=== PATIENT | female | born 1945 | race Caucasian/White ===

== ENCOUNTER 2018-05-19 13:01 | Emergency (ER) | payer MEDICARE ==
[2018-05-19 13:40] VITALS: PULSE 70; O2SAT 97
[2018-05-19] MEDS ORDERED: Sodium Chloride 0.9% 1000 ML 1,000 ML IV STA (14:02)
--- NOTE | 2018-05-19 14:02 | ERPHSYRPT ---
- History of Present Illness Time Seen by Provider: 05/19/18 13:48 Source: patient Exam Limitations: no limitations Patient Subjective Stated Complaint: diarrhea since yesterday night. no abdominal pain. has had indigestion Triage Nursing Assessment: alert and oriented. diarrhea since lst night. hypo active BSx4. has had indigestion staes spit up. but did not vomit. Physician History: 72-year-old white female with history of arrhythmia, coronary artery disease, high blood pressure Patient arrives with complaint of multiple loose stool since last night she states she's had for 5 she denies any abdominal pain but states her belly is grumbling. No nausea no vomiting. Past medical history includes arrhythmia, coronary artery disease, high blood pressure Past surgical history includes , tubal ligation Social history patient denies tobacco alcohol or illicit drug use. Timing/Duration: yesterday Severity: moderate Modifying Factors: Improves With: nothing Associated Symptoms: other (diarrhea), No nausea, No vomiting, No abdominal pain , No shortness of breath, No heartburn, No diaphoresis, No cough, No chills, No chest pain, No fever, No headaches, No loss of appetite, No malaise, No rash, No syncope, No seizure, No weakness Allergies/Adverse Reactions: clarithromycin [From Biaxin] Allergy (Verified 05/19/18 13:44) Home Medications: Albuterol Sulfate [Proair Hfa] 8.5 gm IH QIDPRN PRN 07/21/14 [History] Carvedilol 6.25 mg [Coreg 6.25 MG] 6.25 mg PO BID 07/21/14 [History] Ergocalciferol (Vitamin D2) [Vitamin D] 50,000 unit PO WEEKLY 07/21/14 [History] Escitalopram Oxalate [Lexapro] 20 mg PO DAILY 07/21/14 [History] Potassium Chloride 20 meq PO DAILY 07/21/14 [History] Simvastatin 40 mg [Zocor 40 mg] 40 mg PO HS 07/21/14 [History] Hx Tetanus, Diphtheria Vaccination/Date Given: Yes (UNKNOWN) Hx Influenza Vaccination/Date Given: No Hx Pneumococcal Vaccination/Date Given: No - Review of Systems Constitutional: No Fever, No Chills Eyes: No Symptoms Ears, Nose, & Throat: No Symptoms Respiratory: No Cough, No Dyspnea Cardiac: No Chest Pain, No Edema, No Syncope Abdominal/Gastrointestinal: Diarrhea, No Abdominal Pain, No Nausea, No Vomiting , No Constipation, No Hematemesis, No Hematochezia, No Melena, No Dysphagia, No Appetite Changes Genitourinary Symptoms: No Dysuria Musculoskeletal: No Back Pain, No Neck Pain Skin: No Rash Neurological: No Dizziness, No Focal Weakness, No Sensory Changes Psychological: No Symptoms Endocrine: No Symptoms All Other Systems: Reviewed and Negative - Past Medical History Pertinent Past Medical History: Yes Cardiac History: Arrhythmia, Coronary Artery Disease, Hypertension - Past Surgical History Past Surgical History: Yes - Social History Smoking Status: Never smoker Exposure to second hand smoke: No Drug Use: none Patient Lives Alone: No Significant Family History: no pertinent family hx - Female History Hx Now: No - Nursing Vital Signs Nursing Vital Signs: Initial Vital Signs Temperature 97.8 F 05/19/18 13:33 Pulse Rate 70 05/19/18 13:33 Respiratory Rate 18 05/19/18 13:33 Blood Pressure 93/53 05/19/18 13:33 O2 Sat by Pulse Oximetry 97 05/19/18 13:33 Pain Scale Pain Intensity 0 - Physical Exam General Appearance: no apparent distress, alert Eye Exam: PERRL/EOMI, eyes nml inspection Ears, Nose, Throat Exam: normal ENT inspection, TMs normal, pharynx normal, moist mucous membranes Neck Exam: normal inspection, non-tender, supple, full range of motion Respiratory Exam: normal breath sounds, lungs clear, No respiratory distress Cardiovascular Exam: regular rate/rhythm, normal heart sounds, normal peripheral pulses Gastrointestinal/Abdomen Exam: soft, normal bowel sounds, tenderness, distention (mildly distended), No mass, No ecchymosis, No pulsatile mass, No rebound, No hernia, No hepatomegaly, No organomegaly, No splenomegaly Back Exam: normal inspection, normal range of motion, No CVA tenderness, No vertebral tenderness Extremity Exam: normal inspection, normal range of motion, pelvis stable Neurologic Exam: alert, oriented x 3, cooperative, normal mood/affect, nml cerebellar function, nml station & gait, sensation nml, No motor deficits Skin Exam: normal color, warm, dry, No rash SpO2 Interpretation: normal (97%) SpO2: 97 Oxygen Delivery: Room Air - Course Nursing assessment & vital signs reviewed: Yes Ordered Tests: Active Orders 24 hr Category Date Time Status IV Insertion STAT Care 05/19/18 14:02 Active Orthostatic Vital Signs STAT Care 05/19/18 14:03 Active AMYLASE Stat Lab 05/19/18 14:15 Completed CBC W DIFF Stat Lab 05/19/18 14:15 Completed CMP Stat Lab 05/19/18 14:15 Completed LIPASE Stat Lab 05/19/18 14:15 Completed Occult Blood,Stool Other Stat Lab 05/19/18 14:02 Completed Medication Summary Discontinued Medications Generic Name Dose Route Start Last Admin Trade Name Freq PRN Reason Stop Dose Admin Sodium Chloride 1,000 mls @ 999 mls/hr 05/19/18 14:02 05/19/18 14:27 Sodium Chloride 0.9% 1000 Ml IV 05/19/18 15:02 999 mls/hr .Q1H1M STA Administration Sodium Chloride Confirm 05/19/18 14:24 Sodium Chloride 0.9% 1000 Ml Administered 05/19/18 14:25 Dose 1,000 mls @ ud .ROUTE .STK-MED ONE Promethazine HCl 12.5 mg 05/19/18 14:20 05/19/18 14:27 Phenergan 25 Mg Inj IV 05/19/18 14:21 12.5 mg STAT ONE Administration Promethazine HCl Confirm 05/19/18 14:23 Phenergan 25 Mg Inj Administered 05/19/18 14:24 Dose 25 mg .ROUTE .STK-MED ONE Lab/Rad Data: Laboratory Result Diagrams 05/19/18 14:15 05/19/18 14:15 Laboratory Results 05/19/18 05/19/18 05/19/18 Range/Units 14:15 14:15 14:02 WBC 6.6 (4.0-10.5) K/mm3 RBC 3.86 L (4.1-5.4) M/mm3 Hgb 11.8 L (12.0-16.0) gm/dl Hct 36.0 (35-47) % MCV 93.3 (78-100) fl MCH 30.5 (26-32) pg MCHC 32.8 (32-36) g/dl RDW 13.2 (11.5-14.0) % Plt Count 151 (150-450) K/mm3 MPV 12.3 H (6-9.5) fl Gran % 82.4 H (36.0-66.0) % Eos # (Auto) 0.14 (0-0.5) Absolute Lymphs (auto) 0.61 L (1.0-4.6) Absolute Monos (auto) 0.40 (0.0-1.3) Lymphocytes % 9.2 L (24.0-44.0) % Monocytes % 6.0 (0.0-12.0) % Eosinophils % 2.1 (0.00-5.0) % Basophils % 0.3 (0.0-0.4) % Absolute Granulocytes 5.47 (1.4-6.9) Basophils # 0.02 (0-0.4) Sodium 138 (137-145) mmol/L Potassium 4.2 (3.5-5.1) mmol/L Chloride 106 (98-107) mmol/L Carbon Dioxide 20 L (22-30) mmol/L Anion Gap 15.2 H (5-15) MEQ/L BUN 26 H (7-17) mg/dL Creatinine 0.82 (0.52-1.04) mg/dL Estimated GFR > 60.0 ML/MIN Glucose 100 (74-106) mg/dL Calcium 8.5 (8.4-10.2) mg/dL Total Bilirubin 0.60 (0.2-1.3) mg/dL AST 26 (14-36) U/L ALT 23 (0-35) U/L Alkaline Phosphatase 56 (38-126) U/L Serum Total Protein 7.4 (6.3-8.2) g/dL Albumin 4.3 (3.5-5.0) g/dL Amylase 117 H (30-110) U/L Lipase 158 (23-300) U/L Stool Occult Blood POSITIVE (Negative) - Progress Progress: improved Progress Note: 05/19/18 16:16 72-year-old white female with history of arrhythmia coronary artery disease and hypertension arrives with complaint of loose stools since yesterday. She states she feels gassy but no real abdominal pain. Patient's chemistry CBC are within normal limits patient is unable to provide stool for C. difficile. Patient with hematemesis which is positive however it is occult and her stool is brown. Patient feeling better after 1 L of fluids. She is taking Imodium at home, however patient feels this is not working, will place patient on Lomotil. Will plan to discharge patient place patient on clear fluids 24-48 hours patient will need to follow-up with her family doctor due to finding of occult blood in her stool. Patient's hemoglobin and hematocrit are stable with hemoglobin 11.8 hematocrit 36.0 patient's white count of 6.6 chemistry is essentially normal with the exception of a mildly elevated amylase of 117 a BUN of 26 and a anion gap of 15.2 patient was given 1 L of normal saline. 05/19/18 16:50 - Departure Time of Disposition: 16:18 Departure Disposition: Home Clinical Impression: Occult blood positive stool Diarrhea Qualifiers: Diarrhea type: unspecified type Qualified Code(s): R19.7 - Diarrhea, unspecified Condition: Fair Critical Care Time: No Referrals: LESTER FRAUSTO MD [Primary Care Provider] - Instructions: Viral Gastroenteritis, Adult (DC) Additional Instructions: Return home. Plenty of fluids clear fluids only 24-48 hours if abdominal pain, nausea, vomiting, or diarrhea. lomotil as directed Follow-up with your family doctor call Sunday and schedule an appointment. Return for acute distress or for severe symptoms. Prescriptions: Diphenoxylate HCl/Atropine [Lomotil] 1 tab PO QIDPRN PRN #12 tablet PRN Reason: Diarrhea
[2018-05-19 14:20] VITALS: BP 96/50
[2018-05-19] MEDS ORDERED: Phenergan 25 MG INJ IV ONE (14:20)
[2018-05-19] MEDS ORDERED: Phenergan 25 MG INJ ONE (14:23)
[2018-05-19] MEDS ORDERED: Sodium Chloride 0.9% 1000 ML 1,000 ML ONE (14:24)
[2018-05-19 14:27] LABS: BASOPHIL % 0.3 % (0.0-0.4); Basophil (Absolute #) 0.02 (0-0.4); Eosinophil % 2.1 % (0.00-5.0); Eosinophil (Absolute #) 0.14 (0-0.5); Granulocyte Absolute (ANC) 5.47 (1.4-6.9); Granulocytes % 82.4 % (36.0-66.0); Hemoglobin 11.8 gm/dl (12.0-16.0); Lymphocyte (Absolute #) 0.61 (1.0-4.6); Lymphocytes % 9.2 % (24.0-44.0); Mean Cell Volume 93.3 fl (78-100); Mean Corpuscular Hgb Concent. 32.8 g/dl (32-36); Mean Platelet Volume 12.3 fl (6-9.5); Platelet Count 151 K/mm3 (150-450); Red Blood Count 3.86 M/mm3 (4.1-5.4); Red Cell Distribution Width 13.2 % (11.5-14.0); White Blood Count 6.6 K/mm3 (4.0-10.5)
[2018-05-19 14:37] LABS: Mean Corpuscular Hemoglobin 30.5 pg (26-32)
[2018-05-19 14:42] LABS: ALBUMIN 4.3 g/dL (3.5-5.0); ALKALINE PHOSPHATASE 56 U/L (38-126); AMYLASE 117 U/L (30-110); ANION GAP 15.2 MEQ/L (5-15); BLOOD UREA NITROGEN 26 mg/dL (7-17); CHLORIDE 106 mmol/L (98-107); Calcium 8.5 mg/dL (8.4-10.2); Carbon Dioxide 20 mmol/L (22-30); Creatinine 1 0.82 mg/dL (0.52-1.04); Glucose 100 mg/dL (74-106); LIPASE 158 U/L (23-300); Potassium 4.2 mmol/L (3.5-5.1); SGOT/AST 26 U/L (14-36); SGPT/ALT 23 U/L (0-35); SODIUM 138 mmol/L (137-145); Total Protein 7.4 g/dL (6.3-8.2)
== END 2018-05-19 16:40 | disposition home or self-care (01) ==
LOC: ED 13:01
DX: R19.5 Other fecal abnormalities (principal); R19.7 Diarrhea, unspecified; I25.10 Atherosclerotic heart disease of native coronary artery without angina pectoris; I10 Essential (primary) hypertension
CPT/HCPCS: 36000; 36415; 80053; 82150; 82272; 83690; 85025; 96360; 96374; 99284; J2550

== ENCOUNTER 2019-01-10 17:15 | Emergency (ER) | payer MEDICARE ==
[2019-01-10] MEDS ORDERED: Zofran 4 MG/2 ML VIAL IV ONE (17:35)
[2019-01-10] MEDS ORDERED: Zofran 4 MG/2 ML VIAL ONE (17:38)
--- NOTE | 2019-01-10 18:05 | ERPHSYRPT ---
- History of Present Illness Historian: patient Exam Limitations: clinical condition Patient Subjective Stated Complaint: weakness and nausea /vomiting x 1 today. just feeling bad Triage Nursing Assessment: alert and oriented witn c/o nausea and vomiting x 1 . states she just feels bad. states just feeling weak. PALACIOS. neuro intact. Timing/Duration: today Activities at Onset: none Abdominal Pain Onset Location: epigastric Pain Radiation: no radiation Severity of Pain-Max: mild Severity of Pain-Current: mild Associated Symptoms: nausea, neck pain, weakness Previous symptoms: same symptoms as today Hx Tetanus, Diphtheria Vaccination/Date Given: Yes (UNKNOWN) Hx Influenza Vaccination/Date Given: No Hx Pneumococcal Vaccination/Date Given: No Immunizations Up to Date: (unknown) <ABILIO LANGLEY - Last Filed: 01/10/19 19:05> <LESTER FRAUSTO - Last Filed: 01/10/19 20:36> - History of Present Illness Time Seen by Provider: 01/10/19 17:30 Physician History: PATIENT WITH A HISTORY OF CORONARY ARTERY DISEASE, HYPERTENSION AND COPD COMPLAINS OF GENERALIZED WEAKNESS UPON STANDING, NAUSEA AND EMESIS PRIOR TO ARRIVAL. DENIES HEADACHE, BLURRED VISION, SLURRED SPEECH OR ABDOMINAL PAIN. ( ABILIO LANGLEY) Allergies/Adverse Reactions: clarithromycin [From Biaxin] Allergy (Verified 01/10/19 17:41) Home Medications: Albuterol Sulfate [Proair Hfa] 8.5 gm IH QIDPRN PRN 07/21/14 [History] Carvedilol 6.25 mg [Coreg 6.25 MG] 6.25 mg PO BID 07/21/14 [History] Ergocalciferol (Vitamin D2) [Vitamin D] 50,000 unit PO WEEKLY 07/21/14 [History] Escitalopram Oxalate [Lexapro] 20 mg PO DAILY 07/21/14 [History] Simvastatin 40 mg [Zocor 40 mg] 40 mg PO HS 07/21/14 [History] Sacubitril/Valsartan [Entresto 49 mg-51 mg Tablet] 1 each PO BID 01/10/19 [ History] - Review of Systems Constitutional: No Fever, No Chills Eyes: No Symptoms Ears, Nose, & Throat: No Symptoms Respiratory: No Symptoms, No Cough, No Dyspnea Cardiac: No Symptoms, No Chest Pain, No Edema, No Syncope Abdominal/Gastrointestinal: Abdominal Pain, Nausea, Vomiting, No Diarrhea Genitourinary Symptoms: No Symptoms, No Dysuria Musculoskeletal: No Symptoms, No Back Pain, No Neck Pain Skin: No Symptoms, No Rash Neurological: No Dizziness, No Focal Weakness, No Sensory Changes Psychological: No Symptoms Endocrine: No Symptoms All Other Systems: Reviewed and Negative <KORINABILIO MUSE - Last Filed: 01/10/19 19:05> - Past Medical History Pertinent Past Medical History: Yes Cardiac History: Arrhythmia, Coronary Artery Disease, Hypertension - Past Surgical History Past Surgical History: Yes - Social History Smoking Status: Never smoker Exposure to second hand smoke: Yes Drug Use: none Patient Lives Alone: Yes Significant Family History: no pertinent family hx - Female History Hx Now: No <KORINABILIO MUSE Last Filed: 01/10/19 19:05> - Physical Exam General Appearance: no apparent distress Eye Exam: PERRL/EOMI Ears, Nose, Throat Exam: normal ENT inspection Neck Exam: normal inspection Respiratory Exam: normal breath sounds Cardiovascular Exam: regular rate/rhythm, normal heart sounds Gastrointestinal/Abdomen Exam: soft, normal bowel sounds, tenderness (MINIMAL EPIGASTRIC TENDERNESS) Back Exam: normal inspection Extremity Exam: normal inspection, normal range of motion Neurologic Exam: alert, oriented x 3 Skin Exam: normal color, warm SpO2 Interpretation: normal SpO2: 97 O2 Delivery: Nasal Cannula <ABILIO LANGLEY Last Filed: 01/10/19 19:05> - Nursing Vital Signs Nursing Vital Signs: Initial Vital Signs Temperature 97.8 F 01/10/19 17:15 Pulse Rate 90 01/10/19 17:15 Respiratory Rate 18 01/10/19 17:15 Blood Pressure 132/91 01/10/19 17:15 O2 Sat by Pulse Oximetry 97 01/10/19 17:15 Pain Scale Pain Intensity 0 - Course Nursing assessment & vital signs reviewed: Yes - Radiology Exams Chest X-ray Interpretation: Reviewed by me (no acute changes) <LESTER FRAUSTO - Last Filed: 01/10/19 20:36> Ordered Tests: Active Orders 24 hr Category Date Time Status EKG-ER Only STAT Care 01/10/19 17:35 Active IV Insertion STAT Care 01/10/19 17:35 Active ABDOMEN AND PELVIS W/0 CONTRAS [CT] Stat Exams 01/10/19 18:47 Taken CHEST 1 VIEW (PORTABLE) Stat Exams 01/10/19 19:28 Taken AMYLASE Stat Lab 01/10/19 19:59 Completed CBC W DIFF Stat Lab 01/10/19 19:59 Completed CMP Stat Lab 01/10/19 19:59 Completed Lactic Acid Stat Lab 01/10/19 19:54 Completed TROPONIN Q3H Lab 01/10/19 19:59 Received TROPONIN Q3H Lab 01/10/19 22:30 Ordered TROPONIN Q3H Lab 01/11/19 01:30 Ordered TROPONIN Q3H Lab 01/11/19 04:30 Ordered TROPONIN Q3H Lab 01/11/19 07:30 Ordered Urinalysis with Microscopy Stat Lab 01/10/19 18:40 Completed Medication Summary Discontinued Medications Generic Name Dose Route Start Last Admin Trade Name Freq PRN Reason Stop Dose Admin Sodium Chloride 1,000 mls @ 999 mls/hr 01/10/19 19:28 01/10/19 19:39 Sodium Chloride 0.9% 1000 Ml IV 01/10/19 20:28 999 mls/hr .Q1H1M STA Administration Sodium Chloride Confirm 01/10/19 19:33 Sodium Chloride 0.9% 1000 Ml Administered 01/10/19 19:34 Dose 1,000 mls @ ud .ROUTE .STK-MED ONE Ondansetron HCl 4 mg 01/10/19 17:35 01/10/19 17:42 Zofran 4 Mg/2 Ml Vial IV 01/10/19 17:36 4 mg STAT ONE Administration Ondansetron HCl Confirm 01/10/19 17:38 Zofran 4 Mg/2 Ml Vial Administered 01/10/19 17:39 Dose 4 mg .ROUTE .STK-MED ONE Lab/Rad Data: Laboratory Result Diagrams 01/10/19 19:59 01/10/19 19:59 Laboratory Results 01/10/19 01/10/19 01/10/19 Range/Units 19:59 19:59 19:54 WBC 8.1 (4.0-10.5) K/mm3 RBC 3.66 L (4.1-5.4) M/mm3 Hgb 11.4 L (12.0-16.0) gm/dl Hct 34.9 L (35-47) % MCV 95.4 (78-100) fl MCH 31.1 (26-32) pg MCHC 32.7 (32-36) g/dl RDW 12.5 (11.5-14.0) % Plt Count 139 L (150-450) K/mm3 MPV 12.3 H (6-9.5) fl Gran % 88.1 H (36.0-66.0) % Eos # (Auto) 0.01 (0-0.5) Absolute Lymphs (auto) 0.40 L (1.0-4.6) Absolute Monos (auto) 0.54 (0.0-1.3) Lymphocytes % 4.9 L (24.0-44.0) % Monocytes % 6.7 (0.0-12.0) % Eosinophils % 0.1 (0.00-5.0) % Basophils % 0.2 (0.0-0.4) % Absolute Granulocytes 7.15 H (1.4-6.9) Basophils # 0.02 (0-0.4) Sodium 135 L (137-145) mmol/L Potassium 4.5 (3.5-5.1) mmol/L Chloride 101 (98-107) mmol/L Carbon Dioxide 25 (22-30) mmol/L Anion Gap 14.1 (5-15) MEQ/L BUN 19 H (7-17) mg/dL Creatinine 0.75 (0.52-1.04) mg/dL Estimated GFR > 60.0 ML/MIN Glucose 115 H (74-106) mg/dL Lactic Acid 1.3 (0.4-2.0) Calcium 8.6 (8.4-10.2) mg/dL Total Bilirubin 0.60 (0.2-1.3) mg/dL AST 24 (14-36) U/L ALT 22 (0-35) U/L Alkaline Phosphatase 54 (38-126) U/L Serum Total Protein 7.5 (6.3-8.2) g/dL Albumin 4.1 (3.5-5.0) g/dL Amylase 105 (30-110) U/L Urine Color (YELLOW) Urine Appearance (CLEAR) Urine pH (5-6) Ur Specific Doss (1.005-1.025) Urine Protein (Negative) Urine Ketones (NEGATIVE) Urine Blood (0-5) Wan/ul Urine Nitrite (NEGATIVE) Urine Bilirubin (NEGATIVE) Urine Urobilinogen (0-1) mg/dL Ur Leukocyte Esterase (NEGATIVE) Urine WBC (Auto) (0-5) /HPF Urine RBC (Auto) (0-2) /HPF U Epithel Cells (Auto) (FEW) /HPF Urine Bacteria (Auto) (NEGATIVE) /HPF Urine Mucus (Auto) (NEGATIVE) /HPF Urine Glucose (NEGATIVE) mg/dL 01/10/19 Range/Units 18:40 WBC (4.0-10.5) K/mm3 RBC (4.1-5.4) M/mm3 Hgb (12.0-16.0) gm/dl Hct (35-47) % MCV (78-100) fl MCH (26-32) pg MCHC (32-36) g/dl RDW (11.5-14.0) % Plt Count (150-450) K/mm3 MPV (6-9.5) fl Gran % (36.0-66.0) % Eos # (Auto) (0-0.5) Absolute Lymphs (auto) (1.0-4.6) Absolute Monos (auto) (0.0-1.3) Lymphocytes % (24.0-44.0) % Monocytes % (0.0-12.0) % Eosinophils % (0.00-5.0) % Basophils % (0.0-0.4) % Absolute Granulocytes (1.4-6.9) Basophils # (0-0.4) Sodium (137-145) mmol/L Potassium (3.5-5.1) mmol/L Chloride (98-107) mmol/L Carbon Dioxide (22-30) mmol/L Anion Gap (5-15) MEQ/L BUN (7-17) mg/dL Creatinine (0.52-1.04) mg/dL Estimated GFR ML/MIN Glucose (74-106) mg/dL Lactic Acid (0.4-2.0) Calcium (8.4-10.2) mg/dL Total Bilirubin (0.2-1.3) mg/dL AST (14-36) U/L ALT (0-35) U/L Alkaline Phosphatase (38-126) U/L Serum Total Protein (6.3-8.2) g/dL Albumin (3.5-5.0) g/dL Amylase (30-110) U/L Urine Color YELLOW (YELLOW) Urine Appearance CLEAR (CLEAR) Urine pH 7.0 (5-6) Ur Specific Doss 1.013 (1.005-1.025) Urine Protein NEGATIVE (Negative) Urine Ketones NEGATIVE (NEGATIVE) Urine Blood NEGATIVE (0-5) Wan/ul Urine Nitrite NEGATIVE (NEGATIVE) Urine Bilirubin NEGATIVE (NEGATIVE) Urine Urobilinogen NEGATIVE (0-1) mg/dL Ur Leukocyte Esterase NEGATIVE (NEGATIVE) Urine WBC (Auto) 3-5 (0-5) /HPF Urine RBC (Auto) NONE (0-2) /HPF U Epithel Cells (Auto) NONE (FEW) /HPF Urine Bacteria (Auto) NONE (NEGATIVE) /HPF Urine Mucus (Auto) SLIGHT (NEGATIVE) /HPF Urine Glucose NEGATIVE (NEGATIVE) mg/dL <ABILIO LANGLEY - Last Filed: 01/10/19 19:05> - Progress Progress: improved Counseled pt/family regarding: lab results, diagnosis, need for follow-up, rad results <LESTER FRAUSTO - Last Filed: 01/10/19 20:36> - Progress Progress Note: 01/10/19 18:44 IV NORMAL SALINE 100ML/HR, ZOFRAN 4MG, PROTONIX 40MG IV 01/10/19 19:05, PATIENT CARE ENDORSED TO DR FRAUSTO AT 1905 FOR DISPOSITION (ABILIO LANGLEY) <ABILIO LANGLEY - Last Filed: 01/10/19 19:05> - Departure Departure Disposition: Home Critical Care Time: No <LESTER FRAUSTO - Last Filed: 01/10/19 20:36> - Departure Clinical Impression: Vomiting Qualifiers: Vomiting type: unspecified Vomiting Intractability: non-intractable Nausea presence: without nausea Qualified Code(s): R11.11 - Vomiting without nausea UTI (urinary tract infection) Qualifiers: Urinary tract infection type: site unspecified Hematuria presence: without hematuria Qualified Code(s): N39.0 - Urinary tract infection, site not specified Condition: Stable Referrals: LESTER FRAUSTO MD [Primary Care Provider] - Instructions: Urinary Tract Infection, Adult (DC) Additional Instructions: Discharge/Care Plan TOSHAASTER [place] was seen on 06/14/19 in the Emergency Room. The patient was counseled regarding Diagnosis,Lab results, Imaging studies, need for follow up and when to return to the Emergency Room. Prescriptions given: Discharge Note I have spoken with the patient and/or caregivers. I have explained the patient' s condition, diagnosis and treatment plan based on the information available to me at this time. I have answered the patient's and/or caregiver's questions and addressed any concerns. The patient and/or caregivers have as good understanding of the patient's diagnosis, condition and treatment plan as can be expected at this point. The vital signs have been stable. The patient's condition is stable and appropriate for discharge from the emergency department. The patient will pursue further outpatient evaluation with the primary care physician or other designated or consulting physician as outlined in the discharge instructions. The patient and/or caregivers are agreeable to this plan of care and follow-up instructions have been explained in detail. The patient and/or caregivers have received these instruction. The patient/and or caregivers are aware that any significant change in condition or worsening of symptoms should prompt an immediate return to this or the closest emergency department or call 911. Prescriptions: Smz/Tmp Ds Tablet [Bactrim Ds Tablet] 1 udtab PO BID #20 tablet
[2019-01-10 19:14] LABS: Appearance CLEAR (CLEAR); Bilirubin NEGATIVE (NEGATIVE); Blood NEGATIVE Ery/ul (0-5); Glucose NEGATIVE (NEGATIVE); Ketones NEGATIVE (NEGATIVE); Leukocyte Esterase NEGATIVE (NEGATIVE); Mucus SLIGHT /HPF (NEGATIVE); Nitrite NEGATIVE (NEGATIVE); Protein,Urine Dip NEGATIVE (Negative); Specific Gravity 1.013 (1.005-1.025); Urobilinogen NEGATIVE mg/dL (0-1)
[2019-01-10 19:16] VITALS: PULSE 78
[2019-01-10] MEDS ORDERED: Sodium Chloride 0.9% 1000 ML 1,000 ML IV STA (19:28)
[2019-01-10] MEDS ORDERED: Sodium Chloride 0.9% 1000 ML 1,000 ML ONE (19:33)
[2019-01-10 20:09] LABS: BASOPHIL % 0.2 % (0.0-0.4); Basophil (Absolute #) 0.02 (0-0.4); Eosinophil % 0.1 % (0.00-5.0); Eosinophil (Absolute #) 0.01 (0-0.5); Granulocyte Absolute (ANC) 7.15 (1.4-6.9); Granulocytes % 88.1 % (36.0-66.0); Hematocrit 34.9 % (35-47); Hemoglobin 11.4 gm/dl (12.0-16.0); Lymphocytes % 4.9 % (24.0-44.0); Mean Cell Volume 95.4 fl (78-100); Mean Corpuscular Hemoglobin 31.1 pg (26-32); Mean Corpuscular Hgb Concent. 32.7 g/dl (32-36); Mean Platelet Volume 12.3 fl (6-9.5); Monocyte (Absolute #) 0.54 (0.0-1.3); Monocytes % 6.7 % (0.0-12.0); Platelet Count 139 K/mm3 (150-450); Red Blood Count 3.66 M/mm3 (4.1-5.4); Red Cell Distribution Width 12.5 % (11.5-14.0); White Blood Count 8.1 K/mm3 (4.0-10.5)
[2019-01-10 20:15] LABS: ALBUMIN 4.1 g/dL (3.5-5.0); ALKALINE PHOSPHATASE 54 U/L (38-126); AMYLASE 105 U/L (30-110); ANION GAP 14.1 MEQ/L (5-15); BLOOD UREA NITROGEN 19 mg/dL (7-17); CHLORIDE 101 mmol/L (98-107); Calcium 8.6 mg/dL (8.4-10.2); Carbon Dioxide 25 mmol/L (22-30); Creatinine 1 0.75 mg/dL (0.52-1.04); Glucose 115 mg/dL (74-106); Potassium 4.5 mmol/L (3.5-5.1); SGOT/AST 24 U/L (14-36); SGPT/ALT 22 U/L (0-35); SODIUM 135 mmol/L (137-145); Total Protein 7.5 g/dL (6.3-8.2)
[2019-01-10 20:22] VITALS: BP 140/71; O2SAT 91
--- NOTE | 2019-01-10 22:11 | XRAY ---
Indication: Epigastric pain, weakness, and fatigue. Acid reflux. Nausea and vomiting. Multiple contiguous axial images obtained through the abdomen and pelvis without contrast as ordered. Comparison: None Lung bases demonstrates scattered fibrosis/scarring and medial left lower lobe calcified granuloma. No infiltrate or effusion. Heart is not enlarged. Small hiatal hernia. Noncontrasted stomach and bowel loops appear nonobstructed. Appendix not seen. Mild diffuse scattered colonic fecal debris throughout. 3.5 cm left mid renal cyst. No free fluid/air. Remaining liver, gallbladder, pancreas, spleen, adrenal glands, kidneys, ureters, bladder, and uterus appears unremarkable for noncontrast exam. Minimal aortoiliac calcifications without AAA. Osseous structures intact with mild degenerative changes throughout the spine. Remote appearing L3 superior endplate fracture with less than 25% height loss. No ventral or inguinal hernias. Impression: 1. Small hiatal hernia, mild fecal stasis, left renal cyst, and remote L3 endplate fracture. 2. Remaining CT abdomen/pelvis without contrast exam is negative. Comment: Preliminary interpretation was made by [facility]. No critical discrepancy. CTDI 23.39
--- NOTE | 2019-01-10 22:13 | XRAY ---
Indication: Weakness. Comparison: March 28, 2010. Portable chest demonstrates minimal right infrahilar and left mid lung fibrosis/scarring. Remaining lungs clear. Heart is not enlarged for AP portable technique. Bony thorax intact with new left humerus orthopedic hardware. Impression: Nonacute chest with chronic features.
== END 2019-01-10 20:53 | disposition home or self-care (01) ==
LOC: ED 17:15
DX: R11.11 Vomiting without nausea (principal); N39.0 Urinary tract infection, site not specified
CPT/HCPCS: 36000; 36415; 71045; 74176; 80053; 81001; 82150; 83605; 84484; 85025; 93005; 96360; 96374; 99284; J2405

== ENCOUNTER 2019-01-21 14:41 | Observation (INO) | payer MEDICARE ==
[2019-01-21] MEDS ORDERED: Ventolin Hfa MDI IH PRN (16:58)
[2019-01-21] MEDS ORDERED: PROVENTIL COMMON CANISTER IH PRN (17:08)
[2019-01-21 17:39] LABS: Hematocrit 31.4 % (35-47); Hemoglobin 10.6 gm/dl (12.0-16.0); Mean Cell Volume 90.2 fl (78-100); Mean Corpuscular Hgb Concent. 33.8 g/dl (32-36); Mean Platelet Volume 12.8 fl (6-9.5); Platelet Count 87 K/mm3 (150-450); Red Blood Count 3.48 M/mm3 (4.1-5.4); Red Cell Distribution Width 13.3 % (11.5-14.0); White Blood Count 3.8 K/mm3 (4.0-10.5)
[2019-01-21 17:43] LABS: ALBUMIN 3.5 g/dL (3.5-5.0); ANION GAP 16.2 MEQ/L (5-15); BILIRUBIN,TOTAL 0.4 mg/dL (0.2-1.3); Calcium 8.4 mg/dL (8.4-10.2); Creatinine 1 2.1 mg/dL (0.52-1.04); Total Protein 6.7 g/dL (6.3-8.2)
[2019-01-21 17:48] LABS: Mean Corpuscular Hemoglobin 30.4 pg (26-32)
[2019-01-21 18:40] LABS: Appearance SLIGHTLY CLOUDY (CLEAR); Bilirubin NEGATIVE (NEGATIVE); Blood SMALL Ery/ul (0-5); Glucose NEGATIVE (NEGATIVE); Ketones NEGATIVE (NEGATIVE); Leukocyte Esterase NEGATIVE (NEGATIVE); Mucus SLIGHT /HPF (NEGATIVE); Nitrite NEGATIVE (NEGATIVE); Protein,Urine Dip 30 (Negative); Specific Gravity 1.008 (1.005-1.025); Urobilinogen NEGATIVE mg/dL (0-1)
[2019-01-21] MEDS ORDERED: TYLENOL 325 MG PO PRN (19:44)
[2019-01-21] MEDS: PATIENT OWN MEDICATION IH SCH (20:05)
[2019-01-21] MEDS ORDERED: Sodium Chloride 0.9% 500 ML 500 ML IV ONE (20:25)
[2019-01-21] MEDS: Coreg 6.25 MG PO SCH (21:07)
[2019-01-21] MEDS: ENTRESTO 49 MG-51 MG TABLET PO SCH (21:07)
[2019-01-21] MEDS: ZOCOR 20MG PO SCH (21:07)
[2019-01-21] MEDS ORDERED: NON-FORMULARY ITEM (Simvastatin 40 Mg [Zocor 40 Mg] 40 MG) PO SCH (22:00)
[2019-01-22] MEDS: Sodium Chloride 0.9% 1000 ML 1,000 ML IV SCH ×2 (01:01→14:31)
[2019-01-22] MEDS: PATIENT OWN MEDICATION IH SCH ×2 (07:15→17:20)
[2019-01-22] MEDS ORDERED: PATIENT OWN MEDICATION IH PRN (07:18)
[2019-01-22] MEDS ORDERED: Zofran 4 MG/2 ML VIAL IV PRN (08:32)
--- NOTE | 2019-01-22 08:56 | PCM.HP ---
History of Present Illness - Chief Complaint Chief Complaint: weakness, for 1 week History of Present Illness: is a 73 year old female was admitted with worsening weakness, nausea and vomiting for 1 week. - Review of Systems Constitutional: No Fever, No Chills Eyes: No Symptoms Ears, Nose, & Throat: No Symptoms Respiratory: No Cough, No Short Of Breath Cardiac: No Chest Pain, No Edema, No Syncope Abdominal/Gastrointestinal: No Abdominal Pain, No Nausea, No Vomiting, No Diarrhea Genitourinary Symptoms: No Dysuria Musculoskeletal: No Back Pain, No Neck Pain Skin: No Rash Neurological: No Dizziness, No Focal Weakness, No Sensory Changes Psychological: No Symptoms Endocrine: No Symptoms Hematologic/Lymphatic: No Symptoms Immunological/Allergic: No Symptoms Medications & Allergies Home Medications: Home Medication List Albuterol Sulfate [Proair Hfa] 8.5 gm IH QIDPRN PRN 07/21/14 [History Confirmed 01/21/19] Carvedilol 6.25 mg [Coreg 6.25 MG] 6.25 mg PO BID 07/21/14 [History Confirmed 01/21/19] Escitalopram Oxalate [Lexapro] 20 mg PO DAILY 07/21/14 [History Confirmed ] Simvastatin 40 mg [Zocor 40 mg] 40 mg PO HS 07/21/14 [History Confirmed 01/21/19 ] Sacubitril/Valsartan [Entresto 49 mg-51 mg Tablet] 1 each PO BID 01/10/19 [ History Confirmed 01/21/19] Cholecalciferol (Vitamin D3) [Vitamin D3] 1,000 iu PO DAILY 01/21/19 [History Confirmed 01/21/19] Cyanocobalamin (Vitamin B-12) [B-12] 1,000 mcg PO DAILY 01/21/19 [History Confirmed 01/21/19] Driscoll-3/Dha/Epa/Fish Oil [Driscoll 3 500 Softgel] 520 mcg PO DAILY 01/21/19 [ History Confirmed 01/21/19] Allergies/Adverse Reactions: Allergies Allergy/AdvReac Type Severity Reaction Status Date / Time clarithromycin [From Biaxin] Allergy Verified 01/10/19 17:41 - Past Medical History Past Medical History: Yes Neurological History: No Pertinent History ENT History: Cataracts Cardiac History: Arrhythmia, Coronary Artery Disease Respiratory History: Bronchitis, CHF, COPD, Pneumonia Endocrine Medical History: Hypothyroidism Musculoskelatal History: Arthritis, Osteoarthritis GI Medical History: GERD Pyscho-Social History: Anxiety Reproductive Disorders: No Pertinent History Comment: [place], left hearing aid, doesnt wear - Female History Are you now?: No - Past Surgical History Past Surgical History: Yes Neuro Surgical History: No Pertinent History Cardiac History: No Pertinent History Respiratory Surgery: No Pertinent History GI Surgical History: No Pertinent History Genitourinary Surgical Hx: No Pertinent History Musculskeletal Surgical Hx: No Pertinent History Female Surgical History: Hysterectomy - Social History Smoking Status: Never smoker Exposure to second hand smoke: No Alcohol: None Drug Use: none Significant Family History: no pertinent family hx - Physical Exam Vital Signs: Vital Signs - 24 hr Temp Pulse Resp BP Pulse Ox 01/22/19 08:00 97.8 F 68 20 94/46 99 01/22/19 07:19 69 18 93 L 01/22/19 04:00 97.9 F 61 18 100/56 98 01/22/19 00:00 97.7 F 66 16 90/50 95 01/21/19 20:20 97.9 F 62 18 72/38 94 L 01/21/19 20:07 64 16 96 01/21/19 20:06 96 01/21/19 19:03 83/57 01/21/19 15:25 97.7 F 72 16 92/54 95 Oxygen-Last 24 hours O2 Percentage 2 Liters = 28% O2 Percentage 2 Liters = 28% General Appearance: no apparent distress, alert Neurologic Exam: alert, oriented x 3, cooperative, normal mood/affect, nml cerebellar function, nml station & gait, sensation nml, No motor deficits Eye Exam: PERRL/EOMI, eyes nml inspection Ears, Nose, Throat Exam: normal ENT inspection, TMs normal, pharynx normal, moist mucous membranes Neck Exam: normal inspection, non-tender, supple, full range of motion Respiratory Exam: normal breath sounds, lungs clear, No respiratory distress Cardiovascular Exam: regular rate/rhythm, normal heart sounds, normal peripheral pulses Gastrointestinal/Abdomen Exam: soft, normal bowel sounds, No tenderness, No mass Back Exam: normal inspection, normal range of motion, No CVA tenderness, No vertebral tenderness Extremity Exam: normal inspection, normal range of motion, pelvis stable Skin Exam: normal color, warm, dry, No rash Lymphatic Exam: No adenopathy Results - Labs Lab/Micro Results: Lab Results-Last 24 Hours 01/21/19 01/21/19 01/21/19 Range/Units 15:45 15:45 18:15 WBC 3.8 L (4.0-10.5) K/mm3 RBC 3.48 L (4.1-5.4) M/mm3 Hgb 10.6 L (12.0-16.0) gm/dl Hct 31.4 L (35-47) % MCV 90.2 (78-100) fl MCH 30.4 (26-32) pg MCHC 33.8 (32-36) g/dl RDW 13.3 (11.5-14.0) % Plt Count 87 L (150-450) K/mm3 MPV 12.8 H (6-9.5) fl Sodium 127 L (137-145) mmol/L Potassium 5.0 (3.5-5.1) mmol/L Chloride 99 (98-107) mmol/L Carbon Dioxide 15 L* (22-30) mmol/L Anion Gap 16.2 H (5-15) MEQ/L BUN 36 H (7-17) mg/dL Creatinine 2.10 H (0.52-1.04) mg/dL Estimated GFR 24.6 ML/MIN Glucose 92 (74-106) mg/dL Calcium 8.4 (8.4-10.2) mg/dL Total Bilirubin 0.40 (0.2-1.3) mg/dL AST 34 (14-36) U/L ALT 27 (0-35) U/L Alkaline Phosphatase 41 (38-126) U/L Serum Total Protein 6.7 (6.3-8.2) g/dL Albumin 3.5 (3.5-5.0) g/dL Amylase 135 H (30-110) U/L Lipase 170 (23-300) U/L Urine Color YELLOW (YELLOW) Urine Appearance SLIGHTLY CLOUDY (CLEAR) Urine pH 5.0 (5-6) Ur Specific [place] 1.008 (1.005-1.025) Urine Protein 30 (Negative) Urine Ketones NEGATIVE (NEGATIVE) Urine Blood SMALL (0-5) Wan/ul Urine Nitrite NEGATIVE (NEGATIVE) Urine Bilirubin NEGATIVE (NEGATIVE) Urine Urobilinogen NEGATIVE (0-1) mg/dL Ur Leukocyte Esterase NEGATIVE (NEGATIVE) Urine WBC (Auto) 3-5 (0-5) /HPF Urine RBC (Auto) NONE (0-2) /HPF U Epithel Cells (Auto) NONE (FEW) /HPF Urine Bacteria (Auto) NONE (NEGATIVE) /HPF Urine Mucus (Auto) SLIGHT (NEGATIVE) /HPF Urine Culture Reflexed ORDERED SEPARATELY (NO) Urine Glucose NEGATIVE (NEGATIVE) mg/dL Slides for Path Review YES Microbiology 01/21/19 04:37 Urine Culture - Preliminary Urine, Void NO GROWTH TO DATE - Radiology Impressions Radiology Exams & Impressions: Radiology Procedures Category Date Time Status CHEST 1 VIEW (PORTABLE) Urgent Exams 01/21/19 21:21 Taken - Other Procedures and Tests Respiratory Therapy 01/21/19 19:00 Respiratory MDI BID 01/21/19 19:47 Oxygen Nasal Cannula 2 lpm 01/21/19 20:07 Respiratory Therapy Assessment DAILY Assessment/Plan (1) CHF (congestive heart failure), NYHA class III Current Visit: Yes Status: Acute Qualifiers: Congestive heart failure type: combined Congestive heart failure chronicity : acute on chronic Qualified Code(s): I50.43 - Acute on chronic combined systolic (congestive) and diastolic (congestive) heart failure Code(s): I50.9 - HEART FAILURE, UNSPECIFIED (2) UTI (urinary tract infection) Current Visit: No Status: Acute Qualifiers: Urinary tract infection type: acute cystitis Hematuria presence: without hematuria Qualified Code(s): N30.00 - Acute cystitis without hematuria Code(s): N39.0 - URINARY TRACT INFECTION, SITE NOT SPECIFIED (3) Vomiting Current Visit: No Status: Acute Code(s): R11.10 - VOMITING, UNSPECIFIED
--- NOTE | 2019-01-22 09:02 | XRAY ---
Indication: Dehydration. Comparison: January 10, 2019. Portable chest now underinflated and clear accentuating the cardiopulmonary structures. No new/acute cardiopulmonary abnormalities. Comment: Preliminary interpretation was made by [facility]. No discrepancy.
[2019-01-22] MEDS: Vitamin B-12 500 MCG PO SCH (09:18)
[2019-01-22] MEDS: ENTRESTO 49 MG-51 MG TABLET PO SCH ×2 (09:18→20:23)
[2019-01-22] MEDS: Lexapro 10 MG PO SCH (09:18)
[2019-01-22] MEDS: Coreg 6.25 MG PO SCH ×2 (09:18→20:23)
[2019-01-22] MEDS: VITAMIN D PO SCH (09:18)
[2019-01-22] MEDS ORDERED: NON-FORMULARY ITEM (Escitalopram Oxalate [Lexapro] 20 MG) PO SCH (10:00)
[2019-01-22] MEDS ORDERED: CHOLECALCIFEROL PO SCH (10:00)
[2019-01-22 10:13] LABS: ANION GAP 15.3 MEQ/L (5-15); BILIRUBIN,TOTAL 0.2 mg/dL (0.2-1.3); Calcium 7.7 mg/dL (8.4-10.2); Creatinine 1 1.34 mg/dL (0.52-1.04); Potassium 4.2 mmol/L (3.5-5.1)
[2019-01-22] MEDS: Protonix 40MG Tablet PO SCH (11:46)
[2019-01-22] MEDS: ZOCOR 20MG PO SCH (20:23)
[2019-01-23] MEDS: PATIENT OWN MEDICATION IH SCH (07:09)
[2019-01-23] MEDS: VITAMIN D PO SCH (09:14)
[2019-01-23] MEDS: Vitamin B-12 500 MCG PO SCH (09:14)
[2019-01-23] MEDS: Protonix 40MG Tablet PO SCH (09:14)
[2019-01-23] MEDS: Lexapro 10 MG PO SCH (09:14)
[2019-01-23] MEDS: Coreg 6.25 MG PO SCH (09:14)
[2019-01-23] MEDS: ENTRESTO 49 MG-51 MG TABLET PO SCH (09:15)
[2019-01-23] MEDS ORDERED: Colace 100 MG PO PRN (09:40)
[2019-01-23 12:52] VITALS: BP 103/57; PULSE 81; O2SAT 97
--- NOTE | 2019-01-23 13:58 | PCM.DS ---
Discharge Summary Date of Admission: 01/21/19 15:06 Admitting Physician: LESTER FRAUSTO Primary Care Provider: LESTER FRAUSTO Allergies Allergies clarithromycin [From Biaxin] Allergy (Verified 01/10/19 17:41) Hospital Summary - Hospital Course Hospital Course: Last Vital Signs Temp 97.5 F 01/23/19 12:00 Pulse 81 01/23/19 12:00 Resp 18 01/23/19 12:00 BP 103/57 01/23/19 12:00 Pulse Ox 97 01/23/19 12:00 Allergies clarithromycin [From Biaxin] Allergy (Verified 01/10/19 17:41) Active Medications Acetaminophen (Tylenol 325 Mg) 650 mg PO Q4H PRN PRN PRN Reason: PAIN AND/OR FEVER Stop: 02/20/19 19:43 Last Admin: 01/21/19 20:08 Dose: 650 mg Carvedilol (Coreg 6.25 Mg) 6.25 mg PO BID [facility] Stop: 02/20/19 21:59 Last Admin: 01/23/19 09:14 Dose: 6.25 mg Cholecalciferol (Vitamin D) 1,000 unit PO DAILY [facility] Stop: 02/21/19 09:59 Last Admin: 01/23/19 09:14 Dose: 1,000 unit Cyanocobalamin (Vitamin B-12 500 Mcg) 1,000 mcg PO DAILY [facility] Stop: 02/21/19 09:59 Last Admin: 01/23/19 09:14 Dose: 1,000 mcg Docusate Sodium (Colace 100 Mg) 100 mg PO BIDPRN PRN PRN Reason: constipation. Stop: 02/22/19 09:39 Last Admin: 01/23/19 10:42 Dose: 100 mg Escitalopram Oxalate (Lexapro 10 Mg) 20 mg PO DAILY [facility] Stop: 02/21/19 09:59 Last Admin: 01/23/19 09:14 Dose: 20 mg Sodium Chloride (Sodium Chloride 0.9% 1000 Ml) 1,000 mls @ 30 mls/hr IV .Q24H [facility] Stop: 02/20/19 16:59 Last Admin: 01/22/19 14:31 Dose: 100 mls/hr Ondansetron HCl (Zofran 4 Mg/2 Ml Vial) 4 mg IV Q6H PRN PRN PRN Reason: NAUSEA/VOMITING Stop: 02/21/19 08:31 Last Admin: 01/22/19 08:40 Dose: 4 mg Pantoprazole Sodium (Protonix 40mg Tablet) 40 mg PO DAILY [facility] Stop: 02/21/19 11:59 Last Admin: 01/23/19 09:14 Dose: 40 mg Patient Own Medication (Patient Own Medication) 0 each IH Q4HPRN PRN PRN Reason: SHORTNESS OF BREATH/WHEEZING Stop: 02/21/19 07:17 Last Admin: 01/22/19 15:02 Dose: 2 each Patient Own Medication (Patient Own Medication) 0 each IH BIDRT [facility] Stop: 02/20/19 21:59 Last Admin: 01/23/19 07:09 Dose: 2 each Sacubitril/Valsartan (Entresto 49 Mg-51 Mg Tablet) 1 tablet PO BID [facility] Stop: 02/20/19 21:59 Last Admin: 01/23/19 09:15 Dose: 1 tablet Simvastatin (Zocor 20mg) 40 mg PO HS [facility] Stop: 02/20/19 21:59 Last Admin: 01/22/19 20:23 Dose: 40 mg Intake & Output 01/23/19 01/24/19 11:59 11:59 Intake Total 3114 Output Total 2350 Balance 764 Orders 01/22/19 14:21 ECHO W/2D AND DOPPLER [US] Routine 01/22/19 19:00 Patient Own Med [Patient Own Medication] 0 each IH BIDRT 01/23/19 09:40 Docusate Sodium 100 mg [Colace 100 MG] 100 mg PO BIDPRN PRN Microbiology 01/21/19 04:37 Urine, Void Urine Culture - Final NO GROWTH 01/21/19 18:21 Blood Blood Culture - Preliminary NO GROWTH TO DATE - Vitals & Intake/Output Vital Signs: Vital Signs Temperature 97.5 F 01/23/19 12:00 Pulse Rate 81 01/23/19 12:00 Respiratory Rate 18 01/23/19 12:00 Blood Pressure 103/57 01/23/19 12:00 O2 Sat by Pulse Oximetry 97 01/23/19 12:00 Oxygen-Last Documented O2 Percentage 2 Liters = 28% Intake & Output: Intake & Output 01/21/19 01/22/19 01/23/19 01/24/19 11:59 11:59 11:59 11:59 Intake Total 2010 3113 Output Total 1449 2350 Balance 561 764 Weight 71.7 kg - Lab Result Diagrams: 01/21/19 15:45 01/22/19 09:50 Micro Results-Entire Visit: Microbiology 01/21/19 04:37 Urine Culture - Final Urine, Void NO GROWTH 01/21/19 18:21 Blood Culture - Preliminary Blood NO GROWTH TO DATE - Radiology Exams Ordered Rad Exams-Entire Visit: Radiology Procedures Category Date Time Status CHEST 1 VIEW (PORTABLE) Urgent Exams 01/21/19 21:21 Completed ECHO W/2D AND DOPPLER [US] Routine Exams 01/22/19 14:21 Taken - Procedures and Test Procedures and Tests throughout Hospitalization: Therapy Orders & Screens 01/21/19 16:04 RT Screen per Nursing Assess ONCE Comment: Protocol Order Physician Instructions: Greater than 3 points order RT Admission Screen Reason For Exam: Triggered on Admission Diagnosis: dehydration Diagnosis: dehydration Pneumonia: Yes Home O2: Yes Asthma: No CHF: Yes Home CPAP/BIPAP: No Home Nebs/MDI: No Total Points: 11 01/21/19 19:00 Respiratory MDI BID Comment: PT OWN SYMBICORT Diagnosis: DEHYDRATION,UTI 01/21/19 19:47 Oxygen Nasal Cannula 2 lpm Comment: Diagnosis: DEHYDRATION,UTI 01/21/19 20:07 Respiratory Therapy Assessment DAILY Comment: Diagnosis: DEHYDRATION,UTI Discharge Exam General Appearance: no apparent distress, alert Neurologic Exam: alert, oriented x 3, cooperative, normal mood/affect, nml cerebellar function, sensation nml, No motor deficits Eye Exam: PERRL, EOMI, eyes nml inspection Ears, Nose, Throat Exam: normal ENT inspection, pharynx normal, moist mucous membranes Neck Exam: normal inspection, non-tender, supple, full range of motion Respiratory Exam: normal breath sounds, lungs clear, No respiratory distress Cardiovascular Exam: regular rate/rhythm, normal heart sounds Gastrointestinal/Abdomen Exam: soft, No tenderness, No mass Pelvic Exam: deferred Rectal Exam: deferred Back Exam: normal inspection, normal range of motion, No CVA tenderness, No vertebral tenderness Extremity Exam: normal inspection, normal range of motion Skin Exam: normal color, warm, dry Final Diagnosis/Problem List - Final Discharge Diagnosis/Problem (1) CHF (congestive heart failure), NYHA class III Current Visit: Yes Status: Acute Assessment & Plan: improved Code(s): I50.9 - HEART FAILURE, UNSPECIFIED (2) UTI (urinary tract infection) Current Visit: Yes Status: Resolved Code(s): N39.0 - URINARY TRACT INFECTION , SITE NOT SPECIFIED (3) Vomiting Current Visit: No Status: Resolved Code(s): R11.10 - VOMITING, UNSPECIFIED - Discharge Discharge Date: 01/23/19 Disposition: Home, Self-Care Condition: Stable Prescriptions: Continue Carvedilol 6.25 mg [Coreg 6.25 MG] 6.25 mg PO BID Simvastatin 40 mg [Zocor 40 mg] 40 mg PO HS Escitalopram Oxalate [Lexapro] 20 mg PO DAILY Albuterol Sulfate [Proair Hfa] 8.5 gm IH QIDPRN PRN PRN Reason: Shortness Of Breath Sacubitril/Valsartan [Entresto 49 mg-51 mg Tablet] 1 each PO BID Cholecalciferol (Vitamin D3) [Vitamin D3] 1,000 iu PO DAILY Cyanocobalamin (Vitamin B-12) [B-12] 1,000 mcg PO DAILY Alexander-3/Dha/Epa/Fish Oil [Alexander 3 500 Softgel] 520 mcg PO DAILY Esomeprazole Magnesium [Nexium] 40 mg PO DAILY Follow up with: LESTER FRAUSTO MD [Primary Care Provider] - 1 Week
== END 2019-01-23 15:30 | disposition home or self-care (01) ==
LOC: MED SURG 15:06
PROVIDERS: ADMIT General Practice; ATTEND General Practice
DX: I50.9 Heart failure, unspecified (principal); N39.0 Urinary tract infection, site not specified; R11.2 Nausea with vomiting, unspecified; E86.0 Dehydration; J44.9 Chronic obstructive pulmonary disease, unspecified; E03.9 Hypothyroidism, unspecified; Z79.899 Other long term (current) drug therapy
CPT/HCPCS: 36415; 71045; 80053; 81001; 82150; 83690; 83880; 85027; 87040; 87086; 93268; 93306; 94640; 94760; G0378; J2405; A9270-GY

== ENCOUNTER 2019-05-26 13:12 | Emergency (ER) | payer MEDICARE ==
[2019-05-26] MEDS ORDERED: Sodium Chloride 0.9% 1000 ML 1,000 ML IV STA (13:57)
[2019-05-26] MEDS ORDERED: Zofran 4 MG/2 ML VIAL IV ONE (13:57)
[2019-05-26] MEDS ORDERED: Pepcid 20 MG VIAL IV ONE ×2 (13:57→14:29)
--- NOTE | 2019-05-26 14:00 | ERPHSYRPT ---
- History of Present Illness Time Seen by Provider: 05/26/19 13:50 Historian: patient Exam Limitations: no limitations Physician History: Patient had diarrhea times 3 and nausea prior to coming into the emergency department. Patient has not had any antibiotics or hospitalizations in the last three months, but was hospitalized 12/2018. Patient denies any suspicious food or beverage consumption or recent travel travel history in the past three months. Timing/Duration: today, hour(s) (1.5) Activities at Onset: none Quality: cramping Abdominal Pain Onset Location: other (none) Pain Radiation: other (no pain to radiate) Severity of Pain-Max: moderate Severity of Pain-Current: mild Modifying Factors: Improves With: defecating (briefly), other (took Imodium prior to arriving to the emergency department, which she is uncertain it is helping) Associated Symptoms: diarrhea, nausea, No back, No chest pain, No diaphoresis, No fever/chills, No fatigue, No headache, No heartburn, No loss of appetite, No neck pain, No rash, No shortness of breath, No syncope, No testicular pain, No vomiting, No weakness Previous symptoms: no prior history, no recent treatment Allergies/Adverse Reactions: clarithromycin [From [employer]] Allergy (Verified 05/26/19 13:58) Home Medications: Albuterol Sulfate [Proair Hfa] 8.5 gm IH QIDPRN PRN 07/21/14 [History] Carvedilol 6.25 mg [Coreg 6.25 MG] 6.25 mg PO BID 07/21/14 [History] Escitalopram Oxalate [Lexapro] 20 mg PO DAILY 07/21/14 [History] Simvastatin 40 mg [Zocor 40 mg] 40 mg PO HS 07/21/14 [History] Sacubitril/Valsartan [Entresto 49 mg-51 mg Tablet] 1 each PO BID 01/10/19 [ History] Cholecalciferol (Vitamin D3) [Vitamin D3] 1,000 iu PO DAILY 01/21/19 [History] Cyanocobalamin (Vitamin B-12) [B-12] 1,000 mcg PO DAILY 01/21/19 [History] [place]-3/Dha/Epa/Fish Oil [[place] 3 500 Softgel] 520 mcg PO DAILY 01/21/19 [ History] Esomeprazole Magnesium [Nexium] 40 mg PO DAILY 01/22/19 [History] Hx Tetanus, Diphtheria Vaccination/Date Given: Yes (UNKNOWN) Hx Influenza Vaccination/Date Given: No Hx Pneumococcal Vaccination/Date Given: No - Review of Systems Constitutional: No Fever, No Chills, No Fatigue Eyes: No Eye Pain, No Vision Changes Ears, Nose, & Throat: No Mouth Pain, No Mouth Swelling, No Throat Swelling, No Painful Swallowing Respiratory: No Cough, No Dyspnea Cardiac: No Chest Pain, No Palpitations, No Syncope Abdominal/Gastrointestinal: Nausea, Diarrhea, No Abdominal Pain, No Vomiting, No Hematemesis, No Hematochezia, No Melena Genitourinary Symptoms: No Dysuria, No Frequency, No Hematuria, No Flank Pain Musculoskeletal: No Back Pain, No Neck Pain Skin: No Pruritis, No Rash Neurological: No Focal Weakness, No Parasthesia, No Seizure, No Speech Changes Psychological: No Anxiety, No Emotional Lability Endocrine: No Polyuria, No Excessive Sweating Hematologic/Lymphatic: No Easy Bleeding, No Easy Bruising All Other Systems: Reviewed and Negative - Past Medical History Pertinent Past Medical History: Yes Neurological History: No Pertinent History ENT History: Cataracts Cardiac History: Arrhythmia, Coronary Artery Disease Respiratory History: Bronchitis, CHF, COPD, Pneumonia Endocrine Medical History: Hypothyroidism Musculoskeletal History: Arthritis, Osteoarthritis GI Medical History: GERD Psycho-Social History: Anxiety Female Reproductive Disorders: No Pertinent History Other Medical History: [place], left hearing aid, doesnt wear - Past Surgical History Past Surgical History: Yes Neuro Surgical History: No Pertinent History Cardiac: No Pertinent History Respiratory: No Pertinent History Gastrointestinal: No Pertinent History Genitourinary: No Pertinent History Musculoskeletal: No Pertinent History Female Surgical History: Hysterectomy - Social History Smoking Status: Never smoker Exposure to second hand smoke: No Drug Use: none Patient Lives Alone: Yes Significant Family History: no pertinent family hx - Nursing Vital Signs Nursing Vital Signs: Initial Vital Signs Temperature 98.7 F 05/26/19 13:52 Pulse Rate 97 H 05/26/19 13:52 Respiratory Rate 18 05/26/19 13:52 Blood Pressure 120/72 05/26/19 13:52 O2 Sat by Pulse Oximetry 97 05/26/19 13:52 Pain Scale Pain Intensity 5 - Physical Exam General Appearance: no apparent distress, alert Eye Exam: PERRL/EOMI, eyes nml inspection, No scleral icterus Ears, Nose, Throat Exam: normal ENT inspection, pharynx normal, dry mucous membranes, No pharyngeal erythema, No tonsillar exudate Neck Exam: normal inspection, non-tender, supple, full range of motion, No meningismus, No Brudzinski, No limited range of motion Respiratory Exam: normal breath sounds, lungs clear, airway intact, No chest tenderness, No respiratory distress, No diminished breath sounds, No accessory muscle use, No prolonged expirations, No crackles/rales, No rhonchi, No wheezing , No stridor, No pleural rub Cardiovascular Exam: regular rate/rhythm, normal heart sounds, normal peripheral pulses, capillary refill <2 sec Gastrointestinal/Abdomen Exam: soft, normal bowel sounds, No tenderness, No distention, No mass, No guarding, No ecchymosis, No pulsatile mass, No rebound Back Exam: normal inspection, No CVA tenderness, No vertebral tenderness, No rash, No point tenderness Extremity Exam: normal inspection, normal range of motion, pelvis stable, No rosemary's sign, No inflammation Neurologic Exam: alert, oriented x 3, cooperative, 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 Heart is not enlarged for portable technique. Bony thorax intact again with mild osteopenia, degenerative changes, and old left humerus fracture with intact hardward. Impression: Nonacute chest with chronic bony features.) Ordered Tests: Active Orders 24 hr Category Date Time Status EKG-ER Only STAT Care 05/26/19 13:57 Active IV Insertion STAT Care 05/26/19 13:57 Active NPO (ED) STAT Care 05/26/19 13:57 Active CHEST 1 VIEW (PORTABLE) Stat Exams 05/26/19 13:57 Completed AMYLASE Stat Lab 05/26/19 14:25 Completed CBC W DIFF Stat Lab 05/26/19 14:25 Completed CMP Stat Lab 05/26/19 14:25 Completed LIPASE Stat Lab 05/26/19 14:25 Completed Lactic Acid Stat Lab 05/26/19 14:30 Completed MAGNESIUM Stat Lab 05/26/19 14:25 Completed PROTIME WITH INR Stat Lab 05/26/19 14:25 Completed TROPONIN Q3H Lab 05/26/19 14:25 Completed TROPONIN Q3H Lab 05/26/19 17:00 Ordered TROPONIN Q3H Lab 05/26/19 20:00 Ordered TROPONIN Q3H Lab 05/26/19 23:00 Ordered TROPONIN Q3H Lab 05/27/19 02:00 Ordered UA W/RFX UR CULTURE Stat Lab 05/26/19 14:49 Completed Medication Summary Discontinued Medications Generic Name Dose Route Start Last Admin Trade Name Freq PRN Reason Stop Dose Admin Famotidine 20 mg 05/26/19 13:57 05/26/19 14:38 Pepcid 20 Mg Vial IV 05/26/19 13:58 20 mg STAT ONE Administration Famotidine Confirm 05/26/19 14:29 Pepcid 20 Mg Vial Administered 05/26/19 14:30 Dose 20 mg IV .STK-MED ONE Sodium Chloride 1,000 mls @ 999 mls/hr 05/26/19 13:57 05/26/19 14:37 Sodium Chloride 0.9% 1000 Ml IV 05/26/19 14:57 999 mls/hr .Q1H1M STA Administration Sodium Chloride Confirm 05/26/19 14:29 Sodium Chloride 0.9% 1000 Ml Administered 05/26/19 14:30 Dose 1,000 mls @ ud .ROUTE .STK-MED ONE Ondansetron HCl 4 mg 05/26/19 13:57 05/26/19 14:38 Zofran 4 Mg/2 Ml Vial IV 05/26/19 13:58 4 mg STAT ONE Administration Ondansetron HCl Confirm 05/26/19 14:29 Zofran 4 Mg/2 Ml Vial Administered 05/26/19 14:30 Dose 4 mg .ROUTE .STK-MED ONE Lab/Rad Data: Laboratory Result Diagrams 05/26/19 14:25 05/26/19 14:25 Laboratory Results 10/28/19 10/28/19 10/28/19 Range/Units 14:49 14:30 14:25 WBC (4.0-10.5) K/mm3 RBC (4.1-5.4) M/mm3 Hgb (12.0-16.0) gm/dl Hct (35-47) % MCV (78-100) fl MCH (26-32) pg MCHC (32-36) g/dl RDW (11.5-14.0) % Plt Count (150-450) K/mm3 MPV (6-9.5) fl Gran % (36.0-66.0) % Eos # (Auto) (0-0.5) Absolute Lymphs (auto) (1.0-4.6) Absolute Monos (auto) (0.0-1.3) Lymphocytes % (24.0-44.0) % Monocytes % (0.0-12.0) % Eosinophils % (0.00-5.0) % Basophils % (0.0-0.4) % Absolute Granulocytes (1.4-6.9) Basophils # (0-0.4) PT (9.95-12.35) SECONDS INR (0.8-3.0) Sodium (137-145) mmol/L Potassium (3.5-5.1) mmol/L Chloride (98-107) mmol/L Carbon Dioxide (22-30) mmol/L Anion Gap (5-15) MEQ/L BUN (7-17) mg/dL Creatinine (0.52-1.04) mg/dL Estimated GFR ML/MIN Glucose (74-106) mg/dL Lactic Acid 1.3 (0.4-2.0) Calcium (8.4-10.2) mg/dL Magnesium (1.6-2.3) mg/dL Total Bilirubin (0.2-1.3) mg/dL AST (14-36) U/L ALT (0-35) U/L Alkaline Phosphatase (38-126) U/L Troponin I < 0.012 (0.000-0.034) ng/mL Serum Total Protein (6.3-8.2) g/dL Albumin (3.5-5.0) g/dL Amylase (30-110) U/L Lipase (23-300) U/L Urine Color YELLOW (YELLOW) Urine Appearance CLEAR (CLEAR) Urine pH 7.0 (5-6) Ur Specific [place] 1.012 (1.005-1.025) Urine Protein NEGATIVE (Negative) Urine Ketones NEGATIVE (NEGATIVE) Urine Blood MODERATE (0-5) Wan/ul Urine Nitrite NEGATIVE (NEGATIVE) Urine Bilirubin NEGATIVE (NEGATIVE) Urine Urobilinogen NEGATIVE (0-1) mg/dL Ur Leukocyte Esterase NEGATIVE (NEGATIVE) Urine WBC (Auto) 0-2 (0-5) /HPF Urine RBC (Auto) 26-50 (0-2) /HPF U Epithel Cells (Auto) NONE (FEW) /HPF Urine Bacteria (Auto) RARE (NEGATIVE) /HPF Urine Culture Reflexed NO (NO) Urine Glucose NEGATIVE (NEGATIVE) mg/dL 05/26/19 05/26/19 05/26/19 Range/Units 14:25 14:25 14:25 WBC 11.5 H (4.0-10.5) K/mm3 RBC 3.99 L (4.1-5.4) M/mm3 Hgb 12.3 (12.0-16.0) gm/dl Hct 37.1 (35-47) % MCV 93.0 (78-100) fl MCH 30.8 (26-32) pg MCHC 33.2 (32-36) g/dl RDW 13.6 (11.5-14.0) % Plt Count 157 (150-450) K/mm3 MPV 11.9 H (6-9.5) fl Gran % 90.2 H (36.0-66.0) % Eos # (Auto) 0.10 (0-0.5) Absolute Lymphs (auto) 0.45 L (1.0-4.6) Absolute Monos (auto) 0.57 (0.0-1.3) Lymphocytes % 3.9 L (24.0-44.0) % Monocytes % 4.9 (0.0-12.0) % Eosinophils % 0.9 (0.00-5.0) % Basophils % 0.1 (0.0-0.4) % Absolute Granulocytes 10.41 H (1.4-6.9) Basophils # 0.01 (0-0.4) PT 13.3 H (9.95-12.35) SECONDS INR 1.17 (0.8-3.0) Sodium 141 (137-145) mmol/L Potassium 4.6 (3.5-5.1) mmol/L Chloride 103 (98-107) mmol/L Carbon Dioxide 26 (22-30) mmol/L Anion Gap 16.4 H (5-15) MEQ/L BUN 17 (7-17) mg/dL Creatinine 0.95 (0.52-1.04) mg/dL Estimated GFR > 60.0 ML/MIN Glucose 107 H (74-106) mg/dL Lactic Acid (0.4-2.0) Calcium 9.6 (8.4-10.2) mg/dL Magnesium 1.7 (1.6-2.3) mg/dL Total Bilirubin 0.70 (0.2-1.3) mg/dL AST 22 (14-36) U/L ALT 16 (0-35) U/L Alkaline Phosphatase 50 (38-126) U/L Troponin I (0.000-0.034) ng/mL Serum Total Protein 7.7 (6.3-8.2) g/dL Albumin 4.3 (3.5-5.0) g/dL Amylase 82 (30-110) U/L Lipase 80 (23-300) U/L Urine Color (YELLOW) Urine Appearance (CLEAR) Urine pH (5-6) Ur Specific Johnson (1.005-1.025) Urine Protein (Negative) Urine Ketones (NEGATIVE) Urine Blood (0-5) Wan/ul Urine Nitrite (NEGATIVE) Urine Bilirubin (NEGATIVE) Urine Urobilinogen (0-1) mg/dL Ur Leukocyte Esterase (NEGATIVE) Urine WBC (Auto) (0-5) /HPF Urine RBC (Auto) (0-2) /HPF U Epithel Cells (Auto) (FEW) /HPF Urine Bacteria (Auto) (NEGATIVE) /HPF Urine Culture Reflexed (NO) Urine Glucose (NEGATIVE) mg/dL - Progress Progress: improved Progress Note: 05/26/19 15:47 Patient has no nausea, no episodes of vomiting or any episodes of diarrhea while in the emergency department. Patient has no abdominal pain subjectively or on examination. Patient could not give us a stool to perform a GI panel. She can follow that up as an outpatient as needed with her physician if diarrhea persists. Counseled pt/family regarding: lab results, diagnosis, need for follow-up - Departure Departure Disposition: Home Clinical Impression: Nausea, Microscopic hematuria Diarrhea Qualifiers: Diarrhea type: unspecified type Qualified Code(s): R19.7 - Diarrhea, unspecified Condition: Good Critical Care Time: No Referrals: LESTER FRAUSTO MD [Primary Care Provider] - 05/28/19 Instructions: Diarrhea and Traveler's Diarrhea -- Adult, Nausea -- Adult, Blood in the Urine (Hematuria), Adult (DC) Additional Instructions: Return to the emergency department for immediate re-evaluation for any new abdominal pain, worsening diarrhea or new vomiting, or visible hematuria. We will call you if your urine culture grows anything. Prescriptions: Meclizine HCl 25 mg [Antivert 25 mg] 25 mg PO Q6H PRN PRN #14 tablet PRN Reason: Nausea
--- NOTE | 2019-05-26 14:20 | XRAY ---
Indication: Nausea and diarrhea. Comparison: January 21, 2019. Portable chest better inflated and clear. Heart is not enlarged for AP portable technique. Bony thorax intact again with mild osteopenia, degenerative changes, and old left humerus fracture with intact hardware. Impression: Nonacute chest with chronic bony features.
[2019-05-26] MEDS ORDERED: Sodium Chloride 0.9% 1000 ML 1,000 ML ONE (14:29)
[2019-05-26] MEDS ORDERED: Zofran 4 MG/2 ML VIAL ONE (14:29)
[2019-05-26 14:38] LABS: Absolute Neutrophil Ct (ANC) 10.41 (1.4-6.9); BASOPHIL % 0.1 % (0.0-0.4); Basophil (Absolute #) 0.01 (0-0.4); Eosinophil % 0.9 % (0.00-5.0); Hematocrit 37.1 % (35-47); Hemoglobin 12.3 gm/dl (12.0-16.0); Lymphocyte (Absolute #) 0.45 (1.0-4.6); Lymphocytes % 3.9 % (24.0-44.0); Mean Corpuscular Hemoglobin 30.8 pg (26-32); Mean Corpuscular Hgb Concent. 33.2 g/dl (32-36); Mean Platelet Volume 11.9 fl (6-9.5); Monocyte (Absolute #) 0.57 (0.0-1.3); Monocytes % 4.9 % (0.0-12.0); Neutrophil % 90.2 % (36.0-66.0); Platelet Count 157 K/mm3 (150-450); Red Blood Count 3.99 M/mm3 (4.1-5.4); Red Cell Distribution Width 13.6 % (11.5-14.0); White Blood Count 11.5 K/mm3 (4.0-10.5)
[2019-05-26 14:45] LABS: INR 1.17 (0.8-3.0); PROTIME 13.3 SECONDS (9.95-12.35)
[2019-05-26 14:55] LABS: ALBUMIN 4.3 g/dL (3.5-5.0); ALKALINE PHOSPHATASE 50 U/L (38-126); AMYLASE 82 U/L (30-110); ANION GAP 16.4 MEQ/L (5-15); BLOOD UREA NITROGEN 17 mg/dL (7-17); CHLORIDE 103 mmol/L (98-107); Calcium 9.6 mg/dL (8.4-10.2); Carbon Dioxide 26 mmol/L (22-30); Creatinine 1 0.95 mg/dL (0.52-1.04); Glucose 107 mg/dL (74-106); LIPASE 80 U/L (23-300); MAGNESIUM 1.7 mg/dL (1.6-2.3); Potassium 4.6 mmol/L (3.5-5.1); SGOT/AST 22 U/L (14-36); SGPT/ALT 16 U/L (0-35); SODIUM 141 mmol/L (137-145); Total Protein 7.7 g/dL (6.3-8.2)
[2019-05-26 15:00] LABS: Appearance CLEAR (CLEAR); Bilirubin NEGATIVE (NEGATIVE); Blood MODERATE Ery/ul (0-5); Glucose NEGATIVE (NEGATIVE); Ketones NEGATIVE (NEGATIVE); Leukocyte Esterase NEGATIVE (NEGATIVE); Nitrite NEGATIVE (NEGATIVE); Protein,Urine Dip NEGATIVE (Negative); RBC 26-50 /HPF (0-2); Specific Gravity 1.012 (1.005-1.025); Urobilinogen NEGATIVE mg/dL (0-1); WBC 0-2 /HPF (0-5)
[2019-05-26 15:04] LABS: Bacteria RARE /HPF (NEGATIVE)
[2019-05-26 16:13] VITALS: BP 115/59
[2019-05-26 16:18] VITALS: PULSE 70; O2SAT 96
[2019-05-26 16:31] LABS: Slide Review 1 YES
== END 2019-05-26 16:18 | disposition home or self-care (01) ==
LOC: ED 13:12
DX: R11.0 Nausea (principal); R31.29 Other microscopic hematuria; R19.7 Diarrhea, unspecified
CPT/HCPCS: 36000; 36415; 71045; 80053; 81001; 82150; 83605; 83690; 83735; 84484; 85025; 85610; 87086; 93005; 96360; 96374; 96375; 99284; P9612; J2405

== ENCOUNTER 2019-06-06 17:27 | Emergency (ER) | payer MEDICARE ==
--- NOTE | 2019-06-06 18:10 | ERPHSYRPT ---
- History of Present Illness Time Seen by Provider: 06/06/19 17:33 Source: patient Exam Limitations: no limitations Patient Subjective Stated Complaint: Patient addimited to ER with Complaint of ABD pain for one day. julisa states she was in the ER last week with the same pain and went home with a Script that she took all but one pill. Triage Nursing Assessment: Patient arrived to ER by wheelchair with complaint of ABD pain non-tender to palpitatiion Physician History: 73-year-old female presents with nausea for one day. Denies abdominal pain. Denies diarrhea or constipation. Denies vomiting, simply nausea throughout the day. Denies chest pain or shortness of breath. Denies fevers. Denies urinary symptoms. No other complaints. PMH: Patient states "I take heart medications" Social: Patient denies tobacco Allergies/Adverse Reactions: clarithromycin [From [employer]] Allergy (Verified 05/26/19 13:58) Home Medications: Albuterol Sulfate [Proair Hfa] 8.5 gm IH QIDPRN PRN 07/21/14 [History] Carvedilol 6.25 mg [Coreg 6.25 MG] 6.25 mg PO BID 07/21/14 [History] Escitalopram Oxalate [Lexapro] 20 mg PO DAILY 07/21/14 [History] Simvastatin 40 mg [Zocor 40 mg] 40 mg PO HS 07/21/14 [History] Sacubitril/Valsartan [Entresto 49 mg-51 mg Tablet] 1 each PO BID 01/10/19 [ History] Cholecalciferol (Vitamin D3) [Vitamin D3] 1,000 iu PO DAILY 01/21/19 [History] Cyanocobalamin (Vitamin B-12) [B-12] 1,000 mcg PO DAILY 01/21/19 [History] [place]-3/Dha/Epa/Fish Oil [[place] 3 500 Softgel] 520 mcg PO DAILY 01/21/19 [ History] Esomeprazole Magnesium [Nexium] 40 mg PO DAILY 01/22/19 [History] Hx Tetanus, Diphtheria Vaccination/Date Given: Yes (UNKNOWN) Hx Influenza Vaccination/Date Given: No Hx Pneumococcal Vaccination/Date Given: No Immunizations Up to Date: Yes - Review of Systems Constitutional: No Fever, No Chills Eyes: No Symptoms Ears, Nose, & Throat: No Symptoms Respiratory: No Cough, No Dyspnea Cardiac: No Chest Pain, No Edema, No Syncope Abdominal/Gastrointestinal: Nausea, No Abdominal Pain, No Vomiting, No Diarrhea Genitourinary Symptoms: No Dysuria Musculoskeletal: No Back Pain, No Neck Pain Skin: No Rash Neurological: No Dizziness, No Focal Weakness, No Sensory Changes Psychological: No Symptoms Endocrine: No Symptoms All Other Systems: Reviewed and Negative - Past Medical History Pertinent Past Medical History: Yes Neurological History: No Pertinent History ENT History: Cataracts Cardiac History: Arrhythmia, Coronary Artery Disease Respiratory History: Bronchitis, CHF, COPD, Pneumonia Endocrine Medical History: Hypothyroidism Musculoskeletal History: Arthritis, Osteoarthritis GI Medical History: GERD Psycho-Social History: Anxiety Female Reproductive Disorders: No Pertinent History Other Medical History: [place], left hearing aid, doesnt wear - Past Surgical History Past Surgical History: Yes Neuro Surgical History: No Pertinent History Cardiac: No Pertinent History Respiratory: No Pertinent History Gastrointestinal: No Pertinent History Genitourinary: No Pertinent History Musculoskeletal: No Pertinent History Female Surgical History: Hysterectomy - Social History Smoking Status: Never smoker Exposure to second hand smoke: No Drug Use: none Patient Lives Alone: Yes Significant Family History: no pertinent family hx - Female History Hx Now: No - Nursing Vital Signs Nursing Vital Signs: Initial Vital Signs Temperature 99.4 F 06/06/19 17:50 Pulse Rate 85 06/06/19 17:50 Respiratory Rate 20 06/06/19 17:50 Blood Pressure 97/74 06/06/19 17:50 Pain Scale Pain Intensity 5 - Physical Exam General Appearance: no apparent distress, alert Eye Exam: PERRL/EOMI, eyes nml inspection Ears, Nose, Throat Exam: normal ENT inspection, TMs normal, pharynx normal, moist mucous membranes Neck Exam: normal inspection, non-tender, supple, full range of motion Respiratory Exam: normal breath sounds, lungs clear, No respiratory distress Cardiovascular Exam: regular rate/rhythm, normal heart sounds, normal peripheral pulses Gastrointestinal/Abdomen Exam: soft, normal bowel sounds, No tenderness, No mass Back Exam: normal inspection, normal range of motion, No CVA tenderness, No vertebral tenderness Extremity Exam: normal inspection, normal range of motion, pelvis stable Neurologic Exam: alert, oriented x 3, cooperative, normal mood/affect, nml cerebellar function, nml station & gait, sensation nml, No motor deficits Skin Exam: normal color, warm, dry, No rash Lymphatic Exam: No adenopathy - Course EKG Interpreted by Me: RATE (66), NORMAL AXIS, prolonged QT interval, Left Bundle Branch Block, NORMAL ST-T, Other (unchanged from prior EKG) Ordered Tests: Active Orders 24 hr Category Date Time Status EKG-ER Only STAT Care 06/06/19 18:07 Active UA W/RFX UR CULTURE Stat Lab 06/06/19 18:25 Completed Medication Summary Discontinued Medications Generic Name Dose Route Start Last Admin Trade Name Lindsay PRN Reason Stop Dose Admin Ondansetron HCl 4 mg 06/06/19 18:08 06/06/19 18:47 Zofran Odt 4 Mg PO 06/06/19 18:09 4 mg STAT ONE Administration Ondansetron HCl Confirm 06/06/19 18:46 Zofran Odt 4 Mg Administered 06/06/19 18:47 Dose 4 mg .ROUTE .STK-MED ONE Lab/Rad Data: Laboratory Results 06/06/19 Range/Units 18:25 Urine Color YELLOW (YELLOW) Urine Appearance CLEAR (CLEAR) Urine pH 8.0 (5-6) Ur Specific [place] 1.014 (1.005-1.025) Urine Protein NEGATIVE (Negative) Urine Ketones NEGATIVE (NEGATIVE) Urine Blood NEGATIVE (0-5) Wan/ul Urine Nitrite NEGATIVE (NEGATIVE) Urine Bilirubin NEGATIVE (NEGATIVE) Urine Urobilinogen NEGATIVE (0-1) mg/dL Ur Leukocyte Esterase TRACE (NEGATIVE) Urine WBC (Auto) 6-10 (0-5) /HPF Urine RBC (Auto) 0-2 (0-2) /HPF U Epithel Cells (Auto) MODERATE (FEW) /HPF Urine Bacteria (Auto) RARE (NEGATIVE) /HPF Urine Culture Reflexed NO (NO) Urine Glucose NEGATIVE (NEGATIVE) mg/dL - Progress Progress: unchanged Progress Note: nonischemic EKG. Normal urine sample. Patient has a benign abdominal exam and no evidence of serious intra-abdominal infection or surgical pathology. It is unclear the etiology of her persistent nausea, will treat symptomatically. Recommended primary care followup for further evaluation or additional referral should her symptoms not resolve, or returning to the emergency department for new or concerning symptoms. 06/07/19 01:44 - Departure Departure Disposition: Home Clinical Impression: Nausea Condition: Good Critical Care Time: No Referrals: LISBET,LESTER, MD [Primary Care Provider] - Instructions: Nausea and Vomiting, Adult (DC) Prescriptions: Ondansetron ODT 4 MG [Zofran Odt 4 mg] 4 mg PO Q6H PRN PRN #10 tab.rapdis PRN Reason: Nausea
[2019-06-06] MEDS ORDERED: ZOFRAN ODT 4 MG ONE (18:46)
[2019-06-06] MEDS: ZOFRAN ODT 4 MG PO ONE (18:47)
[2019-06-06 18:58] LABS: Appearance CLEAR (CLEAR); Bacteria RARE /HPF (NEGATIVE); Bilirubin NEGATIVE (NEGATIVE); Blood NEGATIVE Ery/ul (0-5); Epithelial Cells MODERATE /HPF (FEW); Glucose NEGATIVE (NEGATIVE); Ketones NEGATIVE (NEGATIVE); Leukocyte Esterase TRACE (NEGATIVE); Nitrite NEGATIVE (NEGATIVE); Protein,Urine Dip NEGATIVE (Negative); RBC 0-2 /HPF (0-2); Specific Gravity 1.014 (1.005-1.025); Urobilinogen NEGATIVE mg/dL (0-1)
[2019-06-06 21:10] VITALS: BP 102/76; PULSE 68; O2SAT 98
== END 2019-06-06 21:10 | disposition home or self-care (01) ==
LOC: ED 17:27
DX: R11.0 Nausea (principal)
CPT/HCPCS: 81001; 93005; 99284; Q0162

== ENCOUNTER 2022-04-05 15:41 | Observation (INO) | payer MEDICARE ==
[2022-04-05] MEDS ORDERED: Zofran 4 MG/2 ML VIAL IV STA (15:52)
--- NOTE | 2022-04-05 15:52 | ERPHSYRPT ---
- History of Present Illness Source: patient, EMS Exam Limitations: no limitations Timing/Duration: week(s) (1 to 2 weeks), worse Cough Quality/Degree: no cough Modifying Factors: Improves With: nothing Associated Symptoms: cough, muscle aches, No chest pain/soreness, No headache, No shortness of breath Hx Tetanus, Diphtheria Vaccination/Date Given: Yes (UNKNOWN) Hx Influenza Vaccination/Date Given: No Hx Pneumococcal Vaccination/Date Given: No <GENA HERNADEZ - Last Filed: 04/05/22 19:18> <KIMBERLI VALLE - Last Filed: 04/06/22 02:19> - History of Present Illness Time Seen by Provider: 04/05/22 15:49 Physician History: This is a 76-year-old white female patient of Drs. 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 Patient was diagnosed with COVID-19 infection approximately 1 to 2 weeks ago. Patient does have a history of gastroesophageal reflux disease and hyperlipidemia. She has not had any diarrhea. She denies chest pain at this time. She also denies significant shortness of breath. She does not have abdominal pain (GENA HERNADEZ) Allergies/Adverse Reactions: clarithromycin [From Biaxin] Allergy (Verified 05/26/19 13:58) Home Medications: Albuterol Sulfate [Proair Hfa] 8.5 gm IH QIDPRN PRN 07/21/14 [History] Carvedilol [Coreg ] 6.25 mg PO BID 07/21/14 [History] Escitalopram Oxalate [Lexapro] 20 mg PO DAILY 07/21/14 [History] Simvastatin 40 mg [Zocor 40 mg] 40 mg PO HS 07/21/14 [History] Sacubitril/Valsartan [Entresto 49 mg-51 mg Tablet] 1 each PO BID 01/10/19 [History] Cholecalciferol (Vitamin D3) [Vitamin D3] 1,000 iu PO DAILY 01/21/19 [History] Cyanocobalamin (Vitamin B-12) [B-12] 1,000 mcg PO DAILY 01/21/19 [History] [place]-3/Dha/Epa/Fish Oil [[place] 3 500 Softgel] 520 mcg PO DAILY 01/21/19 [History] Esomeprazole Magnesium [Nexium] 40 mg PO DAILY 01/22/19 [History] Travel Risk - International Travel Have you traveled outside of the country in past 3 weeks: No - Coronavirus Screening Are you exhibiting any of the following symptoms?: Yes Symptoms: Vomiting/Diarrhea, Headaches/Body Aches/Fatigue Close contact with a COVID-19 positive Pt in past 14-21 Days: Yes <GENA HERNADEZ - Last Filed: 04/05/22 19:18> - Review of Systems Constitutional: Weakness Eyes: No Symptoms Ears, Nose, & Throat: No Symptoms Respiratory: No Symptoms, Stridor Abdominal/Gastrointestinal: Nausea, Vomiting, No Abdominal Pain, No Diarrhea Genitourinary Symptoms: No Symptoms Musculoskeletal: No Symptoms Skin: No Symptoms Neurological: No Symptoms Psychological: No Symptoms Endocrine: No Symptoms Hematologic/Lymphatic: No Symptoms Immunological/Allergic: No Symptoms All Other Systems: Reviewed and Negative <GENA HERNADEZ - Last Filed: 04/05/22 19:18> - Past Medical History Pertinent Past Medical History: Yes Neurological History: No Pertinent History ENT History: Cataracts Cardiac History: Arrhythmia, Coronary Artery Disease Respiratory History: Bronchitis, CHF, COPD, Pneumonia Endocrine Medical History: Hypothyroidism Musculoskeletal History: Arthritis, Osteoarthritis GI Medical History: GERD Psycho-Social History: Anxiety Female Reproductive Disorders: No Pertinent History Other Medical History: [place], left hearing aid, doesnt wear - Past Surgical History Past Surgical History: Yes Neuro Surgical History: No Pertinent History Cardiac: No Pertinent History Respiratory: No Pertinent History Gastrointestinal: No Pertinent History Genitourinary: No Pertinent History Musculoskeletal: No Pertinent History Female Surgical History: Hysterectomy - Social History Smoking Status: Never smoker Exposure to second hand smoke: No Drug Use: none Patient Lives Alone: Yes Significant Family History: no pertinent family hx <GENA HERNADEZ - Last Filed: 04/05/22 19:18> - Physical Exam General Appearance: mild distress, alert, anxiety Eye Exam: PERRL/EOMI, eyes nml inspection Ears, Nose, Throat Exam: normal ENT inspection, moist mucous membranes Neck Exam: normal inspection, non-tender, supple, full range of motion Respiratory Exam: normal breath sounds, lungs clear, No chest tenderness, No respiratory distress Cardiovascular Exam: regular rate/rhythm, normal heart sounds, normal peripheral pulses Gastrointestinal/Abdomen Exam: soft, normal bowel sounds, No tenderness Rectal Exam: not done Back Exam: normal inspection, normal range of motion, No CVA tenderness, No vertebral tenderness Extremity Exam: normal inspection, normal range of motion, pelvis stable Neurologic Exam: alert, oriented x 3, cooperative, supervisor inspection department II-XII nml as tested Skin Exam: normal color, warm, dry Lymphatic Exam: No adenopathy SpO2 Interpretation: normal O2 Delivery: Room Air <GENA HERNADEZ - Last Filed: 04/05/22 19:18> - Nursing Vital Signs Nursing Vital Signs: Initial Vital Signs Temperature 97.1 F 04/05/22 15:42 Pulse Rate 61 04/05/22 15:42 Respiratory Rate 20 04/05/22 15:42 Blood Pressure 100/41 04/05/22 15:42 O2 Sat by Pulse Oximetry 92 L 04/05/22 15:42 Pain Scale Pain Intensity 0 - Course Nursing assessment & vital signs reviewed: Yes <GENA HERNADEZ - Last Filed: 04/05/22 19:18> Ordered Tests: Active Orders 24 hr Category Date Time Status EKG-ER Only STAT Care 04/05/22 15:52 Active IV Insertion STAT Care 04/05/22 15:52 Active Pulse Oximetry (ED) STAT Care 04/05/22 15:52 Active CHEST 1 VIEW (PORTABLE) Stat Exams 04/05/22 15:53 Taken AMYLASE Stat Lab 04/05/22 20:15 Completed BLOOD CULTURE Stat Lab 04/05/22 16:15 Received BMP Stat Lab 04/05/22 20:15 Completed BMP Stat Lab 04/06/22 01:33 Completed CBC W DIFF Stat Lab 04/05/22 15:50 Completed CMP Stat Lab 04/05/22 15:50 Completed CULTURE,URINE Stat Lab 04/05/22 22:32 Received LIPASE Stat Lab 04/05/22 20:15 Completed Lactic Acid Stat Lab 04/05/22 15:52 Completed MAGNESIUM Stat Lab 04/05/22 20:15 Completed Manual Differential NC Stat Lab 04/05/22 15:50 Completed [place] Screen Stat Lab 04/05/22 16:15 Completed NT PRO BNP Stat Lab 04/05/22 16:15 Completed POCT GLUCOSE Stat Lab 04/05/22 19:51 Completed POCT GLUCOSE Stat Lab 04/05/22 23:41 Completed TROPONIN Q4H Lab 04/05/22 16:00 Completed TROPONIN Q4H Lab 04/05/22 20:15 Completed TROPONIN Q4H Lab 04/06/22 00:20 Completed UA W/RFX CULTURE Stat Lab 04/05/22 22:32 Completed Respiratory Therapy Assessment DAILY RT 04/05/22 21:37 Completed Medication Summary Generic Name Dose Route Start Last Admin Trade Name Freq PRN Reason Stop Dose Admin Sodium Chloride 1,000 mls @ 250 mls/hr 04/05/22 16:00 04/06/22 00:04 Sodium Chloride 0.9% 1000 Ml IV 05/05/22 15:59 250 mls/hr .Q4H FRANCESCA Administration Sodium Bicarbonate 75 meq/ 1,075 mls @ 75 mls/hr 04/05/22 21:15 04/05/22 21:31 Dextrose/Sodium Chloride IV 05/05/22 21:14 75 mls/hr .[id number] FRANCESCA 75 mls/hr Administration Discontinued Medications Generic Name Dose Route Start Last Admin Trade Name Freq PRN Reason Stop Dose Admin Albuterol/Ipratropium 3 ml 04/05/22 21:14 04/05/22 21:44 Ipratropium/Albuterol Sulfate 3 Ml Ampul.Neb IH 04/05/22 21:15 3 ml STAT ONE Administration Albuterol/Ipratropium Confirm 04/05/22 21:23 Ipratropium/Albuterol Sulfate 3 Ml Ampul.Neb Administered 04/05/22 21:24 Dose 3 ml IH .STK-MED ONE Calcium Chloride Confirm 04/05/22 17:24 Calcium Chloride 100 Mg/Ml 10ml Inj. Administered 04/05/22 17:25 Dose 1,000 mg .ROUTE .STK-MED ONE Calcium Gluconate 1,000 mg 04/05/22 17:06 04/05/22 17:30 Calcium Gluconate 1000 Mg/10 Ml Vial IV 04/05/22 17:07 1,000 mg STAT ONE Administration Calcium Gluconate Confirm 04/05/22 17:29 Calcium Gluconate 1000 Mg/10 Ml Vial Administered 04/05/22 17:30 Dose 1,000 mg IV .STK-MED ONE Dextrose 50 ml 04/05/22 17:09 04/05/22 17:29 Dextrose 50%-Water 50 Ml Abboject IV 04/05/22 17:10 50 ml STAT ONE Administration Dextrose Confirm 04/05/22 17:26 Dextrose 50%-Water 50 Ml Abboject Administered 04/05/22 17:27 Dose 50 ml IV .STK-MED ONE Dextrose 50 ml 04/05/22 23:43 04/06/22 00:04 Dextrose 50%-Water 50 Ml Abboject IV 04/05/22 23:44 50 ml STAT ONE Administration Dextrose Confirm 04/06/22 00:02 Dextrose 50%-Water 50 Ml Abboject Administered 04/06/22 00:03 Dose 50 ml IV .STK-MED ONE Dextrose/Sodium Chloride Confirm 04/05/22 21:30 Dextrose 5% -0.45 Nacl 1000 Ml Administered 04/05/22 21:31 Dose 1,000 mls @ ud IV .STK-MED ONE Ceftriaxone Sodium/Dextrose 1 g in 50 mls @ 100 mls/hr 04/05/22 23:40 03/20 00:04 Rocephin 1 Gm-D5w 50 Ml Bag IV 04/06/22 00:09 100 mls/hr STAT STA 100 mls/hr Administration Ceftriaxone Sodium/Dextrose Confirm 04/06/22 00:02 Rocephin 1 Gm-D5w 50 Ml Bag Administered 04/06/22 00:03 Dose 1 g in 50 mls @ ud IV .STK-MED ONE Insulin Human Regular 4 unit 04/05/22 19:18 04/05/22 20:21 Insulin Regular, Human 1 Unit IV 04/05/22 19:19 Not Given STAT ONE Insulin Human Regular 6 unit 04/05/22 23:44 04/06/22 00:02 Insulin Regular, Human 1 Unit SQ 04/05/22 23:45 6 unit STAT ONE Administration Insulin Human Regular Confirm 04/06/22 00:02 Insulin Regular, Human 1 Unit Administered 04/06/22 00:03 Dose 6 unit .ROUTE .STK-MED ONE Ondansetron HCl 4 mg 04/05/22 15:52 04/05/22 17:30 Ondansetron Hcl 4 Mg/2 Ml Vial IV 04/05/22 15:53 4 mg STAT STA Administration Ondansetron HCl Confirm 04/05/22 17:24 Ondansetron Hcl 4 Mg/2 Ml Vial Administered 04/05/22 17:25 Dose 4 mg .ROUTE .STK-MED ONE Pantoprazole Sodium 40 mg 04/05/22 15:54 04/05/22 17:30 Pantoprazole 40 Mg Vial IV 04/05/22 15:55 40 mg STAT ONE Administration Pantoprazole Sodium Confirm 04/05/22 17:24 Pantoprazole 40 Mg Vial Administered 04/05/22 17:25 Dose 40 mg IV .STK-MED ONE Patiromer 8.4 gm 04/05/22 21:14 04/05/22 21:32 Patiromer Calcium Sorbitex 8.4 Gm Powd.Pack PO 04/05/22 21:15 8.4 gm STAT STA Administration Patiromer Confirm 04/05/22 21:29 Patiromer Calcium Sorbitex 8.4 Gm Powd.Pack Administered 04/05/22 21:30 Dose 8.4 gm PO .STK-MED ONE Sodium Bicarbonate Confirm 04/05/22 21:30 Sodium Bicarbonate 1 Meq/Ml 50ml Vial Administered 04/05/22 21:31 Dose 50 meq .ROUTE .STK-MED ONE Sodium Bicarbonate Confirm 04/05/22 21:33 Sodium Bicarbonate 1 Meq/Ml 50ml Vial Administered 04/05/22 21:34 Dose 50 meq .ROUTE .STK-MED ONE Lab/Rad Data: Laboratory Result Diagrams 04/05/22 15:50 04/06/22 01:33 Laboratory Results 04/06/22 04/06/22 04/05/22 Range/Units 01:33 00:20 23:41 WBC (4.0-10.5) x10^3/uL RBC (4.1-5.4) x10^6/uL Hgb (12.0-16.0) g/dL Hct (35-47) % MCV (78-100) fL MCH (26-32) pg MCHC (32-36) g/dL RDW (11.5-14.0) % Plt Count (150-450) x10^3/uL MPV (7.5-11.0) fL Gran % (36.0-66.0) % Immature Gran % (Auto) (0.00-0.4) % Nucleat RBC Rel Count (0.00-0.1) % Eos # (Auto) (0-0.5) x10^3/uL Immature Gran # (Auto) (0.00-0.03) x10^3u/L Absolute Lymphs (auto) (1.0-4.6) x10^3/uL Absolute Monos (auto) (0.0-1.3) x10^3/uL Absolute Nucleated RBC (0.00-0.01) x10^3u/L Lymphocytes % (24.0-44.0) % Monocytes % (0.0-12.0) % Eosinophils % (0.00-5.0) % Basophils % (0.0-0.4) % Absolute Granulocytes (1.4-6.9) x10^3/uL Basophils # (0-0.4) x10^3/uL Sodium 131 L (137-145) mmol/L Potassium 5.8 H (3.5-5.1) mmol/L Chloride 105 (98-107) mmol/L Carbon Dioxide 16 L* (22-30) mmol/L Anion Gap 16.1 H (5-15) MEQ/L BUN 45 H (7-17) mg/dL Creatinine 2.25 H (0.52-1.04) mg/dL Estimated GFR 22.5 ML/MIN Glucose 76 (74-106) mg/dL POC Glucometer 114 H (74 to 106) mg/dL Lactic Acid (0.4-2.0) Calcium 8.3 L (8.4-10.2) mg/dL Magnesium (1.6-2.3) mg/dL Total Bilirubin (0.2-1.3) mg/dL AST (14-36) U/L ALT (0-35) U/L Alkaline Phosphatase (38-126) U/L Troponin I 0.014 (0.000-0.034) ng/mL NT-Pro-B Natriuret Pep (0-1800) pg/mL Serum Total Protein (6.3-8.2) g/dL Albumin (3.5-5.0) g/dL Amylase (30-110) U/L Lipase (23-300) U/L Urinalys Dipstick Clnc Urine Color (YELLOW) Urine Appearance (CLEAR) Urine pH (5-6) Ur Specific [place] (1.005-1.025) POC Urine Protein Conf (Negative) Urine Ketones (NEGATIVE) Urine Nitrite (NEGATIVE) Urine Bilirubin (NEGATIVE) Urine Urobilinogen (0-1) mg/dL Urine Leukocytes (NEGATIVE) Urine WBC (Auto) (0-5) /HPF Urine RBC (Auto) (0-2) /HPF U Hyaline Cast (Auto) (0-2) /LPF U Epithel Cells (Auto) (FEW) /HPF Urine Bacteria (Auto) (NEGATIVE) /HPF Urine RBC (0-5) Wan/ul Urine Mucus (Auto) (NEGATIVE) /HPF Ur Culture Indicated? Urine Glucose (NEGATIVE) mg/dL Monoscreen (Negative) Influenza Type A Ag (NEGATIVE) Influenza Type B Ag (NEGATIVE) RSV (PCR) (Negative) SARS-CoV-2 (PCR) (NEGATIVE) Slides for Path Review 04/05/22 04/05/22 04/05/22 Range/Units 22:32 20:15 20:15 WBC (4.0-10.5) x10^3/uL RBC (4.1-5.4) x10^6/uL Hgb (12.0-16.0) g/dL Hct (35-47) % MCV (78-100) fL MCH (26-32) pg MCHC (32-36) g/dL RDW (11.5-14.0) % Plt Count (150-450) x10^3/uL MPV (7.5-11.0) fL Gran % (36.0-66.0) % Immature Gran % (Auto) (0.00-0.4) % Nucleat RBC Rel Count (0.00-0.1) % Eos # (Auto) (0-0.5) x10^3/uL Immature Gran # (Auto) (0.00-0.03) x10^3u/L Absolute Lymphs (auto) (1.0-4.6) x10^3/uL Absolute Monos (auto) (0.0-1.3) x10^3/uL Absolute Nucleated RBC (0.00-0.01) x10^3u/L Lymphocytes % (24.0-44.0) % Monocytes % (0.0-12.0) % Eosinophils % (0.00-5.0) % Basophils % (0.0-0.4) % Absolute Granulocytes (1.4-6.9) x10^3/uL Basophils # (0-0.4) x10^3/uL Sodium 130 L (137-145) mmol/L Potassium 6.9 H* (3.5-5.1) mmol/L Chloride 105 (98-107) mmol/L Carbon Dioxide 15 L* (22-30) mmol/L Anion Gap 16.7 H (5-15) MEQ/L BUN 50 H (7-17) mg/dL Creatinine 2.68 H (0.52-1.04) mg/dL Estimated GFR 18.4 ML/MIN Glucose 98 (74-106) mg/dL POC Glucometer (74 to 106) mg/dL Lactic Acid (0.4-2.0) Calcium 9.0 (8.4-10.2) mg/dL Magnesium 1.7 (1.6-2.3) mg/dL Total Bilirubin (0.2-1.3) mg/dL AST (14-36) U/L ALT (0-35) U/L Alkaline Phosphatase (38-126) U/L Troponin I 0.020 (0.000-0.034) ng/mL NT-Pro-B Natriuret Pep (0-1800) pg/mL Serum Total Protein (6.3-8.2) g/dL Albumin (3.5-5.0) g/dL Amylase 102 (30-110) U/L Lipase 196 (23-300) U/L Urinalys Dipstick Clnc MAIN LAB Urine Color YELLOW (YELLOW) Urine Appearance CLEAR (CLEAR) Urine pH 5.5 (5-6) Ur Specific [place] 1.025 (1.005-1.025) POC Urine Protein Conf TRACE (Negative) Urine Ketones NEGATIVE (NEGATIVE) Urine Nitrite POSITIVE (NEGATIVE) Urine Bilirubin NEGATIVE (NEGATIVE) Urine Urobilinogen 0.2 (0-1) mg/dL Urine Leukocytes TRACE (NEGATIVE) Urine WBC (Auto) 16-25 (0-5) /HPF Urine RBC (Auto) 3-5 (0-2) /HPF U Hyaline Cast (Auto) 3-5 (0-2) /LPF U Epithel Cells (Auto) RARE (FEW) /HPF Urine Bacteria (Auto) PACKED (NEGATIVE) /HPF Urine RBC TRACE-INTACT (0-5) Wan/ul Urine Mucus (Auto) SLIGHT (NEGATIVE) /HPF Ur Culture Indicated? YES Urine Glucose 100 (NEGATIVE) mg/dL Monoscreen (Negative) Influenza Type A Ag (NEGATIVE) Influenza Type B Ag (NEGATIVE) RSV (PCR) (Negative) SARS-CoV-2 (PCR) (NEGATIVE) Slides for Path Review 04/05/22 04/05/22 04/05/22 Range/Units 19:51 16:15 16:15 WBC (4.0-10.5) x10^3/uL RBC (4.1-5.4) x10^6/uL Hgb (12.0-16.0) g/dL Hct (35-47) % MCV (78-100) fL MCH (26-32) pg MCHC (32-36) g/dL RDW (11.5-14.0) % Plt Count (150-450) x10^3/uL MPV (7.5-11.0) fL Gran % (36.0-66.0) % Immature Gran % (Auto) (0.00-0.4) % Nucleat RBC Rel Count (0.00-0.1) % Eos # (Auto) (0-0.5) x10^3/uL Immature Gran # (Auto) (0.00-0.03) x10^3u/L Absolute Lymphs (auto) (1.0-4.6) x10^3/uL Absolute Monos (auto) (0.0-1.3) x10^3/uL Absolute Nucleated RBC (0.00-0.01) x10^3u/L Lymphocytes % (24.0-44.0) % Monocytes % (0.0-12.0) % Eosinophils % (0.00-5.0) % Basophils % (0.0-0.4) % Absolute Granulocytes (1.4-6.9) x10^3/uL Basophils # (0-0.4) x10^3/uL Sodium (137-145) mmol/L Potassium (3.5-5.1) mmol/L Chloride (98-107) mmol/L Carbon Dioxide (22-30) mmol/L Anion Gap (5-15) MEQ/L BUN (7-17) mg/dL Creatinine (0.52-1.04) mg/dL Estimated GFR ML/MIN Glucose (74-106) mg/dL POC Glucometer 94 (74 to 106) mg/dL Lactic Acid (0.4-2.0) Calcium (8.4-10.2) mg/dL Magnesium (1.6-2.3) mg/dL Total Bilirubin (0.2-1.3) mg/dL AST (14-36) U/L ALT (0-35) U/L Alkaline Phosphatase (38-126) U/L Troponin I (0.000-0.034) ng/mL NT-Pro-B Natriuret Pep 654 (0-1800) pg/mL Serum Total Protein (6.3-8.2) g/dL Albumin (3.5-5.0) g/dL Amylase (30-110) U/L Lipase (23-300) U/L Urinalys Dipstick Clnc Urine Color (YELLOW) Urine Appearance (CLEAR) Urine pH (5-6) Ur Specific [place] (1.005-1.025) POC Urine Protein Conf (Negative) Urine Ketones (NEGATIVE) Urine Nitrite (NEGATIVE) Urine Bilirubin (NEGATIVE) Urine Urobilinogen (0-1) mg/dL Urine Leukocytes (NEGATIVE) Urine WBC (Auto) (0-5) /HPF Urine RBC (Auto) (0-2) /HPF U Hyaline Cast (Auto) (0-2) /LPF U Epithel Cells (Auto) (FEW) /HPF Urine Bacteria (Auto) (NEGATIVE) /HPF Urine RBC (0-5) Wan/ul Urine Mucus (Auto) (NEGATIVE) /HPF Ur Culture Indicated? Urine Glucose (NEGATIVE) mg/dL Monoscreen (Negative) Influenza Type A Ag NEGATIVE (NEGATIVE) Influenza Type B Ag NEGATIVE (NEGATIVE) RSV (PCR) NEGATIVE (Negative) SARS-CoV-2 (PCR) POSITIVE A (NEGATIVE) Slides for Path Review 04/05/22 04/05/22 04/05/22 Range/Units 16:15 16:00 15:52 WBC (4.0-10.5) x10^3/uL RBC (4.1-5.4) x10^6/uL Hgb (12.0-16.0) g/dL Hct (35-47) % MCV (78-100) fL MCH (26-32) pg MCHC (32-36) g/dL RDW (11.5-14.0) % Plt Count (150-450) x10^3/uL MPV (7.5-11.0) fL Gran % (36.0-66.0) % Immature Gran % (Auto) (0.00-0.4) % Nucleat RBC Rel Count (0.00-0.1) % Eos # (Auto) (0-0.5) x10^3/uL Immature Gran # (Auto) (0.00-0.03) x10^3u/L Absolute Lymphs (auto) (1.0-4.6) x10^3/uL Absolute Monos (auto) (0.0-1.3) x10^3/uL Absolute Nucleated RBC (0.00-0.01) x10^3u/L Lymphocytes % (24.0-44.0) % Monocytes % (0.0-12.0) % Eosinophils % (0.00-5.0) % Basophils % (0.0-0.4) % Absolute Granulocytes (1.4-6.9) x10^3/uL Basophils # (0-0.4) x10^3/uL Sodium (137-145) mmol/L Potassium (3.5-5.1) mmol/L Chloride (98-107) mmol/L Carbon Dioxide (22-30) mmol/L Anion Gap (5-15) MEQ/L BUN (7-17) mg/dL Creatinine (0.52-1.04) mg/dL Estimated GFR ML/MIN Glucose (74-106) mg/dL POC Glucometer (74 to 106) mg/dL Lactic Acid 1.7 (0.4-2.0) Calcium (8.4-10.2) mg/dL Magnesium (1.6-2.3) mg/dL Total Bilirubin (0.2-1.3) mg/dL AST (14-36) U/L ALT (0-35) U/L Alkaline Phosphatase (38-126) U/L Troponin I < 0.012 (0.000-0.034) ng/mL NT-Pro-B Natriuret Pep (0-1800) pg/mL Serum Total Protein (6.3-8.2) g/dL Albumin (3.5-5.0) g/dL Amylase (30-110) U/L Lipase (23-300) U/L Urinalys Dipstick Clnc Urine Color (YELLOW) Urine Appearance (CLEAR) Urine pH (5-6) Ur Specific [place] (1.005-1.025) POC Urine Protein Conf (Negative) Urine Ketones (NEGATIVE) Urine Nitrite (NEGATIVE) Urine Bilirubin (NEGATIVE) Urine Urobilinogen (0-1) mg/dL Urine Leukocytes (NEGATIVE) Urine WBC (Auto) (0-5) /HPF Urine RBC (Auto) (0-2) /HPF U Hyaline Cast (Auto) (0-2) /LPF U Epithel Cells (Auto) (FEW) /HPF Urine Bacteria (Auto) (NEGATIVE) /HPF Urine RBC (0-5) Wan/ul Urine Mucus (Auto) (NEGATIVE) /HPF Ur Culture Indicated? Urine Glucose (NEGATIVE) mg/dL Monoscreen NEGATIVE (Negative) Influenza Type A Ag (NEGATIVE) Influenza Type B Ag (NEGATIVE) RSV (PCR) (Negative) SARS-CoV-2 (PCR) (NEGATIVE) Slides for Path Review 04/05/22 04/05/22 Range/Units 15:50 15:50 WBC 4.0 (4.0-10.5) x10^3/uL RBC 3.07 L (4.1-5.4) x10^6/uL Hgb 9.6 L (12.0-16.0) g/dL Hct 29.0 L (35-47) % MCV 94.5 (78-100) fL MCH 31.3 (26-32) pg MCHC 33.1 (32-36) g/dL RDW 13.2 (11.5-14.0) % Plt Count 177 (150-450) x10^3/uL MPV 12.3 H (7.5-11.0) fL Gran % 70.2 H (36.0-66.0) % Immature Gran % (Auto) 0.5 H (0.00-0.4) % Nucleat RBC Rel Count 0.0 (0.00-0.1) % Eos # (Auto) 0.07 (0-0.5) x10^3/uL Immature Gran # (Auto) 0.02 (0.00-0.03) x10^3u/L Absolute Lymphs (auto) 0.59 L (1.0-4.6) x10^3/uL Absolute Monos (auto) 0.49 (0.0-1.3) x10^3/uL Absolute Nucleated RBC 0.00 (0.00-0.01) x10^3u/L Lymphocytes % 14.7 L (24.0-44.0) % Monocytes % 12.2 H (0.0-12.0) % Eosinophils % 1.7 (0.00-5.0) % Basophils % 0.7 (0.0-0.4) % Absolute Granulocytes 2.81 (1.4-6.9) x10^3/uL Basophils # 0.03 (0-0.4) x10^3/uL Sodium 129 L (137-145) mmol/L Potassium 7.0 H* (3.5-5.1) mmol/L Chloride 102 (98-107) mmol/L Carbon Dioxide 15 L* (22-30) mmol/L Anion Gap 17.8 H (5-15) MEQ/L BUN 51 H (7-17) mg/dL Creatinine 3.11 H (0.52-1.04) mg/dL Estimated GFR 15.5 ML/MIN Glucose 98 (74-106) mg/dL POC Glucometer (74 to 106) mg/dL Lactic Acid (0.4-2.0) Calcium 9.2 (8.4-10.2) mg/dL Magnesium (1.6-2.3) mg/dL Total Bilirubin 0.40 (0.2-1.3) mg/dL AST 23 (14-36) U/L ALT 18 (0-35) U/L Alkaline Phosphatase 78 (38-126) U/L Troponin I (0.000-0.034) ng/mL NT-Pro-B Natriuret Pep (0-1800) pg/mL Serum Total Protein 7.9 (6.3-8.2) g/dL Albumin 4.3 (3.5-5.0) g/dL Amylase (30-110) U/L Lipase (23-300) U/L Urinalys Dipstick Clnc Urine Color (YELLOW) Urine Appearance (CLEAR) Urine pH (5-6) Ur Specific [place] (1.005-1.025) POC Urine Protein Conf (Negative) Urine Ketones (NEGATIVE) Urine Nitrite (NEGATIVE) Urine Bilirubin (NEGATIVE) Urine Urobilinogen (0-1) mg/dL Urine Leukocytes (NEGATIVE) Urine WBC (Auto) (0-5) /HPF Urine RBC (Auto) (0-2) /HPF U Hyaline Cast (Auto) (0-2) /LPF U Epithel Cells (Auto) (FEW) /HPF Urine Bacteria (Auto) (NEGATIVE) /HPF Urine RBC (0-5) Wan/ul Urine Mucus (Auto) (NEGATIVE) /HPF Ur Culture Indicated? Urine Glucose (NEGATIVE) mg/dL Monoscreen (Negative) Influenza Type A Ag (NEGATIVE) Influenza Type B Ag (NEGATIVE) RSV (PCR) (Negative) SARS-CoV-2 (PCR) (NEGATIVE) Slides for Path Review YES - Progress Progress: improved Air Movement: good Blood Culture(s) Obtained: No Antibiotics given: No Counseled pt/family regarding: lab results, diagnosis, need for follow-up <GENA HERNADEZ - Last Filed: 04/05/22 19:18> - Progress Discussed with : Tiffanie Will see patient in: hospital (observation) <KIMBERLI VALLE - Last Filed: 04/06/22 02:19> - Progress Progress Note: 04/05/22 19:18 Transfer of care to Dr. Kimberli Valle at shift change. He will follow-up on test results and make final disposition. (GENA HERNADEZ) Patient endorsed to Dr. Valle at approximately 7 PM. Work-up at this point reveals COVID positivity. Patient has been vomiting which likely cause dehydration. Patient is known to have chronic renal insufficiency. Her BUN and creatinine are now significantly elevated off her baseline. Patient is now experiencing acute renal injury with subsequent hyperkalemia. We are currently managing the dehydration as well as the potassium. Anion gap acidosis observed. This should also respond to the IV fluid therapy. Patient will require admission for further treatment and evaluation. Case discussed with Dr. Martinez who accepts admission to observation. Plan of care discussed with patient. She agrees to admission [facility] for further evaluation and treatment. She voices no other complaints or concerns at this time. We just morteza a repeat chemistry to reassess potassium level. We will work on potassium prior to transferring to floor Portions of this note were created with voice recognition technology. There may be grammatical, spelling, punctuation or sound alike errors 04/05/22 20:21 We kept patient in our ED to continue working on her potassium. Potassium, sodium significantly improved. Patient's kidney function improved. Patient is no longer critical and will be transferred to the floor at this time. Portions of this note were created with voice recognition technology. There may be grammatical, spelling, punctuation or sound alike errors 04/06/22 02:17 (KIMBERLI VALLE) - Departure Departure Disposition: Observation Critical Care Time: Yes Critical Care Time(excluding separately billable procedures): Critical 30-74 mins (30 minutes) <GENA HERNADEZ - Last Filed: 04/05/22 19:18> <KIMBERLI VALLE - Last Filed: 04/06/22 02:19> - Departure Clinical Impression: COVID-19 virus infection, Vomiting, Acute renal failure, Hyperkalemia, High anion gap metabolic acidosis, Dehydration Condition: Fair
[2022-04-05] MEDS ORDERED: PROTONIX 40 MG IV IV ONE ×2 (15:54→17:24)
[2022-04-05 16:29] LABS: Absolute Neutrophil Ct (ANC) 2.81 x10^3/uL (1.4-6.9); Basophil (Absolute #) 0.03 x10^3/uL (0-0.4); Eosinophil % 1.7 % (0.00-5.0); Eosinophil (Absolute #) 0.07 x10^3/uL (0-0.5); Hemoglobin 9.6 g/dL (12.0-16.0); Lymphocyte (Absolute #) 0.59 x10^3/uL (1.0-4.6); Lymphocytes % 14.7 % (24.0-44.0); Mean Cell Volume 94.5 fL (78-100); Mean Corpuscular Hemoglobin 31.3 pg (26-32); Mean Corpuscular Hgb Concent. 33.1 g/dL (32-36); Mean Platelet Volume 12.3 fL (7.5-11.0); Monocyte (Absolute #) 0.49 x10^3/uL (0.0-1.3); Monocytes % 12.2 % (0.0-12.0); Neutrophil % 70.2 % (36.0-66.0); Platelet Count 177 x10^3/uL (150-450); Red Blood Count 3.07 x10^6/uL (4.1-5.4); Red Cell Distribution Width 13.2 % (11.5-14.0)
[2022-04-05 16:39] LABS: ALBUMIN 4.3 g/dL (3.5-5.0); ANION GAP 17.8 MEQ/L (5-15); BILIRUBIN,TOTAL 0.4 mg/dL (0.2-1.3); Calcium 9.2 mg/dL (8.4-10.2); Creatinine 1 3.11 mg/dL (0.52-1.04); EST GLOMERULAR FILTRATION RATE 15.5 ML/MIN; Total Protein 7.9 g/dL (6.3-8.2)
[2022-04-05 17:01] LABS: INFLUENZA A NEGATIVE (NEGATIVE); INFLUENZA B NEGATIVE (NEGATIVE); RESPIRATORY SYNCTIAL VIRUS NEGATIVE (Negative)
[2022-04-05] MEDS ORDERED: Calcium Gluconate 10% 1000 MG IV ONE ×2 (17:06→17:29)
[2022-04-05] MEDS ORDERED: D50W 50 ml Abboject IV ONE ×3 (17:09→23:43)
[2022-04-05] MEDS ORDERED: CALCIUM CHLORIDE 10% 1000 MG ONE (17:24)
[2022-04-05] MEDS ORDERED: Zofran 4 MG/2 ML VIAL ONE (17:24)
[2022-04-05] MEDS ORDERED: Sodium Chloride 0.9% 1000 ML 1,000 ML ONE (17:25)
[2022-04-05] MEDS: Sodium Chloride 0.9% 1000 ML 1,000 ML IV SCH (17:28)
[2022-04-05 17:51] LABS: SARS-CoV-2 Xpert Express POSITIVE (NEGATIVE)
[2022-04-05] MEDS ORDERED: HUMULIN R IV ONE (19:18)
[2022-04-05 20:48] LABS: ANION GAP 16.7 MEQ/L (5-15); Creatinine 1 2.68 mg/dL (0.52-1.04); EST GLOMERULAR FILTRATION RATE 18.4 ML/MIN; MAGNESIUM 1.7 mg/dL (1.6-2.3)
[2022-04-05 20:56] LABS: Potassium 6.9 mmol/L (3.5-5.1)
[2022-04-05] MEDS ORDERED: DUONEB 0.5-3 MG/3 ml Neb IH ONE ×2 (21:14→21:23)
[2022-04-05] MEDS ORDERED: VELTASSA PO STA (21:14)
[2022-04-05] MEDS ORDERED: Sodium Bicarbonate 50 MEQ/50 ML VIAL*** 75 MEQ in Dextrose 5% -0.45 NaCl 1000 ML 1,000 ML IV SCH (21:15)
[2022-04-05] MEDS ORDERED: VELTASSA PO ONE (21:29)
[2022-04-05] MEDS ORDERED: Sodium Bicarbonate 50 MEQ/50 ML VIAL ONE ×2 (21:30→21:33)
[2022-04-05] MEDS ORDERED: Dextrose 5% -0.45 NaCl 1000 ML 1,000 ML IV ONE (21:30)
[2022-04-05 23:31] LABS: Bacteria PACKED /HPF (NEGATIVE); Epithelial Cells RARE /HPF (FEW); Mucus SLIGHT /HPF (NEGATIVE)
[2022-04-05 23:32] LABS: Appearance CLEAR (CLEAR); Bilirubin NEGATIVE (NEGATIVE); Glucose 100 mg/dL (NEGATIVE); Ketones NEGATIVE (NEGATIVE); Specific Gravity 1.025 (1.005-1.025)
[2022-04-05 23:33] LABS: Dipstick done @ ? MAIN LAB; Nitrite POSITIVE (NEGATIVE); Ph 5.5 (5-6); Protein,Urine Dip TRACE (Negative); RBC TRACE-INTACT Ery/ul (0-5); Urine Cultured Indicated? YES; Urobilinogen 0.2 mg/dL (0-1)
[2022-04-05] MEDS ORDERED: ROCEPHIN 1 Gm-D5w 50 ml Bag** 1 G/50 ML IVPB IV STA (23:40)
[2022-04-05] MEDS ORDERED: HUMULIN R SQ ONE (23:44)
[2022-04-06] LABS: Slide Review 1 YES
[2022-04-06] MEDS ORDERED: ROCEPHIN 1 Gm-D5w 50 ml Bag** 1 G/50 ML IVPB IV ONE (00:02)
[2022-04-06] MEDS ORDERED: HUMULIN R ONE (00:02)
[2022-04-06] MEDS ORDERED: D50W 50 ml Abboject IV ONE (00:02)
[2022-04-06] MEDS ORDERED: Sodium Chloride 0.9% 1000 ML 1,000 ML ONE (00:02)
[2022-04-06] MEDS: Sodium Chloride 0.9% 1000 ML 1,000 ML IV SCH ×4 (00:04→20:15)
[2022-04-06 01:56] LABS: ANION GAP 16.1 MEQ/L (5-15); Calcium 8.3 mg/dL (8.4-10.2); Creatinine 1 2.25 mg/dL (0.52-1.04); EST GLOMERULAR FILTRATION RATE 22.5 ML/MIN; Potassium 5.8 mmol/L (3.5-5.1)
[2022-04-06] MEDS ORDERED: Sodium Chloride 0.9% 1000 ML 1,000 ML IV SCH (02:17)
[2022-04-06] MEDS ORDERED: VENTOLIN COMMON CANISTER IH PRN (04:46)
[2022-04-06 05:38] LABS: Absolute Neutrophil Ct (ANC) 2.54 x10^3/uL (1.4-6.9); Basophil (Absolute #) 0.02 x10^3/uL (0-0.4); Eosinophil % 1.4 % (0.00-5.0); Eosinophil (Absolute #) 0.05 x10^3/uL (0-0.5); Hemoglobin 8.5 g/dL (12.0-16.0); Lymphocyte (Absolute #) 0.51 x10^3/uL (1.0-4.6); Lymphocytes % 14.7 % (24.0-44.0); Mean Cell Volume 96.4 fL (78-100); Mean Corpuscular Hemoglobin 30.4 pg (26-32); Mean Corpuscular Hgb Concent. 31.5 g/dL (32-36); Mean Platelet Volume 11.9 fL (7.5-11.0); Monocyte (Absolute #) 0.35 x10^3/uL (0.0-1.3); Monocytes % 10.1 % (0.0-12.0); Neutrophil % 72.9 % (36.0-66.0); Platelet Count 130 x10^3/uL (150-450); Red Cell Distribution Width 13.2 % (11.5-14.0); White Blood Count 3.5 x10^3/uL (4.0-10.5)
[2022-04-06 06:04] LABS: ALBUMIN 3.3 g/dL (3.5-5.0); ANION GAP 14.3 MEQ/L (5-15); BILIRUBIN,TOTAL 0.2 mg/dL (0.2-1.3); Calcium 8.3 mg/dL (8.4-10.2); Creatinine 1 2.09 mg/dL (0.52-1.04); EST GLOMERULAR FILTRATION RATE 24.5 ML/MIN; Potassium 5.7 mmol/L (3.5-5.1); Total Protein 6.3 g/dL (6.3-8.2)
[2022-04-06] MEDS: Sodium Bicarbonate 50 MEQ/50 ML VIAL*** 75 MEQ in Dextrose 5% -0.45 NaCl 1000 ML 1,000 ML IV SCH ×2 (07:19→09:07)
[2022-04-06 07:24] LABS: Slide Review 1 YES
[2022-04-06] MEDS: NYSTOP 30 GM CREAM TOP SCH ×2 (09:02→21:40)
[2022-04-06] MEDS: Protonix 40MG Tablet PO SCH (09:03)
[2022-04-06] MEDS: FISH OIL 1,000 MG CAPSULE PO SCH (09:03)
[2022-04-06] MEDS: Vitamin B-12 500 MCG PO SCH (09:03)
[2022-04-06] MEDS: VITAMIN D PO SCH (09:03)
[2022-04-06] MEDS: Coreg PO SCH ×2 (09:03→21:40)
[2022-04-06] MEDS: ENTRESTO 49 MG-51 MG TABLET PO SCH ×2 (09:03→21:40)
[2022-04-06] MEDS: Aldactone 25 MG PO SCH (09:03)
[2022-04-06] MEDS: Lexapro PO SCH (09:06)
[2022-04-06] MEDS ORDERED: NON-FORMULARY ITEM (Esomeprazole Magnesium [Nexium] 40 MG Capsule.Dr) PO SCH (10:00)
[2022-04-06] MEDS ORDERED: NON-FORMULARY ITEM (Spironolactone [Spironolactone] 50 MG Tablet) PO SCH (10:00)
[2022-04-06] MEDS ORDERED: DHA PO SCH (10:00)
[2022-04-06] MEDS ORDERED: EPA PO SCH (10:00)
[2022-04-06] MEDS ORDERED: FISH OIL PO SCH (10:00)
[2022-04-06] MEDS ORDERED: NON-FORMULARY ITEM (Cholecalciferol (Vitamin D3) [Vitamin D3] 1,000 UNIT Capsule) PO SCH (10:00)
[2022-04-06] MEDS ORDERED: OMEGA PO SCH (10:00)
[2022-04-06] MEDS ORDERED: NON-FORMULARY ITEM (Cyanocobalamin (Vitamin B-12) [B-12] 1,000 MCG Tablet) PO SCH (10:00)
[2022-04-06 13:30] LABS: Influenza A NEGATIVE (NEGATIVE); Influenza B NEGATIVE (NEGATIVE); SARS COVID AG NEGATIVE (NEGATIVE)
--- NOTE | 2022-04-06 13:38 | PCM.HP ---
History of Present Illness - Chief Complaint Chief Complaint: vomiting for 2-3 days History of Present Illness: is a 76 year old female.who presents with symptoms of weakness and inability to hold fluids or food down. Patient was diagnosed with COVID-19 infection approximately 1 to 2 weeks ago. Patient does have a history of gastroesophageal reflux disease and hyperlipidemia. She has not had any diarrhea. She denies chest pain at this time. She also denies significant shortness of breath. She does not have abdominal pain - Review of Systems Constitutional: No Fever, No Chills Eyes: No Symptoms Ears, Nose, & Throat: No Symptoms Respiratory: No Cough, No Short Of Breath Cardiac: No Chest Pain, No Edema, No Syncope Abdominal/Gastrointestinal: Nausea, Vomiting, No Abdominal Pain, No Diarrhea Genitourinary Symptoms: No Dysuria Musculoskeletal: No Back Pain, No Neck Pain Skin: No Rash Neurological: No Dizziness, No Focal Weakness, No Sensory Changes Psychological: No Symptoms Endocrine: No Symptoms Hematologic/Lymphatic: No Symptoms Immunological/Allergic: No Symptoms Medications & Allergies Home Medications: Home Medication List Carvedilol [Coreg ] 6.25 mg PO BID 07/21/14 [History Confirmed 04/05/22] Sacubitril/Valsartan [Entresto 49 mg-51 mg Tablet] 1 each PO BID 01/10/19 [History Confirmed 04/05/22] Cholecalciferol (Vitamin D3) [Vitamin D3] 1,000 iu PO DAILY 01/21/19 [History Confirmed 04/05/22] Cyanocobalamin (Vitamin B-12) [B-12] 1,000 mcg PO DAILY 01/21/19 [History Confirmed 04/05/22] [place]-3/Dha/Epa/Fish Oil [[place] 3 500 Softgel] 520 mcg PO DAILY 01/21/19 [History Confirmed 04/05/22] Esomeprazole Magnesium [Nexium] 40 mg PO DAILY 01/22/19 [History Confirmed 04/05/22] Escitalopram Oxalate 20 mg PO DAILY 04/06/22 [History Confirmed 04/06/22] Spironolactone 50 mg PO DAILY 04/06/22 [History Confirmed 04/06/22] Allergies/Adverse Reactions: Allergies Allergy/AdvReac Type Severity Reaction Status Date / Time clarithromycin [From Biaxin] Allergy Verified 05/26/19 13:58 - Past Medical History Past Medical History: Yes Neurological History: No Pertinent History ENT History: Cataracts Cardiac History: Arrhythmia, Coronary Artery Disease Respiratory History: Bronchitis, CHF, COPD, Pneumonia Endocrine Medical History: Hypothyroidism Musculoskelatal History: Arthritis, Osteoarthritis GI Medical History: GERD Pyscho-Social History: Anxiety Reproductive Disorders: No Pertinent History Comment: [place], left hearing aid, doesnt wear - Female History Are you now?: No - Past Surgical History Past Surgical History: Yes Neuro Surgical History: No Pertinent History Cardiac History: No Pertinent History Respiratory Surgery: No Pertinent History GI Surgical History: No Pertinent History Genitourinary Surgical Hx: No Pertinent History Musculskeletal Surgical Hx: No Pertinent History Female Surgical History: Hysterectomy - Social History Smoking Status: Never smoker Exposure to second hand smoke: No Alcohol: None Drug Use: none Significant Family History: no pertinent family hx - Physical Exam Vital Signs: Vital Signs - 24 hr Temp Pulse Resp BP Pulse Ox 04/06/22 11:49 18 04/06/22 10:00 18 04/06/22 08:00 98.1 F 76 18 101/58 98 04/06/22 07:39 75 16 95 04/06/22 05:45 16 04/06/22 04:00 16 04/06/22 03:52 81 16 98 04/06/22 03:35 97.6 F 66 19 114/86 99 04/06/22 02:06 78 18 98/74 97 04/06/22 01:00 70 18 89/71 95 04/06/22 00:00 62 18 104/63 95 04/05/22 23:00 63 20 95/40 95 04/05/22 22:00 60 18 107/39 96 04/05/22 21:44 63 20 93 L 04/05/22 21:42 62 18 107/39 98 04/05/22 15:52 98 04/05/22 15:42 97.1 F 61 20 100/41 92 L General Appearance: no apparent distress, alert Neurologic Exam: alert, oriented x 3, cooperative, normal mood/affect, nml cerebellar function, nml station & gait, sensation nml, No motor deficits Eye Exam: PERRL/EOMI, eyes nml inspection Ears, Nose, Throat Exam: normal ENT inspection, TMs normal, pharynx normal, moist mucous membranes Neck Exam: normal inspection, non-tender, supple, full range of motion Respiratory Exam: normal breath sounds, lungs clear, No respiratory distress Cardiovascular Exam: regular rate/rhythm, normal heart sounds, normal peripheral pulses Gastrointestinal/Abdomen Exam: soft, normal bowel sounds, No tenderness, No mass Back Exam: normal inspection, normal range of motion, No CVA tenderness, No vertebral tenderness Extremity Exam: normal inspection, normal range of motion, pelvis stable Skin Exam: normal color, warm, dry, No rash Lymphatic Exam: No adenopathy Results - Labs Lab/Micro Results: Lab Results-Last 24 Hours 04/05/22 04/05/22 04/05/22 Range/Units 15:50 15:50 15:52 WBC 4.0 (4.0-10.5) x10^3/uL RBC 3.07 L (4.1-5.4) x10^6/uL Hgb 9.6 L (12.0-16.0) g/dL Hct 29.0 L (35-47) % MCV 94.5 (78-100) fL MCH 31.3 (26-32) pg MCHC 33.1 (32-36) g/dL RDW 13.2 (11.5-14.0) % Plt Count 177 (150-450) x10^3/uL MPV 12.3 H (7.5-11.0) fL Gran % 70.2 H (36.0-66.0) % Immature Gran % (Auto) 0.5 H (0.00-0.4) % Nucleat RBC Rel Count 0.0 (0.00-0.1) % Eos # (Auto) 0.07 (0-0.5) x10^3/uL Immature Gran # (Auto) 0.02 (0.00-0.03) x10^3u/L Absolute Lymphs (auto) 0.59 L (1.0-4.6) x10^3/uL Absolute Monos (auto) 0.49 (0.0-1.3) x10^3/uL Absolute Nucleated RBC 0.00 (0.00-0.01) x10^3u/L Lymphocytes % 14.7 L (24.0-44.0) % Monocytes % 12.2 H (0.0-12.0) % Eosinophils % 1.7 (0.00-5.0) % Basophils % 0.7 (0.0-0.4) % Absolute Granulocytes 2.81 (1.4-6.9) x10^3/uL Basophils # 0.03 (0-0.4) x10^3/uL Sodium 129 L (137-145) mmol/L Potassium 7.0 H* (3.5-5.1) mmol/L Chloride 102 (98-107) mmol/L Carbon Dioxide 15 L* (22-30) mmol/L Anion Gap 17.8 H (5-15) MEQ/L BUN 51 H (7-17) mg/dL Creatinine 3.11 H (0.52-1.04) mg/dL Estimated GFR 15.5 ML/MIN Glucose 98 (74-106) mg/dL POC Glucometer (74 to 106) mg/dL Lactic Acid 1.7 (0.4-2.0) Calcium 9.2 (8.4-10.2) mg/dL Magnesium (1.6-2.3) mg/dL Total Bilirubin 0.40 (0.2-1.3) mg/dL AST 23 (14-36) U/L ALT 18 (0-35) U/L Alkaline Phosphatase 78 (38-126) U/L Troponin I (0.000-0.034) ng/mL NT-Pro-B Natriuret Pep (0-1800) pg/mL Serum Total Protein 7.9 (6.3-8.2) g/dL Albumin 4.3 (3.5-5.0) g/dL Amylase (30-110) U/L Lipase (23-300) U/L Urinalys Dipstick Clnc Urine Color (YELLOW) Urine Appearance (CLEAR) Urine pH (5-6) Ur Specific [place] (1.005-1.025) POC Urine Protein Conf (Negative) Urine Ketones (NEGATIVE) Urine Nitrite (NEGATIVE) Urine Bilirubin (NEGATIVE) Urine Urobilinogen (0-1) mg/dL Urine Leukocytes (NEGATIVE) Urine WBC (Auto) (0-5) /HPF Urine RBC (Auto) (0-2) /HPF U Hyaline Cast (Auto) (0-2) /LPF U Epithel Cells (Auto) (FEW) /HPF Urine Bacteria (Auto) (NEGATIVE) /HPF Urine RBC (0-5) Wan/ul Urine Mucus (Auto) (NEGATIVE) /HPF Ur Culture Indicated? Urine Glucose (NEGATIVE) mg/dL Monoscreen (Negative) Influenza Type A Ag (NEGATIVE) Influenza Type B Ag (NEGATIVE) RSV (PCR) (Negative) SARS-CoV-2 (PCR) (NEGATIVE) SARS-CoV-2 Antigen (NEGATIVE) Slides for Path Review YES 04/05/22 04/05/22 04/05/22 Range/Units 16:00 16:15 16:15 WBC (4.0-10.5) x10^3/uL RBC (4.1-5.4) x10^6/uL Hgb (12.0-16.0) g/dL Hct (35-47) % MCV (78-100) fL MCH (26-32) pg MCHC (32-36) g/dL RDW (11.5-14.0) % Plt Count (150-450) x10^3/uL MPV (7.5-11.0) fL Gran % (36.0-66.0) % Immature Gran % (Auto) (0.00-0.4) % Nucleat RBC Rel Count (0.00-0.1) % Eos # (Auto) (0-0.5) x10^3/uL Immature Gran # (Auto) (0.00-0.03) x10^3u/L Absolute Lymphs (auto) (1.0-4.6) x10^3/uL Absolute Monos (auto) (0.0-1.3) x10^3/uL Absolute Nucleated RBC (0.00-0.01) x10^3u/L Lymphocytes % (24.0-44.0) % Monocytes % (0.0-12.0) % Eosinophils % (0.00-5.0) % Basophils % (0.0-0.4) % Absolute Granulocytes (1.4-6.9) x10^3/uL Basophils # (0-0.4) x10^3/uL Sodium (137-145) mmol/L Potassium (3.5-5.1) mmol/L Chloride (98-107) mmol/L Carbon Dioxide (22-30) mmol/L Anion Gap (5-15) MEQ/L BUN (7-17) mg/dL Creatinine (0.52-1.04) mg/dL Estimated GFR ML/MIN Glucose (74-106) mg/dL POC Glucometer (74 to 106) mg/dL Lactic Acid (0.4-2.0) Calcium (8.4-10.2) mg/dL Magnesium (1.6-2.3) mg/dL Total Bilirubin (0.2-1.3) mg/dL AST (14-36) U/L ALT (0-35) U/L Alkaline Phosphatase (38-126) U/L Troponin I < 0.012 (0.000-0.034) ng/mL NT-Pro-B Natriuret Pep (0-1800) pg/mL Serum Total Protein (6.3-8.2) g/dL Albumin (3.5-5.0) g/dL Amylase (30-110) U/L Lipase (23-300) U/L Urinalys Dipstick Clnc Urine Color (YELLOW) Urine Appearance (CLEAR) Urine pH (5-6) Ur Specific [place] (1.005-1.025) POC Urine Protein Conf (Negative) Urine Ketones (NEGATIVE) Urine Nitrite (NEGATIVE) Urine Bilirubin (NEGATIVE) Urine Urobilinogen (0-1) mg/dL Urine Leukocytes (NEGATIVE) Urine WBC (Auto) (0-5) /HPF Urine RBC (Auto) (0-2) /HPF U Hyaline Cast (Auto) (0-2) /LPF U Epithel Cells (Auto) (FEW) /HPF Urine Bacteria (Auto) (NEGATIVE) /HPF Urine RBC (0-5) Wan/ul Urine Mucus (Auto) (NEGATIVE) /HPF Ur Culture Indicated? Urine Glucose (NEGATIVE) mg/dL Monoscreen NEGATIVE (Negative) Influenza Type A Ag NEGATIVE (NEGATIVE) Influenza Type B Ag NEGATIVE (NEGATIVE) RSV (PCR) NEGATIVE (Negative) SARS-CoV-2 (PCR) POSITIVE A (NEGATIVE) SARS-CoV-2 Antigen (NEGATIVE) Slides for Path Review 04/05/22 04/05/22 04/05/22 Range/Units 16:15 19:51 20:15 WBC (4.0-10.5) x10^3/uL RBC (4.1-5.4) x10^6/uL Hgb (12.0-16.0) g/dL Hct (35-47) % MCV (78-100) fL MCH (26-32) pg MCHC (32-36) g/dL RDW (11.5-14.0) % Plt Count (150-450) x10^3/uL MPV (7.5-11.0) fL Gran % (36.0-66.0) % Immature Gran % (Auto) (0.00-0.4) % Nucleat RBC Rel Count (0.00-0.1) % Eos # (Auto) (0-0.5) x10^3/uL Immature Gran # (Auto) (0.00-0.03) x10^3u/L Absolute Lymphs (auto) (1.0-4.6) x10^3/uL Absolute Monos (auto) (0.0-1.3) x10^3/uL Absolute Nucleated RBC (0.00-0.01) x10^3u/L Lymphocytes % (24.0-44.0) % Monocytes % (0.0-12.0) % Eosinophils % (0.00-5.0) % Basophils % (0.0-0.4) % Absolute Granulocytes (1.4-6.9) x10^3/uL Basophils # (0-0.4) x10^3/uL Sodium (137-145) mmol/L Potassium (3.5-5.1) mmol/L Chloride (98-107) mmol/L Carbon Dioxide (22-30) mmol/L Anion Gap (5-15) MEQ/L BUN (7-17) mg/dL Creatinine (0.52-1.04) mg/dL Estimated GFR ML/MIN Glucose (74-106) mg/dL POC Glucometer 94 (74 to 106) mg/dL Lactic Acid (0.4-2.0) Calcium (8.4-10.2) mg/dL Magnesium (1.6-2.3) mg/dL Total Bilirubin (0.2-1.3) mg/dL AST (14-36) U/L ALT (0-35) U/L Alkaline Phosphatase (38-126) U/L Troponin I 0.020 (0.000-0.034) ng/mL NT-Pro-B Natriuret Pep 654 (0-1800) pg/mL Serum Total Protein (6.3-8.2) g/dL Albumin (3.5-5.0) g/dL Amylase (30-110) U/L Lipase (23-300) U/L Urinalys Dipstick Clnc Urine Color (YELLOW) Urine Appearance (CLEAR) Urine pH (5-6) Ur Specific [place] (1.005-1.025) POC Urine Protein Conf (Negative) Urine Ketones (NEGATIVE) Urine Nitrite (NEGATIVE) Urine Bilirubin (NEGATIVE) Urine Urobilinogen (0-1) mg/dL Urine Leukocytes (NEGATIVE) Urine WBC (Auto) (0-5) /HPF Urine RBC (Auto) (0-2) /HPF U Hyaline Cast (Auto) (0-2) /LPF U Epithel Cells (Auto) (FEW) /HPF Urine Bacteria (Auto) (NEGATIVE) /HPF Urine RBC (0-5) Wan/ul Urine Mucus (Auto) (NEGATIVE) /HPF Ur Culture Indicated? Urine Glucose (NEGATIVE) mg/dL Monoscreen (Negative) Influenza Type A Ag (NEGATIVE) Influenza Type B Ag (NEGATIVE) RSV (PCR) (Negative) SARS-CoV-2 (PCR) (NEGATIVE) SARS-CoV-2 Antigen (NEGATIVE) Slides for Path Review 04/05/22 04/05/22 04/05/22 Range/Units 20:15 22:32 23:41 WBC (4.0-10.5) x10^3/uL RBC (4.1-5.4) x10^6/uL Hgb (12.0-16.0) g/dL Hct (35-47) % MCV (78-100) fL MCH (26-32) pg MCHC (32-36) g/dL RDW (11.5-14.0) % Plt Count (150-450) x10^3/uL MPV (7.5-11.0) fL Gran % (36.0-66.0) % Immature Gran % (Auto) (0.00-0.4) % Nucleat RBC Rel Count (0.00-0.1) % Eos # (Auto) (0-0.5) x10^3/uL Immature Gran # (Auto) (0.00-0.03) x10^3u/L Absolute Lymphs (auto) (1.0-4.6) x10^3/uL Absolute Monos (auto) (0.0-1.3) x10^3/uL Absolute Nucleated RBC (0.00-0.01) x10^3u/L Lymphocytes % (24.0-44.0) % Monocytes % (0.0-12.0) % Eosinophils % (0.00-5.0) % Basophils % (0.0-0.4) % Absolute Granulocytes (1.4-6.9) x10^3/uL Basophils # (0-0.4) x10^3/uL Sodium 130 L (137-145) mmol/L Potassium 6.9 H* (3.5-5.1) mmol/L Chloride 105 (98-107) mmol/L Carbon Dioxide 15 L* (22-30) mmol/L Anion Gap 16.7 H (5-15) MEQ/L BUN 50 H (7-17) mg/dL Creatinine 2.68 H (0.52-1.04) mg/dL Estimated GFR 18.4 ML/MIN Glucose 98 (74-106) mg/dL POC Glucometer 114 H (74 to 106) mg/dL Lactic Acid (0.4-2.0) Calcium 9.0 (8.4-10.2) mg/dL Magnesium 1.7 (1.6-2.3) mg/dL Total Bilirubin (0.2-1.3) mg/dL AST (14-36) U/L ALT (0-35) U/L Alkaline Phosphatase (38-126) U/L Troponin I (0.000-0.034) ng/mL NT-Pro-B Natriuret Pep (0-1800) pg/mL Serum Total Protein (6.3-8.2) g/dL Albumin (3.5-5.0) g/dL Amylase 102 (30-110) U/L Lipase 196 (23-300) U/L Urinalys Dipstick Clnc MAIN LAB Urine Color YELLOW (YELLOW) Urine Appearance CLEAR (CLEAR) Urine pH 5.5 (5-6) Ur Specific [place] 1.025 (1.005-1.025) POC Urine Protein Conf TRACE (Negative) Urine Ketones NEGATIVE (NEGATIVE) Urine Nitrite POSITIVE (NEGATIVE) Urine Bilirubin NEGATIVE (NEGATIVE) Urine Urobilinogen 0.2 (0-1) mg/dL Urine Leukocytes TRACE (NEGATIVE) Urine WBC (Auto) 16-25 (0-5) /HPF Urine RBC (Auto) 3-5 (0-2) /HPF U Hyaline Cast (Auto) 3-5 (0-2) /LPF U Epithel Cells (Auto) RARE (FEW) /HPF Urine Bacteria (Auto) PACKED (NEGATIVE) /HPF Urine RBC TRACE-INTACT (0-5) Wan/ul Urine Mucus (Auto) SLIGHT (NEGATIVE) /HPF Ur Culture Indicated? YES Urine Glucose 100 (NEGATIVE) mg/dL Monoscreen (Negative) Influenza Type A Ag (NEGATIVE) Influenza Type B Ag (NEGATIVE) RSV (PCR) (Negative) SARS-CoV-2 (PCR) (NEGATIVE) SARS-CoV-2 Antigen (NEGATIVE) Slides for Path Review 04/06/22 04/06/22 04/06/22 Range/Units 00:20 01:33 04:45 WBC 3.5 L (4.0-10.5) x10^3/uL RBC 2.80 L (4.1-5.4) x10^6/uL Hgb 8.5 L (12.0-16.0) g/dL Hct 27.0 L (35-47) % MCV 96.4 (78-100) fL MCH 30.4 (26-32) pg MCHC 31.5 L (32-36) g/dL RDW 13.2 (11.5-14.0) % Plt Count 130 L (150-450) x10^3/uL MPV 11.9 H (7.5-11.0) fL Gran % 72.9 H (36.0-66.0) % Immature Gran % (Auto) 0.3 (0.00-0.4) % Nucleat RBC Rel Count 0.0 (0.00-0.1) % Eos # (Auto) 0.05 (0-0.5) x10^3/uL Immature Gran # (Auto) 0.01 (0.00-0.03) x10^3u/L Absolute Lymphs (auto) 0.51 L (1.0-4.6) x10^3/uL Absolute Monos (auto) 0.35 (0.0-1.3) x10^3/uL Absolute Nucleated RBC 0.00 (0.00-0.01) x10^3u/L Lymphocytes % 14.7 L (24.0-44.0) % Monocytes % 10.1 (0.0-12.0) % Eosinophils % 1.4 (0.00-5.0) % Basophils % 0.6 (0.0-0.4) % Absolute Granulocytes 2.54 (1.4-6.9) x10^3/uL Basophils # 0.02 (0-0.4) x10^3/uL Sodium 131 L (137-145) mmol/L Potassium 5.8 H (3.5-5.1) mmol/L Chloride 105 (98-107) mmol/L Carbon Dioxide 16 L* (22-30) mmol/L Anion Gap 16.1 H (5-15) MEQ/L BUN 45 H (7-17) mg/dL Creatinine 2.25 H (0.52-1.04) mg/dL Estimated GFR 22.5 ML/MIN Glucose 76 (74-106) mg/dL POC Glucometer (74 to 106) mg/dL Lactic Acid (0.4-2.0) Calcium 8.3 L (8.4-10.2) mg/dL Magnesium (1.6-2.3) mg/dL Total Bilirubin (0.2-1.3) mg/dL AST (14-36) U/L ALT (0-35) U/L Alkaline Phosphatase (38-126) U/L Troponin I 0.014 (0.000-0.034) ng/mL NT-Pro-B Natriuret Pep (0-1800) pg/mL Serum Total Protein (6.3-8.2) g/dL Albumin (3.5-5.0) g/dL Amylase (30-110) U/L Lipase (23-300) U/L Urinalys Dipstick Clnc Urine Color (YELLOW) Urine Appearance (CLEAR) Urine pH (5-6) Ur Specific [place] (1.005-1.025) POC Urine Protein Conf (Negative) Urine Ketones (NEGATIVE) Urine Nitrite (NEGATIVE) Urine Bilirubin (NEGATIVE) Urine Urobilinogen (0-1) mg/dL Urine Leukocytes (NEGATIVE) Urine WBC (Auto) (0-5) /HPF Urine RBC (Auto) (0-2) /HPF U Hyaline Cast (Auto) (0-2) /LPF U Epithel Cells (Auto) (FEW) /HPF Urine Bacteria (Auto) (NEGATIVE) /HPF Urine RBC (0-5) Wan/ul Urine Mucus (Auto) (NEGATIVE) /HPF Ur Culture Indicated? Urine Glucose (NEGATIVE) mg/dL Monoscreen (Negative) Influenza Type A Ag (NEGATIVE) Influenza Type B Ag (NEGATIVE) RSV (PCR) (Negative) SARS-CoV-2 (PCR) (NEGATIVE) SARS-CoV-2 Antigen (NEGATIVE) Slides for Path Review YES 04/06/22 04/06/22 Range/Units 04:45 13:03 WBC (4.0-10.5) x10^3/uL RBC (4.1-5.4) x10^6/uL Hgb (12.0-16.0) g/dL Hct (35-47) % MCV (78-100) fL MCH (26-32) pg MCHC (32-36) g/dL RDW (11.5-14.0) % Plt Count (150-450) x10^3/uL MPV (7.5-11.0) fL Gran % (36.0-66.0) % Immature Gran % (Auto) (0.00-0.4) % Nucleat RBC Rel Count (0.00-0.1) % Eos # (Auto) (0-0.5) x10^3/uL Immature Gran # (Auto) (0.00-0.03) x10^3u/L Absolute Lymphs (auto) (1.0-4.6) x10^3/uL Absolute Monos (auto) (0.0-1.3) x10^3/uL Absolute Nucleated RBC (0.00-0.01) x10^3u/L Lymphocytes % (24.0-44.0) % Monocytes % (0.0-12.0) % Eosinophils % (0.00-5.0) % Basophils % (0.0-0.4) % Absolute Granulocytes (1.4-6.9) x10^3/uL Basophils # (0-0.4) x10^3/uL Sodium 130 L (137-145) mmol/L Potassium 5.7 H (3.5-5.1) mmol/L Chloride 105 (98-107) mmol/L Carbon Dioxide 17 L (22-30) mmol/L Anion Gap 14.3 (5-15) MEQ/L BUN 39 H (7-17) mg/dL Creatinine 2.09 H (0.52-1.04) mg/dL Estimated GFR 24.5 ML/MIN Glucose 76 (74-106) mg/dL POC Glucometer (74 to 106) mg/dL Lactic Acid (0.4-2.0) Calcium 8.3 L (8.4-10.2) mg/dL Magnesium (1.6-2.3) mg/dL Total Bilirubin 0.20 (0.2-1.3) mg/dL AST 19 (14-36) U/L ALT 15 (0-35) U/L Alkaline Phosphatase 60 (38-126) U/L Troponin I (0.000-0.034) ng/mL NT-Pro-B Natriuret Pep (0-1800) pg/mL Serum Total Protein 6.3 (6.3-8.2) g/dL Albumin 3.3 L (3.5-5.0) g/dL Amylase (30-110) U/L Lipase (23-300) U/L Urinalys Dipstick Clnc Urine Color (YELLOW) Urine Appearance (CLEAR) Urine pH (5-6) Ur Specific [place] (1.005-1.025) POC Urine Protein Conf (Negative) Urine Ketones (NEGATIVE) Urine Nitrite (NEGATIVE) Urine Bilirubin (NEGATIVE) Urine Urobilinogen (0-1) mg/dL Urine Leukocytes (NEGATIVE) Urine WBC (Auto) (0-5) /HPF Urine RBC (Auto) (0-2) /HPF U Hyaline Cast (Auto) (0-2) /LPF U Epithel Cells (Auto) (FEW) /HPF Urine Bacteria (Auto) (NEGATIVE) /HPF Urine RBC (0-5) Wan/ul Urine Mucus (Auto) (NEGATIVE) /HPF Ur Culture Indicated? Urine Glucose (NEGATIVE) mg/dL Monoscreen (Negative) Influenza Type A Ag NEGATIVE (NEGATIVE) Influenza Type B Ag NEGATIVE (NEGATIVE) RSV (PCR) (Negative) SARS-CoV-2 (PCR) (NEGATIVE) SARS-CoV-2 Antigen NEGATIVE (NEGATIVE) Slides for Path Review - Radiology Impressions Radiology Exams & Impressions: Radiology Procedures Category Date Time Status CHEST 1 VIEW (PORTABLE) Stat Exams 04/05/22 15:53 Taken - Other Procedures and Tests Respiratory Therapy 04/05/22 21:37 Respiratory Therapy Assessment DAILY 04/06/22 03:52 Oxygen Nasal Cannula 2 lpm Assessment/Plan (1) Acute renal failure Current Visit: Yes Status: Acute Qualifiers: Acute renal failure type: unspecified Qualified Code(s): N17.9 - Acute kidney failure, unspecified Assessment & Plan: Chief Complaint Diagnosis vomiting Allergies Allergy/AdvReac Type Severity Reaction Status Date / Time clarithromycin [From Biaxin] Allergy Verified 05/26/19 13:58 Vital Signs (Last 24 hours) Temp Pulse Resp BP Pulse Ox 04/06/22 11:49 18 04/06/22 10:00 18 04/06/22 08:00 98.1 F 76 18 101/58 98 04/06/22 07:39 75 16 95 04/06/22 05:45 16 04/06/22 04:00 16 04/06/22 03:52 81 16 98 04/06/22 03:35 97.6 F 66 19 114/86 99 04/06/22 02:06 78 18 98/74 97 04/06/22 01:00 70 18 89/71 95 04/06/22 00:00 62 18 104/63 95 04/05/22 23:00 63 20 95/40 95 04/05/22 22:00 60 18 107/39 96 04/05/22 21:44 63 20 93 L 04/05/22 21:42 62 18 107/39 98 04/05/22 15:52 98 04/05/22 15:42 97.1 F 61 20 100/41 92 L Home Medications Medication Instructions Recorded Confirmed Last Taken Type Escitalopram Oxalate 20 mg PO DAILY 04/06/22 04/06/22 Unknown History Spironolactone 50 mg PO DAILY 04/06/22 04/06/22 Unknown History Current Medications Generic Name Dose Route Start Last Admin Trade Name Freq PRN Reason Stop Dose Admin Albuterol Sulfate 4 puff 04/06/22 04:46 Albuterol Common Canister Inhaler IH 05/06/22 04:45 QIDPRN PRN SHORTNESS OF BREATH/WHEEZING Carvedilol 6.25 mg 04/06/22 10:00 04/06/22 09:03 Carvedilol 6.25 Mg Tablet PO 05/06/22 09:59 6.25 mg BID FRANCESCA Administration Cholecalciferol 1,000 unit 04/06/22 10:00 04/06/22 09:03 Cholecalciferol (Vitamin D3) 1000 Unit Tablet PO 05/06/22 09:59 1,000 unit DAILY FRANCESCA Administration Cyanocobalamin 1,000 mcg 04/06/22 10:00 04/06/22 09:03 Cyanocobalamin 500 Mcg Tablet PO 05/06/22 09:59 1,000 mcg DAILY FRANCESCA Administration Escitalopram Oxalate 20 mg 04/06/22 10:00 04/06/22 09:06 Escitalopram Oxalate 10 Mg Tablet PO 05/06/22 09:59 20 mg QAM FRANCESCA Administration Fish Oil 1,000 mg 04/06/22 10:00 04/06/22 09:03 [place]-3 Fatty Acids/Fish Oil 1000 Mg Capsule PO 05/06/22 09:59 1,000 mg DAILY FRANCESCA Administration Sodium Chloride 1,000 mls @ 150 mls/hr 04/06/22 12:45 04/06/22 13:19 Sodium Chloride 0.9% 1000 Ml IV 05/06/22 12:44 150 mls/hr .[id number] FRANCESCA Administration Nystatin 1 gm 04/06/22 10:00 04/06/22 09:02 Nystatin Cream 30 Gm 30 Gm Tube TOP 05/06/22 09:59 1 gm BID FRANCESCA Administration Pantoprazole Sodium 40 mg 04/06/22 10:00 04/06/22 09:03 Protonix (Pantoprazole) 40 Mg Tablet PO 05/06/22 09:59 40 mg DAILY FRANCESCA Administration Sacubitril/Valsartan 1 tablet 04/06/22 10:00 04/06/22 09:03 Sacubitril/Valsartan 1 Tablet Tablet PO 05/06/22 09:59 1 tablet BID FRANCESCA Administration Spironolactone 50 mg 04/06/22 10:00 04/06/22 09:03 Spironolactone 25 Mg Tablet PO 05/06/22 09:59 50 mg DAILY FRANCESCA Administration Discontinued Medications Generic Name Dose Route Start Last Admin Trade Name Lindsay PRN Reason Stop Dose Admin Albuterol/Ipratropium 3 ml 04/05/22 21:14 04/05/22 21:44 Ipratropium/Albuterol Sulfate 3 Ml Ampul.Neb IH 04/05/22 21:15 3 ml STAT ONE Administration Albuterol/Ipratropium Confirm 04/05/22 21:23 Ipratropium/Albuterol Sulfate 3 Ml Ampul.Neb Administered 04/05/22 21:24 Dose 3 ml IH .STK-MED ONE Calcium Chloride Confirm 04/05/22 17:24 Calcium Chloride 100 Mg/Ml 10ml Inj. Administered 04/05/22 17:25 Dose 1,000 mg .ROUTE .STK-MED ONE Calcium Gluconate 1,000 mg 04/05/22 17:06 04/05/22 17:30 Calcium Gluconate 1000 Mg/10 Ml Vial IV 04/05/22 17:07 1,000 mg STAT ONE Administration Calcium Gluconate Confirm 04/05/22 17:29 Calcium Gluconate 1000 Mg/10 Ml Vial Administered 04/05/22 17:30 Dose 1,000 mg IV .STK-MED ONE Dextrose 50 ml 04/05/22 17:09 04/05/22 17:29 Dextrose 50%-Water 50 Ml Abboject IV 04/05/22 17:10 50 ml STAT ONE Administration Dextrose Confirm 04/05/22 17:26 Dextrose 50%-Water 50 Ml Abboject Administered 04/05/22 17:27 Dose 50 ml IV .STK-MED ONE Dextrose 50 ml 04/05/22 23:43 04/06/22 00:04 Dextrose 50%-Water 50 Ml Abboject IV 04/05/22 23:44 50 ml STAT ONE Administration Dextrose Confirm 04/06/22 00:02 Dextrose 50%-Water 50 Ml Abboject Administered 04/06/22 00:03 Dose 50 ml IV .STK-MED ONE Sodium Chloride 1,000 mls @ 250 mls/hr 04/05/22 16:00 04/06/22 07:18 Sodium Chloride 0.9% 1000 Ml IV 05/05/22 15:59 Not Given .Q4H FRANCESCA Sodium Bicarbonate 75 meq/ 1,075 mls @ 75 mls/hr 04/05/22 21:15 04/05/22 21:31 Dextrose/Sodium Chloride IV 05/05/22 21:14 75 mls/hr .[id number] FRANCESCA 75 mls/hr Administration Dextrose/Sodium Chloride Confirm 04/05/22 21:30 Dextrose 5% -0.45 Nacl 1000 Ml Administered 04/05/22 21:31 Dose 1,000 mls @ ud IV .STK-MED ONE Ceftriaxone Sodium/Dextrose 1 g in 50 mls @ 100 mls/hr 04/05/22 23:40 04/06/22 00:04 Rocephin 1 Gm-D5w 50 Ml Bag IV 04/06/22 00:09 100 mls/hr STAT STA 100 mls/hr Administration Ceftriaxone Sodium/Dextrose Confirm 04/06/22 00:02 Rocephin 1 Gm-D5w 50 Ml Bag Administered 04/06/22 00:03 Dose 1 g in 50 mls @ ud IV .STK-MED ONE Sodium Chloride Confirm 04/05/22 17:25 Sodium Chloride 0.9% 1000 Ml Administered 04/05/22 17:26 Dose 1,000 mls @ ud .ROUTE .STK-MED ONE Sodium Chloride Confirm 04/06/22 00:02 Sodium Chloride 0.9% 1000 Ml Administered 04/06/22 00:03 Dose 1,000 mls @ ud .ROUTE .STK-MED ONE Sodium Chloride 1,000 mls @ 75 mls/hr 04/06/22 02:17 04/06/22 07:17 Sodium Chloride 0.9% 1000 Ml IV 05/06/22 02:16 Not Given .[id number] FRANCESCA Sodium Bicarbonate 75 meq/ 1,075 mls @ 75 mls/hr 04/06/22 02:30 04/06/22 09:07 Dextrose/Sodium Chloride IV 05/06/22 02:29 75 mls/hr .[id number] FRANCESCA 75 mls/hr Administration Insulin Human Regular 4 unit 04/05/22 19:18 04/05/22 20:21 Insulin Regular, Human 1 Unit IV 04/05/22 19:19 Not Given STAT ONE Insulin Human Regular 6 unit 04/05/22 23:44 04/06/22 00:02 Insulin Regular, Human 1 Unit SQ 04/05/22 23:45 6 unit STAT ONE Administration Insulin Human Regular Confirm 04/06/22 00:02 Insulin Regular, Human 1 Unit Administered 04/06/22 00:03 Dose 6 unit .ROUTE .STK-MED ONE Ondansetron HCl 4 mg 04/05/22 15:52 04/05/22 17:30 Ondansetron Hcl 4 Mg/2 Ml Vial IV 04/05/22 15:53 4 mg STAT STA Administration Ondansetron HCl Confirm 04/05/22 17:24 Ondansetron Hcl 4 Mg/2 Ml Vial Administered 04/05/22 17:25 Dose 4 mg .ROUTE .STK-MED ONE Pantoprazole Sodium 40 mg 04/05/22 15:54 04/05/22 17:30 Pantoprazole 40 Mg Vial IV 04/05/22 15:55 40 mg STAT ONE Administration Pantoprazole Sodium Confirm 04/05/22 17:24 Pantoprazole 40 Mg Vial Administered 04/05/22 17:25 Dose 40 mg IV .STK-MED ONE Patiromer 8.4 gm 04/05/22 21:14 04/05/22 21:32 Patiromer Calcium Sorbitex 8.4 Gm Powd.Pack PO 04/05/22 21:15 8.4 gm STAT STA Administration Patiromer Confirm 04/05/22 21:29 Patiromer Calcium Sorbitex 8.4 Gm Powd.Pack Administered 04/05/22 21:30 Dose 8.4 gm PO .STK-MED ONE Sodium Bicarbonate Confirm 04/05/22 21:30 Sodium Bicarbonate 1 Meq/Ml 50ml Vial Administered 04/05/22 21:31 Dose 50 meq .ROUTE .STK-MED ONE Sodium Bicarbonate Confirm 04/05/22 21:33 Sodium Bicarbonate 1 Meq/Ml 50ml Vial Administered 04/05/22 21:34 Dose 50 meq .ROUTE .STK-MED ONE Intake & Output (Last 24 hours) 04/04/22 04/05/22 04/06/22 04/07/22 11:59 11:59 11:59 11:59 Intake Total 240 480 Output Total 300 1000 Balance -60 -520 Weight 69.5 kg Microbiology Results (Last 24 hours) 04/05/22 22:32 Clean Catch Midstream Urine Culture - Pending 04/05/22 16:15 Blood Blood Culture Gram Stain - Pending 04/05/22 16:15 Blood Blood Culture - Pending 04/05/22 16:12 Blood Blood Culture Gram Stain - Pending 04/05/22 16:12 Blood Blood Culture - Pending Laboratory Results (Last 24 hours) 04/06/22 04/06/22 04/06/22 13:03 04:45 04:45 WBC 3.5 L RBC 2.80 L Hgb 8.5 L Hct 27.0 L MCV 96.4 MCH 30.4 MCHC 31.5 L RDW 13.2 Plt Count 130 L MPV 11.9 H Gran % 72.9 H Immature Gran % (Auto) 0.3 Nucleat RBC Rel Count 0.0 Eos # (Auto) 0.05 Immature Gran # (Auto) 0.01 Absolute Lymphs (auto) 0.51 L Absolute Monos (auto) 0.35 Absolute Nucleated RBC 0.00 Lymphocytes % 14.7 L Monocytes % 10.1 Eosinophils % 1.4 Basophils % 0.6 Absolute Granulocytes 2.54 Basophils # 0.02 Sodium 130 L Potassium 5.7 H Chloride 105 Carbon Dioxide 17 L Anion Gap 14.3 BUN 39 H Creatinine 2.09 H Estimated GFR 24.5 Glucose 76 POC Glucometer Lactic Acid Calcium 8.3 L Magnesium Total Bilirubin 0.20 AST 19 ALT 15 Alkaline Phosphatase 60 Troponin I NT-Pro-B Natriuret Pep Serum Total Protein 6.3 Albumin 3.3 L Amylase Lipase Urinalys Dipstick Clnc Urine Color Urine Appearance Urine pH Ur Specific [place] POC Urine Protein Conf Urine Ketones Urine Nitrite Urine Bilirubin Urine Urobilinogen Urine Leukocytes Urine WBC (Auto) Urine RBC (Auto) U Hyaline Cast (Auto) U Epithel Cells (Auto) Urine Bacteria (Auto) Urine RBC Urine Mucus (Auto) Ur Culture Indicated? Urine Glucose Monoscreen Influenza Type A Ag NEGATIVE Influenza Type B Ag NEGATIVE RSV (PCR) SARS-CoV-2 (PCR) SARS-CoV-2 Antigen NEGATIVE Slides for Path Review YES 04/06/22 04/06/22 04/05/22 01:33 00:20 23:41 WBC RBC Hgb Hct MCV MCH MCHC RDW Plt Count MPV Gran % Immature Gran % (Auto) Nucleat RBC Rel Count Eos # (Auto) Immature Gran # (Auto) Absolute Lymphs (auto) Absolute Monos (auto) Absolute Nucleated RBC Lymphocytes % Monocytes % Eosinophils % Basophils % Absolute Granulocytes Basophils # Sodium 131 L Potassium 5.8 H Chloride 105 Carbon Dioxide 16 L* Anion Gap 16.1 H BUN 45 H Creatinine 2.25 H Estimated GFR 22.5 Glucose 76 POC Glucometer 114 H Lactic Acid Calcium 8.3 L Magnesium Total Bilirubin AST ALT Alkaline Phosphatase Troponin I 0.014 NT-Pro-B Natriuret Pep Serum Total Protein Albumin Amylase Lipase Urinalys Dipstick Clnc Urine Color Urine Appearance Urine pH Ur Specific [place] POC Urine Protein Conf Urine Ketones Urine Nitrite Urine Bilirubin Urine Urobilinogen Urine Leukocytes Urine WBC (Auto) Urine RBC (Auto) U Hyaline Cast (Auto) U Epithel Cells (Auto) Urine Bacteria (Auto) Urine RBC Urine Mucus (Auto) Ur Culture Indicated? Urine Glucose Monoscreen Influenza Type A Ag Influenza Type B Ag RSV (PCR) SARS-CoV-2 (PCR) SARS-CoV-2 Antigen Slides for Path Review 04/05/22 04/05/22 04/05/22 22:32 20:15 20:15 WBC RBC Hgb Hct MCV MCH MCHC RDW Plt Count MPV Gran % Immature Gran % (Auto) Nucleat RBC Rel Count Eos # (Auto) Immature Gran # (Auto) Absolute Lymphs (auto) Absolute Monos (auto) Absolute Nucleated RBC Lymphocytes % Monocytes % Eosinophils % Basophils % Absolute Granulocytes Basophils # Sodium 130 L Potassium 6.9 H* Chloride 105 Carbon Dioxide 15 L* Anion Gap 16.7 H BUN 50 H Creatinine 2.68 H Estimated GFR 18.4 Glucose 98 POC Glucometer Lactic Acid Calcium 9.0 Magnesium 1.7 Total Bilirubin AST ALT Alkaline Phosphatase Troponin I 0.020 NT-Pro-B Natriuret Pep Serum Total Protein Albumin Amylase 102 Lipase 196 Urinalys Dipstick Clnc MAIN LAB Urine Color YELLOW Urine Appearance CLEAR Urine pH 5.5 Ur Specific [place] 1.025 POC Urine Protein Conf TRACE Urine Ketones NEGATIVE Urine Nitrite POSITIVE Urine Bilirubin NEGATIVE Urine Urobilinogen 0.2 Urine Leukocytes TRACE Urine WBC (Auto) 16-25 Urine RBC (Auto) 3-5 U Hyaline Cast (Auto) 3-5 U Epithel Cells (Auto) RARE Urine Bacteria (Auto) PACKED Urine RBC TRACE-INTACT Urine Mucus (Auto) SLIGHT Ur Culture Indicated? YES Urine Glucose 100 Monoscreen Influenza Type A Ag Influenza Type B Ag RSV (PCR) SARS-CoV-2 (PCR) SARS-CoV-2 Antigen Slides for Path Review 04/05/22 04/05/22 04/05/22 19:51 16:15 16:15 WBC RBC Hgb Hct MCV MCH MCHC RDW Plt Count MPV Gran % Immature Gran % (Auto) Nucleat RBC Rel Count Eos # (Auto) Immature Gran # (Auto) Absolute Lymphs (auto) Absolute Monos (auto) Absolute Nucleated RBC Lymphocytes % Monocytes % Eosinophils % Basophils % Absolute Granulocytes Basophils # Sodium Potassium Chloride Carbon Dioxide Anion Gap BUN Creatinine Estimated GFR Glucose POC Glucometer 94 Lactic Acid Calcium Magnesium Total Bilirubin AST ALT Alkaline Phosphatase Troponin I NT-Pro-B Natriuret Pep 654 Serum Total Protein Albumin Amylase Lipase Urinalys Dipstick Clnc Urine Color Urine Appearance Urine pH Ur Specific [place] POC Urine Protein Conf Urine Ketones Urine Nitrite Urine Bilirubin Urine Urobilinogen Urine Leukocytes Urine WBC (Auto) Urine RBC (Auto) U Hyaline Cast (Auto) U Epithel Cells (Auto) Urine Bacteria (Auto) Urine RBC Urine Mucus (Auto) Ur Culture Indicated? Urine Glucose Monoscreen Influenza Type A Ag NEGATIVE Influenza Type B Ag NEGATIVE RSV (PCR) NEGATIVE SARS-CoV-2 (PCR) POSITIVE A SARS-CoV-2 Antigen Slides for Path Review 04/05/22 04/05/22 04/05/22 16:15 16:00 15:52 WBC RBC Hgb Hct MCV MCH MCHC RDW Plt Count MPV Gran % Immature Gran % (Auto) Nucleat RBC Rel Count Eos # (Auto) Immature Gran # (Auto) Absolute Lymphs (auto) Absolute Monos (auto) Absolute Nucleated RBC Lymphocytes % Monocytes % Eosinophils % Basophils % Absolute Granulocytes Basophils # Sodium Potassium Chloride Carbon Dioxide Anion Gap BUN Creatinine Estimated GFR Glucose POC Glucometer Lactic Acid 1.7 Calcium Magnesium Total Bilirubin AST ALT Alkaline Phosphatase Troponin I < 0.012 NT-Pro-B Natriuret Pep Serum Total Protein Albumin Amylase Lipase Urinalys Dipstick Clnc Urine Color Urine Appearance Urine pH Ur Specific [place] POC Urine Protein Conf Urine Ketones Urine Nitrite Urine Bilirubin Urine Urobilinogen Urine Leukocytes Urine WBC (Auto) Urine RBC (Auto) U Hyaline Cast (Auto) U Epithel Cells (Auto) Urine Bacteria (Auto) Urine RBC Urine Mucus (Auto) Ur Culture Indicated? Urine Glucose Monoscreen NEGATIVE Influenza Type A Ag Influenza Type B Ag RSV (PCR) SARS-CoV-2 (PCR) SARS-CoV-2 Antigen Slides for Path Review 04/05/22 04/05/22 15:50 15:50 WBC 4.0 RBC 3.07 L Hgb 9.6 L Hct 29.0 L MCV 94.5 MCH 31.3 MCHC 33.1 RDW 13.2 Plt Count 177 MPV 12.3 H Gran % 70.2 H Immature Gran % (Auto) 0.5 H Nucleat RBC Rel Count 0.0 Eos # (Auto) 0.07 Immature Gran # (Auto) 0.02 Absolute Lymphs (auto) 0.59 L Absolute Monos (auto) 0.49 Absolute Nucleated RBC 0.00 Lymphocytes % 14.7 L Monocytes % 12.2 H Eosinophils % 1.7 Basophils % 0.7 Absolute Granulocytes 2.81 Basophils # 0.03 Sodium 129 L Potassium 7.0 H* Chloride 102 Carbon Dioxide 15 L* Anion Gap 17.8 H BUN 51 H Creatinine 3.11 H Estimated GFR 15.5 Glucose 98 POC Glucometer Lactic Acid Calcium 9.2 Magnesium Total Bilirubin 0.40 AST 23 ALT 18 Alkaline Phosphatase 78 Troponin I NT-Pro-B Natriuret Pep Serum Total Protein 7.9 Albumin 4.3 Amylase Lipase Urinalys Dipstick Clnc Urine Color Urine Appearance Urine pH Ur Specific [place] POC Urine Protein Conf Urine Ketones Urine Nitrite Urine Bilirubin Urine Urobilinogen Urine Leukocytes Urine WBC (Auto) Urine RBC (Auto) U Hyaline Cast (Auto) U Epithel Cells (Auto) Urine Bacteria (Auto) Urine RBC Urine Mucus (Auto) Ur Culture Indicated? Urine Glucose Monoscreen Influenza Type A Ag Influenza Type B Ag RSV (PCR) SARS-CoV-2 (PCR) SARS-CoV-2 Antigen Slides for Path Review YES Orders (Last 24 hours) Category Date Time Status Bedrest ROUTINE Activity 04/06/22 02:17 Active Clamshell Operator STAT Care 04/06/22 02:17 Active EKG-ER Only STAT Care 04/05/22 15:52 Completed IV Insertion STAT Care 04/05/22 15:52 Completed Isolation, Initiate & Maintain Q6H Care 04/06/22 02:17 Active Neuro Checks Q4H Care 04/06/22 02:[address] in Observation ROUTINE Care 04/06/22 02:17 Active Pulse Oximetry (ED) STAT Care 04/05/22 15:52 Completed Telemetry q4h Care 04/06/22 02:17 Active Vital Signs Q4H Care 04/06/22 02:17 Active Consistent Carbohydrate Diet 1800 Calorie Diet 04/06/22 Breakfast Active CHEST 1 VIEW (PORTABLE) Stat Exams 04/05/22 15:53 Taken AMYLASE Stat Lab 04/05/22 20:15 Completed BLOOD CULTURE Stat Lab 04/05/22 16:15 Received BMP Stat Lab 04/05/22 20:15 Completed BMP Stat Lab 04/06/22 01:33 Completed CBC W DIFF AM.LAB Lab 04/06/22 04:45 Completed CBC W DIFF AM.LAB Lab 04/07/22 04:00 Ordered CBC W DIFF Stat Lab 04/05/22 15:50 Completed CMP AM.LAB Lab 04/06/22 04:45 Completed CMP AM.LAB Lab 04/07/22 04:00 Ordered CMP Stat Lab 04/05/22 15:50 Completed COVID/FLU/RSV Panel Stat Lab 04/05/22 16:15 Completed CULTURE,URINE Stat Lab 04/05/22 22:32 Received FLU A/B + COVID ANTIGEN Urgent Lab 04/06/22 13:03 Completed LIPASE Stat Lab 04/05/22 20:15 Completed Lactic Acid Stat Lab 04/05/22 15:52 Completed MAGNESIUM Stat Lab 04/05/22 20:15 Completed Manual Differential NC Stat Lab 04/05/22 15:50 Completed Dickson Screen Stat Lab 04/05/22 16:15 Completed NT PRO BNP Stat Lab 04/05/22 16:15 Completed POCT GLUCOSE Stat Lab 04/05/22 19:51 Completed POCT GLUCOSE Stat Lab 04/05/22 23:41 Completed TROPONIN Q4H Lab 04/05/22 16:00 Completed TROPONIN Q4H Lab 04/05/22 20:15 Completed TROPONIN Q4H Lab 04/06/22 00:20 Completed UA W/RFX CULTURE Stat Lab 04/05/22 22:32 Completed Albuterol Common Canister [Ventolin Common Canister* Med 04/06/22 04:46 Active ] 4 puff IH QIDPRN PRN Albuterol/Ipratropium 3ml Neb* [DUONEB 0.5-3 MG/3 ml Med 04/05/22 21:23 Discontinued Neb] 3 ml IH .STK-MED ONE Albuterol/Ipratropium 3ml Neb* [DUONEB 0.5-3 MG/3 ml Med 04/05/22 21:14 Discontinued Neb] 3 ml IH STAT ONE Calcium Chloride 1000 mg [Calcium Chloride 10% 1000 mg] Med 04/05/22 17:24 Discontinued 1,000 mg .ROUTE .STK-MED ONE Calcium Gluconate 1000 mg [Calcium Gluconate 10% 1000 Med 04/05/22 17:29 Discontinued MG] 1,000 mg IV .STK-MED ONE Calcium Gluconate 1000 mg [Calcium Gluconate 10% 1000 Med 04/05/22 17:06 Discontinued MG] 1,000 mg IV STAT ONE Carvedilol [Coreg ] Med 04/06/22 10:00 Active 6.25 mg PO BID Ceftriaxone 1 GM/50 ML PREMIX* [ROCEPHIN 1 Gm-D5w 50 ml Med 04/05/22 23:40 Discontinued Bag] 1 g in 50 ml IV STAT Ceftriaxone 1 GM/50 ML PREMIX* [ROCEPHIN 1 Gm-D5w 50 ml Med 04/06/22 00:02 Discontinued Bag] 1 g in 50 ml IV UD Cholecalciferol (Vitamin D3) [Vitamin D] Med 04/06/22 10:00 Active 1,000 unit PO DAILY Cyanocobalamin 500 Mcg [Vitamin B-12 500 MCG] Med 04/06/22 10:00 Active 1,000 mcg PO DAILY D5w-0.45 NaCl 1000 ml [Dextrose 5% -0.45 NaCl 1000 ML] Med 04/05/22 21:15 Discontinued 1,000 ml Sodium Bicarbonate 50Meq Vial* [Sodium Bicarbonate 50 MEQ/50 ML VIAL] 75 meq IV 75 mls/hr D5w-0.45 NaCl 1000 ml [Dextrose 5% -0.45 NaCl 1000 ML] Med 04/06/22 02:30 Discontinued 1,000 ml Sodium Bicarbonate 50Meq Vial* [Sodium Bicarbonate 50 MEQ/50 ML VIAL] 75 meq IV 75 mls/hr D5w-0.45 NaCl 1000 ml [Dextrose 5% -0.45 NaCl 1000 ML] Med 04/05/22 21:30 Discontinued 1,000 ml IV UD Dextrose 50%-Water Syringe [D50W 50 ml Abboject] Med 04/05/22 17:26 Discontinued 50 ml IV .STK-MED ONE Dextrose 50%-Water Syringe [D50W 50 ml Abboject] Med 04/06/22 00:02 Discontinued 50 ml IV .STK-MED ONE Dextrose 50%-Water Syringe [D50W 50 ml Abboject] Med 04/05/22 17:09 Discontinued 50 ml IV STAT ONE Dextrose 50%-Water Syringe [D50W 50 ml Abboject] Med 04/05/22 23:43 Discontinued 50 ml IV STAT ONE Escitalopram Oxalate [Lexapro] Med 04/06/22 10:00 Active 20 mg PO QAM Insulin Regular, Human [Humulin R] Med 04/05/22 19:18 Discontinued 4 unit IV STAT ONE Insulin Regular, Human [Humulin R] Med 04/06/22 00:02 Discontinued 6 unit .ROUTE .STK-MED ONE Insulin Regular, Human [Humulin R] Med 04/05/22 23:44 Discontinued 6 unit SQ STAT ONE NaCl 0.9% 1000 ml [Sodium Chloride 0.9% 1000 ML] 1,000 Med 04/05/22 17:25 Discontinued ml .ROUTE UD NaCl 0.9% 1000 ml [Sodium Chloride 0.9% 1000 ML] 1,000 Med 04/06/22 00:02 Discontinued ml .ROUTE UD NaCl 0.9% 1000 ml [Sodium Chloride 0.9% 1000 ML] 1,000 Med 04/06/22 12:45 Active ml IV 150 mls/hr NaCl 0.9% 1000 ml [Sodium Chloride 0.9% 1000 ML] ,000 Med 04/05/22 16:00 Discontinued ml IV 250 mls/hr NaCl 0.9% 1000 ml [Sodium Chloride 0.9% 1000 ML] ,000 Med 04/06/22 02:17 Discontinued ml IV 75 mls/hr Nystatin Cream 30 gm [Nystop 30 gm Cream] Med 04/06/22 10:00 Active 1 gm TOP BID [place]-3 Fatty Acids/Fish Oil [Fish Oil 1,000 mg Med 04/06/22 10:00 Active Capsule] 1,000 mg PO DAILY Ondansetron HCl 4 mg/2 ml [Zofran 4 MG/2 ML VIAL] Med 04/05/22 17:24 Discontinued 4 mg .ROUTE .STK-MED ONE Ondansetron HCl 4 mg/2 ml [Zofran 4 MG/2 ML VIAL] Med 04/05/22 15:52 Discontinued 4 mg IV STAT STA PANTOPRAZOLE 40 mg Tablet [Protonix 40MG Tablet] Med 04/06/22 10:00 Active 40 mg PO DAILY Pantoprazole 40 mg [Protonix 40 mg IV] Med 04/05/22 17:24 Discontinued 40 mg IV .STK-MED ONE Pantoprazole 40 mg [Protonix 40 mg IV] Med 04/05/22 15:54 Discontinued 40 mg IV STAT ONE Patiromer Calcium Sorbitex [[place]elt[place]] Med 04/05/22 21:29 Discontinued 8.4 gm PO .STK-MED ONE Patiromer Calcium Sorbitex [[place]] Med 04/05/22 21:14 Discontinued 8.4 gm PO STAT STA Sacubitril/Valsartan [Entresto 49 mg-51 mg Tablet] Med 04/06/22 10:00 Active 1 tablet PO BID Sodium Bicarbonate 50Meq Vial* [Sodium Bicarbonate 50 Med 04/05/22 21:30 Discontinued MEQ/50 ML VIAL] 50 meq .ROUTE .STK-MED ONE Sodium Bicarbonate 50Meq Vial* [Sodium Bicarbonate 50 Med 04/05/22 21:33 Discontinued MEQ/50 ML VIAL] 50 meq .ROUTE .STK-MED ONE Spironolactone 25 mg [Aldactone 25 MG] Med 04/06/22 10:00 Active 50 mg PO DAILY PT Eval & Treat (MD Order) ONCE PT 04/06/22 12:20 Active Oxygen Nasal Cannula 2 lpm RT 04/06/22 03:52 Active Pulse Oximetry .continuos RT 04/06/22 03:51 Active Respiratory Therapy Assessment DAILY RT 04/05/22 21:37 Active Respiratory Therapy Consult ROUTINE RT 04/06/22 02:17 Completed Patient Care Notes (Last 24 hours) 04/06/22 12:44 Case Management Note by Cinthia Otero DR. ROUNDED TODAY- NEW ORDERS TO DC BICARB DRIP, START IV FLUIDS. RECHECK LABS IN AM Initialized on 04/06/22 12:44 - END OF NOTE 04/06/22 12:40 Case Management Note by Cinthia Otero CALLED AND S/W DAINA AT [facility]- SHE WAS NOTIFIED OF PATIENT STAYING WITH DAUG HTER D/T NO RUNNING WATER BUT NOW THE DAUGHTER HAS NO ELECTRICITY. SHE WILL CALL AND S/W THE DAUGHTER AND SEE IF THERE IS ANYTHING THEY CAN HELP WITH. DAUGHTER NAVNEET MALLOY REPORTS SHE HAS CALLED [facility] AND THEY WERE UNABLE TO HELP. SHE HAS ALSO CALLED LOCAL [facility] TO SEE IF THEY ARE ABLE TO HELP. Initialized on 04/06/22 12:40 - END OF NOTE (2) COVID-19 virus infection Current Visit: Yes Status: Acute Code(s): U07.1 - COVID-19 (3) Dehydration Current Visit: Yes Status: Acute Code(s): E86.0 - DEHYDRATION (4) High anion gap metabolic acidosis Current Visit: Yes Status: Acute Code(s): E87.2 - ACIDOSIS (5) Hyperkalemia Current Visit: Yes Status: Acute Code(s): E87.5 - HYPERKALEMIA (6) Vomiting Current Visit: Yes Status: Acute Code(s): R11.10 - VOMITING, UNSPECIFIED
[2022-04-07] MEDS: Sodium Chloride 0.9% 1000 ML 1,000 ML IV SCH ×2 (03:34→09:10)
[2022-04-07 06:04] LABS: Absolute Neutrophil Ct (ANC) 2.68 x10^3/uL (1.4-6.9); Basophil (Absolute #) 0.03 x10^3/uL (0-0.4); Eosinophil % 3.6 % (0.00-5.0); Eosinophil (Absolute #) 0.15 x10^3/uL (0-0.5); Hematocrit 26.3 % (35-47); Hemoglobin 8.2 g/dL (12.0-16.0); Lymphocyte (Absolute #) 0.92 x10^3/uL (1.0-4.6); Lymphocytes % 21.9 % (24.0-44.0); Mean Cell Volume 99.6 fL (78-100); Mean Corpuscular Hemoglobin 31.1 pg (26-32); Mean Corpuscular Hgb Concent. 31.2 g/dL (32-36); Mean Platelet Volume 11.5 fL (7.5-11.0); Monocytes % 9.5 % (0.0-12.0); Neutrophil % 63.8 % (36.0-66.0); Platelet Count 121 x10^3/uL (150-450); Red Blood Count 2.64 x10^6/uL (4.1-5.4); Red Cell Distribution Width 13.5 % (11.5-14.0); White Blood Count 4.2 x10^3/uL (4.0-10.5)
[2022-04-07 06:43] LABS: ALBUMIN 3.2 g/dL (3.5-5.0); ANION GAP 12.9 MEQ/L (5-15); BILIRUBIN,TOTAL 0.2 mg/dL (0.2-1.3); Calcium 7.7 mg/dL (8.4-10.2); Creatinine 1 1.34 mg/dL (0.52-1.04); Potassium 5.4 mmol/L (3.5-5.1); Total Protein 6.1 g/dL (6.3-8.2)
--- NOTE | 2022-04-07 07:34 | PCM.NOTE ---
Date and Time: 04/07/22730 Subjective Assessment: doing better - Review of Systems Constitutional: No Fever, No Chills Eyes: No Symptoms Ears, Nose, & Throat: No Symptoms Respiratory: No Cough, No Short Of Breath Cardiac: No Chest Pain, No Edema, No Syncope Abdominal/Gastrointestinal: No Abdominal Pain, No Nausea, No Vomiting, No Diarrhea Genitourinary Symptoms: No Dysuria Musculoskeletal: No Back Pain, No Neck Pain Skin: No Rash Neurological: No Dizziness, No Focal Weakness, No Sensory Changes Psychological: No Symptoms Endocrine: No Symptoms Hematologic/Lymphatic: No Symptoms Immunological/Allergic: No Symptoms Objective Exam General Appearance: no apparent distress, alert Neurologic Exam: alert, oriented x 3, cooperative, normal mood/affect, nml cerebellar function, sensation nml, No motor deficits Skin Exam: normal color, warm, dry Eye Exam: PERRL, EOMI, eyes nml inspection Ears, Nose, Throat Exam: normal ENT inspection, pharynx normal, moist mucous membranes Neck Exam: normal inspection, non-tender, supple, full range of motion Respiratory Exam: normal breath sounds, lungs clear, No respiratory distress Cardiovascular Exam: regular rate/rhythm, normal heart sounds Gastrointestinal/Abdomen Exam: soft, No tenderness, No mass Extremity Exam: normal inspection, normal range of motion Back Exam: normal inspection, normal range of motion, No CVA tenderness, No vertebral tenderness Pelvic Exam: deferred Rectal Exam: deferred OBJECTIVE DATA Vital Signs: Vital Signs - 24 hr Temp Pulse Resp BP Pulse Ox 04/07/22 06:57 56 L 18 2 L 04/07/22 06:00 18 04/07/22 04:00 98.2 F 57 L 18 120/48 98 04/07/22 00:00 97.8 F 76 20 103/56 97 04/06/22 22:00 20 04/06/22 20:00 98.1 F 64 20 113/65 96 04/06/22 19:00 67 18 97 04/06/22 18:00 18 04/06/22 15:35 18 04/06/22 15:34 98.1 F 78 18 108/78 98 04/06/22 14:00 18 04/06/22 12:00 97.2 F 65 16 84/40 93 L 04/06/22 11:49 18 04/06/22 10:00 18 04/06/22 08:00 98.1 F 76 18 101/58 98 04/06/22 07:39 75 16 95 Pain Assessment - Last Documented Pain Intensity 0 Intake and Output: Intake & Output 04/04/22 04/05/22 04/06/22 04/07/22 11:59 11:59 11:59 11:59 Intake Total 240 4474 Output Total 300 3200 Balance -60 1274 Weight 69.5 kg Lab Results: Lab Results-Last 24 Hours 04/06/22 04/07/22 04/07/22 Range/Units 13:03 05:35 05:35 WBC 4.2 (4.0-10.5) x10^3/uL RBC 2.64 L (4.1-5.4) x10^6/uL Hgb 8.2 L (12.0-16.0) g/dL Hct 26.3 L (35-47) % MCV 99.6 (78-100) fL MCH 31.1 (26-32) pg MCHC 31.2 L (32-36) g/dL RDW 13.5 (11.5-14.0) % Plt Count 121 L (150-450) x10^3/uL MPV 11.5 H (7.5-11.0) fL Gran % 63.8 (36.0-66.0) % Immature Gran % (Auto) 0.5 H (0.00-0.4) % Nucleat RBC Rel Count 0.0 (0.00-0.1) % Eos # (Auto) 0.15 (0-0.5) x10^3/uL Immature Gran # (Auto) 0.02 (0.00-0.03) x10^3u/L Absolute Lymphs (auto) 0.92 L (1.0-4.6) x10^3/uL Absolute Monos (auto) 0.40 (0.0-1.3) x10^3/uL Absolute Nucleated RBC 0.00 (0.00-0.01) x10^3u/L Lymphocytes % 21.9 L (24.0-44.0) % Monocytes % 9.5 (0.0-12.0) % Eosinophils % 3.6 (0.00-5.0) % Basophils % 0.7 (0.0-0.4) % Absolute Granulocytes 2.68 (1.4-6.9) x10^3/uL Basophils # 0.03 (0-0.4) x10^3/uL Sodium 134 L (137-145) mmol/L Potassium 5.4 H (3.5-5.1) mmol/L Chloride 107 (98-107) mmol/L Carbon Dioxide 19 L (22-30) mmol/L Anion Gap 12.9 (5-15) MEQ/L BUN 25 H (7-17) mg/dL Creatinine 1.34 H (0.52-1.04) mg/dL Estimated GFR 41.0 ML/MIN Glucose 98 (74-106) mg/dL Calcium 7.7 L (8.4-10.2) mg/dL Total Bilirubin 0.20 (0.2-1.3) mg/dL AST 18 (14-36) U/L ALT 17 (0-35) U/L Alkaline Phosphatase 68 (38-126) U/L Serum Total Protein 6.1 L (6.3-8.2) g/dL Albumin 3.2 L (3.5-5.0) g/dL Influenza Type A Ag NEGATIVE (NEGATIVE) Influenza Type B Ag NEGATIVE (NEGATIVE) SARS-CoV-2 Antigen NEGATIVE (NEGATIVE) Radiology Exams: Radiology Procedures Category Date Time Status CHEST 1 VIEW (PORTABLE) Stat Exams 04/05/22 15:53 Taken Multi-Disciplinary Progress Notes: Multi-Disciplinary Progress Notes 04/06/22 12:44 Case Management Note by Cinthia Otero DR. ROUNDED TODAY- NEW ORDERS TO DC BICARB DRIP, START IV FLUIDS. RECHECK LABS IN AM Initialized on 04/06/22 12:44 - END OF NOTE 04/06/22 12:40 Case Management Note by Cinthia Otero CALLED AND S/W DAINA AT [facility]- SHE WAS NOTIFIED OF PATIENT STAYING WITH DAUGHTER D/T NO RUNNING WATER BUT NOW THE DAUGHTER HAS NO ELECTRICITY. SHE WILL CALL AND S/W THE DAUGHTER AND SEE IF THERE IS ANYTHING THEY CAN HELP WITH. DAUGHTER NAVNEET MALLOY REPORTS SHE HAS CALLED [facility] AND THEY WERE UNABLE TO HELP. SHE HAS ALSO CALLED LOC[facility] TO SEE IF THEY ARE ABLE TO HELP. Initialized on 04/06/22 12:40 - END OF NOTE Assessment/Plan (1) COVID-19 virus infection Current Visit: Yes Status: Acute Assessment & Plan: Chief Complaint Diagnosis vomiting for 2-3 days Allergies Allergy/AdvReac Type Severity Reaction Status Date / Time clarithromycin [From axin] Allergy Verified 05/26/19 13:58 Vital Signs (Last 24 hours) Temp Pulse Resp BP Pulse Ox 04/07/22 06:57 56 L 18 2 L 04/07/22 06:00 18 04/07/22 04:00 98.2 F 57 L 18 120/48 98 04/07/22 00:00 97.8 F 76 20 103/56 97 04/06/22 22:00 20 04/06/22 20:00 98.1 F 64 20 113/65 96 04/06/22 19:00 67 18 97 04/06/22 18:00 18 04/06/22 15:35 18 04/06/22 15:34 98.1 F 78 18 108/78 98 04/06/22 14:00 18 04/06/22 12:00 97.2 F 65 16 84/40 93 L 04/06/22 11:49 18 04/06/22 10:00 18 04/06/22 08:00 98.1 F 76 18 101/58 98 04/06/22 07:39 75 16 95 Home Medications Medication Instructions Recorded Confirmed Last Taken Type Escitalopram Oxalate 20 mg PO DAILY 04/06/22 04/06/22 Unknown History Spironolactone 50 mg PO DAILY 04/06/22 04/06/22 Unknown History Current Medications Generic Name Dose Route Start Last Admin Trade Name Freq PRN Reason Stop Dose Admin Albuterol Sulfate 4 puff 04/06/22 04:46 Albuterol Common Canister Inhaler IH 05/06/22 04:45 QIDPRN PRN SHORTNESS OF BREATH/WHEEZING Carvedilol 6.25 mg 04/06/22 10:00 04/06/22 21:40 Carvedilol 6.25 Mg Tablet PO 05/06/22 09:59 6.25 mg BID FRANCESCA Administration Cholecalciferol 1,000 unit 04/06/22 10:00 04/06/22 09:03 Cholecalciferol (Vitamin D3) 1000 Unit Tablet PO 05/06/22 09:59 1,000 unit DAILY FRANCESCA Administration Cyanocobalamin 1,000 mcg 04/06/22 10:00 04/06/22 09:03 Cyanocobalamin 500 Mcg Tablet PO 05/06/22 09:59 1,000 mcg DAILY FRANCESCA Administration Escitalopram Oxalate 20 mg 04/06/22 10:00 04/06/22 09:06 Escitalopram Oxalate 10 Mg Tablet PO 05/06/22 09:59 20 mg QAM FRANCESCA Administration Fish Oil 1,000 mg 04/06/22 10:00 04/06/22 09:03 [place]-3 Fatty Acids/Fish Oil 1000 Mg Capsule PO 05/06/22 09:59 1,000 mg DAILY FRANCESCA Administration Sodium Chloride 1,000 mls @ 150 mls/hr 04/06/22 12:45 04/07/22 03:34 Sodium Chloride 0.9% 1000 Ml IV 05/06/22 12:44 150 mls/hr .[id number] FRANCESCA Administration Nystatin 1 gm 04/06/22 10:00 04/06/22 21:40 Nystatin Cream 30 Gm 30 Gm Tube TOP 05/06/22 09:59 1 gm BID FRANCESCA Administration Pantoprazole Sodium 40 mg 04/06/22 10:00 04/06/22 09:03 Protonix (Pantoprazole) 40 Mg Tablet PO 05/06/22 09:59 40 mg DAILY FRANCESCA Administration Sacubitril/Valsartan 1 tablet 04/06/22 10:00 04/06/22 21:40 Sacubitril/Valsartan 1 Tablet Tablet PO 05/06/22 09:59 1 tablet BID FRANCESCA Administration Spironolactone 50 mg 04/06/22 10:00 04/06/22 09:03 Spironolactone 25 Mg Tablet PO 05/06/22 09:59 50 mg DAILY FRANCESCA Administration Discontinued Medications Generic Name Dose Route Start Last Admin Trade Name Freq PRN Reason Stop Dose Admin Albuterol/Ipratropium 3 ml 04/05/22 21:14 04/05/22 21:44 Ipratropium/Albuterol Sulfate 3 Ml Ampul.Neb IH 04/05/22 21:15 3 ml STAT ONE Administration Albuterol/Ipratropium Confirm 04/05/22 21:23 Ipratropium/Albuterol Sulfate 3 Ml Ampul.Neb Administered 04/05/22 21:24 Dose 3 ml IH .STK-MED ONE Calcium Chloride Confirm 04/05/22 17:24 Calcium Chloride 100 Mg/Ml 10ml Inj. Administered 04/05/22 17:25 Dose 1,000 mg .ROUTE .STK-MED ONE Calcium Gluconate 1,000 mg 04/05/22 17:06 04/05/22 17:30 Calcium Gluconate 1000 Mg/10 Ml Vial IV 04/05/22 17:07 1,000 mg STAT ONE Administration Calcium Gluconate Confirm 04/05/22 17:29 Calcium Gluconate 1000 Mg/10 Ml Vial Administered 04/05/22 17:30 Dose 1,000 mg IV .STK-MED ONE Dextrose 50 ml 04/05/22 17:09 04/05/22 17:29 Dextrose 50%-Water 50 Ml Abboject IV 04/05/22 17:10 50 ml STAT ONE Administration Dextrose Confirm 04/05/22 17:26 Dextrose 50%-Water 50 Ml Abboject Administered 04/05/22 17:27 Dose 50 ml IV .STK-MED ONE Dextrose 50 ml 04/05/22 23:43 04/06/22 00:04 Dextrose 50%-Water 50 Ml Abboject IV 04/05/22 23:44 50 ml STAT ONE Administration Dextrose Confirm 04/06/22 00:02 Dextrose 50%-Water 50 Ml Abboject Administered 04/06/22 00:03 Dose 50 ml IV .STK-MED ONE Sodium Chloride 1,000 mls @ 250 mls/hr 04/05/22 16:00 04/06/22 07:18 Sodium Chloride 0.9% 1000 Ml IV 05/05/22 15:59 Not Given .Q4H FRANCESCA Sodium Bicarbonate 75 meq/ 1,075 mls @ 75 mls/hr 04/05/22 21:15 04/05/22 21:31 Dextrose/Sodium Chloride IV 05/05/22 21:14 75 mls/hr .[id number] FRANCESCA 75 mls/hr Administration Dextrose/Sodium Chloride Confirm 04/05/22 21:30 Dextrose 5% -0.45 Nacl 1000 Ml Administered 04/05/22 21:31 Dose 1,000 mls @ ud IV .STK-MED ONE Ceftriaxone Sodium/Dextrose 1 g in 50 mls @ 100 mls/hr 04/05/22 23:40 04/06/22 00:04 Rocephin 1 Gm-D5w 50 Ml Bag IV 04/06/22 00:09 100 mls/hr STAT STA 100 mls/hr Administration Ceftriaxone Sodium/Dextrose Confirm 04/06/22 00:02 Rocephin 1 Gm-D5w 50 Ml Bag Administered 04/06/22 00:03 Dose 1 g in 50 mls @ ud IV .STK-MED ONE Sodium Chloride Confirm 04/05/22 17:25 Sodium Chloride 0.9% 1000 Ml Administered 04/05/22 17:26 Dose 1,000 mls @ ud .ROUTE .STK-MED ONE Sodium Chloride Confirm 04/06/22 00:02 Sodium Chloride 0.9% 1000 Ml Administered 04/06/22 00:03 Dose 1,000 mls @ ud .ROUTE .STK-MED ONE Sodium Chloride 1,000 mls @ 75 mls/hr 04/06/22 02:17 04/06/22 07:17 Sodium Chloride 0.9% 1000 Ml IV 05/06/22 02:16 Not Given .[id number] FRANCESCA Sodium Bicarbonate 75 meq/ 1,075 mls @ 75 mls/hr 04/06/22 02:30 04/06/22 09:07 Dextrose/Sodium Chloride IV 05/06/22 02:29 75 mls/hr .[id number] FRANCESCA 75 mls/hr Administration Insulin Human Regular 4 unit 04/05/22 19:18 04/05/22 20:21 Insulin Regular, Human 1 Unit IV 04/05/22 19:19 Not Given STAT ONE Insulin Human Regular 6 unit 04/05/22 23:44 04/06/22 00:02 Insulin Regular, Human 1 Unit SQ 04/05/22 23:45 6 unit STAT ONE Administration Insulin Human Regular Confirm 04/06/22 00:02 Insulin Regular, Human 1 Unit Administered 04/06/22 00:03 Dose 6 unit .ROUTE .STK-MED ONE Ondansetron HCl 4 mg 04/05/22 15:52 04/05/22 17:30 Ondansetron Hcl 4 Mg/2 Ml Vial IV 04/05/22 15:53 4 mg STAT STA Administration Ondansetron HCl Confirm 04/05/22 17:24 Ondansetron Hcl 4 Mg/2 Ml Vial Administered 04/05/22 17:25 Dose 4 mg .ROUTE .STK-MED ONE Pantoprazole Sodium 40 mg 04/05/22 15:54 04/05/22 17:30 Pantoprazole 40 Mg Vial IV 04/05/22 15:55 40 mg STAT ONE Administration Pantoprazole Sodium Confirm 04/05/22 17:24 Pantoprazole 40 Mg Vial Administered 04/05/22 17:25 Dose 40 mg IV .STK-MED ONE Patiromer 8.4 gm 04/05/22 21:14 04/05/22 21:32 Patiromer Calcium Sorbitex 8.4 Gm Powd.Pack PO 04/05/22 21:15 8.4 gm STAT STA Administration Patiromer Confirm 04/05/22 21:29 Patiromer Calcium Sorbitex 8.4 Gm Powd.Pack Administered 04/05/22 21:30 Dose 8.4 gm PO .STK-MED ONE Sodium Bicarbonate Confirm 04/05/22 21:30 Sodium Bicarbonate 1 Meq/Ml 50ml Vial Administered 04/05/22 21:31 Dose 50 meq .ROUTE .STK-MED ONE Sodium Bicarbonate Confirm 04/05/22 21:33 Sodium Bicarbonate 1 Meq/Ml 50ml Vial Administered 04/05/22 21:34 Dose 50 meq .ROUTE .STK-MED ONE Intake & Output (Last 24 hours) 04/04/22 04/05/22 04/06/22 04/07/22 11:59 11:59 11:59 11:59 Intake Total 240 4474 Output Total 300 3200 Balance -60 1274 Weight 69.5 kg Microbiology Results (Last 24 hours) 04/05/22 22:32 Clean Catch Midstream Urine Culture - Preliminary GRAM NEGATIVE ID AND SENSITIVITY PENDING 04/05/22 16:15 Blood Blood Culture Gram Stain - Pending 04/05/22 16:15 Blood Blood Culture - Preliminary NO GROWTH TO DATE 04/05/22 16:12 Blood Blood Culture Gram Stain - Pending 04/05/22 16:12 Blood Blood Culture - Preliminary NO GROWTH TO DATE Laboratory Results (Last 24 hours) 04/07/22 04/07/22 04/06/22 05:35 05:35 13:03 WBC 4.2 RBC 2.64 L Hgb 8.2 L Hct 26.3 L MCV 99.6 MCH 31.1 MCHC 31.2 L RDW 13.5 Plt Count 121 L MPV 11.5 H Gran % 63.8 Immature Gran % (Auto) 0.5 H Nucleat RBC Rel Count 0.0 Eos # (Auto) 0.15 Immature Gran # (Auto) 0.02 Absolute Lymphs (auto) 0.92 L Absolute Monos (auto) 0.40 Absolute Nucleated RBC 0.00 Lymphocytes % 21.9 L Monocytes % 9.5 Eosinophils % 3.6 Basophils % 0.7 Absolute Granulocytes 2.68 Basophils # 0.03 Sodium 134 L Potassium 5.4 H Chloride 107 Carbon Dioxide 19 L Anion Gap 12.9 BUN 25 H Creatinine 1.34 H Estimated GFR 41.0 Glucose 98 Calcium 7.7 L Total Bilirubin 0.20 AST 18 ALT 17 Alkaline Phosphatase 68 Serum Total Protein 6.1 L Albumin 3.2 L Influenza Type A Ag NEGATIVE Influenza Type B Ag NEGATIVE SARS-CoV-2 Antigen NEGATIVE Orders (Last 24 hours) Category Date Time Status Consistent Carbohydrate Diet 1800 Calorie Diet 04/06/22 Breakfast Active CBC W DIFF AM.LAB Lab 04/07/22 05:35 Completed CMP AM.LAB Lab 04/07/22 05:35 Completed FLU A/B + COVID ANTIGEN Urgent Lab 04/06/22 13:03 Completed Carvedilol [Coreg ] Med 04/06/22 10:00 Active 6.25 mg PO BID Cholecalciferol (Vitamin D3) [Vitamin D] Med 04/06/22 10:00 Active 1,000 unit PO DAILY Cyanocobalamin 500 Mcg [Vitamin B-12 500 MCG] Med 04/06/22 10:00 Active 1,000 mcg PO DAILY Escitalopram Oxalate [Lexapro] Med 04/06/22 10:00 Active 20 mg PO QAM NaCl 0.9% 1000 ml [Sodium Chloride 0.9% 1000 ML] 1,000 Med 04/06/22 12:45 Active ml IV 150 mls/hr Nystatin Cream 30 gm [Nystop 30 gm Cream] Med 04/06/22 10:00 Active 1 gm TOP BID [place]-3 Fatty Acids/Fish Oil [Fish Oil 1,000 mg Med 04/06/22 10:00 Active Capsule] 1,000 mg PO DAILY PANTOPRAZOLE 40 mg Tablet [Protonix 40MG Tablet] Med 04/06/22 10:00 Active 40 mg PO DAILY Sacubitril/Valsartan [Entresto 49 mg-51 mg Tablet] Med 04/06/22 10:00 Active 1 tablet PO BID Spironolactone 25 mg [Aldactone 25 MG] Med 04/06/22 10:00 Active 50 mg PO DAILY Patient Care Notes (Last 24 hours) 04/07/22 00:10 Nursing Note by Carol Salazar AT APPROXIMATELY 2300 PT COMPLAINED OF HER IV LEAKING. THIS NURSE DID NOT NOTICE ANY LEAKING BUT UPON FLUSHING SITE, LEAKING WAS NOTED. WHEN THIS NURSE CHECKED FOR A NEW SITE TO START A NEW IV NO GOOD SITE WAS FOUND. REQUESTED ER NURSE COME AND ATTEMPT AND ABELARDO ALMENDAREZ CAME AND PLACED A 20G IN RIGHT AC WITH ONE STICK. PATIENT TOLERATED WELL AND WASH CLOTH AND COBAN UTILIZED TO HELP PATIENT NOT BEND ARM. IV FLUIDS RESUMED BEFORE AND OF THE TIME OF THIS WRITING NO FURTHER PROBLEMS HAVE BEEN REPORTED. Initialized on 04/07/22 00:10 - END OF NOTE 04/06/22 13:51 Nursing Note by Sara Boswell called to pt's room, pt says she's not going to a halfway after discharge that she is going to live with her daughter. pt also refusing physical therapy. Initialized on 04/06/22 13:51 - END OF NOTE 04/06/22 12:44 Case Management Note by Cinthia Otero DR. ROUNDED TODAY- NEW ORDERS TO DC BICARB DRIP, START IV FLUIDS. RECHECK LABS IN AM Initialized on 04/06/22 12:44 - END OF NOTE 04/06/22 12:40 Case Management Note by Cinthia Otero CALLED AND S/W DAINA AT [facility]- SHE WAS NOTIFIED OF PATIENT STAYING WITH DAUGHTER D/T NO RUNNING WATER BUT NOW THE DAUGHTER HAS NO ELECTRICITY. SHE WILL CALL AND S/W THE DAUGHTER AND SEE IF THERE IS ANYTHING THEY CAN HELP WITH. DAUGHTER NAVNEET MALLOY REPORTS SHE HAS CALLED [facility] AND THEY WERE UNABLE TO HELP. SHE HAS ALSO CALLED LOC[facility] TO SEE IF THEY ARE ABLE TO HELP. Initialized on 04/06/22 12:40 - END OF NOTE Code(s): U07.1 - COVID-19 (2) Acute renal failure Current Visit: Yes Status: Resolved Qualifiers: Acute renal failure type: unspecified Qualified Code(s): N17.9 - Acute kidney failure, unspecified (3) Dehydration Current Visit: Yes Status: Acute Code(s): E86.0 - DEHYDRATION (4) High anion gap metabolic acidosis Current Visit: Yes Status: Resolved Code(s): E87.2 - ACIDOSIS (5) Hyperkalemia Current Visit: Yes Status: Resolved Code(s): E87.5 - HYPERKALEMIA (6) Vomiting Current Visit: Yes Status: Acute Code(s): R11.10 - VOMITING, UNSPECIFIED
[2022-04-07] MEDS: Coreg PO SCH (08:55)
[2022-04-07] MEDS: Aldactone 25 MG PO SCH (08:55)
[2022-04-07] MEDS: ENTRESTO 49 MG-51 MG TABLET PO SCH (08:55)
[2022-04-07] MEDS: FISH OIL 1,000 MG CAPSULE PO SCH (08:55)
[2022-04-07] MEDS: VITAMIN D PO SCH (08:55)
[2022-04-07] MEDS: Lexapro PO SCH (08:55)
[2022-04-07] MEDS: Vitamin B-12 500 MCG PO SCH (08:55)
[2022-04-07] MEDS: Protonix 40MG Tablet PO SCH (08:55)
[2022-04-07] MEDS: NYSTOP 30 GM CREAM TOP SCH (08:56)
[2022-04-07 12:13] VITALS: BP 94/64; PULSE 73; O2SAT 98
--- NOTE | 2022-04-07 12:35 | XRAY ---
Indication: Congestion and weakness. Suspect Covid 19. Comparison: May 26, 2019 Portable chest inflated and clear. Heart not enlarged for AP portable technique. Bony thorax intact again with osteopenia, degenerative changes, and old left humerus fracture with partially visualized orthopedic hardware. Impression: Continued nonacute chest with chronic features.
== END 2022-04-07 14:07 | disposition home or self-care (01) ==
LOC: ED 15:41 → MED SURG 04-06 02:09
PROVIDERS: ADMIT General Practice; ATTEND General Practice
DX: N17.9 Acute kidney failure, unspecified (principal); U07.1 COVID-19; E86.0 Dehydration; E87.2 Acidosis; E87.5 Hyperkalemia; I25.10 Atherosclerotic heart disease of native coronary artery without angina pectoris; R11.10 Vomiting, unspecified; Z79.899 Other long term (current) drug therapy; Z20.828 Contact with and (suspected) exposure to other viral communicable diseases
CPT/HCPCS: 0241U; 36000; 36415; 51702; 71045; 80048; 80053; 81015; 82150; 82947; 83605; 83690; 83735; 83880; 84484; 85025; 86308; 87040; 87077; 87086; 87186; 87428; 93005; 93268; 94640; 94760; 94762; 96360; 96361; 96365; 96372; 96374; 96375; 96376; 97161; 99285; 99291; G0378; J0610; J0696; J1815; J2405; A9270-GY

== ENCOUNTER 2022-08-13 12:04 | Observation (INO) | payer MEDICARE ==
[2022-08-13] MEDS ORDERED: ZOFRAN ODT 4 MG PO ONE (13:24)
--- NOTE | 2022-08-13 13:27 | ERPHSYRPT ---
- History of Present Illness Time Seen by Provider: 08/13/22 13:04 Historian: patient, family Exam Limitations: no limitations Patient Subjective Stated Complaint: patient reports nausea and vomiting x 1 episode which started around 1130. patient reports intermittent chest pain. Triage Nursing Assessment: patients c/o nausea and chest pain. patient rates pain 1/10 at this time. patient denies taking anything at home for pain but does report taking zofran around noon. patient also reporting diarrhea this morning x 1 episode. bowel sounds active x 4 quads and is not tender with palpation. patient reports that she had a stress test last week and that her human relations professor is Dr. Cheung. Physician History: pt has right sided CP and mild SOBreath intermittent. Has hx of prior diarrhea for months. PMX and collaborated interview data separate with sister has human relations professor Dr. Antunez. developed symptoms today after restarting a previous med . Was in [facility] last month for about a week for low iron as co-morbidity. CHest is clear and ht regular - nontender abd without mass or peritoneal signs. no CP now. Had ASA already today at home. will await testing for dispo. Furhter Hx is that pt had stress test last week with cardio - no result known yet. Timing/Duration: today Activities at Onset: none Abdominal Pain Onset Location: other (not in abd but right chest ) Pain Radiation: chest Severity of Pain-Max: moderate Severity of Pain-Current: moderate Associated Symptoms: back, diarrhea, nausea, shortness of breath, vomiting Previous symptoms: no prior history Allergies/Adverse Reactions: clarithromycin [From Biaxin] Allergy (Verified 05/26/19 13:58) Home Medications: Carvedilol [Coreg ] 6.25 mg PO BID 07/21/14 [History] Sacubitril/Valsartan [Entresto 49 mg-51 mg Tablet] 1 each PO BID 01/10/19 [History] Cholecalciferol (Vitamin D3) [Vitamin D3] 1,000 iu PO DAILY 01/21/19 [History] Cyanocobalamin (Vitamin B-12) [B-12] 1,000 mcg PO DAILY 01/21/19 [History] [place]-3/Dha/Epa/Fish Oil [[place] 3 500 Softgel] 520 mcg PO DAILY 01/21/19 [History] Esomeprazole Magnesium [Nexium] 40 mg PO DAILY 01/22/19 [History] Escitalopram Oxalate 20 mg PO DAILY 04/06/22 [History] Spironolactone 50 mg PO DAILY 04/06/22 [History] Hx Tetanus, Diphtheria Vaccination/Date Given: Yes (UNKNOWN) Hx Influenza Vaccination/Date Given: Yes Hx Pneumococcal Vaccination/Date Given: No Immunizations Up to Date: Yes Travel Risk - International Travel Have you traveled outside of the country in past 3 weeks: No - Coronavirus Screening Are you exhibiting any of the following symptoms?: No Close contact with a COVID-19 positive Pt in past 14-21 Days: No - Vaccine Status Have you recieved a Covid-19 vaccination: Yes Mystery [employer]pper: Moderna - Vaccination Dates Date of 2cond Vaccination (if applicable): unknown Dates if Unknown: unknown - Review of Systems Constitutional: No Fever, No Chills Eyes: No Symptoms Ears, Nose, & Throat: No Symptoms Respiratory: No Cough, No Dyspnea Cardiac: Chest Pain, No Edema, No Syncope Abdominal/Gastrointestinal: Nausea, Vomiting, Diarrhea, No Abdominal Pain Genitourinary Symptoms: No Dysuria Musculoskeletal: Back Pain, No Neck Pain Skin: No Rash Neurological: No Dizziness, No Focal Weakness, No Sensory Changes Psychological: No Symptoms Endocrine: No Symptoms Hematologic/Lymphatic: No Symptoms Immunological/Allergic: No Symptoms All Other Systems: Reviewed and Negative - Past Medical History Pertinent Past Medical History: Yes Neurological History: No Pertinent History ENT History: Cataracts Cardiac History: Arrhythmia, Congestive Heart Failure, Coronary Artery Disease Respiratory History: Bronchitis, CHF, COPD, Pneumonia Endocrine Medical History: Hypothyroidism Musculoskeletal History: Arthritis, Osteoarthritis GI Medical History: GERD Psycho-Social History: Anxiety Female Reproductive Disorders: No Pertinent History Other Medical History: [place], left hearing aid, doesnt wear - Past Surgical History Past Surgical History: Yes Neuro Surgical History: No Pertinent History Cardiac: No Pertinent History Respiratory: No Pertinent History Gastrointestinal: No Pertinent History Genitourinary: No Pertinent History Musculoskeletal: No Pertinent History Female Surgical History: Hysterectomy - Social History Smoking Status: Never smoker Exposure to second hand smoke: No Drug Use: none Patient Lives Alone: Yes Significant Family History: no pertinent family hx - Nursing Vital Signs Nursing Vital Signs: Initial Vital Signs Pulse Rate 74 08/13/22 12:05 Respiratory Rate 15 08/13/22 12:05 Blood Pressure 113/66 08/13/22 12:05 O2 Sat by Pulse Oximetry 97 08/13/22 12:05 Pain Scale Pain Intensity 0 - Physical Exam General Appearance: no apparent distress, alert Eye Exam: PERRL/EOMI, eyes nml inspection Ears, Nose, Throat Exam: normal ENT inspection, pharynx normal, moist mucous membranes Neck Exam: normal inspection, non-tender, supple, full range of motion Respiratory Exam: normal breath sounds, lungs clear, No respiratory distress Cardiovascular Exam: regular rate/rhythm, normal heart sounds Gastrointestinal/Abdomen Exam: soft, No tenderness, No mass Pelvic Exam: deferred Rectal Exam: deferred Back Exam: normal inspection, normal range of motion, No CVA tenderness, No vertebral tenderness Extremity Exam: normal inspection, normal range of motion, pelvis stable Neurologic Exam: alert, oriented x 3, cooperative, normal mood/affect, nml cerebellar function, sensation nml, No motor deficits Skin Exam: normal color, warm, dry SpO2 Interpretation: normal SpO2: 97 O2 Delivery: Room Air - Course Nursing assessment & vital signs reviewed: Yes EKG Interpreted by Me: Sinus Rhythm, Left Bundle Branch Block, Non-specific ST Changes Ordered Tests: Active Orders 24 hr Category Date Time Status EKG-ER Only STAT Care 08/13/22 13:24 Active AMYLASE Stat Lab 08/13/22 13:45 Completed CBC W DIFF Stat Lab 08/13/22 13:45 Completed CMP Stat Lab 08/13/22 13:45 Completed D-DIMER QUANTITATIVE Stat Lab 08/13/22 13:45 Completed LIPASE Stat Lab 08/13/22 13:45 Completed Lactic Acid Stat Lab 08/13/22 13:24 Completed TROPONIN Q4H Lab 08/13/22 13:45 Completed TROPONIN Q4H Lab 08/13/22 17:30 Ordered TROPONIN Q4H Lab 08/13/22 21:30 Ordered Medication Summary Discontinued Medications Generic Name Dose Route Start Last Admin Trade Name Freq PRN Reason Stop Dose Admin Ondansetron HCl 4 mg 08/13/22 13:24 08/13/22 13:31 Zofran 4 Mg/Udtablet Orally Disintegrating PO 08/13/22 13:25 4 mg STAT ONE Administration Ondansetron HCl Confirm 08/13/22 13:30 Zofran 4 Mg/Udtablet Orally Disintegrating Administered 08/13/22 13:31 Dose 4 mg .ROUTE .STK-MED ONE Lab/Rad Data: Laboratory Result Diagrams 08/13/22 13:45 08/13/22 13:45 Laboratory Results 08/13/22 08/13/22 08/13/22 Range/Units 13:45 13:45 13:45 WBC (4.0-10.5) x10^3/uL RBC (4.1-5.4) x10^6/uL Hgb (12.0-16.0) g/dL Hct (35-47) % MCV (78-100) fL MCH (26-32) pg MCHC (32-36) g/dL RDW (11.5-14.0) % Plt Count (150-450) x10^3/uL MPV (7.5-11.0) fL Gran % (36.0-66.0) % Immature Gran % (Auto) (0.00-0.4) % Nucleat RBC Rel Count (0.00-0.1) % Eos # (Auto) (0-0.5) x10^3/uL Immature Gran # (Auto) (0.00-0.03) x10^3u/L Absolute Lymphs (auto) (1.0-4.6) x10^3/uL Absolute Monos (auto) (0.0-1.3) x10^3/uL Absolute Nucleated RBC (0.00-0.01) x10^3u/L Lymphocytes % (24.0-44.0) % Monocytes % (0.0-12.0) % Eosinophils % (0.00-5.0) % Basophils % (0.0-0.4) % Absolute Granulocytes (1.4-6.9) x10^3/uL Basophils # (0-0.4) x10^3/uL D-Dimer 0.81 H* (0.0-0.50) mg/L Sodium 137 (137-145) mmol/L Potassium 4.3 (3.5-5.1) mmol/L Chloride 104 (98-107) mmol/L Carbon Dioxide 26 (22-30) mmol/L Anion Gap 11.6 (5-15) MEQ/L BUN 18 H (7-17) mg/dL Creatinine 1.13 H (0.52-1.04) mg/dL Estimated GFR 49.9 ML/MIN Glucose 103 (74-106) mg/dL Lactic Acid (0.4-2.0) Calcium 9.1 (8.4-10.2) mg/dL Total Bilirubin 0.60 (0.2-1.3) mg/dL AST 28 (14-36) U/L ALT 24 (0-35) U/L Alkaline Phosphatase 79 (38-126) U/L Troponin I 0.013 (0.000-0.034) ng/mL Serum Total Protein 7.5 (6.3-8.2) g/dL Albumin 4.1 (3.5-5.0) g/dL Amylase 91 (30-110) U/L Lipase 113 (23-300) U/L 08/13/22 08/13/22 Range/Units 13:45 13:24 WBC 7.3 (4.0-10.5) x10^3/uL RBC 3.75 L (4.1-5.4) x10^6/uL Hgb 10.8 L (12.0-16.0) g/dL Hct 34.1 L (35-47) % MCV 90.9 (78-100) fL MCH 28.8 (26-32) pg MCHC 31.7 L (32-36) g/dL RDW 19.7 H (11.5-14.0) % Plt Count 187 (150-450) x10^3/uL MPV 11.8 H (7.5-11.0) fL Gran % 82.8 H (36.0-66.0) % Immature Gran % (Auto) 0.1 (0.00-0.4) % Nucleat RBC Rel Count 0.0 (0.00-0.1) % Eos # (Auto) 0.15 (0-0.5) x10^3/uL Immature Gran # (Auto) 0.01 (0.00-0.03) x10^3u/L Absolute Lymphs (auto) 0.68 L (1.0-4.6) x10^3/uL Absolute Monos (auto) 0.38 (0.0-1.3) x10^3/uL Absolute Nucleated RBC 0.00 (0.00-0.01) x10^3u/L Lymphocytes % 9.4 L (24.0-44.0) % Monocytes % 5.2 (0.0-12.0) % Eosinophils % 2.1 (0.00-5.0) % Basophils % 0.4 (0.0-0.4) % Absolute Granulocytes 6.02 (1.4-6.9) x10^3/uL Basophils # 0.03 (0-0.4) x10^3/uL D-Dimer (0.0-0.50) mg/L Sodium (137-145) mmol/L Potassium (3.5-5.1) mmol/L Chloride (98-107) mmol/L Carbon Dioxide (22-30) mmol/L Anion Gap (5-15) MEQ/L BUN (7-17) mg/dL Creatinine (0.52-1.04) mg/dL Estimated GFR ML/MIN Glucose (74-106) mg/dL Lactic Acid 1.4 (0.4-2.0) Calcium (8.4-10.2) mg/dL Total Bilirubin (0.2-1.3) mg/dL AST (14-36) U/L ALT (0-35) U/L Alkaline Phosphatase (38-126) U/L Troponin I (0.000-0.034) ng/mL Serum Total Protein (6.3-8.2) g/dL Albumin (3.5-5.0) g/dL Amylase (30-110) U/L Lipase (23-300) U/L - Progress Progress: improved, re-examined Progress Note: 08/13/22 15:14 trop, D dimer, CBC,CMP EKG ordered and reviewed and discussed with pt and family. 08/13/22 15:16 Asking for pts recent stress test from [facility] and requested these records for review. 08/13/22 15:59 ASA given in hospital to total for the day of 325 mg. NTG not indicated as the chest pain subsided. Reviewed records from [facility] as above requested and these show positive reversible cardiac ischemia although small area. 08/13/22 16:08 Pati Antunez only works at [employer] and that is full, so we are trying [facility] and this is requiring some time to coordinate contact. 08/13/22 17:00 Discussed/ Consulted with Dr. Martinez cardio sap consultant at [facility] and he referred to Dr. Pearce Hospitalist for possible obs w/u. Dr. Pearce agreed and pt agrees for transfer and they are getting a bed. 08/13/22 17:04 Pt also had elevated D dimer and elevated RFT at borderline for giving dye and c ould be best to go for VQ at . Discussed with Dr.: Other (Dr. Martinez and Dr. Pearce at [facility]) Will see patient in: hospital (observation) Counseled pt/family regarding: lab results, diagnosis, need for follow-up - Departure Departure Disposition: Transfer Clinical Impression: Vomiting, Chest pain, recent positive Stress Test, Elevated d-dimer, elevated RFT Condition: Good Critical Care Time: No Referrals: LESTER FRAUSTO MD [Primary Care Provider] - Follow up/PCP as directed
[2022-08-13] MEDS ORDERED: ZOFRAN ODT 4 MG ONE (13:30)
[2022-08-13 13:52] LABS: Absolute Neutrophil Ct (ANC) 6.02 x10^3/uL (1.4-6.9); Basophil (Absolute #) 0.03 x10^3/uL (0-0.4); Eosinophil % 2.1 % (0.00-5.0); Eosinophil (Absolute #) 0.15 x10^3/uL (0-0.5); Hematocrit 34.1 % (35-47); Hemoglobin 10.8 g/dL (12.0-16.0); Lymphocyte (Absolute #) 0.68 x10^3/uL (1.0-4.6); Lymphocytes % 9.4 % (24.0-44.0); Mean Cell Volume 90.9 fL (78-100); Mean Corpuscular Hemoglobin 28.8 pg (26-32); Mean Corpuscular Hgb Concent. 31.7 g/dL (32-36); Mean Platelet Volume 11.8 fL (7.5-11.0); Monocyte (Absolute #) 0.38 x10^3/uL (0.0-1.3); Monocytes % 5.2 % (0.0-12.0); Neutrophil % 82.8 % (36.0-66.0); Platelet Count 187 x10^3/uL (150-450); Red Blood Count 3.75 x10^6/uL (4.1-5.4); Red Cell Distribution Width 19.7 % (11.5-14.0); White Blood Count 7.3 x10^3/uL (4.0-10.5)
[2022-08-13 14:11] LABS: ALBUMIN 4.1 g/dL (3.5-5.0); ANION GAP 11.6 MEQ/L (5-15); BILIRUBIN,TOTAL 0.6 mg/dL (0.2-1.3); Calcium 9.1 mg/dL (8.4-10.2); Creatinine 1 1.13 mg/dL (0.52-1.04); EST GLOMERULAR FILTRATION RATE 49.9 ML/MIN; Potassium 4.3 mmol/L (3.5-5.1); Total Protein 7.5 g/dL (6.3-8.2)
[2022-08-13] MEDS ORDERED: Coreg 3.125 MG PO ONE (17:49)
[2022-08-13] MEDS ORDERED: ENTRESTO 49 MG-51 MG TABLET PO ONE (17:50)
[2022-08-13 18:39] LABS: INFLUENZA A NEGATIVE (NEGATIVE); INFLUENZA B NEGATIVE (NEGATIVE); RESPIRATORY SYNCTIAL VIRUS NEGATIVE (Negative); SARS-CoV-2 Xpert Express NEGATIVE (NEGATIVE)
[2022-08-13] MEDS ORDERED: TYLENOL 325 MG PO PRN (21:45)
[2022-08-13] MEDS ORDERED: Zofran 4 MG/2 ML VIAL IV PRN (21:45)
[2022-08-13] MEDS ORDERED: DUONEB 0.5-3 MG/3 ml Neb IH PRN (21:45)
[2022-08-13] MEDS ORDERED: HUMULIN R SQ PRN (21:45)
[2022-08-13] MEDS: Pepcid 20 MG VIAL IV SCH (23:51)
[2022-08-14 05:40] LABS: Absolute Neutrophil Ct (ANC) 3.69 x10^3/uL (1.4-6.9); Basophil (Absolute #) 0.02 x10^3/uL (0-0.4); Eosinophil (Absolute #) 0.33 x10^3/uL (0-0.5); Hematocrit 31.6 % (35-47); Hemoglobin 10.2 g/dL (12.0-16.0); Lymphocytes % 18.1 % (24.0-44.0); Mean Cell Volume 89.3 fL (78-100); Mean Corpuscular Hemoglobin 28.8 pg (26-32); Mean Corpuscular Hgb Concent. 32.3 g/dL (32-36); Mean Platelet Volume 11.7 fL (7.5-11.0); Monocyte (Absolute #) 0.47 x10^3/uL (0.0-1.3); Monocytes % 8.5 % (0.0-12.0); Neutrophil % 66.8 % (36.0-66.0); Platelet Count 171 x10^3/uL (150-450); Red Blood Count 3.54 x10^6/uL (4.1-5.4); Red Cell Distribution Width 19.9 % (11.5-14.0); White Blood Count 5.5 x10^3/uL (4.0-10.5)
[2022-08-14 06:05] LABS: ALBUMIN 3.6 g/dL (3.5-5.0); ANION GAP 8.9 MEQ/L (5-15); BILIRUBIN,TOTAL 0.5 mg/dL (0.2-1.3); Calcium 8.3 mg/dL (8.4-10.2); Creatinine 1 0.97 mg/dL (0.52-1.04); EST GLOMERULAR FILTRATION RATE 59.5 ML/MIN; Potassium 3.8 mmol/L (3.5-5.1); Total Protein 6.4 g/dL (6.3-8.2)
[2022-08-14] MEDS: ENOXAPARIN SODIUM SQ SCH (09:23)
[2022-08-14] MEDS: Pepcid 20 MG VIAL IV SCH ×2 (09:23→22:23)
[2022-08-14] MEDS ORDERED: PROTONIX 40 MG IV IV SCH (10:00)
[2022-08-14] MEDS ORDERED: MEDICATION INTERVENTION MC SCH (11:15)
[2022-08-14] MEDS: ENTRESTO 49 MG-51 MG TABLET PO SCH ×2 (11:21→22:23)
[2022-08-14] MEDS: Aldactone 25 MG PO SCH (11:21)
[2022-08-14] MEDS: Coreg PO SCH ×2 (11:21→22:23)
[2022-08-14] MEDS: Lexapro PO SCH (11:22)
[2022-08-14] MEDS: Calcium 500MG W/Vit D Tablet PO SCH (11:22)
[2022-08-14] MEDS: Vitamin B-12 500 MCG PO SCH (11:22)
--- NOTE | 2022-08-14 11:37 | XRAY ---
Indication: Cough. CHF. Comparison: April 05, 2022 PA/lateral chest again hyperinflated and clear. Heart borderline enlarged. Bony thorax intact again with osteopenia, degenerative changes, and old left humerus fracture. Impression: Nonacute chest with chronic features.
--- NOTE | 2022-08-14 20:07 | PCM.HP ---
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 Medications & Allergies Home Medications: Home Medication List Carvedilol [Coreg ] 6.25 mg PO BID 07/21/14 [History Confirmed 08/13/22] Sacubitril/Valsartan [Entresto 49 mg-51 mg Tablet] 1 each PO BID 01/10/19 [History Confirmed 08/13/22] Cyanocobalamin (Vitamin B-12) [B-12] 1,000 mcg PO DAILY 01/21/19 [History Confirmed 08/13/22] [place]-3/Dha/Epa/Fish Oil [[place] 3 500 Softgel] 520 mcg PO DAILY 01/21/19 [History Confirmed 08/13/22] Esomeprazole Magnesium [Nexium] 40 mg PO DAILY 01/22/19 [History Confirmed 08/13/22] Escitalopram Oxalate 20 mg PO DAILY 04/06/22 [History Confirmed 08/13/22] Spironolactone 50 mg PO DAILY 04/06/22 [History Confirmed 08/13/22] Calcium Carb/Vitamin D 500 mg* [Calcium 500MG W/Vit D Tablet] 1 tab PO DAILY 08/13/22 [History Confirmed 08/13/22] Allergies/Adverse Reactions: Allergies Allergy/AdvReac Type Severity Reaction Status Date / Time clarithromycin [From Biaxin] Allergy Verified 08/13/22 23:05 - Past Medical History Past Medical History: Yes Neurological History: No Pertinent History ENT History: Cataracts Cardiac History: Arrhythmia, Congestive Heart Failure, Coronary Artery Disease Respiratory History: Bronchitis, CHF, COPD, Pneumonia Endocrine Medical History: Hypothyroidism Musculoskelatal History: Arthritis, Osteoarthritis GI Medical History: GERD Pyscho-Social History: Anxiety Reproductive Disorders: No Pertinent History Comment: [place], left hearing aid, doesnt wear - Female History Are you now?: No - Past Surgical History Past Surgical History: Yes Neuro Surgical History: No Pertinent History Cardiac History: No Pertinent History Respiratory Surgery: No Pertinent History GI Surgical History: No Pertinent History Genitourinary Surgical Hx: No Pertinent History Musculskeletal Surgical Hx: No Pertinent History Female Surgical History: Hysterectomy - Social History Smoking Status: Never smoker Exposure to second hand smoke: No Alcohol: None Drug Use: none Significant Family History: no pertinent family hx - Physical Exam Vital Signs: Vital Signs - 24 hr Temp Pulse Resp BP Pulse Ox 08/14/22 19:41 97.5 F 58 L 16 115/56 97 08/14/22 18:35 65 16 93 L 08/14/22 17:04 62 18 96 08/14/22 16:00 97.5 F 59 L 16 119/57 96 08/14/22 11:42 97.9 F 57 L 16 100/49 91 L 08/14/22 08:00 97.7 F 57 L 16 115/58 98 08/14/22 04:00 97.8 F 70 17 102/63 98 08/14/22 01:09 63 15 96 08/13/22 22:00 97.5 F 69 19 106/53 95 08/13/22 21:07 69 20 107/47 97 Results - Labs Lab/Micro Results: Lab Results-Last 24 Hours 08/13/22 08/14/22 08/14/22 Range/Units 22:43 05:00 05:50 WBC 5.5 (4.0-10.5) x10^3/uL RBC 3.54 L (4.1-5.4) x10^6/uL Hgb 10.2 L (12.0-16.0) g/dL Hct 31.6 L (35-47) % MCV 89.3 (78-100) fL MCH 28.8 (26-32) pg MCHC 32.3 (32-36) g/dL RDW 19.9 H (11.5-14.0) % Plt Count 171 (150-450) x10^3/uL MPV 11.7 H (7.5-11.0) fL Gran % 66.8 H (36.0-66.0) % Immature Gran % (Auto) 0.2 (0.00-0.4) % Nucleat RBC Rel Count 0.0 (0.00-0.1) % Eos # (Auto) 0.33 (0-0.5) x10^3/uL Immature Gran # (Auto) 0.01 (0.00-0.03) x10^3u/L Absolute Lymphs (auto) 1.00 (1.0-4.6) x10^3/uL Absolute Monos (auto) 0.47 (0.0-1.3) x10^3/uL Absolute Nucleated RBC 0.00 (0.00-0.01) x10^3u/L Lymphocytes % 18.1 L (24.0-44.0) % Monocytes % 8.5 (0.0-12.0) % Eosinophils % 6.0 H (0.00-5.0) % Basophils % 0.4 (0.0-0.4) % Absolute Granulocytes 3.69 (1.4-6.9) x10^3/uL Basophils # 0.02 (0-0.4) x10^3/uL Sodium (137-145) mmol/L Potassium (3.5-5.1) mmol/L Chloride (98-107) mmol/L Carbon Dioxide (22-30) mmol/L Anion Gap (5-15) MEQ/L BUN (7-17) mg/dL Creatinine (0.52-1.04) mg/dL Estimated GFR ML/MIN Glucose (74-106) mg/dL POC Glucometer (74 to 106) mg/dL Calcium (8.4-10.2) mg/dL Total Bilirubin (0.2-1.3) mg/dL AST (14-36) U/L ALT (0-35) U/L Alkaline Phosphatase (38-126) U/L Troponin I < 0.012 (0.000-0.034) ng/mL NT-Pro-B Natriuret Pep 792 (0-1800) pg/mL Serum Total Protein (6.3-8.2) g/dL Albumin (3.5-5.0) g/dL 08/14/22 08/14/22 Range/Units 05:50 08:15 WBC (4.0-10.5) x10^3/uL RBC (4.1-5.4) x10^6/uL Hgb (12.0-16.0) g/dL Hct (35-47) % MCV (78-100) fL MCH (26-32) pg MCHC (32-36) g/dL RDW (11.5-14.0) % Plt Count (150-450) x10^3/uL MPV (7.5-11.0) fL Gran % (36.0-66.0) % Immature Gran % (Auto) (0.00-0.4) % Nucleat RBC Rel Count (0.00-0.1) % Eos # (Auto) (0-0.5) x10^3/uL Immature Gran # (Auto) (0.00-0.03) x10^3u/L Absolute Lymphs (auto) (1.0-4.6) x10^3/uL Absolute Monos (auto) (0.0-1.3) x10^3/uL Absolute Nucleated RBC (0.00-0.01) x10^3u/L Lymphocytes % (24.0-44.0) % Monocytes % (0.0-12.0) % Eosinophils % (0.00-5.0) % Basophils % (0.0-0.4) % Absolute Granulocytes (1.4-6.9) x10^3/uL Basophils # (0-0.4) x10^3/uL Sodium 135 L (137-145) mmol/L Potassium 3.8 (3.5-5.1) mmol/L Chloride 105 (98-107) mmol/L Carbon Dioxide 25 (22-30) mmol/L Anion Gap 8.9 (5-15) MEQ/L BUN 17 (7-17) mg/dL Creatinine 0.97 (0.52-1.04) mg/dL Estimated GFR 59.5 ML/MIN Glucose 91 (74-106) mg/dL POC Glucometer 87 (74 to 106) mg/dL Calcium 8.3 L (8.4-10.2) mg/dL Total Bilirubin 0.50 (0.2-1.3) mg/dL AST 25 (14-36) U/L ALT 20 (0-35) U/L Alkaline Phosphatase 58 (38-126) U/L Troponin I (0.000-0.034) ng/mL NT-Pro-B Natriuret Pep (0-1800) pg/mL Serum Total Protein 6.4 (6.3-8.2) g/dL Albumin 3.6 (3.5-5.0) g/dL - Radiology Impressions Radiology Exams & Impressions: Radiology Procedures Category Date Time Status CHEST 2 VIEWS (PA AND LAT) Urgent Exams 08/14/22 10:54 Completed - Other Procedures and Tests Respiratory Therapy 08/14/22 01:08 Oxygen Nasal Cannula 2 lpm Respiratory Therapy Assessment DAILY
[2022-08-15] MEDS: Lexapro PO SCH (09:03)
[2022-08-15] MEDS: Coreg PO SCH (09:04)
[2022-08-15] MEDS: Calcium 500MG W/Vit D Tablet PO SCH (09:04)
[2022-08-15] MEDS: Vitamin B-12 500 MCG PO SCH (09:04)
[2022-08-15] MEDS: Aldactone 25 MG PO SCH (09:04)
[2022-08-15] MEDS: ENOXAPARIN SODIUM SQ SCH (09:05)
[2022-08-15] MEDS: Pepcid 20 MG VIAL IV SCH (09:06)
[2022-08-15] MEDS: ENTRESTO 49 MG-51 MG TABLET PO SCH (09:11)
[2022-08-15] MEDS ORDERED: OMEGA PO SCH (10:00)
[2022-08-15] MEDS ORDERED: DHA PO SCH (10:00)
[2022-08-15] MEDS ORDERED: NON-FORMULARY ITEM (Esomeprazole Magnesium [Nexium] 40 MG Capsule.Dr) PO SCH (10:00)
[2022-08-15] MEDS ORDERED: NON-FORMULARY ITEM (Escitalopram Oxalate [Escitalopram Oxalate] 20 MG Tablet) PO SCH (10:00)
[2022-08-15] MEDS ORDERED: FISH OIL PO SCH (10:00)
[2022-08-15] MEDS ORDERED: EPA PO SCH (10:00)
[2022-08-15] MEDS ORDERED: NON-FORMULARY ITEM (Cyanocobalamin (Vitamin B-12) [B-12] 1,000 MCG Tablet) PO SCH (10:00)
[2022-08-15] MEDS ORDERED: NON-FORMULARY ITEM (Spironolactone [Spironolactone] 50 MG Tablet) PO SCH (10:00)
[2022-08-15] MEDS ORDERED: Protonix 40MG Tablet PO SCH (10:00)
--- NOTE | 2022-08-15 10:01 | PCM.NOTE ---
Date and Time: 08/15/22 1001 Subjective Assessment: doing little better - Review of Systems Constitutional: No Fever, No Chills Eyes: No Symptoms Ears, Nose, & Throat: No Symptoms Respiratory: No Cough, No Short Of Breath Cardiac: No Chest Pain, No Edema, No Syncope Abdominal/Gastrointestinal: No Abdominal Pain, No Nausea, No Vomiting, No Diarrhea Genitourinary Symptoms: No Dysuria Musculoskeletal: No Back Pain, No Neck Pain Skin: No Rash Neurological: No Dizziness, No Focal Weakness, No Sensory Changes Psychological: No Symptoms Endocrine: No Symptoms Hematologic/Lymphatic: No Symptoms Immunological/Allergic: No Symptoms Objective Exam General Appearance: no apparent distress, alert Neurologic Exam: alert, oriented x 3, cooperative, normal mood/affect, nml cerebellar function, sensation nml, No motor deficits Skin Exam: normal color, warm, dry Eye Exam: PERRL, EOMI, eyes nml inspection Ears, Nose, Throat Exam: normal ENT inspection, pharynx normal, moist mucous membranes Neck Exam: normal inspection, non-tender, supple, full range of motion Respiratory Exam: normal breath sounds, lungs clear, No respiratory distress Cardiovascular Exam: regular rate/rhythm, normal heart sounds Gastrointestinal/Abdomen Exam: soft, No tenderness, No mass Extremity Exam: normal inspection, normal range of motion Back Exam: normal inspection, normal range of motion, No CVA tenderness, No vertebral tenderness Pelvic Exam: deferred Rectal Exam: deferred OBJECTIVE DATA Vital Signs: Vital Signs - 24 hr Temp Pulse Resp BP Pulse Ox 08/15/22 09:20 65 116/56 08/15/22 08:00 97.8 F 50 L 16 91/55 95 08/15/22 07:32 55 L 18 95 08/15/22 04:00 97.7 F 56 L 16 126/58 92 L 08/14/22 23:21 97.5 F 65 19 73/36 96 08/14/22 19:41 97.5 F 58 L 16 115/56 97 08/14/22 18:35 65 16 93 L 08/14/22 17:04 62 18 96 08/14/22 16:00 97.5 F 59 L 16 119/57 96 08/14/22 11:42 97.9 F 57 L 16 100/49 91 L Pain Assessment - Last Documented Pain Intensity 0 Intake and Output: Intake & Output 0108/13/22 08/14/22 08/15/22 11:59 11:59 11:59 11:59 Intake Total 995 3880 Output Total 500 2050 Balance 495 1830 Weight 61.8 kg Lab Results: Lab Results-Last 24 Hours 08/14/22 Range/Units 05:00 NT-Pro-B Natriuret Pep 792 (0-1800) pg/mL Radiology Exams: Radiology Procedures Category Date Time Status CHEST 2 VIEWS (PA AND LAT) Urgent Exams 08/14/22 10:54 Completed Assessment/Plan (1) Elevated d-dimer Current Visit: Yes Status: Acute Code(s): R79.89 - OTHER SPECIFIED ABNORMAL FINDINGS OF BLOOD CHEMISTRY (2) CHF (congestive heart failure), NYHA class III Current Visit: Yes Status: Acute Qualifiers: Congestive heart failure type: combined Congestive heart failure chronicity: acute on chronic Qualified Code(s): I50.43 - Acute on chronic combined systolic (congestive) and diastolic (congestive) heart failure Code(s): I50.9 - HEART FAILURE, UNSPECIFIED
[2022-08-15 12:17] VITALS: BP 94/44; PULSE 54; O2SAT 94
[2022-08-15] MEDS ORDERED: Advair Hfa 115/21 Common canister IH SCH (19:00)
--- NOTE | 2022-08-16 06:19 | PCM.DS ---
Discharge Summary Date of Admission: 08/13/22 21:41 Admitting Physician: RADHA JOHNSON DO Primary Care Provider: LESTER FRAUSTO Allergies Allergies clarithromycin [From Biaxin] Allergy (Verified 08/13/22 23:05) Hospital Summary - Hospital Course Hospital Course: Chief Complaint Diagnosis Chest Pain w/CAD & N/V Allergies Allergy/AdvReac Type Severity Reaction Status Date / Time clarithromycin [From Biaxin] Allergy Verified 08/13/22 23:05 Vital Signs (Last 24 hours) Temp Pulse Resp BP Pulse Ox 08/15/22 12:09 98.3 F 54 L 16 94/44 94 L 08/15/22 09:20 65 116/56 08/15/22 08:00 97.8 F 50 L 16 91/55 95 08/15/22 07:32 55 L 18 95 Home Medications Medication Instructions Recorded Confirmed Last Taken Type Calcium Carb/Vitamin D 500 mg* 1 tab PO DAILY 08/13/22 08/13/22 08/13/22 History [Calcium 500MG W/Vit D Tablet] Current Medications Discontinued Medications Generic Name Dose Route Start Last Admin Trade Name Freq PRN Reason Stop Dose Admin Acetaminophen 650 mg 08/13/22 21:45 Acetaminophen 325 Mg Tablet PO 09/12/22 21:44 Q4H PRN PRN PAIN AND/OR FEVER Albuterol/Ipratropium 3 ml 08/13/22 21:45 Ipratropium/Albuterol Sulfate 3 Ml Ampul.Neb IH 09/12/22 21:44 Q4HPRN PRN SHORTNESS OF BREATH/WHEEZING Calcium Carbonate 1 tab 08/14/22 12:00 08/15/22 09:04 Calcium Carbonate 500 Mg/Vitamin D 1 Tab Tablet PO 09/13/22 11:59 1 tab DAILY FRANCESCA Administration Carvedilol 6.25 mg 08/13/22 17:49 08/13/22 18:05 Carvedilol 3.125 Mg Tablet PO 08/13/22 17:50 6.25 mg STAT ONE Administration Carvedilol 6.25 mg 08/14/22 12:00 08/15/22 09:04 Carvedilol 6.25 Mg Tablet PO 09/13/22 11:59 6.25 mg BID FRANCESCA Administration Cyanocobalamin 1,000 mcg 08/14/22 12:00 08/15/22 09:04 Cyanocobalamin 500 Mcg Tablet PO 09/13/22 11:59 1,000 mcg DAILY FRANCESCA Administration Enoxaparin Sodium 40 mg 08/14/22 10:00 08/15/22 09:05 Enoxaparin Sodium 40 Mg/0.4 Ml Syringe SQ 09/13/22 09:59 40 mg DAILY FRANCESCA Administration Escitalopram Oxalate 20 mg 08/14/22 12:00 08/15/22 09:03 Escitalopram Oxalate 10 Mg Tablet PO 09/13/22 11:59 20 mg DAILY FRANCESCA Administration Famotidine 20 mg 08/13/22 22:00 08/15/22 09:06 Famotidine 20 Mg/1 Vial IV 09/12/22 21:59 20 mg Q12HT FRANCESCA Administration Sodium Chloride 1,000 mls @ 100 mls/hr 08/13/22 21:45 08/15/22 03:41 Sodium Chloride 0.45% 1000 Ml IV 09/12/22 21:44 100 mls/hr .Q10H FRANCESCA Administration Insulin Human Regular 0 unit 08/13/22 21:45 Insulin Regular, Human 1 Unit SQ 09/12/22 21:44 UD PRN HYPERGLYCEMIA Miscellaneous Information 1 each 08/14/22 11:15 Medication Intervention 1 Each Each 09/13/22 11:14 .RN TO CHECK FRANCESCA Ondansetron HCl 4 mg 08/13/22 13:24 08/13/22 13:31 Zofran 4 Mg/Udtablet Orally Disintegrating PO 08/13/22 13:25 4 mg STAT ONE Administration Ondansetron HCl Confirm 08/13/22 13:30 Zofran 4 Mg/Udtablet Orally Disintegrating Administered 08/13/22 13:31 Dose 4 mg .ROUTE .STK-MED ONE Ondansetron HCl 4 mg 08/13/22 21:45 08/14/22 11:25 Ondansetron Hcl 4 Mg/2 Ml Vial IV 09/12/22 21:44 4 mg Q6H PRN PRN Administration NAUSEA/VOMITING Pantoprazole Sodium 40 mg 08/14/22 10:00 08/14/22 09:23 Pantoprazole 40 Mg Vial IV 09/13/22 09:59 40 mg Q24H10 FRANCESCA Administration Pantoprazole Sodium 40 mg 08/15/22 10:00 08/15/22 09:04 Protonix (Pantoprazole) 40 Mg Tablet PO 09/14/22 09:59 40 mg DAILY FRANCESCA Administration Sacubitril/Valsartan 1 tablet 08/13/22 17:50 08/13/22 18:05 Sacubitril/Valsartan 1 Tablet Tablet PO 08/13/22 17:51 1 tablet STAT ONE Administration Sacubitril/Valsartan 1 tablet 08/14/22 12:00 08/15/22 09:11 Sacubitril/Valsartan 1 Tablet Tablet PO 09/13/22 11:59 1 tablet BID FRANCESCA Administration Fluticasone/Salmeterol 2 puff 08/15/22 19:00 Fluticasone/Salmeterol / - 120 Puff Common Canister IH 09/14/22 18:59 BIDRT FRANCESCA Spironolactone 50 mg 08/14/22 12:00 08/15/22 09:04 Spironolactone 25 Mg Tablet PO 09/13/22 11:59 50 mg DAILY FRANCESCA Administration Intake & Output (Last 24 hours) 08/13/22 08/14/22 08/15/22 08/16/22 11:59 11:59 11:59 11:59 Intake Total 995 3880 360 Output Total 500 2050 Balance 495 1830 360 Weight 61.8 kg Orders (Last 24 hours) Category Date Time Status Fluticasone/Salmeterol 115/21 [Advair Hfa 115/21 Common Med 08/15/22 19:00 Discontinued canister*] 2 puff IH BIDRT PANTOPRAZOLE 40 mg Tablet [Protonix 40MG Tablet] Med 08/15/22 10:00 Discontinued 40 mg PO DAILY Patient Care Notes (Last 24 hours) 08/15/22 11:46 Nursing Note by Rosette Correia 08-15-22 CALLED [facility] PER DR RAUL MILLER, PT WILL DC TO HOME TODAY. KATHY 0106, NURSE NOTIFIED. Initialized on 08/15/22 11:46 - END OF NOTE 08/15/22 11:10 Nursing Note by Rosette Correia 08-15-22 FAX WAS SENT TO [facility] MEDICAL RECORDS FOR LAST OFFICE VISIR FROM DR BITTAR AND HEART CATH. [facility] 1111. NURSE ANIBAL NOTIFIED. Initialized on 08/15/22 11:10 - END OF NOTE 08/15/22 11:09 Nursing Note by Bud Sanabria Patient sitting in chair resting easy watching TV. Has no complaints at this time. Initialized on 08/15/22 11:09 - END OF NOTE 08/15/22 11:05 Case Management Note by Cinthia Otero S/Kelley PATIENT- SHE CONTINUES TO DENY ANY NEW NEEDS AT TIME OF DC. SHE PLANS TO RETURN HOME WITH HER DAUGHTER AT TIME OF DC Initialized on 08/15/22 11:05 - END OF NOTE 08/15/22 11:04 Respiratory Note by Bushra Graves Pt told me this am she takes a Symbicort inhaler at home once in while. It was not on her med list. I called [facility] to clarify, Pt has Symbicort inhaler ordered by Dr. Ashby but last refilled was October 2021. I spoke with pt she wishes to continue the symbicort here. I advised her that she needs to continue at home twice a day as prescribed. Initialized on 08/15/22 11:04 - END OF NOTE 08/15/22 10:44 Nursing Note by Rosette Correia 08-15-22 FAX SENT TO [facility] MEDICAL RECORED TO [facility] RESENT VISIT WITH DR NIXON PER DR STACY REQUEST. NURSE BARNETT NOTIFIED [facility] [id number] Initialized on 08/15/22 10:44 - END OF NOTE - Vitals & Intake/Output Vital Signs: Vital Signs Temperature 98.3 F 08/15/22 12:09 Pulse Rate 54 L 08/15/22 12:09 Respiratory Rate 16 08/15/22 12:09 Blood Pressure 94/44 08/15/22 12:09 O2 Sat by Pulse Oximetry 94 L 08/15/22 12:09 Intake & Output: Intake & Output 08/13/22 08/14/22 08/15/22 08/16/22 11:59 11:59 11:59 11:59 Intake Total 995 3880 360 Output Total 500 2050 Balance 495 1830 360 Weight 61.8 kg - Lab Result Diagrams: 08/14/22 05:50 08/14/22 05:50 - Radiology Exams Ordered Rad Exams-Entire Visit: Radiology Procedures Category Date Time Status CHEST 2 VIEWS (PA AND LAT) Urgent Exams 08/14/22 10:54 Completed - Procedures and Test Procedures and Tests throughout Hospitalization: Therapy Orders & Screens 08/13/22 21:45 Respiratory Therapy Consult ROUTINE Comment: Reason For Exam: 08/14/22 01:08 Oxygen Nasal Cannula 2 lpm Comment: Diagnosis: Chest Pain w/CAD & N/V Respiratory Therapy Assessment DAILY Comment: Diagnosis: Chest Pain w/CAD & N/V 08/14/22 08:00 OT Screen per Nursing Assess ONCE Comment: Protocol Order Physician Instructions: Greater than 3 points order OT Admission Screening Reason For Exam: Triggered on Admission Diagnosis: Chest Pain w/CAD & N/V Open Wound/Cellutlitis/Pressure Ulcers: No Acute Fx/ORIF/Change in wt bearing status: No Severe MUSCULOSKELETAL pain: No ADL Dysfunction: Yes Acute CVA w/Hemiparesis/Hemiplegia: No Decreased Functional Mobility/Strength: Yes Sprain/Strain: No Acute Post-op Mobility Dysfunction: No Total Points: 4 PT Screen per Nursing Assess ONCE Comment: Protocol Order Physician Instructions: Greater than 3 points order PT Admission Screenin Reason For Exam: Triggered on Admission Diagnosis: Chest Pain w/CAD & N/V Open Wound/Cellutlitis/Pressure Ulcers: No Acute Fx/ORIF/Change in wt bearing status: No Severe MUSCULOSKELETAL pain: No ADL Dysfunction: Yes Acute CVA w/Hemiparesis/Hemiplegia: No Decreased Functional Mobility/Strength: Yes Sprain/Strain: No Acute Post-op Mobility Dysfunction: No Total Points: 4 RT Screen per Nursing Assess ONCE Comment: Protocol Order Physician Instructions: Greater than 3 points order RT Admission Screen Reason For Exam: Triggered on Admission Diagnosis: Chest Pain w/CAD & N/V Diagnosis: Chest Pain w/CAD & N/V Pneumonia: No Home O2: Yes: at night per Pt Asthma: No CHF: Yes Home CPAP/BIPAP: No Home Nebs/MDI: No Total Points: 8 Discharge Exam General Appearance: no apparent distress, alert Neurologic Exam: alert, oriented x 3, cooperative, normal mood/affect, nml cerebellar function, sensation nml, No motor deficits Eye Exam: PERRL, EOMI, eyes nml inspection Ears, Nose, Throat Exam: normal ENT inspection, pharynx normal, moist mucous membranes Neck Exam: normal inspection, non-tender, supple, full range of motion Respiratory Exam: diminished breath sounds, crackles/rales, No respiratory distress Cardiovascular Exam: regular rate/rhythm, normal heart sounds Gastrointestinal/Abdomen Exam: soft, No tenderness, No mass Pelvic Exam: deferred Rectal Exam: deferred Back Exam: normal inspection, normal range of motion, No CVA tenderness, No vertebral tenderness Extremity Exam: normal inspection, normal range of motion Skin Exam: normal color, warm, dry Final Diagnosis/Problem List - Final Discharge Diagnosis/Problem (1) CHF (congestive heart failure), NYHA class III Status: Chronic Assessment & Plan: Last Vital Signs Temp 98.3 F 08/15/22 12:09 Pulse 54 L 08/15/22 12:09 Resp 16 08/15/22 12:09 BP 94/44 08/15/22 12:09 Pulse Ox 94 L 08/15/22 12:09 Allergies clarithromycin [From Biaxin] Allergy (Verified 08/13/22 23:05) Intake & Output 08/15/22 08/16/22 11:59 11:59 Intake Total 3880 360 Output Total 2050 Balance 1830 360 Code(s): I50.9 - HEART FAILURE, UNSPECIFIED (2) Elevated d-dimer Status: Resolved Code(s): R79.89 - OTHER SPECIFIED ABNORMAL FINDINGS OF BLOOD CHEMISTRY - Discharge Discharge Date: 08/15/22 Disposition: Home, Self-Care Condition: Stable Prescriptions: Continue Carvedilol [Coreg ] 6.25 mg PO BID Sacubitril/Valsartan [Entresto 49 mg-51 mg Tablet] 1 each PO BID Cyanocobalamin (Vitamin B-12) [B-12] 1,000 mcg PO DAILY Sidman-3/Dha/Epa/Fish Oil [Sidman 3 500 Softgel] 520 mcg PO DAILY Esomeprazole Magnesium [Nexium] 40 mg PO DAILY Spironolactone 50 mg PO DAILY Escitalopram Oxalate 20 mg PO DAILY Calcium Carb/Vitamin D 500 mg* [Calcium 500MG W/Vit D Tablet] 1 tab PO DA ROSCOE Instructions: Chest Pain (DC) Additional Instructions: FOLLOW UP WITH CARDIOLOGY SCHEDULED Follow up with: MARIELA NIXON [Family Provider] - LESTER FRAUSTO MD [Primary Care Provider] - 08/25/22 2:15 pm ([place] OFFICE )
== END 2022-08-15 13:20 | disposition home or self-care (01) ==
LOC: ED 12:04 → MED SURG 21:41
PROVIDERS: ADMIT Family Medicine; ATTEND General Practice
DX: I50.9 Heart failure, unspecified (principal); R79.89 Other specified abnormal findings of blood chemistry; I25.10 Atherosclerotic heart disease of native coronary artery without angina pectoris; R11.2 Nausea with vomiting, unspecified; Z79.899 Other long term (current) drug therapy; Z20.828 Contact with and (suspected) exposure to other viral communicable diseases
CPT/HCPCS: 0241U; 36000; 36415; 71046; 80053; 82150; 82947; 83605; 83690; 83880; 84484; 85025; 85379; 93005; 94762; 99284; 93268; J1650; J2405; Q0162; A9270-GY; G0378

== ENCOUNTER 2023-02-09 10:48 | Observation (INO) | payer MEDICARE ==
[2023-02-09] MEDS ORDERED: solu-MEDROL 125 MG, Sterile H2O 10 ml 2 ML IV ONE ×2 (10:58)
[2023-02-09] MEDS ORDERED: Sodium Chloride 0.9% 1000 ML 1,000 ML IV SCH (11:00)
--- NOTE | 2023-02-09 11:21 | XRAY ---
Indication: Short of breath. Comparison: August 14, 2022 Portable chest now demonstrates cardiomegaly, central vascular congestion, pulmonary edema, and small bibasilar effusions favoring cardiac decompensation/CHF. Superimposed pneumonia not completely excluded. Bony thorax intact again with osteopenia, degenerative changes, and old left humerus fracture.
[2023-02-09 11:43] LABS: Absolute Neutrophil Ct (ANC) 4.88 x10^3/uL (1.4-6.9); BASOPHIL % 0.5 % (0.0-0.4); Basophil (Absolute #) 0.03 x10^3/uL (0-0.4); Eosinophil % 1.9 % (0.00-5.0); Eosinophil (Absolute #) 0.12 x10^3/uL (0-0.5); Hematocrit 26.9 % (35-47); Hemoglobin 8.6 g/dL (12.0-16.0); IMMATURE GRAN # 0.02 x10^3u/L (0.00-0.03); IMMATURE GRAN % 0.3 % (0.00-0.4); Lymphocyte (Absolute #) 0.78 x10^3/uL (1.0-4.6); Lymphocytes % 12.7 % (24.0-44.0); Mean Cell Volume 94.4 fL (78-100); Mean Corpuscular Hemoglobin 30.2 pg (26-32); Mean Platelet Volume 12.5 fL (7.5-11.0); Monocyte (Absolute #) 0.33 x10^3/uL (0.0-1.3); Monocytes % 5.4 % (0.0-12.0); Neutrophil % 79.2 % (36.0-66.0); Platelet Count 150 x10^3/uL (150-450); Red Blood Count 2.85 x10^6/uL (4.1-5.4); Red Cell Distribution Width 14.4 % (11.5-14.0); White Blood Count 6.2 x10^3/uL (4.0-10.5)
[2023-02-09 12:11] LABS: ALBUMIN 3.5 g/dL (3.5-5.0); ALKALINE PHOSPHATASE 54 U/L (38-126); ANION GAP 13.8 MEQ/L (5-15); BLOOD UREA NITROGEN 17 mg/dL (7-17); CHLORIDE 108 mmol/L (98-107); Calcium 7.4 mg/dL (8.4-10.2); Carbon Dioxide 23 mmol/L (22-30); EST GLOMERULAR FILTRATION RATE > 60.0 ML/MIN; Glucose 107 mg/dL (74-106); NT PRO BNPII > 30000 pg/mL (<300); SGOT/AST 24 U/L (14-36); SGPT/ALT 18 U/L (0-35); SODIUM 142 mmol/L (137-145); Total Protein 6.8 g/dL (6.3-8.2)
[2023-02-09 12:13] LABS: Potassium 2.7 mmol/L (3.5-5.1)
[2023-02-09] MEDS ORDERED: K-LYTE PO ONE (12:14)
[2023-02-09] MEDS ORDERED: Lasix 40 MG/4 ML IV ONE (12:15)
[2023-02-09 12:16] LABS: INFLUENZA A NEGATIVE (NEGATIVE); INFLUENZA B NEGATIVE (NEGATIVE); RESPIRATORY SYNCTIAL VIRUS NEGATIVE (NEGATIVE); SARS-CoV-2 Xpert Express NEGATIVE (NEGATIVE)
[2023-02-09] MEDS ORDERED: K-LYTE ONE (12:42)
[2023-02-09] MEDS ORDERED: Lasix 40 MG/4 ML ONE (12:42)
[2023-02-09] MEDS ORDERED: Sodium Chloride 0.9% W/ 20 mEq KCl/LITER 1,000 ML IV SCH (12:45)
[2023-02-09] MEDS ORDERED: Reglan 10 MG/2 ML IV ONE (13:30)
[2023-02-09 13:31] LABS: Appearance Clear (Clear); Bacteria Many /HPF (None Seen); Bilirubin Negative (Negative); Blood Trace (Negative); Epithelial Cells None Seen /HPF (None Seen); Glucose, Urine Negative (Negative); Hyaline Casts NONE SEEN /LPF (0-2); Ketones Negative (Negative); Leukocyte Esterase Moderate (Negative); Nitrite Positive (Negative); Ph 5.5 (4.6-8.0); Protein,Urine Dip 30 (Negative); RBC 0-2 /HPF (0-5); Specific Gravity 1.015 (1.005-1.030); Urobilinogen 0.2 mg/dL (0.2); WBC >100 /HPF (0-5)
[2023-02-09 13:32] LABS: ADD URINE CULTURE? YES (NO)
[2023-02-09] MEDS ORDERED: Reglan 10 MG/2 ML ONE (13:32)
--- NOTE | 2023-02-09 14:27 | XRAY ---
Indication: Short of breath. Elevated d-dimer. Multiple contiguous axial images obtained through the chest using 80 cc Isovue 370 contrast and PE protocol. Comparison: None Good opacification of the pulmonary arteries to includes the lobar and segmental branches. No pulmonary embolus. Heart is enlarged. Aorta is normal in course and caliber. Small hiatal hernia. No pathologic mediastinal/hilar lymphadenopathy. Lungs demonstrate diffuse pulmonary edema with moderate bilateral pleural effusions and mild bibasilar compressive atelectasis. Bony thorax intact with remote L3 superior endplate fracture with approximately 25% height loss. Limited upper abdomen demonstrates 3.5 cm left mid renal cyst. Impression: 1. Negative pulmonary embolus. 2. Cardiomegaly with pulmonary edema and moderate bilateral effusions favoring cardiac decompensation/CHF. 3. Chronic findings including hiatal hernia, chronic bony findings, and left renal cyst.
--- NOTE | 2023-02-09 15:01 | ERPHSYRPT ---
- History of Present Illness Time Seen by Provider: 02/09/23 11:05 Source: patient Patient Subjective Stated Complaint: C/O SOB; states woke up this am more SOB than normal. Also states, "this problem I got goes back clear to 2009." Triage Nursing Assessment: Patient brought back to ER in W/C wearing oxygen at 2L per N/C. No cough or labored breathing noted at this time. She is diaphoretic and pale. No abnormal lung sounds noted at this time. Physician History: Patient is a 77-year-old white female patient of Dr. Frausto. She presents with a complaint of shortness of breath which started this morning she is chronically on 2 L of O2 at home all the time she has had no fever no cough and she states that she is not at her baseline. Timing/Duration: today Severity: moderate Associated Symptoms: shortness of breath Allergies/Adverse Reactions: clarithromycin [From Biaxin] Allergy (Verified 02/09/23 11:01) Home Medications: Carvedilol [Coreg ] 6.25 mg PO BID 07/21/14 [History] Sacubitril/Valsartan [Entresto 49 mg-51 mg Tablet] 1 each PO BID 01/10/19 [History] Cyanocobalamin (Vitamin B-12) [B-12] 1,000 mcg PO DAILY 01/21/19 [History] Lupton-3/Dha/Epa/Fish Oil [[place]pton 3 500 Softgel] 520 mcg PO DAILY 01/21/19 [History] Esomeprazole Magnesium [Nexium] 40 mg PO DAILY 01/22/19 [History] Escitalopram Oxalate 20 mg PO DAILY 04/06/22 [History] Spironolactone 50 mg PO DAILY 04/06/22 [History] Calcium Carb/Vitamin D 500 mg* [Calcium 500MG W/Vit D Tablet] 1 tab PO DAILY 08/13/22 [History] Hx Tetanus, Diphtheria Vaccination/Date Given: Yes Hx Influenza Vaccination/Date Given: No Hx Pneumococcal Vaccination/Date Given: No Travel Risk - International Travel Have you traveled outside of the country in past 3 weeks: No - Coronavirus Screening Are you exhibiting any of the following symptoms?: Yes Symptoms: Cough: New Onset, Shortness of Breath Close contact with a COVID-19 positive Pt in past 14-21 Days: No - Vaccine Status Have you recieved a Covid-19 vaccination: Yes [employer]: Moderna - Vaccination Dates Date of 2cond Vaccination (if applicable): unknown Dates if Unknown: unknown - Review of Systems Constitutional: No Fever, No Chills Eyes: No Symptoms Ears, Nose, & Throat: No Symptoms Respiratory: Dyspnea, Dyspnea on Exertion (LEMUS), No Cough Cardiac: No Chest Pain, No Edema, No Syncope Abdominal/Gastrointestinal: No Abdominal Pain, No Nausea, No Vomiting, No Diarrhea Genitourinary Symptoms: No Dysuria Musculoskeletal: No Back Pain, No Neck Pain Skin: No Rash Neurological: No Dizziness, No Focal Weakness, No Sensory Changes Psychological: No Symptoms Endocrine: No Symptoms All Other Systems: Reviewed and Negative - Past Medical History Pertinent Past Medical History: Yes Neurological History: No Pertinent History ENT History: Cataracts Cardiac History: Arrhythmia, Congestive Heart Failure, Coronary Artery Disease Respiratory History: Bronchitis, CHF, COPD, Pneumonia Endocrine Medical History: Hypothyroidism Musculoskeletal History: Arthritis, Osteoarthritis GI Medical History: GERD Psycho-Social History: Anxiety Female Reproductive Disorders: No Pertinent History Other Medical History: Hard of hearing; left hearing aid at home - Past Surgical History Past Surgical History: Yes Neuro Surgical History: No Pertinent History Cardiac: No Pertinent History Respiratory: No Pertinent History Gastrointestinal: No Pertinent History Genitourinary: No Pertinent History Musculoskeletal: No Pertinent History Female Surgical History: Hysterectomy - Social History Smoking Status: Never smoker Exposure to second hand smoke: No Drug Use: none Patient Lives Alone: No Significant Family History: no pertinent family hx - Nursing Vital Signs Nursing Vital Signs: Initial Vital Signs Temperature 97.5 F 02/09/23 10:53 Pulse Rate 70 02/09/23 10:53 Respiratory Rate 28 H 02/09/23 10:53 Blood Pressure 112/75 02/09/23 10:53 O2 Sat by Pulse Oximetry 97 02/09/23 10:53 Pain Scale Pain Intensity 0 - Physical Exam General Appearance: mild distress, alert Eye Exam: PERRL/EOMI, eyes nml inspection Ears, Nose, Throat Exam: normal ENT inspection, TMs normal, pharynx normal, moist mucous membranes Neck Exam: normal inspection, non-tender, supple, full range of motion Respiratory Exam: diminished breath sounds, crackles/rales, No respiratory distress Cardiovascular Exam: regular rate/rhythm, normal heart sounds, normal peripheral pulses Gastrointestinal/Abdomen Exam: soft, normal bowel sounds, No tenderness, No mass Back Exam: normal inspection, normal range of motion, No CVA tenderness, No vertebral tenderness Extremity Exam: normal inspection, normal range of motion, pelvis stable Neurologic Exam: alert, oriented x 3, cooperative, normal mood/affect, nml cerebellar function, nml station & gait, sensation nml, No motor deficits Skin Exam: normal color, warm, dry, No rash Lymphatic Exam: No adenopathy SpO2: 96 - Course Nursing assessment & vital signs reviewed: Yes EKG Interpreted by Me: RATE (70), Sinus Rhythm, NORMAL AXIS, Left Bundle Branch Block, NORMAL ST-T - Radiology Exams Chest X-ray Interpretation: Reviewed by me - CT Exams Chest CT Interpretation: Tele-radiologist Report Ordered Tests: Active Orders 24 hr Category Date Time Status Web Development Director STAT Care 02/09/23 12:50 Active EKG-ER Only STAT Care 02/09/23 10:58 Active IV Insertion STAT Care 02/09/23 10:58 Active Oxygen-ED Only Nasal Cannula 2 lpm Care 02/09/23 12:50 Active CHEST 1 VIEW (PORTABLE) Stat Exams 02/09/23 10:58 Completed CHEST WITH CONTRAST [CT] Stat Exams 02/09/23 13:21 Completed CBC W DIFF Stat Lab 02/09/23 11:32 Completed CMP Stat Lab 02/09/23 11:32 Completed CULTURE,URINE Stat Lab 02/09/23 11:20 Received D-DIMER QUANTITATIVE Stat Lab 02/09/23 11:32 Completed Lactic Acid Stat Lab 02/09/23 11:53 Completed NT PRO BNPII Stat Lab 02/09/23 11:32 Completed TROPONIN Q4H Lab 02/09/23 11:32 Completed TROPONIN Q4H Lab 02/09/23 15:20 Completed TROPONIN Q4H Lab 02/09/23 19:00 Ordered UA W/RFX UR CULTURE Stat Lab 02/09/23 11:20 Completed Medication Summary Generic Name Dose Route Start Last Admin Trade Name Freq PRN Reason Stop Dose Admin Sodium Chloride 1,000 mls @ 100 mls/hr 02/09/23 11:00 02/09/23 11:18 Sodium Chloride 0.9% 1000 Ml IV 03/11/23 10:59 Not Given .Q10H FRANCESCA Potassium Chloride/Sodium Chloride 1,000 mls @ 50 mls/hr 02/09/23 12:45 02/09/23 12:45 Sodium Chloride 0.9% W/ 20 Meq Kcl/Liter IV 03/11/23 12:44 50 mls/hr .Q20H FRANCESCA Administration Discontinued Medications Generic Name Dose Route Start Last Admin Trade Name Lindsay PRN Reason Stop Dose Admin Methylprednisolone Sodium 0 mg 02/09/23 10:58 02/09/23 12:25 Succinate 125 mg/ Sterile IV 02/09/23 10:59 Not Given Water 2 ml STAT ONE Furosemide 40 mg 02/09/23 12:15 02/09/23 12:46 Furosemide 40 Mg/4 Ml Vial IV 02/09/23 12:16 40 mg STAT ONE Administration Furosemide Confirm 02/09/23 12:42 Furosemide 40 Mg/4 Ml Vial Administered 02/09/23 12:43 Dose 40 mg .ROUTE .STK-MED ONE Metoclopramide HCl 10 mg 02/09/23 13:30 02/09/23 13:32 Metoclopramide Hcl 10 Mg/2 Ml Vial IV 02/09/23 13:31 10 mg STAT ONE Administration Metoclopramide HCl Confirm 02/09/23 13:32 Metoclopramide Hcl 10 Mg/2 Ml Vial Administered 02/09/23 13:33 Dose 10 mg .ROUTE .STK-MED ONE Potassium Bicarbonate 50 meq 02/09/23 12:14 02/09/23 12:46 Potassium Bicarbonate 25 Meq Tab PO 02/09/23 12:15 50 meq STAT ONE Administration Potassium Bicarbonate Confirm 02/09/23 12:42 Potassium Bicarbonate 25 Meq Tab Administered 02/09/23 12:43 Dose 50 meq .ROUTE .STK-MED ONE Lab/Rad Data: Laboratory Result Diagrams 02/09/23 11:32 02/09/23 11:32 Laboratory Results 02/09/23 02/09/23 02/09/23 Range/Units 15:20 11:53 11:32 WBC (4.0-10.5) x10^3/uL RBC (4.1-5.4) x10^6/uL Hgb (12.0-16.0) g/dL Hct (35-47) % MCV (78-100) fL MCH (26-32) pg MCHC (32-36) g/dL RDW (11.5-14.0) % Plt Count (150-450) x10^3/uL MPV (7.5-11.0) fL Gran % (36.0-66.0) % Immature Gran % (Auto) (0.00-0.4) % Nucleat RBC Rel Count (0.00-0.1) % Eos # (Auto) (0-0.5) x10^3/uL Immature Gran # (Auto) (0.00-0.03) x10^3u/L Absolute Lymphs (auto) (1.0-4.6) x10^3/uL Absolute Monos (auto) (0.0-1.3) x10^3/uL Absolute Nucleated RBC (0.00-0.01) x10^3u/L Lymphocytes % (24.0-44.0) % Monocytes % (0.0-12.0) % Eosinophils % (0.00-5.0) % Basophils % (0.0-0.4) % Absolute Granulocytes (1.4-6.9) x10^3/uL Basophils # (0-0.4) x10^3/uL D-Dimer (0.0-0.50) mg/L Sodium (137-145) mmol/L Potassium (3.5-5.1) mmol/L Chloride (98-107) mmol/L Carbon Dioxide (22-30) mmol/L Anion Gap (5-15) MEQ/L BUN (7-17) mg/dL Creatinine (0.52-1.04) mg/dL Estimated GFR ML/MIN Glucose (74-106) mg/dL Lactic Acid 1.2 (0.4-2.0) Calcium (8.4-10.2) mg/dL Total Bilirubin (0.2-1.3) mg/dL AST (14-36) U/L ALT (0-35) U/L Alkaline Phosphatase (38-126) U/L Troponin I 0.052 H* (0.000-0.034) ng/mL NT-Pro-B Natriuret Pep (<300) pg/mL Serum Total Protein (6.3-8.2) g/dL Albumin (3.5-5.0) g/dL Urine Color (Yellow) Urine Appearance (Clear) Urine pH (4.6-8.0) Ur Specific [place] (1.005-1.030) Urine Protein (Negative) Urine Glucose (UA) (Negative) mg/dL Urine Ketones (Negative) Urine Blood (Negative) Urine Nitrite (Negative) Urine Bilirubin (Negative) Urine Urobilinogen (0.2) mg/dL Ur Leukocyte Esterase (Negative) U Hyaline Cast (Auto) (0-2) /LPF Urine Microscopic RBC (0-5) /HPF Urine Microscopic WBC (0-5) /HPF Ur Epithelial Cells (None Seen) /HPF Urine Bacteria (None Seen) /HPF Urine Culture Reflexed (NO) Influenza Type A Ag NEGATIVE (NEGATIVE) Influenza Type B Ag NEGATIVE (NEGATIVE) RSV (PCR) NEGATIVE (NEGATIVE) SARS-CoV-2 (PCR) NEGATIVE (NEGATIVE) 02/09/23 02/09/23 02/09/23 Range/Units 11:32 11:32 11:32 WBC (4.0-10.5) x10^3/uL RBC (4.1-5.4) x10^6/uL Hgb (12.0-16.0) g/dL Hct (35-47) % MCV (78-100) fL MCH (26-32) pg MCHC (32-36) g/dL RDW (11.5-14.0) % Plt Count (150-450) x10^3/uL MPV (7.5-11.0) fL Gran % (36.0-66.0) % Immature Gran % (Auto) (0.00-0.4) % Nucleat RBC Rel Count (0.00-0.1) % Eos # (Auto) (0-0.5) x10^3/uL Immature Gran # (Auto) (0.00-0.03) x10^3u/L Absolute Lymphs (auto) (1.0-4.6) x10^3/uL Absolute Monos (auto) (0.0-1.3) x10^3/uL Absolute Nucleated RBC (0.00-0.01) x10^3u/L Lymphocytes % (24.0-44.0) % Monocytes % (0.0-12.0) % Eosinophils % (0.00-5.0) % Basophils % (0.0-0.4) % Absolute Granulocytes (1.4-6.9) x10^3/uL Basophils # (0-0.4) x10^3/uL D-Dimer 2.14 H* (0.0-0.50) mg/L Sodium 142 (137-145) mmol/L Potassium 2.7 L* (3.5-5.1) mmol/L Chloride 108 H (98-107) mmol/L Carbon Dioxide 23 (22-30) mmol/L Anion Gap 13.8 (5-15) MEQ/L BUN 17 (7-17) mg/dL Creatinine 0.90 (0.52-1.04) mg/dL Estimated GFR > 60.0 ML/MIN Glucose 107 H (74-106) mg/dL Lactic Acid (0.4-2.0) Calcium 7.4 L (8.4-10.2) mg/dL Total Bilirubin 0.60 (0.2-1.3) mg/dL AST 24 (14-36) U/L ALT 18 (0-35) U/L Alkaline Phosphatase 54 (38-126) U/L Troponin I 0.054 H* (0.000-0.034) ng/mL NT-Pro-B Natriuret Pep > 67126 (<300) pg/mL Serum Total Protein 6.8 (6.3-8.2) g/dL Albumin 3.5 (3.5-5.0) g/dL Urine Color (Yellow) Urine Appearance (Clear) Urine pH (4.6-8.0) Ur Specific [place] (1.005-1.030) Urine Protein (Negative) Urine Glucose (UA) (Negative) mg/dL Urine Ketones (Negative) Urine Blood (Negative) Urine Nitrite (Negative) Urine Bilirubin (Negative) Urine Urobilinogen (0.2) mg/dL Ur Leukocyte Esterase (Negative) U Hyaline Cast (Auto) (0-2) /LPF Urine Microscopic RBC (0-5) /HPF Urine Microscopic WBC (0-5) /HPF Ur Epithelial Cells (None Seen) /HPF Urine Bacteria (None Seen) /HPF Urine Culture Reflexed (NO) Influenza Type A Ag (NEGATIVE) Influenza Type B Ag (NEGATIVE) RSV (PCR) (NEGATIVE) SARS-CoV-2 (PCR) (NEGATIVE) 02/09/23 02/09/23 Range/Units 11:32 11:20 WBC 6.2 (4.0-10.5) x10^3/uL RBC 2.85 L (4.1-5.4) x10^6/uL Hgb 8.6 L (12.0-16.0) g/dL Hct 26.9 L (35-47) % MCV 94.4 (78-100) fL MCH 30.2 (26-32) pg MCHC 32.0 (32-36) g/dL RDW 14.4 H (11.5-14.0) % Plt Count 150 (150-450) x10^3/uL MPV 12.5 H (7.5-11.0) fL Gran % 79.2 H (36.0-66.0) % Immature Gran % (Auto) 0.3 (0.00-0.4) % Nucleat RBC Rel Count 0.0 (0.00-0.1) % Eos # (Auto) 0.12 (0-0.5) x10^3/uL Immature Gran # (Auto) 0.02 (0.00-0.03) x10^3u/L Absolute Lymphs (auto) 0.78 L (1.0-4.6) x10^3/uL Absolute Monos (auto) 0.33 (0.0-1.3) x10^3/uL Absolute Nucleated RBC 0.00 (0.00-0.01) x10^3u/L Lymphocytes % 12.7 L (24.0-44.0) % Monocytes % 5.4 (0.0-12.0) % Eosinophils % 1.9 (0.00-5.0) % Basophils % 0.5 (0.0-0.4) % Absolute Granulocytes 4.88 (1.4-6.9) x10^3/uL Basophils # 0.03 (0-0.4) x10^3/uL D-Dimer (0.0-0.50) mg/L Sodium (137-145) mmol/L Potassium (3.5-5.1) mmol/L Chloride (98-107) mmol/L Carbon Dioxide (22-30) mmol/L Anion Gap (5-15) MEQ/L BUN (7-17) mg/dL Creatinine (0.52-1.04) mg/dL Estimated GFR ML/MIN Glucose (74-106) mg/dL Lactic Acid (0.4-2.0) Calcium (8.4-10.2) mg/dL Total Bilirubin (0.2-1.3) mg/dL AST (14-36) U/L ALT (0-35) U/L Alkaline Phosphatase (38-126) U/L Troponin I (0.000-0.034) ng/mL NT-Pro-B Natriuret Pep (<300) pg/mL Serum Total Protein (6.3-8.2) g/dL Albumin (3.5-5.0) g/dL Urine Color Yellow (Yellow) Urine Appearance Clear (Clear) Urine pH 5.5 (4.6-8.0) Ur Specific [place] 1.015 (1.005-1.030) Urine Protein 30 (Negative) Urine Glucose (UA) Negative (Negative) mg/dL Urine Ketones Negative (Negative) Urine Blood Trace (Negative) Urine Nitrite Positive A (Negative) Urine Bilirubin Negative (Negative) Urine Urobilinogen 0.2 (0.2) mg/dL Ur Leukocyte Esterase Moderate A (Negative) U Hyaline Cast (Auto) NONE SEEN (0-2) /LPF Urine Microscopic RBC 0-2 (0-5) /HPF Urine Microscopic WBC >100 A (0-5) /HPF Ur Epithelial Cells None Seen (None Seen) /HPF Urine Bacteria Many A (None Seen) /HPF Urine Culture Reflexed YES (NO) Influenza Type A Ag (NEGATIVE) Influenza Type B Ag (NEGATIVE) RSV (PCR) (NEGATIVE) SARS-CoV-2 (PCR) (NEGATIVE) - Progress Progress: improved Discussed with : Other (Dr Lester) Will see patient in: hospital (observation) Counseled pt/family regarding: lab results, diagnosis Medical Desision Making - Discussion of managment Care discussed with:: on-call "doc" Reviewed:: Test results Agreed on:: Treatment plan, need for follow-up, place in obs Will see patient: in hospital - Diagnostic Testing Diagnostic test were ordered, analyzed, and reviewed by me: Yes Radiological Interpretation: Reviewed by me - Risk of complications The pt has a mod risk of morbidity or mortality based on: Need for prescription drug management - Departure Departure Disposition: Observation Clinical Impression: Congestive heart failure, Hypokalemia, Chronic respiratory failure with hypoxia Condition: Fair Critical Care Time: Yes Critical Care Time(excluding separately billable procedures): Critical 30-74 mins (35) Referrals: LESTER FRAUSTO MD [Primary Care Provider] - Follow up/PCP as directed Instructions: Heart Failure, Heart Failure, Adult (DC)
[2023-02-09] MEDS: ENTRESTO 49 MG-51 MG TABLET PO SCH (17:57)
[2023-02-09] MEDS: Coreg PO SCH (17:57)
[2023-02-09] MEDS: Lasix 40 MG/4 ML IV SCH ×2 (17:58→22:41)
[2023-02-09] MEDS: Klor Con PO SCH ×3 (17:58→22:41)
[2023-02-09] MEDS ORDERED: ROCEPHIN 1 Gm-D5w 50 ml Bag** 1 G/50 ML IVPB IV ONE (18:14)
[2023-02-09] MEDS ORDERED: ENOXAPARIN SODIUM ONE (18:29)
[2023-02-09] MEDS: ENOXAPARIN SODIUM SQ SCH (18:30)
--- NOTE | 2023-02-09 18:47 | PCM.HP ---
History of Present Illness - Chief Complaint Chief Complaint: CHF Date: 02/09/23 History of Present Illness: is a 77 year old female who presents to the hospital with dyspnea and shortness of breath. The patient states that she has not had any change to her b [place] home oxygen (2LPM). She has been compliant with her CHF regimen and sodium restriction. She denied left/anterior chest wall pain but began to experience worsening dyspnea. Initially in the ED, her O2 flow rate was increased to 3LPM but then subsequently titrated back down. After receiving IV Lasix in the ED, she states that she feels better. She follows with the [facility] (Dr. Cheung). She states that she has recently had an echocardiogram performed with an EF in the 30% range. She also denies any fever, dysuria or pyuria. She says that she has previously experienced UTIs. - Review of Systems Constitutional: No Symptoms Eyes: No Symptoms Respiratory: Short Of Breath Cardiac: No Symptoms Abdominal/Gastrointestinal: No Symptoms Genitourinary Symptoms: No Symptoms Musculoskeletal: No Symptoms Neurological: No Symptoms Psychological: No Symptoms Endocrine: No Symptoms Hematologic/Lymphatic: No Symptoms Immunological/Allergic: No Symptoms All Other Systems: Reviewed and Negative Medications & Allergies Home Medications: Home Medication List Carvedilol [Coreg ] 6.25 mg PO 0800,1800 07/21/14 [History Confirmed 02/09/23] Sacubitril/Valsartan [Entresto 49 mg-51 mg Tablet] 1 each PO 0800,1800 01/10/19 [History Confirmed 02/09/23] Cyanocobalamin (Vitamin B-12) [B-12] 1,000 mcg PO DAILY 01/21/19 [History Confirmed 02/09/23] Burdett-3/Dha/Epa/Fish Oil [Burdett 3 500 Softgel] 520 mcg PO DAILY 01/21/19 [History Confirmed 02/09/23] Esomeprazole Magnesium [Nexium] 40 mg PO DAILY 01/22/19 [History Confirmed 02/09/23] Calcium Carb/Vitamin D 500 mg* [Calcium 500MG W/Vit D Tablet] 1 tab PO DAILY 08/13/22 [History Confirmed 02/09/23] Albuterol Sulfate [Albuterol Sulfate Hfa] 2 puffs IH TID PRN 02/09/23 [History Confirmed 02/09/23] Aspirin 81 gm Chew [Baby Aspirin 81 mg Chew] 81 mg PO DAILY 02/09/23 [History Confirmed 02/09/23] Budesonide/Formoterol Fumarate [Budesonide-Formoterol 160-4.5] 1 puff IH DAILY 02/09/23 [History Confirmed 02/09/23] Escitalopram Oxalate [Lexapro] 20 mg PO DAILY 02/09/23 [History Confirmed 02/09/23] Allergies/Adverse Reactions: Allergies Allergy/AdvReac Type Severity Reaction Status Date / Time clarithromycin [From Biaxin] Allergy Verified 02/09/23 11:01 - Past Medical History Past Medical History: Yes Neurological History: No Pertinent History ENT History: Cataracts Cardiac History: Arrhythmia, Congestive Heart Failure, Coronary Artery Disease Respiratory History: Bronchitis, CHF, COPD, Pneumonia Endocrine Medical History: Hypothyroidism Musculoskelatal History: Arthritis, Osteoarthritis GI Medical History: GERD Pyscho-Social History: Anxiety Reproductive Disorders: No Pertinent History Comment: Hard of hearing; left hearing aid at home - Female History Are you now?: No - Past Surgical History Past Surgical History: Yes Neuro Surgical History: No Pertinent History Cardiac History: No Pertinent History Respiratory Surgery: No Pertinent History GI Surgical History: No Pertinent History Genitourinary Surgical Hx: No Pertinent History Musculskeletal Surgical Hx: No Pertinent History Female Surgical History: Hysterectomy - Social History Smoking Status: Never smoker Exposure to second hand smoke: No Alcohol: None Drug Use: none Significant Family History: no pertinent family hx - Physical Exam Vital Signs: Vital Signs - 24 hr Temp Pulse Resp BP BP Pulse Ox 02/09/23 17:56 98 02/09/23 17:13 97.5 F 75 16 137/78 99 02/09/23 16:15 96 02/09/23 16:00 139/76 02/09/23 15:30 73 22 121/90 93 L 02/09/23 15:00 78 15 123/81 02/09/23 14:31 72 29 H 126/87 02/09/23 14:19 74 21 123/92 97 02/09/23 14:18 18 95 02/09/23 14:07 85 21 96 02/09/23 13:30 126/78 02/09/23 13:21 73 22 114/97 97 02/09/23 13:00 130/90 02/09/23 12:30 72 16 126/81 02/09/23 12:00 71 18 119/79 126/81 99 02/09/23 11:30 70 16 123/74 97 02/09/23 11:00 71 19 122/72 95 02/09/23 10:53 97.5 F 70 28 H 112/75 97 General Appearance: no apparent distress Neurologic Exam: alert, oriented x 3, cooperative, speech pathologist assistant II-XII nml as tested, normal mood/affect, nml cerebellar function Eye Exam: PERRL/EOMI, eyes nml inspection Ears, Nose, Throat Exam: normal ENT inspection Neck Exam: normal inspection, non-tender, supple, full range of motion Respiratory Exam: normal breath sounds, lungs clear Cardiovascular Exam: regular rate/rhythm, normal heart sounds Gastrointestinal/Abdomen Exam: soft, normal bowel sounds Back Exam: normal range of motion Extremity Exam: normal inspection, normal range of motion Skin Exam: normal color Results - Labs Lab/Micro Results: Lab Results-Last 24 Hours 02/09/23 02/09/23 02/09/23 Range/Units 11:20 11:32 11:32 WBC 6.2 (4.0-10.5) x10^3/uL RBC 2.85 L (4.1-5.4) x10^6/uL Hgb 8.6 L (12.0-16.0) g/dL Hct 26.9 L (35-47) % MCV 94.4 (78-100) fL MCH 30.2 (26-32) pg MCHC 32.0 (32-36) g/dL RDW 14.4 H (11.5-14.0) % Plt Count 150 (150-450) x10^3/uL MPV 12.5 H (7.5-11.0) fL Gran % 79.2 H (36.0-66.0) % Immature Gran % (Auto) 0.3 (0.00-0.4) % Nucleat RBC Rel Count 0.0 (0.00-0.1) % Eos # (Auto) 0.12 (0-0.5) x10^3/uL Immature Gran # (Auto) 0.02 (0.00-0.03) x10^3u/L Absolute Lymphs (auto) 0.78 L (1.0-4.6) x10^3/uL Absolute Monos (auto) 0.33 (0.0-1.3) x10^3/uL Absolute Nucleated RBC 0.00 (0.00-0.01) x10^3u/L Lymphocytes % 12.7 L (24.0-44.0) % Monocytes % 5.4 (0.0-12.0) % Eosinophils % 1.9 (0.00-5.0) % Basophils % 0.5 (0.0-0.4) % Absolute Granulocytes 4.88 (1.4-6.9) x10^3/uL Basophils # 0.03 (0-0.4) x10^3/uL D-Dimer (0.0-0.50) mg/L Sodium 142 (137-145) mmol/L Potassium 2.7 L* (3.5-5.1) mmol/L Chloride 108 H (98-107) mmol/L Carbon Dioxide 23 (22-30) mmol/L Anion Gap 13.8 (5-15) MEQ/L BUN 17 (7-17) mg/dL Creatinine 0.90 (0.52-1.04) mg/dL Estimated GFR > 60.0 ML/MIN Glucose 107 H (74-106) mg/dL Lactic Acid (0.4-2.0) Calcium 7.4 L (8.4-10.2) mg/dL Total Bilirubin 0.60 (0.2-1.3) mg/dL AST 24 (14-36) U/L ALT 18 (0-35) U/L Alkaline Phosphatase 54 (38-126) U/L Troponin I (0.000-0.034) ng/mL NT-Pro-B Natriuret Pep > 78126 (<300) pg/mL Serum Total Protein 6.8 (6.3-8.2) g/dL Albumin 3.5 (3.5-5.0) g/dL Urine Color Yellow (Yellow) Urine Appearance Clear (Clear) Urine pH 5.5 (4.6-8.0) Ur Specific [place] 1.015 (1.005-1.030) Urine Protein 30 (Negative) Urine Glucose (UA) Negative (Negative) mg/dL Urine Ketones Negative (Negative) Urine Blood Trace (Negative) Urine Nitrite Positive A (Negative) Urine Bilirubin Negative (Negative) Urine Urobilinogen 0.2 (0.2) mg/dL Ur Leukocyte Esterase Moderate A (Negative) U Hyaline Cast (Auto) NONE SEEN (0-2) /LPF Urine Microscopic RBC 0-2 (0-5) /HPF Urine Microscopic WBC >100 A (0-5) /HPF Ur Epithelial Cells None Seen (None Seen) /HPF Urine Bacteria Many A (None Seen) /HPF Urine Culture Reflexed YES (NO) Influenza Type A Ag (NEGATIVE) Influenza Type B Ag (NEGATIVE) RSV (PCR) (NEGATIVE) SARS-CoV-2 (PCR) (NEGATIVE) 02/09/23 02/09/23 02/09/23 Range/Units 11:32 11:32 11:32 WBC (4.0-10.5) x10^3/uL RBC (4.1-5.4) x10^6/uL Hgb (12.0-16.0) g/dL Hct (35-47) % MCV (78-100) fL MCH (26-32) pg MCHC (32-36) g/dL RDW (11.5-14.0) % Plt Count (150-450) x10^3/uL MPV (7.5-11.0) fL Gran % (36.0-66.0) % Immature Gran % (Auto) (0.00-0.4) % Nucleat RBC Rel Count (0.00-0.1) % Eos # (Auto) (0-0.5) x10^3/uL Immature Gran # (Auto) (0.00-0.03) x10^3u/L Absolute Lymphs (auto) (1.0-4.6) x10^3/uL Absolute Monos (auto) (0.0-1.3) x10^3/uL Absolute Nucleated RBC (0.00-0.01) x10^3u/L Lymphocytes % (24.0-44.0) % Monocytes % (0.0-12.0) % Eosinophils % (0.00-5.0) % Basophils % (0.0-0.4) % Absolute Granulocytes (1.4-6.9) x10^3/uL Basophils # (0-0.4) x10^3/uL D-Dimer 2.14 H* (0.0-0.50) mg/L Sodium (137-145) mmol/L Potassium (3.5-5.1) mmol/L Chloride (98-107) mmol/L Carbon Dioxide (22-30) mmol/L Anion Gap (5-15) MEQ/L BUN (7-17) mg/dL Creatinine (0.52-1.04) mg/dL Estimated GFR ML/MIN Glucose (74-106) mg/dL Lactic Acid (0.4-2.0) Calcium (8.4-10.2) mg/dL Total Bilirubin (0.2-1.3) mg/dL AST (14-36) U/L ALT (0-35) U/L Alkaline Phosphatase (38-126) U/L Troponin I 0.054 H* (0.000-0.034) ng/mL NT-Pro-B Natriuret Pep (<300) pg/mL Serum Total Protein (6.3-8.2) g/dL Albumin (3.5-5.0) g/dL Urine Color (Yellow) Urine Appearance (Clear) Urine pH (4.6-8.0) Ur Specific [place] (1.005-1.030) Urine Protein (Negative) Urine Glucose (UA) (Negative) mg/dL Urine Ketones (Negative) Urine Blood (Negative) Urine Nitrite (Negative) Urine Bilirubin (Negative) Urine Urobilinogen (0.2) mg/dL Ur Leukocyte Esterase (Negative) U Hyaline Cast (Auto) (0-2) /LPF Urine Microscopic RBC (0-5) /HPF Urine Microscopic WBC (0-5) /HPF Ur Epithelial Cells (None Seen) /HPF Urine Bacteria (None Seen) /HPF Urine Culture Reflexed (NO) Influenza Type A Ag NEGATIVE (NEGATIVE) Influenza Type B Ag NEGATIVE (NEGATIVE) RSV (PCR) NEGATIVE (NEGATIVE) SARS-CoV-2 (PCR) NEGATIVE (NEGATIVE) 02/09/23 02/09/23 Range/Units 11:53 15:20 WBC (4.0-10.5) x10^3/uL RBC (4.1-5.4) x10^6/uL Hgb (12.0-16.0) g/dL Hct (35-47) % MCV (78-100) fL MCH (26-32) pg MCHC (32-36) g/dL RDW (11.5-14.0) % Plt Count (150-450) x10^3/uL MPV (7.5-11.0) fL Gran % (36.0-66.0) % Immature Gran % (Auto) (0.00-0.4) % Nucleat RBC Rel Count (0.00-0.1) % Eos # (Auto) (0-0.5) x10^3/uL Immature Gran # (Auto) (0.00-0.03) x10^3u/L Absolute Lymphs (auto) (1.0-4.6) x10^3/uL Absolute Monos (auto) (0.0-1.3) x10^3/uL Absolute Nucleated RBC (0.00-0.01) x10^3u/L Lymphocytes % (24.0-44.0) % Monocytes % (0.0-12.0) % Eosinophils % (0.00-5.0) % Basophils % (0.0-0.4) % Absolute Granulocytes (1.4-6.9) x10^3/uL Basophils # (0-0.4) x10^3/uL D-Dimer (0.0-0.50) mg/L Sodium (137-145) mmol/L Potassium (3.5-5.1) mmol/L Chloride (98-107) mmol/L Carbon Dioxide (22-30) mmol/L Anion Gap (5-15) MEQ/L BUN (7-17) mg/dL Creatinine (0.52-1.04) mg/dL Estimated GFR ML/MIN Glucose (74-106) mg/dL Lactic Acid 1.2 (0.4-2.0) Calcium (8.4-10.2) mg/dL Total Bilirubin (0.2-1.3) mg/dL AST (14-36) U/L ALT (0-35) U/L Alkaline Phosphatase (38-126) U/L Troponin I 0.052 H* (0.000-0.034) ng/mL NT-Pro-B Natriuret Pep (<300) pg/mL Serum Total Protein (6.3-8.2) g/dL Albumin (3.5-5.0) g/dL Urine Color (Yellow) Urine Appearance (Clear) Urine pH (4.6-8.0) Ur Specific [place] (1.005-1.030) Urine Protein (Negative) Urine Glucose (UA) (Negative) mg/dL Urine Ketones (Negative) Urine Blood (Negative) Urine Nitrite (Negative) Urine Bilirubin (Negative) Urine Urobilinogen (0.2) mg/dL Ur Leukocyte Esterase (Negative) U Hyaline Cast (Auto) (0-2) /LPF Urine Microscopic RBC (0-5) /HPF Urine Microscopic WBC (0-5) /HPF Ur Epithelial Cells (None Seen) /HPF Urine Bacteria (None Seen) /HPF Urine Culture Reflexed (NO) Influenza Type A Ag (NEGATIVE) Influenza Type B Ag (NEGATIVE) RSV (PCR) (NEGATIVE) SARS-CoV-2 (PCR) (NEGATIVE) - Radiology Impressions Radiology Exams & Impressions: Radiology Procedures Category Date Time Status CHEST 1 VIEW (PORTABLE) Stat Exams 02/09/23 10:58 Completed CHEST WITH CONTRAST [CT] Stat Exams 02/09/23 13:21 Completed - Other Procedures and Tests Respiratory Therapy 02/09/23 16:16 Oxygen NASAL CANNULA 2 lpm 02/09/23 18:28 EKG REPEAT IN AM Assessment/Plan (1) CHF (congestive heart failure), NYHA class III Current Visit: No Status: Chronic Qualifiers: Assessment & Plan: IV Lasix. Monitor ins/outs and daily weight as well as clinical symptoms. Acute on chronic systolic CHF and follows with Dr. Cheung. No echo available over weekend but the patient has had a recent ECHO. Troponin borderline -- LBBB is CHRONIC (noted on 08/13/22 EKG). Will trend troponin (most recent level decreased) and repeat EKG in AM. On ASA 81 mg. Patient has known CKD and follows with Dr. Adkins. Code(s): I50.9 - HEART FAILURE, UNSPECIFIED (2) Hypokalemia Current Visit: Yes Status: Acute Assessment & Plan: Replete. Check Mag. Telemetry. Code(s): E87.6 - HYPOKALEMIA (3) UTI (urinary tract infection) Current Visit: No Status: Resolved Qualifiers: Assessment & Plan: Asymptomatic. Empiric IV Rocephin. Culture collected. Will need po antibiotics at discharge. Code(s): N39.0 - URINARY TRACT INFECTION, SITE NOT SPECIFIED Telemedicine Encounter - Telemedicine Encounter Telemedicine Encounter: The entirety of this encounter was performed via Telemedicine"
[2023-02-09 20:12] LABS: MAGNESIUM 1.1 mg/dL (1.6-2.3)
[2023-02-09 20:13] LABS: TROPONIN 0.044 ng/mL (0.000-0.034)
[2023-02-09] MEDS ORDERED: Magnesium 1 Gm / 100 Ml D5W*** 100 ML IV ONE (20:17)
[2023-02-10] MEDS: Klor Con PO SCH (00:33)
[2023-02-10 05:41] LABS: Absolute Neutrophil Ct (ANC) 5.55 x10^3/uL (1.4-6.9); BASOPHIL % 0.6 % (0.0-0.4); Basophil (Absolute #) 0.04 x10^3/uL (0-0.4); Eosinophil % 2.5 % (0.00-5.0); Eosinophil (Absolute #) 0.18 x10^3/uL (0-0.5); Hematocrit 30.8 % (35-47); Hemoglobin 9.7 g/dL (12.0-16.0); IMMATURE GRAN # 0.03 x10^3u/L (0.00-0.03); IMMATURE GRAN % 0.4 % (0.00-0.4); Lymphocyte (Absolute #) 0.91 x10^3/uL (1.0-4.6); Lymphocytes % 12.8 % (24.0-44.0); Mean Cell Volume 94.5 fL (78-100); Mean Corpuscular Hemoglobin 29.8 pg (26-32); Mean Corpuscular Hgb Concent. 31.5 g/dL (32-36); Mean Platelet Volume 12.8 fL (7.5-11.0); Monocytes % 5.6 % (0.0-12.0); Neutrophil % 78.1 % (36.0-66.0); Platelet Count 173 x10^3/uL (150-450); Red Blood Count 3.26 x10^6/uL (4.1-5.4); Red Cell Distribution Width 14.6 % (11.5-14.0); White Blood Count 7.1 x10^3/uL (4.0-10.5)
[2023-02-10 06:01] LABS: ANION GAP 15.4 MEQ/L (5-15); BLOOD UREA NITROGEN 16 mg/dL (7-17); CHLORIDE 103 mmol/L (98-107); Calcium 7.5 mg/dL (8.4-10.2); Carbon Dioxide 26 mmol/L (22-30); Creatinine 1 0.98 mg/dL (0.52-1.04); EST GLOMERULAR FILTRATION RATE 58.6 ML/MIN; Glucose 105 mg/dL (74-106); MAGNESIUM 1.3 mg/dL (1.6-2.3); NT PRO BNPII > 30000 pg/mL (<300); SODIUM 141 mmol/L (137-145)
[2023-02-10] MEDS ORDERED: Lasix 40 MG/4 ML ONE (06:09)
[2023-02-10] MEDS ORDERED: Klor Con PO ONE ×2 (06:47→13:30)
[2023-02-10] MEDS: Lasix 40 MG/4 ML IV SCH ×4 (06:57→22:56)
[2023-02-10] MEDS ORDERED: VENTOLIN COMMON CANISTER IH PRN (07:38)
[2023-02-10] MEDS: ENTRESTO 49 MG-51 MG TABLET PO SCH ×2 (07:58→18:49)
[2023-02-10] MEDS: Coreg PO SCH ×2 (07:58→18:49)
[2023-02-10] MEDS: Lexapro PO SCH (09:22)
[2023-02-10] MEDS: FISH OIL 1,000 MG CAPSULE PO SCH (09:22)
[2023-02-10] MEDS: ECOTRIN 81 MG PO SCH (09:22)
[2023-02-10] MEDS: Calcium 500MG W/Vit D Tablet PO SCH (09:22)
[2023-02-10] MEDS: Protonix 40MG Tablet PO SCH (09:22)
[2023-02-10] MEDS: Vitamin B-12 500 MCG PO SCH (09:22)
[2023-02-10] MEDS: ENOXAPARIN SODIUM SQ SCH (09:23)
[2023-02-10] MEDS ORDERED: PATIENT OWN MEDICATION IH SCH (09:30)
[2023-02-10] MEDS ORDERED: OMEGA PO SCH (10:00)
[2023-02-10] MEDS ORDERED: EPA PO SCH (10:00)
[2023-02-10] MEDS ORDERED: NON-FORMULARY ITEM (Escitalopram Oxalate [Lexapro] 20 MG Tablet) PO SCH (10:00)
[2023-02-10] MEDS ORDERED: NON-FORMULARY ITEM (Cyanocobalamin (Vitamin B-12) [B-12] 1,000 MCG Tablet) PO SCH (10:00)
[2023-02-10] MEDS ORDERED: ROCEPHIN 1 Gm-D5w 50 ml Bag** 1 G/50 ML IVPB IV SCH (10:00)
[2023-02-10] MEDS ORDERED: BABY ASPIRIN 81 MG CHEW PO SCH (10:00)
[2023-02-10] MEDS ORDERED: NON-FORMULARY ITEM (Budesonide/Formoterol Fumarate [Budesonide-Formoterol 160-4.5] 10.2 GM IH SCH (10:00)
[2023-02-10] MEDS ORDERED: NON-FORMULARY ITEM (Esomeprazole Magnesium [Nexium] 40 MG Capsule.Dr) PO SCH (10:00)
[2023-02-10] MEDS ORDERED: DHA PO SCH (10:00)
[2023-02-10] MEDS ORDERED: FISH OIL PO SCH (10:00)
[2023-02-10] MEDS ORDERED: Advair Hfa 230/21 Mcg COMMON CANISTER IH SCH (19:00)
[2023-02-10] MEDS: PATIENT OWN MEDICATION IH SCH (19:25)
[2023-02-10 19:41] LABS: ANION GAP 14.9 MEQ/L (5-15); Calcium 7.6 mg/dL (8.4-10.2); Creatinine 1 1.03 mg/dL (0.52-1.04); EST GLOMERULAR FILTRATION RATE 55.4 ML/MIN
[2023-02-10] MEDS: ROCEPHIN 1 Gm-D5w 50 ml Bag** 1 G/50 ML IVPB IV SCH (21:19)
[2023-02-11 06:06] LABS: Hematocrit 33.7 % (35-47); Hemoglobin 10.8 g/dL (12.0-16.0); Mean Cell Volume 93.9 fL (78-100); Mean Corpuscular Hemoglobin 30.1 pg (26-32); Platelet Count 171 x10^3/uL (150-450); Red Blood Count 3.59 x10^6/uL (4.1-5.4); Red Cell Distribution Width 14.6 % (11.5-14.0); White Blood Count 7.6 x10^3/uL (4.0-10.5)
[2023-02-11] MEDS: Lasix 40 MG/4 ML IV SCH ×4 (06:11→22:52)
[2023-02-11 06:35] LABS: ANION GAP 16.1 MEQ/L (5-15); Calcium 7.8 mg/dL (8.4-10.2); Creatinine 1 0.99 mg/dL (0.52-1.04); Potassium 3.2 mmol/L (3.5-5.1)
[2023-02-11] MEDS: Coreg PO SCH ×2 (08:17→18:10)
[2023-02-11] MEDS: ENTRESTO 49 MG-51 MG TABLET PO SCH ×2 (08:17→18:11)
[2023-02-11] MEDS: PATIENT OWN MEDICATION IH SCH ×2 (09:00→18:56)
[2023-02-11] MEDS: ENOXAPARIN SODIUM SQ SCH (10:02)
[2023-02-11] MEDS: Calcium 500MG W/Vit D Tablet PO SCH (10:02)
[2023-02-11] MEDS: Lexapro PO SCH (10:02)
[2023-02-11] MEDS: ECOTRIN 81 MG PO SCH (10:02)
[2023-02-11] MEDS: FISH OIL 1,000 MG CAPSULE PO SCH (10:02)
[2023-02-11] MEDS: Vitamin B-12 500 MCG PO SCH (10:02)
[2023-02-11] MEDS: Protonix 40MG Tablet PO SCH (10:02)
[2023-02-11] MEDS ORDERED: K-LYTE PO ONE (11:00)
[2023-02-11] MEDS ORDERED: Klor Con PO ONE (11:40)
[2023-02-11] MEDS: ROCEPHIN 1 Gm-D5w 50 ml Bag** 1 G/50 ML IVPB IV SCH (21:27)
[2023-02-12] MEDS ORDERED: POTASSIUM CHLORIDE 20 mEq IN WATER 100ML 20 MEQ/100 ML BAG IV ONE ×2 (04:20→07:45)
[2023-02-12] MEDS ORDERED: Sodium Chloride 0.9% 250 ML 250 ML IV ONE (04:23)
[2023-02-12] MEDS: TYLENOL 325 MG PO PRN ×2 (04:33→05:30)
[2023-02-12 04:48] LABS: ANION GAP 16.3 MEQ/L (5-15); Calcium 7.8 mg/dL (8.4-10.2); Creatinine 1 1.06 mg/dL (0.52-1.04); EST GLOMERULAR FILTRATION RATE 53.6 ML/MIN; Potassium 3.4 mmol/L (3.5-5.1)
--- NOTE | 2023-02-12 06:14 | PCM.NOTE ---
Date and Time: 02/10/23 1210 Subjective Assessment: Feeling so,ewhat better; BNP still [address]84; responding to diuretics, Does not feel at baseline, using 2 lpm of NC which is her baseline - Review of Systems Eyes: No Symptoms Ears, Nose, & Throat: No Symptoms Respiratory: Short Of Breath Cardiac: No Symptoms Abdominal/Gastrointestinal: No Symptoms Musculoskeletal: No Symptoms Objective Exam General Appearance: mild distress Neurologic Exam: alert, oriented x 3, cooperative Neck Exam: JVD Respiratory Exam: crackles/rales Cardiovascular Exam: regular rate/rhythm, normal heart sounds OBJECTIVE DATA Vital Signs: Vital Signs - 24 hr Temp Pulse Resp BP BP Pulse Ox 02/12/23 05:07 97.1 F 81 17 93/54 99 02/12/23 00:00 97.1 F 66 18 95/58 97 02/11/23 20:00 96.4 F 70 17 91/56 100 02/11/23 18:56 71 18 99 02/11/23 16:00 97.1 F 63 18 114/57 99 02/11/23 12:00 97.1 F 65 18 85/52 99 02/11/23 07:11 97.3 F 64 18 115/66 97 02/11/23 07:00 68 16 97 Pain Assessment - Last Documented Pain Intensity 8 Pain Scale Used 0-10 Pain Scale Intake and Output: Intake & Output 02/09/23 02/10/23 02/11/23 02/12/23 11:59 11:59 11:59 11:59 Intake Total 740 380 400 Output Total 1800 1530 950 Balance -1060 -1150 -550 Weight 60 kg 57.1 kg Lab Results: Lab Results-Last 24 Hours 02/11/23 02/11/23 02/12/23 Range/Units 05:51 05:51 04:19 WBC 7.6 (4.0-10.5) x10^3/uL RBC 3.59 L (4.1-5.4) x10^6/uL Hgb 10.8 L (12.0-16.0) g/dL Hct 33.7 L (35-47) % MCV 93.9 (78-100) fL MCH 30.1 (26-32) pg MCHC 32.0 (32-36) g/dL RDW 14.6 H (11.5-14.0) % Plt Count 171 (150-450) x10^3/uL MPV 13.0 H (7.5-11.0) fL Sodium 140 137 (137-145) mmol/L Potassium 3.2 L 3.4 L (3.5-5.1) mmol/L Chloride 98 92 L (98-107) mmol/L Carbon Dioxide 30 32 H (22-30) mmol/L Anion Gap 16.1 H 16.3 H (5-15) MEQ/L BUN 18 H 27 H (7-17) mg/dL Creatinine 0.99 1.06 H (0.52-1.04) mg/dL Estimated GFR 58.0 53.6 ML/MIN Glucose 132 H 132 H (74-106) mg/dL Calcium 7.8 L 7.8 L (8.4-10.2) mg/dL NT-Pro-B Natriuret Pep 50673 (<300) pg/mL Assessment/Plan (1) Chronic respiratory failure with hypoxia Current Visit: Yes Status: Acute (2) Congestive heart failure Current Visit: Yes Status: Acute Code(s): I50.9 - HEART FAILURE, UNSPECIFIED (3) Hypokalemia Current Visit: Yes Status: Acute Code(s): E87.6 - HYPOKALEMIA (4) Diarrhea Current Visit: No Status: Acute Qualifiers: Diarrhea type: unspecified type Qualified Code(s): R19.7 - Diarrhea, unspecified Code(s): R19.7 - DIARRHEA, UNSPECIFIED (5) Microscopic hematuria Current Visit: No Status: Acute Code(s): R31.29 - OTHER MICROSCOPIC HEMATURIA (6) Nausea Current Visit: No Status: Acute Assessment & Plan: Assessment/Plan (1) CHF (congestive heart failure), NYHA class III Current Visit: No Status: Chronic Qualifiers: Assessment & Plan: IV Lasix. Monitor ins/outs and daily weight as well as clinical symptoms. Acute on chronic systolic CHF and follows with Dr. Cheung. No echo available over weekend but the patient has had a recent ECHO - EF 30. Troponin borderline -- LBBB is CHRONIC (noted on 08/13/22 EKG). Will trend troponin (most recent level decreased) and repeat EKG in AM. On ASA 81 mg. Patient has known CKD and follows with Dr. Jed. Continue diuresis: Code(s): I50.9 - HEART FAILURE, UNSPECIFIED (2) Hypokalemia Current Visit: Yes Status: Acute Assessment & Plan: Replete. Check Mag. Telemetry. Code(s): E87.6 - HYPOKALEMIA (3) UTI (urinary tract infection) Current Visit: No Status: Resolved Qualifiers: Assessment & Plan: Asymptomatic. Empiric IV Rocephin. Culture collected. Will need po antibiotics at discharge. Code(s): N39.0 - URINARY TRACT INFECTION, SITE NOT SPECIFIED Code(s): R11.0 - NAUSEA Telemedicine Encounter - Telemedicine Encounter Telemedicine Encounter: The entirety of this encounter was performed via Telemedicine"
--- NOTE | 2023-02-12 06:17 | PCM.NOTE ---
Date and Time: 02/11/23 1014 Subjective Assessment: Feeling better than yesterday; BNP coming down, discussed staying one more night for more diuresis, agreeable - Review of Systems Eyes: No Symptoms Ears, Nose, & Throat: No Symptoms Respiratory: Short Of Breath Cardiac: No Symptoms Abdominal/Gastrointestinal: No Symptoms Objective Exam Neurologic Exam: oriented x 3, cooperative Neck Exam: normal inspection, JVD Respiratory Exam: crackles/rales Cardiovascular Exam: regular rate/rhythm, normal heart sounds OBJECTIVE DATA Vital Signs: Vital Signs - 24 hr Temp Pulse Resp BP BP Pulse Ox 02/12/23 05:07 97.1 F 81 17 93/54 99 02/12/23 00:00 97.1 F 66 18 95/58 97 02/11/23 20:00 96.4 F 70 17 91/56 100 02/11/23 18:56 71 18 99 02/11/23 16:00 97.1 F 63 18 114/57 99 02/11/23 12:00 97.1 F 65 18 85/52 99 02/11/23 07:11 97.3 F 64 18 115/66 97 02/11/23 07:00 68 16 97 Pain Assessment - Last Documented Pain Intensity 8 Pain Scale Used 0-10 Pain Scale Intake and Output: Intake & Output 02/09/23 02/10/23 02/11/23 02/12/23 11:59 11:59 11:59 11:59 Intake Total 740 380 400 Output Total 1800 1530 950 Balance -1060 -1150 -550 Weight 60 kg 57.1 kg Lab Results: Lab Results-Last 24 Hours 02/11/23 02/12/23 Range/Units 05:51 04:19 Sodium 140 137 (137-145) mmol/L Potassium 3.2 L 3.4 L (3.5-5.1) mmol/L Chloride 98 92 L (98-107) mmol/L Carbon Dioxide 30 32 H (22-30) mmol/L Anion Gap 16.1 H 16.3 H (5-15) MEQ/L BUN 18 H 27 H (7-17) mg/dL Creatinine 0.99 1.06 H (0.52-1.04) mg/dL Estimated GFR 58.0 53.6 ML/MIN Glucose 132 H 132 H (74-106) mg/dL Calcium 7.8 L 7.8 L (8.4-10.2) mg/dL NT-Pro-B Natriuret Pep 62579 (<300) pg/mL Assessment/Plan (1) Chronic respiratory failure with hypoxia Current Visit: Yes Status: Acute (2) Congestive heart failure Current Visit: Yes Status: Acute Code(s): I50.9 - HEART FAILURE, UNSPECIFIED (3) Hypokalemia Current Visit: Yes Status: Acute Code(s): E87.6 - HYPOKALEMIA (4) Diarrhea Current Visit: No Status: Acute Qualifiers: Diarrhea type: unspecified type Qualified Code(s): R19.7 - Diarrhea, unspe cified Code(s): R19.7 - DIARRHEA, UNSPECIFIED (5) Microscopic hematuria Current Visit: No Status: Acute Code(s): R31.29 - OTHER MICROSCOPIC HEMATURIA (6) Nausea Current Visit: No Status: Acute Assessment & Plan: Assessment/Plan (1) CHF (congestive heart failure), NYHA class III Current Visit: No Status: Chronic Qualifiers: Assessment & Plan: IV Lasix. Monitor ins/outs and daily weight as well as clinical symptoms. Acute on chronic systolic CHF and follows with Dr. Cheung. No echo available over weekend but the patient has had a recent ECHO. Troponin borderline -- LBBB is CHRONIC (noted on 08/13/22 EKG). Will trend troponin (most recent level decreased) and repeat EKG in AM. On ASA 81 mg. Patient has known CKD and follows with Dr. Adkins. Consider discharge tomorrow; was not ho,e diuretic it seems;, can start furosemide 40 mg once daily, and continue entresto; coreg; and bryan Code(s): I50.9 - HEART FAILURE, UNSPECIFIED (2) Hypokalemia Current Visit: Yes Status: Acute Assessment & Plan: Replete. Check Mag. Telemetry. Code(s): E87.6 - HYPOKALEMIA (3) UTI (urinary tract infection) Current Visit: No Status: Resolved Qualifiers: Assessment & Plan: Asymptomatic. Empiric IV Rocephin. Culture collected. Will need po antibiotics at discharge. Code(s): N39.0 - URINARY TRACT INFECTION, SITE NOT SPECIFIED Code(s): R11.0 - NAUSEA Telemedicine Encounter - Telemedicine Encounter Telemedicine Encounter: The entirety of this encounter was performed via Telemedicine"
[2023-02-12] MEDS: Lasix 40 MG/4 ML IV SCH (06:41)
[2023-02-12] MEDS: PATIENT OWN MEDICATION IH SCH ×2 (06:59→19:22)
[2023-02-12] MEDS: ENTRESTO 49 MG-51 MG TABLET PO SCH ×2 (07:54→18:19)
[2023-02-12] MEDS: Coreg PO SCH ×2 (07:54→18:19)
[2023-02-12] MEDS ORDERED: Klor Con PO ONE (09:00)
[2023-02-12] MEDS ORDERED: ULTRAM 50 MG PO PRN (09:03)
[2023-02-12] MEDS: ECOTRIN 81 MG PO SCH (09:25)
[2023-02-12] MEDS: Vitamin B-12 500 MCG PO SCH (09:26)
[2023-02-12] MEDS: Calcium 500MG W/Vit D Tablet PO SCH (09:26)
[2023-02-12] MEDS: Lexapro PO SCH (09:26)
[2023-02-12] MEDS: FISH OIL 1,000 MG CAPSULE PO SCH (09:26)
[2023-02-12] MEDS: Protonix 40MG Tablet PO SCH (09:26)
[2023-02-12] MEDS: ENOXAPARIN SODIUM SQ SCH (09:26)
--- NOTE | 2023-02-12 10:04 | PCM.DS ---
Discharge Summary Date of Admission: 02/09/23 16:27 Date of Discharge: 02/13/23 Admitting Physician: KENDAL BARBA MD Consults: Consults on Case 02/09/23 18:29 Nutritional Consult ROUTINE Primary Care Provider: LUIZ FRAUSTOYESH Allergies Allergies clarithromycin [From Biaxin] Allergy (Verified 02/09/23 11:01) Hospital Summary - Hospital Course Hospital Course: 77-year-old woman with history of HFrEF, COPD on chronic 2 L oxygen, CKD stage III, who presented with progressive dyspnea and was found to have acute on chronic exacerbation of her systolic heart failure. She was admitted to the hospital and placed on IV Lasix 40 mg every 6 hours, with improved diuresis and decreasing levels of her BNP. She felt back to her baseline breathing status, on her chronic 2 L oxygen. Was complicated by severe cramping from hypokalemia and hypomagnesemia, and pain from the potassium IV infusions. She will be discharged home on Lasix 40 mg p.o. daily as well as potassium 20 mEq p.o. daily, to foll ow-up with PCP in 1 week. She was also found to have an E. coli acute cystitis, pansensitive on culture. She received 3 doses of Rocephin as an inpatient. To complete 2 more days of Bactrim at home. Greater than 30 minutes spent arranging discharge. - Vitals & Intake/Output Vital Signs: Vital Signs Temperature 97.1 F 02/12/23 07:37 Pulse Rate 75 02/12/23 07:37 Respiratory Rate 22 02/12/23 07:37 Blood Pressure 107/68 02/12/23 07:37 O2 Sat by Pulse Oximetry 100 02/12/23 07:37 Vital Signs Temperature 98.6 F 02/13/23 06:43 Pulse Rate 60 02/13/23 07:50 Respiratory Rate 14 02/13/23 07:00 Blood Pressure 99/60 02/13/23 07:50 O2 Sat by Pulse Oximetry 100 02/13/23 07:00 Intake & Output: Intake & Output 02/09/23 02/10/23 02/11/23 02/12/23 11:59 11:59 11:59 11:59 Intake Total 740 380 660 Output Total 1800 1530 1250 Balance -1060 -1150 -590 Weight 60 kg 57.1 kg 55.2 kg - Lab Result Diagrams: 02/13/23 04:40 02/13/23 04:20 Lab Results-Last 24 Hrs: Lab Results-Last 24 Hours 02/12/23 Range/Units 04:19 Sodium 137 (137-145) mmol/L Potassium 3.4 L (3.5-5.1) mmol/L Chloride 92 L (98-107) mmol/L Carbon Dioxide 32 H (22-30) mmol/L Anion Gap 16.3 H (5-15) MEQ/L BUN 27 H (7-17) mg/dL Creatinine 1.06 H (0.52-1.04) mg/dL Estimated GFR 53.6 ML/MIN Glucose 132 H (74-106) mg/dL Calcium 7.8 L (8.4-10.2) mg/dL Laboratory Results - last 24 hr 02/12/23 02/12/23 02/12/23 10:30 13:27 16:34 WBC RBC Hgb Hct MCV MCH MCHC RDW Plt Count MPV Sodium Potassium 4.1 D 3.9 Chloride Carbon Dioxide Anion Gap BUN Creatinine Estimated GFR Glucose Calcium Magnesium 0.8 L* 2.7 H 02/13/23 02/13/23 04:20 04:40 WBC 6.1 RBC 3.85 L Hgb 11.5 L Hct 36.3 MCV 94.3 MCH 29.9 MCHC 31.7 L RDW 14.7 H Plt Count 187 MPV 13.0 H Sodium 136 L Potassium 4.0 Chloride 95 L Carbon Dioxide 33 H Anion Gap 12.3 BUN 30 H Creatinine 1.00 Estimated GFR 57.3 Glucose 93 Calcium 7.8 L Magnesium 2.3 Micro Results-Entire Visit: Microbiology 02/09/23 11:20 Urine Culture - Final Urine, Void Escherichia Coli E. coli pansensitive - Radiology Exams Ordered Rad Exams-Entire Visit: CT chest: Negative for pulmonary embolism. Pulmonary edema present, with moderate bilateral pleural effusions. - Procedures and Test Procedures and Tests throughout Hospitalization: Therapy Orders & Screens 02/09/23 16:16 Oxygen NASAL CANNULA 2 lpm Comment: Diagnosis: CHF 02/09/23 18:28 PT Eval & Treat (MD Order) ONCE Reason for Eval:: DEBILITY Diagnosis: CHF EKG REPEAT IN AM Comment: Diagnosis: CHF 02/10/23 11:23 Respiratory MDI Q12H Comment: Eris 115/21 2 puffs BID Diagnosis: CHF 02/11/23 07:00 Respiratory Therapy Assessment DAILY Comment: Diagnosis: CHF Discharge Exam General Appearance: no apparent distress (Sitting up in chair) Neurologic Exam: alert, oriented x 3 Respiratory Exam: normal breath sounds, lungs clear, No accessory muscle use Cardiovascular Exam: regular rate/rhythm, No murmur, No edema Gastrointestinal/Abdomen Exam: No tenderness, No distention Final Diagnosis/Problem List - Final Discharge Diagnosis/Problem (1) Acute on chronic systolic heart failure Current Visit: Yes Status: Acute Code(s): I50.23 - ACUTE ON CHRONIC SYSTOLIC (CONGESTIVE) HEART FAILURE (2) Acute cystitis Current Visit: Yes Status: Acute Code(s): N30.00 - ACUTE CYSTITIS WITHOUT HEMATURIA Telemedicine Encounter - Telemedicine Encounter Telemedicine Encounter: The entirety of this encounter was performed via Telemedicine" - Discharge Discharge Date: 02/13/23 Disposition: Home, Self-Care Condition: Good Prescriptions: New Smz/Tmp Ds Tablet [Bactrim Ds Tablet] 1 tab PO BID #6 tablet Furosemide 40 mg [Lasix 40 MG] 40 mg PO DAILY #30 tablet Potassium Chloride 20 meq PO DAILY #30 tablet Continue Carvedilol [Coreg ] 6.25 mg PO 0800,1800 Sacubitril/Valsartan [Entresto 49 mg-51 mg Tablet] 1 each PO 0800,1800 Cyanocobalamin (Vitamin B-12) [B-12] 1,000 mcg PO DAILY [place]-3/Dha/Epa/Fish Oil [[place] 3 500 Softgel] 520 mcg PO DAILY Esomeprazole Magnesium [Nexium] 40 mg PO DAILY Calcium Carb/Vitamin D 500 mg* [Calcium 500MG W/Vit D Tablet] 1 tab PO DAILY Albuterol Sulfate [Albuterol Sulfate Hfa] 2 puffs IH TID PRN PRN Reason: WHEEZES Escitalopram Oxalate [Lexapro] 20 mg PO DAILY Budesonide/Formoterol Fumarate [Budesonide-Formoterol 160-4.5] 1 puff IH DAILY Aspirin 81 gm Chew [Baby Aspirin 81 mg Chew] 81 mg PO DAILY Instructions: Heart Failure, Adult (DC), Hypokalemia (DC) Additional Instructions: [facility] HAS BEEN SET UP. THEY WILL CONTACT YOU TO ARRANGE A TIME TO COME SEE YOU. THEIR PHONE NUMBER IS [phone] Follow up with: LESTER FRAUSTO MD [Primary Care Provider] - 1 Week Forms: CHF Discharge Instructions
--- NOTE | 2023-02-12 12:16 | PCM.NOTE ---
Date and Time: 02/12/23 1157 Subjective Assessment: No acute events overnight. Patient complaining of cramping overnight, and then pain in her IV from the potassium infusion. Denies dyspnea today. Objective Exam Comments: GENERAL: Sitting up in bed in no acute distress NEURO: Alert, oriented x3, mildly anxious CV: Regular rate and rhythm, no murmurs, no edema PULM: Clear to auscultation bilaterally, no work of breathing, on 2 L oxygen ABD: Soft, nontender, nondistended OBJECTIVE DATA Vital Signs: Vital Signs - 24 hr Temp Pulse Resp BP BP Pulse Ox 02/12/23 07:37 97.1 F 75 22 107/68 100 02/12/23 06:00 80 16 99 02/12/23 05:07 97.1 F 81 17 93/54 99 02/12/23 00:00 97.1 F 66 18 95/58 97 02/11/23 20:00 96.4 F 70 17 91/56 100 02/11/23 18:56 71 18 99 02/11/23 16:00 97.1 F 63 18 114/57 99 02/11/23 12:00 97.1 F 65 18 85/52 99 Pain Assessment - Last Documented Pain Intensity 0 Pain Scale Used [facility] Intake and Output: Intake & Output 02/09/23 02/10/23 02/11/23 02/12/23 11:59 11:59 11:59 11:59 Intake Total 740 380 660 Output Total 1800 1530 1250 Balance -1060 -1150 -590 Weight 60 kg 57.1 kg 55.2 kg Lab Results: Lab Results-Last 24 Hours 02/12/23 02/12/23 Range/Units 04:19 10:30 Sodium 137 (137-145) mmol/L Potassium 3.4 L (3.5-5.1) mmol/L Chloride 92 L (98-107) mmol/L Carbon Dioxide 32 H (22-30) mmol/L Anion Gap 16.3 H (5-15) MEQ/L BUN 27 H (7-17) mg/dL Creatinine 1.06 H (0.52-1.04) mg/dL Estimated GFR 53.6 ML/MIN Glucose 132 H (74-106) mg/dL Calcium 7.8 L (8.4-10.2) mg/dL Magnesium 0.8 L* (1.6-2.3) mg/dL Multi-Disciplinary Progress Notes: Multi-Disciplinary Progress Notes 02/12/23 09:50 Case Management Note by Cinthia Otero REFERRAL FAXED TO [facility]. THEY WILL NEED NOTIFIED AT TIME OF DC AT [phone]. THEY WILL NEED FAXED THE DC INSTRUCTIONS, DC MED LIST AND DC SUMMARY (IF AVAILABLE) TO [phone] Initialized on 02/12/23 09:50 - END OF NOTE Assessment/Plan (1) Acute on chronic systolic heart failure Current Visit: Yes Status: Acute Assessment & Plan: 77-year-old with a history of HFrEF, COPD on 2 L oxygen, and CKD stage III, here with acute on chronic diastolic heart failure and acute cystitis. ## Acute on chronic systolic heart failure with EF around 30%. Admitted here with acute exacerbation. Responding well to diuresis, with improving breathing, and BNP overall trending down. Having some cramping today, associated with low K and Mg. DC Lasix 40 mg IV 6 hours Start Lasix 40 mg p.o. daily, starting tomorrow Change diet to low-sodium We will plan to discharge home on these meds ## Hypokalemia, hypomagnesemia secondary to diuresis, causing muscle cramping. Potassium levels are improving, but patient reacts poorly to IV potassium. Give KCl 40 mg once p.o. x1 Give magnesium 4 g IV Repeat levels this afternoon ## Acute cystitis with pyuria on admission, and pansensitive E. coli on urine culture. Continue Rocephin 1 g IV q.24 hours, day 3 today ## Nonischemic cardiomyopathy Continue Coreg 6.25 BID, Entresto BID ## Depression Continue home Lexapro 20 mg daily CODE STATUS: Full code Diet: Changed to low-sodium Dispo: Likely home tomorrow if electrolyte levels have improved Code(s): I50.23 - ACUTE ON CHRONIC SYSTOLIC (CONGESTIVE) HEART FAILURE (2) Acute cystitis Current Visit: Yes Status: Acute Code(s): N30.00 - ACUTE CYSTITIS WITHOUT HEMATURIA Telemedicine Encounter - Telemedicine Encounter Telemedicine Encounter: The entirety of this encounter was performed via Telemedicine"
[2023-02-12] MEDS: MAGNESIUM SULF 2 G/50 ML BAG 2 GM/50 ML PIGGYBACK IV SCH ×2 (13:10→13:39)
[2023-02-12 16:52] LABS: MAGNESIUM 2.7 mg/dL (1.6-2.3); Potassium 3.9 mmol/L (3.5-5.1)
[2023-02-12] MEDS ORDERED: PROAMATINE PO ONE (18:19)
[2023-02-12] MEDS: ROCEPHIN 1 Gm-D5w 50 ml Bag** 1 G/50 ML IVPB IV SCH (21:05)
[2023-02-13 05:03] LABS: Hematocrit 36.3 % (35-47); Hemoglobin 11.5 g/dL (12.0-16.0); Mean Cell Volume 94.3 fL (78-100); Mean Corpuscular Hemoglobin 29.9 pg (26-32); Mean Corpuscular Hgb Concent. 31.7 g/dL (32-36); Platelet Count 187 x10^3/uL (150-450); Red Blood Count 3.85 x10^6/uL (4.1-5.4); Red Cell Distribution Width 14.7 % (11.5-14.0); White Blood Count 6.1 x10^3/uL (4.0-10.5)
[2023-02-13 05:16] LABS: ANION GAP 12.3 MEQ/L (5-15); Calcium 7.8 mg/dL (8.4-10.2); EST GLOMERULAR FILTRATION RATE 57.3 ML/MIN; MAGNESIUM 2.3 mg/dL (1.6-2.3)
[2023-02-13] MEDS: PATIENT OWN MEDICATION IH SCH (07:50)
[2023-02-13 08:00] VITALS: O2SAT 100
[2023-02-13] MEDS: Coreg PO SCH (08:02)
[2023-02-13] MEDS: ENTRESTO 49 MG-51 MG TABLET PO SCH (08:03)
[2023-02-13 08:38] VITALS: BP 99/60; PULSE 60
[2023-02-13] MEDS ORDERED: Lasix 40 MG PO SCH (10:00)
[2023-02-13] MEDS: Lexapro PO SCH (10:30)
[2023-02-13] MEDS: Vitamin B-12 500 MCG PO SCH (10:30)
[2023-02-13] MEDS: Protonix 40MG Tablet PO SCH (10:30)
[2023-02-13] MEDS: Calcium 500MG W/Vit D Tablet PO SCH (10:30)
[2023-02-13] MEDS: FISH OIL 1,000 MG CAPSULE PO SCH (10:30)
[2023-02-13] MEDS: ECOTRIN 81 MG PO SCH (10:30)
[2023-02-13] MEDS: ENOXAPARIN SODIUM SQ SCH (10:31)
== END 2023-02-13 13:50 | disposition home health service (06) ==
LOC: ED 10:48 → MED SURG 16:27
PROVIDERS: ADMIT Internal Medicine; ATTEND General Practice
DX: I50.23 Acute on chronic systolic (congestive) heart failure (principal); N30.00 Acute cystitis without hematuria; J96.11 Chronic respiratory failure with hypoxia; I25.10 Atherosclerotic heart disease of native coronary artery without angina pectoris; J44.9 Chronic obstructive pulmonary disease, unspecified; E87.6 Hypokalemia; R19.7 Diarrhea, unspecified; R31.29 Other microscopic hematuria; R11.0 Nausea; N18.30 Chronic kidney disease, stage 3 unspecified; Z99.81 Dependence on supplemental oxygen; Z20.828 Contact with and (suspected) exposure to other viral communicable diseases; Z79.899 Other long term (current) drug therapy
CPT/HCPCS: 0241U; 36000; 36415; 71045; 71260; 80048; 80053; 81001; 83605; 83735; 83880; 84132; 84484; 85025; 85027; 85379; 87077; 87086; 87186; 93005; 93041; 94640; 94762; 96374; 96375; 97161; 99285; 99291; Q3014; 93268; J0696; J1650; J1940; J3475; J3480; A9270-GY; G0378

== ENCOUNTER 2023-03-07 15:20 | Observation (INO) | payer MEDICARE ==
[2023-03-07] MEDS ORDERED: PROTONIX 40 MG IV IV ONE ×2 (15:40→15:57)
[2023-03-07 16:18] LABS: Absolute Neutrophil Ct (ANC) 3.77 x10^3/uL (1.4-6.9); BASOPHIL % 0.9 % (0.0-0.4); Basophil (Absolute #) 0.05 x10^3/uL (0-0.4); Eosinophil % 2.7 % (0.00-5.0); Eosinophil (Absolute #) 0.15 x10^3/uL (0-0.5); Hematocrit 29.5 % (35-47); Hemoglobin 9.6 g/dL (12.0-16.0); IMMATURE GRAN # 0.02 x10^3u/L (0.00-0.03); IMMATURE GRAN % 0.4 % (0.00-0.4); Lymphocyte (Absolute #) 1.12 x10^3/uL (1.0-4.6); Lymphocytes % 20.5 % (24.0-44.0); Mean Cell Volume 93.1 fL (78-100); Mean Corpuscular Hemoglobin 30.3 pg (26-32); Mean Corpuscular Hgb Concent. 32.5 g/dL (32-36); Mean Platelet Volume 12.4 fL (7.5-11.0); Monocyte (Absolute #) 0.35 x10^3/uL (0.0-1.3); Monocytes % 6.4 % (0.0-12.0); Neutrophil % 69.1 % (36.0-66.0); Platelet Count 159 x10^3/uL (150-450); Red Blood Count 3.17 x10^6/uL (4.1-5.4); Red Cell Distribution Width 14.4 % (11.5-14.0); White Blood Count 5.5 x10^3/uL (4.0-10.5)
[2023-03-07 16:34] LABS: INR 1.13 (0.8-3.0); PROTIME 12.2 SECONDS (9.4-12.5); PTT 35.3 SECONDS (25.1-36.5)
[2023-03-07] MEDS: Sodium Chloride 0.9% 1000 ML 1,000 ML IV SCH (16:34)
[2023-03-07 16:35] LABS: ALBUMIN 3.5 g/dL (3.5-5.0); ALKALINE PHOSPHATASE 65 U/L (38-126); ANION GAP 13.7 MEQ/L (5-15); BLOOD UREA NITROGEN 14 mg/dL (7-17); CHLORIDE 110 mmol/L (98-107); Calcium 7.8 mg/dL (8.4-10.2); Carbon Dioxide 22 mmol/L (22-30); Creatinine 1 0.81 mg/dL (0.52-1.04); EST GLOMERULAR FILTRATION RATE > 60.0 ML/MIN; Glucose 103 mg/dL (74-106); Potassium 3.4 mmol/L (3.5-5.1); SGOT/AST 21 U/L (14-36); SGPT/ALT 12 U/L (0-35); SODIUM 142 mmol/L (137-145); Total Protein 6.7 g/dL (6.3-8.2)
[2023-03-07 17:19] LABS: ABO TYPING O; Antibody Screen NEGATIVE (NEGATIVE); RH TYPING POSITIVE
[2023-03-07 17:52] LABS: ADD URINE CULTURE? YES (NO); Appearance Clear (Clear); Bacteria Many /HPF (None Seen); Bilirubin Negative (Negative); Blood Negative (Negative); Epithelial Cells Rare /HPF (None Seen); Glucose, Urine Negative (Negative); Hyaline Casts NONE SEEN /LPF (0-2); Ketones Negative (Negative); Leukocyte Esterase Small (Negative); Nitrite Positive (Negative); Ph 5.5 (4.6-8.0); Protein,Urine Dip 30 (Negative); RBC 0-2 /HPF (0-5); Specific Gravity 1.025 (1.005-1.030); Urobilinogen 0.2 mg/dL (0.2)
[2023-03-07] MEDS ORDERED: VENTOLIN COMMON CANISTER IH PRN ×2 (19:00→22:17)
--- NOTE | 2023-03-07 19:32 | ERPHSYRPT ---
- History of Present Illness Time Seen by Provider: 03/07/23 15:30 Historian: patient Exam Limitations: no limitations Patient Subjective Stated Complaint: Pt c/o of rectal or vagina bleeding, pt was to get a scope in the past but refused due to being scared, pt does get i nfusions and blood randomly from Dr. Amezcua Triage Nursing Assessment: Pt brought to the ER by EMS, vitals wnl, denies pain, pt has bright red blood that appears to be coming from her rectum, pulses normal, skin n/w/d, pt is supposed to be on oxygen 19/02 but she was not on oxygen when medics picked her up and her oxygen is 98% without it at this time, doesn't appear to be in any distress Physician History: Patient is a 77-year-old white female who presents from the shelter with rectal bleeding or perhaps vaginal bleeding she was referred to the ER and expectation of scope being performed but she has refused scopes in the past. S he does see Dr. Lonnie Butler on a regular basis and usually receives either transfusions or iron transfusions every few months for chronic anemia. Timing/Duration: today Activities at Onset: none Allergies/Adverse Reactions: clarithromycin [From Biaxin] Allergy (Verified 03/07/23 15:44) Home Medications: Carvedilol [Coreg ] 6.25 mg PO 0800,1800 07/21/14 [History] Sacubitril/Valsartan [Entresto 49 mg-51 mg Tablet] 1 each PO 0800,1800 01/10/19 [History] Cyanocobalamin (Vitamin B-12) [B-12] 1,000 mcg PO DAILY 01/21/19 [History] [place]-3/Dha/Epa/Fish Oil [[place] 3 500 Softgel] 520 mcg PO DAILY 01/21/19 [History] Esomeprazole Magnesium [Nexium] 40 mg PO DAILY 01/22/19 [History] Calcium Carb/Vitamin D 500 mg* [Calcium 500MG W/Vit D Tablet] 1 tab PO DAILY 08/13/22 [History] Albuterol Sulfate [Albuterol Sulfate Hfa] 2 puffs IH TID PRN 02/09/23 [History] Aspirin 81 gm Chew [Baby Aspirin 81 mg Chew] 81 mg PO DAILY 02/09/23 [History] Budesonide/Formoterol Fumarate [Budesonide-Formoterol 160-4.5] 1 puff IH DAILY 02/09/23 [History] Escitalopram Oxalate [Lexapro] 20 mg PO DAILY 02/09/23 [History] Hx Tetanus, Diphtheria Vaccination/Date Given: Yes Hx Influenza Vaccination/Date Given: No Hx Pneumococcal Vaccination/Date Given: No Travel Risk - International Travel Have you traveled outside of the country in past 3 weeks: No - Coronavirus Screening Are you exhibiting any of the following symptoms?: No Close contact with a COVID-19 positive Pt in past 14-21 Days: No - Vaccine Status Have you recieved a Covid-19 vaccination: Yes [employer]: Moderna - Vaccination Dates Date of 2cond Vaccination (if applicable): unknown Dates if Unknown: unknown - Review of Systems Constitutional: No Fever, No Chills Eyes: No Symptoms Ears, Nose, & Throat: No Symptoms Respiratory: No Cough, No Dyspnea Cardiac: No Chest Pain, No Edema, No Syncope Abdominal/Gastrointestinal: Hematochezia, No Abdominal Pain, No Nausea, No Vomiting, No Diarrhea Genitourinary Symptoms: No Dysuria Musculoskeletal: No Back Pain, No Neck Pain Skin: No Rash Neurological: No Dizziness, No Focal Weakness, No Sensory Changes Psychological: No Symptoms Endocrine: No Symptoms All Other Systems: Reviewed and Negative - Past Medical History Pertinent Past Medical History: Yes Neurological History: No Pertinent History ENT History: Cataracts Cardiac History: Arrhythmia, Congestive Heart Failure, Coronary Artery Disease Respiratory History: Bronchitis, CHF, COPD, Pneumonia Endocrine Medical History: Hypothyroidism Musculoskeletal History: Arthritis, Osteoarthritis GI Medical History: GERD Psycho-Social History: Anxiety Female Reproductive Disorders: No Pertinent History Other Medical History: Hard of hearing; left hearing aid at home - Past Surgical History Past Surgical History: Yes Neuro Surgical History: No Pertinent History Cardiac: No Pertinent History Respiratory: No Pertinent History Gastrointestinal: No Pertinent History Genitourinary: No Pertinent History Musculoskeletal: No Pertinent History Female Surgical History: Hysterectomy - Social History Smoking Status: Never smoker Exposure to second hand smoke: No Drug Use: none Patient Lives Alone: No Significant Family History: no pertinent family hx - Nursing Vital Signs Nursing Vital Signs: Initial Vital Signs Temperature 98.0 F 03/07/23 15:23 Pulse Rate 68 03/07/23 15:23 Blood Pressure 132/75 03/07/23 15:23 O2 Sat by Pulse Oximetry 98 03/07/23 15:23 Pain Scale Pain Intensity 3 - Physical Exam General Appearance: mild distress, alert Eye Exam: PERRL/EOMI, eyes nml inspection Ears, Nose, Throat Exam: normal ENT inspection, pharynx normal, moist mucous membranes Neck Exam: normal inspection, non-tender, supple, full range of motion Respiratory Exam: normal breath sounds, lungs clear, No respiratory distress Cardiovascular Exam: regular rate/rhythm, normal heart sounds Gastrointestinal/Abdomen Exam: soft, No tenderness, No mass Rectal Exam: blood Back Exam: normal inspection, normal range of motion, No CVA tenderness, No vertebral tenderness Extremity Exam: normal inspection, normal range of motion, pelvis stable Neurologic Exam: alert, oriented x 3, cooperative, normal mood/affect, nml cerebellar function, sensation nml, No motor deficits Skin Exam: normal color, warm, dry SpO2: 97 - Course Nursing assessment & vital signs reviewed: Yes Ordered Tests: Active Orders 24 hr Category Date Time Status IV Insertion STAT Care 03/07/23 15:40 Active CBC W DIFF Stat Lab 03/07/23 16:00 Completed CMP Stat Lab 03/07/23 16:00 Completed CULTURE,URINE Stat Lab 03/07/23 17:15 Received OB-FECAL SCREEN Stat Lab 03/07/23 Ordered PROTIME WITH INR Stat Lab 03/07/23 16:00 Completed PTT Stat Lab 03/07/23 16:00 Completed UA W/RFX UR CULTURE Stat Lab 03/07/23 17:15 Completed Medication Summary Generic Name Dose Route Start Last Admin Trade Name Freq PRN Reason Stop Dose Admin Sodium Chloride 1,000 mls @ 100 mls/hr 03/07/23 15:45 03/07/23 16:34 Sodium Chloride 0.9% 1000 Ml IV 04/06/23 15:44 100 mls/hr .Q10H FRANCESCA Administration Discontinued Medications Generic Name Dose Route Start Last Admin Trade Name Freq PRN Reason Stop Dose Admin Pantoprazole Sodium 40 mg 03/07/23 15:40 03/07/23 16:35 Pantoprazole 40 Mg Vial IV 03/07/23 15:41 40 mg STAT ONE Administration Pantoprazole Sodium Confirm 03/07/23 15:57 Pantoprazole 40 Mg Vial Administered 03/07/23 15:58 Dose 40 mg IV .STK-MED ONE Lab/Rad Data: Laboratory Result Diagrams 03/07/23 16:00 03/07/23 16:00 Laboratory Results 03/07/23 03/07/23 03/07/23 Range/Units 17:15 16:00 16:00 WBC (4.0-10.5) x10^3/uL RBC (4.1-5.4) x10^6/uL Hgb (12.0-16.0) g/dL Hct (35-47) % MCV (78-100) fL MCH (26-32) pg MCHC (32-36) g/dL RDW (11.5-14.0) % Plt Count (150-450) x10^3/uL MPV (7.5-11.0) fL Gran % (36.0-66.0) % Immature Gran % (Auto) (0.00-0.4) % Nucleat RBC Rel Count (0.00-0.1) % Eos # (Auto) (0-0.5) x10^3/uL Immature Gran # (Auto) (0.00-0.03) x10^3u/L Absolute Lymphs (auto) (1.0-4.6) x10^3/uL Absolute Monos (auto) (0.0-1.3) x10^3/uL Absolute Nucleated RBC (0.00-0.01) x10^3u/L Lymphocytes % (24.0-44.0) % Monocytes % (0.0-12.0) % Eosinophils % (0.00-5.0) % Basophils % (0.0-0.4) % Absolute Granulocytes (1.4-6.9) x10^3/uL Basophils # (0-0.4) x10^3/uL PT 12.2 (9.4-12.5) SECONDS INR 1.13 (0.8-3.0) APTT 35.3 (25.1-36.5) SECONDS Sodium (137-145) mmol/L Potassium (3.5-5.1) mmol/L Chloride (98-107) mmol/L Carbon Dioxide (22-30) mmol/L Anion Gap (5-15) MEQ/L BUN (7-17) mg/dL Creatinine (0.52-1.04) mg/dL Estimated GFR ML/MIN Glucose (74-106) mg/dL Calcium (8.4-10.2) mg/dL Total Bilirubin (0.2-1.3) mg/dL AST (14-36) U/L ALT (0-35) U/L Alkaline Phosphatase (38-126) U/L Serum Total Protein (6.3-8.2) g/dL Albumin (3.5-5.0) g/dL Urine Color Yellow (Yellow) Urine Appearance Clear (Clear) Urine pH 5.5 (4.6-8.0) Ur Specific [place] 1.025 (1.005-1.030) Urine Protein 30 (Negative) Urine Glucose (UA) Negative (Negative) mg/dL Urine Ketones Negative (Negative) Urine Blood Negative (Negative) Urine Nitrite Positive A (Negative) Urine Bilirubin Negative (Negative) Urine Urobilinogen 0.2 (0.2) mg/dL Ur Leukocyte Esterase Small A (Negative) U Hyaline Cast (Auto) NONE SEEN (0-2) /LPF Urine Microscopic RBC 0-2 (0-5) /HPF Urine Microscopic WBC 11-20 A (0-5) /HPF Ur Epithelial Cells Rare (None Seen) /HPF Urine Bacteria Many A (None Seen) /HPF Urine Culture Reflexed YES (NO) ABO Group O Rh Factor POSITIVE Antibody Screen NEGATIVE (NEGATIVE) 03/07/23 03/07/23 Range/Units 16:00 16:00 WBC 5.5 (4.0-10.5) x10^3/uL RBC 3.17 L (4.1-5.4) x10^6/uL Hgb 9.6 L (12.0-16.0) g/dL Hct 29.5 L (35-47) % MCV 93.1 (78-100) fL MCH 30.3 (26-32) pg MCHC 32.5 (32-36) g/dL RDW 14.4 H (11.5-14.0) % Plt Count 159 (150-450) x10^3/uL MPV 12.4 H (7.5-11.0) fL Gran % 69.1 H (36.0-66.0) % Immature Gran % (Auto) 0.4 (0.00-0.4) % Nucleat RBC Rel Count 0.0 (0.00-0.1) % Eos # (Auto) 0.15 (0-0.5) x10^3/uL Immature Gran # (Auto) 0.02 (0.00-0.03) x10^3u/L Absolute Lymphs (auto) 1.12 (1.0-4.6) x10^3/uL Absolute Monos (auto) 0.35 (0.0-1.3) x10^3/uL Absolute Nucleated RBC 0.00 (0.00-0.01) x10^3u/L Lymphocytes % 20.5 L (24.0-44.0) % Monocytes % 6.4 (0.0-12.0) % Eosinophils % 2.7 (0.00-5.0) % Basophils % 0.9 (0.0-0.4) % Absolute Granulocytes 3.77 (1.4-6.9) x10^3/uL Basophils # 0.05 (0-0.4) x10^3/uL PT (9.4-12.5) SECONDS INR (0.8-3.0) APTT (25.1-36.5) SECONDS Sodium 142 (137-145) mmol/L Potassium 3.4 L (3.5-5.1) mmol/L Chloride 110 H (98-107) mmol/L Carbon Dioxide 22 (22-30) mmol/L Anion Gap 13.7 (5-15) MEQ/L BUN 14 (7-17) mg/dL Creatinine 0.81 (0.52-1.04) mg/dL Estimated GFR > 60.0 ML/MIN Glucose 103 (74-106) mg/dL Calcium 7.8 L (8.4-10.2) mg/dL Total Bilirubin 0.40 (0.2-1.3) mg/dL AST 21 (14-36) U/L ALT 12 (0-35) U/L Alkaline Phosphatase 65 (38-126) U/L Serum Total Protein 6.7 (6.3-8.2) g/dL Albumin 3.5 (3.5-5.0) g/dL Urine Color (Yellow) Urine Appearance (Clear) Urine pH (4.6-8.0) Ur Specific [place] (1.005-1.030) Urine Protein (Negative) Urine Glucose (UA) (Negative) mg/dL Urine Ketones (Negative) Urine Blood (Negative) Urine Nitrite (Negative) Urine Bilirubin (Negative) Urine Urobilinogen (0.2) mg/dL Ur Leukocyte Esterase (Negative) U Hyaline Cast (Auto) (0-2) /LPF Urine Microscopic RBC (0-5) /HPF Urine Microscopic WBC (0-5) /HPF Ur Epithelial Cells (None Seen) /HPF Urine Bacteria (None Seen) /HPF Urine Culture Reflexed (NO) ABO Group Rh Factor Antibody Screen (NEGATIVE) - Progress Progress: improved Will see patient in: hospital (full admit) Medical Desision Making - Discussion of managment Care discussed with:: hospitalist Reviewed:: Test results Agreed on:: Treatment plan Will see patient: in hospital - Diagnostic Testing Diagnostic test were ordered, analyzed, and reviewed by me: Yes - Risk of complications The pt has a high risk of morbidity or mortality based on: Need for major surgery in patient with known risk factors - Departure Departure Disposition: In-patient Admission Clinical Impression: GI bleed Condition: Stable Critical Care Time: No Referrals: LESTER FRAUSTO MD [Primary Care Provider] - Follow up/PCP as directed Instructions: Gastrointestinal Bleeding (DC)
[2023-03-07] MEDS ORDERED: Zofran 4 MG/2 ML VIAL IV PRN (22:27)
[2023-03-07] MEDS ORDERED: TYLENOL 325 MG PO PRN (22:27)
[2023-03-07] MEDS ORDERED: PROTONIX 40 MG IV IV SCH (22:30)
--- NOTE | 2023-03-07 22:38 | PCM.HP ---
History of Present Illness - Chief Complaint Chief Complaint: GI Bleed Date: 03/07/23 History of Present Illness: is a 77 year old female who presents to the hospital with a complaint of rectal bleeding. There was a documentation in the ED about vaginal bleeding, but this was denied by the patient. The patient has a history of intermittent rectal bleeding over the past year and had been referred for colonoscopy, but the patient refused; she follows with Dr. Stapleton for iron deficiency anemia and does get transfusions and takes oral iron. The patient denies abdominal pain, dizziness nausea, vomiting, fevers, chills, hematemesis or melena. - Review of Systems Constitutional: No Symptoms Eyes: No Symptoms Ears, Nose, & Throat: No Symptoms Respiratory: No Symptoms Cardiac: No Symptoms Abdominal/Gastrointestinal: Hematochezia Genitourinary Symptoms: No Symptoms Musculoskeletal: No Symptoms Skin: No Symptoms Neurological: No Symptoms Psychological: No Symptoms Endocrine: No Symptoms Hematologic/Lymphatic: No Symptoms Immunological/Allergic: No Symptoms All Other Systems: Reviewed and Negative Medications & Allergies Home Medications: Home Medication List Carvedilol [Coreg ] 6.25 mg PO 0800,1800 07/21/14 [History Confirmed 03/07/23] Sacubitril/Valsartan [Entresto 49 mg-51 mg Tablet] 1 each PO 0800,1800 01/10/19 [History Confirmed 03/07/23] Cyanocobalamin (Vitamin B-12) [B-12] 1,000 mcg PO DAILY 01/21/19 [History Confirmed 03/07/23] [place]-3/Dha/Epa/Fish Oil [[place] 3 500 Softgel] 520 mcg PO DAILY 01/21/19 [History Confirmed 03/07/23] Esomeprazole Magnesium [Nexium] 40 mg PO DAILY 01/22/19 [History Confirmed 03/07/23] Calcium Carb/Vitamin D 500 mg* [Calcium 500MG W/Vit D Tablet] 1 tab PO DAILY 08/13/22 [History Confirmed 03/07/23] Albuterol Sulfate [Albuterol Sulfate Hfa] 2 puffs IH TID PRN 02/09/23 [History Confirmed 03/07/23] Aspirin 81 gm Chew [Baby Aspirin 81 mg Chew] 81 mg PO DAILY 02/09/23 [History Confirmed 03/07/23] Budesonide/Formoterol Fumarate [Budesonide-Formoterol 160-4.5] 1 puff IH DAILY 02/09/23 [History Confirmed 03/07/23] Escitalopram Oxalate [Lexapro] 20 mg PO DAILY 02/09/23 [History Confirmed 03/07/23] Furosemide 40 mg [Lasix 40 MG] 40 mg PO DAILY #30 tablet 02/12/23 [Rx Confirmed 03/07/23] Potassium Chloride 20 meq PO DAILY #30 tablet 02/12/23 [Rx Confirmed 03/07/23] Allergies/Adverse Reactions: Allergies Allergy/AdvReac Type Severity Reaction Status Date / Time clarithromycin [From Biaxin] Allergy Verified 03/07/23 15:44 - Past Medical History Past Medical History: Yes Neurological History: No Pertinent History ENT History: Cataracts Cardiac History: Arrhythmia, Congestive Heart Failure, Coronary Artery Disease Respiratory History: Bronchitis, CHF, COPD, Pneumonia Endocrine Medical History: Hypothyroidism Musculoskelatal History: Arthritis, Osteoarthritis GI Medical History: GERD Pyscho-Social History: Anxiety Reproductive Disorders: No Pertinent History Comment: Hard of hearing; left hearing aid at home - Past Surgical History Past Surgical History: Yes Neuro Surgical History: No Pertinent History Cardiac History: No Pertinent History Respiratory Surgery: No Pertinent History GI Surgical History: No Pertinent History Genitourinary Surgical Hx: No Pertinent History Musculskeletal Surgical Hx: No Pertinent History Female Surgical History: Hysterectomy - Social History Smoking Status: Never smoker Exposure to second hand smoke: No Alcohol: None Drug Use: none Significant Family History: no pertinent family hx - Physical Exam Vital Signs: Vital Signs - 24 hr Temp Pulse Resp BP BP Pulse Ox 03/07/23 20:30 76 17 137/72 96 03/07/23 20:00 65 18 143/72 98 03/07/23 19:32 97 03/07/23 19:30 139/70 97 03/07/23 19:00 96 H 16 141/78 03/07/23 18:30 140/75 03/07/23 18:00 141/81 97 03/07/23 17:30 139/93 98 03/07/23 17:00 68 16 137/75 98 03/07/23 16:30 131/69 90 L 03/07/23 16:11 124/80 97 03/07/23 15:23 98.0 F 68 132/75 98 General Appearance: no apparent distress, alert Neurologic Exam: alert, oriented x 3, cooperative, mortgage specialist II-XII nml as tested, normal mood/affect, nml cerebellar function Eye Exam: PERRL/EOMI, eyes nml inspection Ears, Nose, Throat Exam: normal ENT inspection Neck Exam: normal inspection, non-tender, supple, full range of motion Respiratory Exam: normal breath sounds, lungs clear Cardiovascular Exam: regular rate/rhythm, normal heart sounds Gastrointestinal/Abdomen Exam: soft, normal bowel sounds Back Exam: normal range of motion Extremity Exam: normal inspection, normal range of motion Skin Exam: normal color, warm Results - Labs Lab/Micro Results: Lab Results-Last 24 Hours 03/07/23 03/07/23 03/07/23 Range/Units 16:00 16:00 16:00 WBC 5.5 (4.0-10.5) x10^3/uL RBC 3.17 L (4.1-5.4) x10^6/uL Hgb 9.6 L (12.0-16.0) g/dL Hct 29.5 L (35-47) % MCV 93.1 (78-100) fL MCH 30.3 (26-32) pg MCHC 32.5 (32-36) g/dL RDW 14.4 H (11.5-14.0) % Plt Count 159 (150-450) x10^3/uL MPV 12.4 H (7.5-11.0) fL Gran % 69.1 H (36.0-66.0) % Immature Gran % (Auto) 0.4 (0.00-0.4) % Nucleat RBC Rel Count 0.0 (0.00-0.1) % Eos # (Auto) 0.15 (0-0.5) x10^3/uL Immature Gran # (Auto) 0.02 (0.00-0.03) x10^3u/L Absolute Lymphs (auto) 1.12 (1.0-4.6) x10^3/uL Absolute Monos (auto) 0.35 (0.0-1.3) x10^3/uL Absolute Nucleated RBC 0.00 (0.00-0.01) x10^3u/L Lymphocytes % 20.5 L (24.0-44.0) % Monocytes % 6.4 (0.0-12.0) % Eosinophils % 2.7 (0.00-5.0) % Basophils % 0.9 (0.0-0.4) % Absolute Granulocytes 3.77 (1.4-6.9) x10^3/uL Basophils # 0.05 (0-0.4) x10^3/uL PT 12.2 (9.4-12.5) SECONDS INR 1.13 (0.8-3.0) APTT 35.3 (25.1-36.5) SECONDS Sodium 142 (137-145) mmol/L Potassium 3.4 L (3.5-5.1) mmol/L Chloride 110 H (98-107) mmol/L Carbon Dioxide 22 (22-30) mmol/L Anion Gap 13.7 (5-15) MEQ/L BUN 14 (7-17) mg/dL Creatinine 0.81 (0.52-1.04) mg/dL Estimated GFR > 60.0 ML/MIN Glucose 103 (74-106) mg/dL Calcium 7.8 L (8.4-10.2) mg/dL Total Bilirubin 0.40 (0.2-1.3) mg/dL AST 21 (14-36) U/L ALT 12 (0-35) U/L Alkaline Phosphatase 65 (38-126) U/L Serum Total Protein 6.7 (6.3-8.2) g/dL Albumin 3.5 (3.5-5.0) g/dL Urine Color (Yellow) Urine Appearance (Clear) Urine pH (4.6-8.0) Ur Specific [place] (1.005-1.030) Urine Protein (Negative) Urine Glucose (UA) (Negative) mg/dL Urine Ketones (Negative) Urine Blood (Negative) Urine Nitrite (Negative) Urine Bilirubin (Negative) Urine Urobilinogen (0.2) mg/dL Ur Leukocyte Esterase (Negative) U Hyaline Cast (Auto) (0-2) /LPF Urine Microscopic RBC (0-5) /HPF Urine Microscopic WBC (0-5) /HPF Ur Epithelial Cells (None Seen) /HPF Urine Bacteria (None Seen) /HPF Urine Culture Reflexed (NO) ABO Group Rh Factor Antibody Screen (NEGATIVE) 03/07/23 03/07/23 Range/Units 16:00 17:15 WBC (4.0-10.5) x10^3/uL RBC (4.1-5.4) x10^6/uL Hgb (12.0-16.0) g/dL Hct (35-47) % MCV (78-100) fL MCH (26-32) pg MCHC (32-36) g/dL RDW (11.5-14.0) % Plt Count (150-450) x10^3/uL MPV (7.5-11.0) fL Gran % (36.0-66.0) % Immature Gran % (Auto) (0.00-0.4) % Nucleat RBC Rel Count (0.00-0.1) % Eos # (Auto) (0-0.5) x10^3/uL Immature Gran # (Auto) (0.00-0.03) x10^3u/L Absolute Lymphs (auto) (1.0-4.6) x10^3/uL Absolute Monos (auto) (0.0-1.3) x10^3/uL Absolute Nucleated RBC (0.00-0.01) x10^3u/L Lymphocytes % (24.0-44.0) % Monocytes % (0.0-12.0) % Eosinophils % (0.00-5.0) % Basophils % (0.0-0.4) % Absolute Granulocytes (1.4-6.9) x10^3/uL Basophils # (0-0.4) x10^3/uL PT (9.4-12.5) SECONDS INR (0.8-3.0) APTT (25.1-36.5) SECONDS Sodium (137-145) mmol/L Potassium (3.5-5.1) mmol/L Chloride (98-107) mmol/L Carbon Dioxide (22-30) mmol/L Anion Gap (5-15) MEQ/L BUN (7-17) mg/dL Creatinine (0.52-1.04) mg/dL Estimated GFR ML/MIN Glucose (74-106) mg/dL Calcium (8.4-10.2) mg/dL Total Bilirubin (0.2-1.3) mg/dL AST (14-36) U/L ALT (0-35) U/L Alkaline Phosphatase (38-126) U/L Serum Total Protein (6.3-8.2) g/dL Albumin (3.5-5.0) g/dL Urine Color Yellow (Yellow) Urine Appearance Clear (Clear) Urine pH 5.5 (4.6-8.0) Ur Specific [place] 1.025 (1.005-1.030) Urine Protein 30 (Negative) Urine Glucose (UA) Negative (Negative) mg/dL Urine Ketones Negative (Negative) Urine Blood Negative (Negative) Urine Nitrite Positive A (Negative) Urine Bilirubin Negative (Negative) Urine Urobilinogen 0.2 (0.2) mg/dL Ur Leukocyte Esterase Small A (Negative) U Hyaline Cast (Auto) NONE SEEN (0-2) /LPF Urine Microscopic RBC 0-2 (0-5) /HPF Urine Microscopic WBC 11-20 A (0-5) /HPF Ur Epithelial Cells Rare (None Seen) /HPF Urine Bacteria Many A (None Seen) /HPF Urine Culture Reflexed YES (NO) ABO Group O Rh Factor POSITIVE Antibody Screen NEGATIVE (NEGATIVE) Assessment/Plan (1) Rectal bleeding Current Visit: Yes Status: Acute Assessment & Plan: Dr. Ojeda consulted by ED. Plan for colonoscopy on Sunday so will need bowel prep and encouragement tomorrow. Monitor counts. Hold iron in anticipation of endoscopy. Clear liquid diet for now. Code(s): K62.5 - HEMORRHAGE OF ANUS AND RECTUM (2) Anemia due to gastrointestinal blood loss Current Visit: Yes Status: Acute Assessment & Plan: Follow counts. Typed and screened; consider transfusion if trending down. Switch to IV PPI for now. Code(s): D50.0 - IRON DEFICIENCY ANEMIA SECONDARY TO BLOOD LOSS (CHRONIC) (3) UTI (urinary tract infection) Current Visit: No Status: Resolved Qualifiers: Assessment & Plan: IV antibiotics. Follow culture. Code(s): N39.0 - URINARY TRACT INFECTION, SITE NOT SPECIFIED Telemedicine Encounter - Telemedicine Encounter Telemedicine Encounter: The entirety of this encounter was performed via Telemedicine"
[2023-03-08] MEDS: Sodium Chloride 0.9% 1000 ML 1,000 ML IV SCH ×2 (03:57→13:55)
[2023-03-08 04:55] LABS: Absolute Neutrophil Ct (ANC) 3.69 x10^3/uL (1.4-6.9); BASOPHIL % 0.8 % (0.0-0.4); Basophil (Absolute #) 0.04 x10^3/uL (0-0.4); Eosinophil % 2.5 % (0.00-5.0); Eosinophil (Absolute #) 0.13 x10^3/uL (0-0.5); Hematocrit 26.2 % (35-47); Hemoglobin 8.4 g/dL (12.0-16.0); IMMATURE GRAN # 0.02 x10^3u/L (0.00-0.03); IMMATURE GRAN % 0.4 % (0.00-0.4); Lymphocyte (Absolute #) 1.01 x10^3/uL (1.0-4.6); Lymphocytes % 19.3 % (24.0-44.0); Mean Cell Volume 94.6 fL (78-100); Mean Corpuscular Hemoglobin 30.3 pg (26-32); Mean Corpuscular Hgb Concent. 32.1 g/dL (32-36); Mean Platelet Volume 12.6 fL (7.5-11.0); Monocyte (Absolute #) 0.34 x10^3/uL (0.0-1.3); Monocytes % 6.5 % (0.0-12.0); Neutrophil % 70.5 % (36.0-66.0); Platelet Count 121 x10^3/uL (150-450); Red Blood Count 2.77 x10^6/uL (4.1-5.4); Red Cell Distribution Width 14.5 % (11.5-14.0); White Blood Count 5.2 x10^3/uL (4.0-10.5)
[2023-03-08 05:31] LABS: ANION GAP 10.9 MEQ/L (5-15); BLOOD UREA NITROGEN 12 mg/dL (7-17); CHLORIDE 111 mmol/L (98-107); Calcium 7.1 mg/dL (8.4-10.2); Carbon Dioxide 23 mmol/L (22-30); Creatinine 1 0.73 mg/dL (0.52-1.04); EST GLOMERULAR FILTRATION RATE > 60.0 ML/MIN; Glucose 90 mg/dL (74-106); SODIUM 142 mmol/L (137-145)
[2023-03-08] MEDS ORDERED: POTASSIUM CHLORIDE 20 mEq IN WATER 100ML 20 MEQ/100 ML BAG IV SCH (06:00)
[2023-03-08] MEDS ORDERED: MAGNESIUM SULF 2 G/50 ML BAG 2 GM/50 ML PIGGYBACK IV ONE ×2 (06:42→07:41)
[2023-03-08] MEDS: Advair Hfa 115/21 Common canister IH SCH ×2 (06:57→18:38)
[2023-03-08] MEDS ORDERED: PHARMACY DOSING REQUEST MC ONE (07:37)
[2023-03-08] MEDS: Magnesium 1 Gm / 100 Ml D5W*** 100 ML IV SCH ×2 (07:42→08:42)
[2023-03-08] MEDS ORDERED: ENTRESTO 49 MG-51 MG TABLET PO SCH (08:00)
[2023-03-08] MEDS: ceLEXa 20 MG PO SCH (09:05)
[2023-03-08] MEDS: Calcium 500MG W/Vit D Tablet PO SCH (09:06)
[2023-03-08] MEDS: Acidophilus TABLET PO SCH (09:06)
[2023-03-08] MEDS: Klor Con PO SCH ×4 (09:06→16:57)
[2023-03-08] MEDS: Vitamin B-12 500 MCG PO SCH (09:06)
[2023-03-08] MEDS: FISH OIL 1,000 MG CAPSULE PO SCH (09:06)
[2023-03-08] MEDS: Lasix 40 MG PO SCH (09:06)
[2023-03-08] MEDS: ENTRESTO 49 MG-51 MG TABLET PO SCH ×2 (09:07→16:59)
[2023-03-08] MEDS: ROCEPHIN 1 Gm-D5w 50 ml Bag** 1 G/50 ML IVPB IV SCH (09:07)
[2023-03-08] MEDS: Coreg PO SCH ×2 (09:07→16:59)
[2023-03-08 09:14] LABS: IFOB TEST RESULTS POSITIVE (NEGATIVE)
[2023-03-08] MEDS ORDERED: NON-FORMULARY ITEM (Potassium Chloride [Potassium Chloride] 20 MEQ Tab.Er.Prt) PO SCH (10:00)
[2023-03-08] MEDS ORDERED: OMEGA PO SCH (10:00)
[2023-03-08] MEDS ORDERED: EPA PO SCH (10:00)
[2023-03-08] MEDS ORDERED: FISH OIL PO SCH (10:00)
[2023-03-08] MEDS ORDERED: DHA PO SCH (10:00)
[2023-03-08] MEDS ORDERED: NON-FORMULARY ITEM (Cyanocobalamin (Vitamin B-12) [B-12] 1,000 MCG Tablet) PO SCH (10:00)
[2023-03-08] MEDS ORDERED: NON-FORMULARY ITEM (Budesonide/Formoterol Fumarate [Budesonide-Formoterol 160-4.5] 10.2 GM IH SCH (10:00)
[2023-03-08] MEDS ORDERED: NON-FORMULARY ITEM (Escitalopram Oxalate [Lexapro] 20 MG Tablet) PO SCH (10:00)
[2023-03-08] MEDS ORDERED: Klor Con PO SCH (10:00)
[2023-03-08 10:06] LABS: Hematocrit 29.1 % (35-47); Hemoglobin 9.1 g/dL (12.0-16.0)
[2023-03-08 10:31] LABS: CROSS MATCH (PRBC) COMPATIBLE (COMPATIBLE)
[2023-03-08 13:54] LABS: Hematocrit 35.5 % (35-47)
[2023-03-08] MEDS ORDERED: Golytely Solution 4000 ML PO ONE (14:00)
[2023-03-08 14:03] LABS: Hemoglobin 11.3 g/dL (12.0-16.0)
--- NOTE | 2023-03-08 15:50 | PCM.NOTE ---
Date and Time: 03/08/23 1544 Subjective Assessment: Called to patient room due to profuse rectal bleeding with bright red blood after bowel movement. Patient reports that she has had some rectal bleeding but never this amounts. She states that she will intermittently notice bright red blood when wiping after bowel movement for some time. She reports that she has never had a colonoscopy. Denies abdominal pain, cramping, nausea, vomiting, fever, chills hematemesis, or melana. 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 - Review of Systems Constitutional: No Symptoms Eyes: No Symptoms Ears, Nose, & Throat: No Symptoms Respiratory: Short Of Breath Cardiac: No Symptoms Abdominal/Gastrointestinal: Other (rectal bleeding bright red blood) Genitourinary Symptoms: Vaginal Itching Musculoskeletal: No Symptoms Skin: No Symptoms Neurological: No Symptoms Psychological: No Symptoms Hematologic/Lymphatic: Anemia Objective Exam General Appearance: no apparent distress Neurologic Exam: alert, oriented x 3, cooperative, normal mood/affect Skin Exam: pale Respiratory Exam: normal breath sounds, lungs clear Gastrointestinal/Abdomen Exam: soft, normal bowel sounds Extremity Exam: normal inspection OBJECTIVE DATA Vital Signs: Vital Signs - 24 hr Temp Pulse Resp BP BP Pulse Ox 03/08/23 11:45 97.1 F 51 L 136/60 100 03/08/23 07:38 97.3 F 63 16 137/61 93 L 03/08/23 07:00 64 20 99 03/08/23 04:00 97.8 F 103 H 22 138/63 94 L 03/07/23 23:45 98.0 F 64 16 131/65 98 03/07/23 23:00 64 16 98 03/07/23 22:12 98.0 F 71 19 131/65 94 L 03/07/23 20:30 76 17 137/72 96 03/07/23 20:00 65 18 143/72 98 03/07/23 19:32 97 03/07/23 19:30 139/70 97 03/07/23 19:00 96 H 16 141/78 03/07/23 18:30 140/75 03/07/23 18:00 141/81 97 03/07/23 17:30 139/93 98 03/07/23 17:00 68 16 137/75 98 03/07/23 16:30 131/69 90 L 03/07/23 16:11 124/80 97 Pain Assessment - Last Documented Pain Intensity 0 Intake and Output: Intake & Output 03/06/23 03/07/23 03/08/23 03/09/23 11:59 11:59 11:59 11:59 Intake Total 1190 1368 Balance 1190 1368 Weight 56.7 kg Lab Results: Lab Results-Last 24 Hours 03/07/23 03/07/23 03/07/23 Range/Units 09:00 16:00 16:00 WBC 5.5 (4.0-10.5) x10^3/uL RBC 3.17 L (4.1-5.4) x10^6/uL Hgb 9.6 L (12.0-16.0) g/dL Hct 29.5 L (35-47) % MCV 93.1 (78-100) fL MCH 30.3 (26-32) pg MCHC 32.5 (32-36) g/dL RDW 14.4 H (11.5-14.0) % Plt Count 159 (150-450) x10^3/uL MPV 12.4 H (7.5-11.0) fL Gran % 69.1 H (36.0-66.0) % Immature Gran % (Auto) 0.4 (0.00-0.4) % Nucleat RBC Rel Count 0.0 (0.00-0.1) % Eos # (Auto) 0.15 (0-0.5) x10^3/uL Immature Gran # (Auto) 0.02 (0.00-0.03) x10^3u/L Absolute Lymphs (auto) 1.12 (1.0-4.6) x10^3/uL Absolute Monos (auto) 0.35 (0.0-1.3) x10^3/uL Absolute Nucleated RBC 0.00 (0.00-0.01) x10^3u/L Lymphocytes % 20.5 L (24.0-44.0) % Monocytes % 6.4 (0.0-12.0) % Eosinophils % 2.7 (0.00-5.0) % Basophils % 0.9 (0.0-0.4) % Absolute Granulocytes 3.77 (1.4-6.9) x10^3/uL Basophils # 0.05 (0-0.4) x10^3/uL PT (9.4-12.5) SECONDS INR (0.8-3.0) APTT (25.1-36.5) SECONDS Sodium 142 (137-145) mmol/L Potassium 3.4 L (3.5-5.1) mmol/L Chloride 110 H (98-107) mmol/L Carbon Dioxide 22 (22-30) mmol/L Anion Gap 13.7 (5-15) MEQ/L BUN 14 (7-17) mg/dL Creatinine 0.81 (0.52-1.04) mg/dL Estimated GFR > 60.0 ML/MIN Glucose 103 (74-106) mg/dL Calcium 7.8 L (8.4-10.2) mg/dL Magnesium (1.6-2.3) mg/dL Total Bilirubin 0.40 (0.2-1.3) mg/dL AST 21 (14-36) U/L ALT 12 (0-35) U/L Alkaline Phosphatase 65 (38-126) U/L Serum Total Protein 6.7 (6.3-8.2) g/dL Albumin 3.5 (3.5-5.0) g/dL Urine Color (Yellow) Urine Appearance (Clear) Urine pH (4.6-8.0) Ur Specific Grayson (1.005-1.030) Urine Protein (Negative) Urine Glucose (UA) (Negative) mg/dL Urine Ketones (Negative) Urine Blood (Negative) Urine Nitrite (Negative) Urine Bilirubin (Negative) Urine Urobilinogen (0.2) mg/dL Ur Leukocyte Esterase (Negative) U Hyaline Cast (Auto) (0-2) /LPF Urine Microscopic RBC (0-5) /HPF Urine Microscopic WBC (0-5) /HPF Ur Epithelial Cells (None Seen) /HPF Urine Bacteria (None Seen) /HPF Urine Culture Reflexed (NO) Stl Occult Blood (IFOB) POSITIVE A (NEGATIVE) ABO Group Rh Factor Antibody Screen (NEGATIVE) Crossmatch (COMPATIBLE) 03/07/23 03/07/23 03/07/23 Range/Units 16:00 16:00 17:15 WBC (4.0-10.5) x10^3/uL RBC (4.1-5.4) x10^6/uL Hgb (12.0-16.0) g/dL Hct (35-47) % MCV (78-100) fL MCH (26-32) pg MCHC (32-36) g/dL RDW (11.5-14.0) % Plt Count (150-450) x10^3/uL MPV (7.5-11.0) fL Gran % (36.0-66.0) % Immature Gran % (Auto) (0.00-0.4) % Nucleat RBC Rel Count (0.00-0.1) % Eos # (Auto) (0-0.5) x10^3/uL Immature Gran # (Auto) (0.00-0.03) x10^3u/L Absolute Lymphs (auto) (1.0-4.6) x10^3/uL Absolute Monos (auto) (0.0-1.3) x10^3/uL Absolute Nucleated RBC (0.00-0.01) x10^3u/L Lymphocytes % (24.0-44.0) % Monocytes % (0.0-12.0) % Eosinophils % (0.00-5.0) % Basophils % (0.0-0.4) % Absolute Granulocytes (1.4-6.9) x10^3/uL Basophils # (0-0.4) x10^3/uL PT 12.2 (9.4-12.5) SECONDS INR 1.13 (0.8-3.0) APTT 35.3 (25.1-36.5) SECONDS Sodium (137-145) mmol/L Potassium (3.5-5.1) mmol/L Chloride (98-107) mmol/L Carbon Dioxide (22-30) mmol/L Anion Gap (5-15) MEQ/L BUN (7-17) mg/dL Creatinine (0.52-1.04) mg/dL Estimated GFR ML/MIN Glucose (74-106) mg/dL Calcium (8.4-10.2) mg/dL Magnesium (1.6-2.3) mg/dL Total Bilirubin (0.2-1.3) mg/dL AST (14-36) U/L ALT (0-35) U/L Alkaline Phosphatase (38-126) U/L Serum Total Protein (6.3-8.2) g/dL Albumin (3.5-5.0) g/dL Urine Color Yellow (Yellow) Urine Appearance Clear (Clear) Urine pH 5.5 (4.6-8.0) Ur Specific Grayson 1.025 (1.005-1.030) Urine Protein 30 (Negative) Urine Glucose (UA) Negative (Negative) mg/dL Urine Ketones Negative (Negative) Urine Blood Negative (Negative) Urine Nitrite Positive A (Negative) Urine Bilirubin Negative (Negative) Urine Urobilinogen 0.2 (0.2) mg/dL Ur Leukocyte Esterase Small A (Negative) U Hyaline Cast (Auto) NONE SEEN (0-2) /LPF Urine Microscopic RBC 0-2 (0-5) /HPF Urine Microscopic WBC 11-20 A (0-5) /HPF Ur Epithelial Cells Rare (None Seen) /HPF Urine Bacteria Many A (None Seen) /HPF Urine Culture Reflexed YES (NO) Stl Occult Blood (IFOB) (NEGATIVE) ABO Group O Rh Factor POSITIVE Antibody Screen NEGATIVE (NEGATIVE) Crossmatch (COMPATIBLE) 03/07/23 03/08/23 03/08/23 Range/Units 23:53 04:34 04:34 WBC 5.2 (4.0-10.5) x10^3/uL RBC 2.77 L (4.1-5.4) x10^6/uL Hgb 9.3 L 8.4 L (12.0-16.0) g/dL Hct 26.2 L (35-47) % MCV 94.6 (78-100) fL MCH 30.3 (26-32) pg MCHC 32.1 (32-36) g/dL RDW 14.5 H (11.5-14.0) % Plt Count 121 L (150-450) x10^3/uL MPV 12.6 H (7.5-11.0) fL Gran % 70.5 H (36.0-66.0) % Immature Gran % (Auto) 0.4 (0.00-0.4) % Nucleat RBC Rel Count 0.0 (0.00-0.1) % Eos # (Auto) 0.13 (0-0.5) x10^3/uL Immature Gran # (Auto) 0.02 (0.00-0.03) x10^3u/L Absolute Lymphs (auto) 1.01 (1.0-4.6) x10^3/uL Absolute Monos (auto) 0.34 (0.0-1.3) x10^3/uL Absolute Nucleated RBC 0.00 (0.00-0.01) x10^3u/L Lymphocytes % 19.3 L (24.0-44.0) % Monocytes % 6.5 (0.0-12.0) % Eosinophils % 2.5 (0.00-5.0) % Basophils % 0.8 (0.0-0.4) % Absolute Granulocytes 3.69 (1.4-6.9) x10^3/uL Basophils # 0.04 (0-0.4) x10^3/uL PT (9.4-12.5) SECONDS INR (0.8-3.0) APTT (25.1-36.5) SECONDS Sodium 142 (137-145) mmol/L Potassium 3.0 L* (3.5-5.1) mmol/L Chloride 111 H (98-107) mmol/L Carbon Dioxide 23 (22-30) mmol/L Anion Gap 10.9 (5-15) MEQ/L BUN 12 (7-17) mg/dL Creatinine 0.73 (0.52-1.04) mg/dL Estimated GFR > 60.0 ML/MIN Glucose 90 (74-106) mg/dL Calcium 7.1 L (8.4-10.2) mg/dL Magnesium (1.6-2.3) mg/dL Total Bilirubin (0.2-1.3) mg/dL AST (14-36) U/L ALT (0-35) U/L Alkaline Phosphatase (38-126) U/L Serum Total Protein (6.3-8.2) g/dL Albumin (3.5-5.0) g/dL Urine Color (Yellow) Urine Appearance (Clear) Urine pH (4.6-8.0) Ur Specific Grayson (1.005-1.030) Urine Protein (Negative) Urine Glucose (UA) (Negative) mg/dL Urine Ketones (Negative) Urine Blood (Negative) Urine Nitrite (Negative) Urine Bilirubin (Negative) Urine Urobilinogen (0.2) mg/dL Ur Leukocyte Esterase (Negative) U Hyaline Cast (Auto) (0-2) /LPF Urine Microscopic RBC (0-5) /HPF Urine Microscopic WBC (0-5) /HPF Ur Epithelial Cells (None Seen) /HPF Urine Bacteria (None Seen) /HPF Urine Culture Reflexed (NO) Stl Occult Blood (IFOB) (NEGATIVE) ABO Group Rh Factor Antibody Screen (NEGATIVE) Crossmatch (COMPATIBLE) 03/08/23 03/08/23 03/08/23 Range/Units 04:34 09:20 10:23 WBC (4.0-10.5) x10^3/uL RBC (4.1-5.4) x10^6/uL Hgb 9.1 L (12.0-16.0) g/dL Hct 29.1 L (35-47) % MCV (78-100) fL MCH (26-32) pg MCHC (32-36) g/dL RDW (11.5-14.0) % Plt Count (150-450) x10^3/uL MPV (7.5-11.0) fL Gran % (36.0-66.0) % Immature Gran % (Auto) (0.00-0.4) % Nucleat RBC Rel Count (0.00-0.1) % Eos # (Auto) (0-0.5) x10^3/uL Immature Gran # (Auto) (0.00-0.03) x10^3u/L Absolute Lymphs (auto) (1.0-4.6) x10^3/uL Absolute Monos (auto) (0.0-1.3) x10^3/uL Absolute Nucleated RBC (0.00-0.01) x10^3u/L Lymphocytes % (24.0-44.0) % Monocytes % (0.0-12.0) % Eosinophils % (0.00-5.0) % Basophils % (0.0-0.4) % Absolute Granulocytes (1.4-6.9) x10^3/uL Basophils # (0-0.4) x10^3/uL PT (9.4-12.5) SECONDS INR (0.8-3.0) APTT (25.1-36.5) SECONDS Sodium (137-145) mmol/L Potassium (3.5-5.1) mmol/L Chloride (98-107) mmol/L Carbon Dioxide (22-30) mmol/L Anion Gap (5-15) MEQ/L BUN (7-17) mg/dL Creatinine (0.52-1.04) mg/dL Estimated GFR ML/MIN Glucose (74-106) mg/dL Calcium (8.4-10.2) mg/dL Magnesium 1.1 L (1.6-2.3) mg/dL Total Bilirubin (0.2-1.3) mg/dL AST (14-36) U/L ALT (0-35) U/L Alkaline Phosphatase (38-126) U/L Serum Total Protein (6.3-8.2) g/dL Albumin (3.5-5.0) g/dL Urine Color (Yellow) Urine Appearance (Clear) Urine pH (4.6-8.0) Ur Specific Grayson (1.005-1.030) Urine Protein (Negative) Urine Glucose (UA) (Negative) mg/dL Urine Ketones (Negative) Urine Blood (Negative) Urine Nitrite (Negative) Urine Bilirubin (Negative) Urine Urobilinogen (0.2) mg/dL Ur Leukocyte Esterase (Negative) U Hyaline Cast (Auto) (0-2) /LPF Urine Microscopic RBC (0-5) /HPF Urine Microscopic WBC (0-5) /HPF Ur Epithelial Cells (None Seen) /HPF Urine Bacteria (None Seen) /HPF Urine Culture Reflexed (NO) Stl Occult Blood (IFOB) (NEGATIVE) ABO Group Rh Factor Antibody Screen (NEGATIVE) Crossmatch COMPATIBLE (COMPATIBLE) 03/08/23 03/08/23 03/08/23 Range/Units 10:26 13:20 13:50 WBC (4.0-10.5) x10^3/uL RBC (4.1-5.4) x10^6/uL Hgb 11.3 L D (12.0-16.0) g/dL Hct 35.5 (35-47) % MCV (78-100) fL MCH (26-32) pg MCHC (32-36) g/dL RDW (11.5-14.0) % Plt Count (150-450) x10^3/uL MPV (7.5-11.0) fL Gran % (36.0-66.0) % Immature Gran % (Auto) (0.00-0.4) % Nucleat RBC Rel Count (0.00-0.1) % Eos # (Auto) (0-0.5) x10^3/uL Immature Gran # (Auto) (0.00-0.03) x10^3u/L Absolute Lymphs (auto) (1.0-4.6) x10^3/uL Absolute Monos (auto) (0.0-1.3) x10^3/uL Absolute Nucleated RBC (0.00-0.01) x10^3u/L Lymphocytes % (24.0-44.0) % Monocytes % (0.0-12.0) % Eosinophils % (0.00-5.0) % Basophils % (0.0-0.4) % Absolute Granulocytes (1.4-6.9) x10^3/uL Basophils # (0-0.4) x10^3/uL PT (9.4-12.5) SECONDS INR (0.8-3.0) APTT (25.1-36.5) SECONDS Sodium (137-145) mmol/L Potassium 3.7 D (3.5-5.1) mmol/L Chloride (98-107) mmol/L Carbon Dioxide (22-30) mmol/L Anion Gap (5-15) MEQ/L BUN (7-17) mg/dL Creatinine (0.52-1.04) mg/dL Estimated GFR ML/MIN Glucose (74-106) mg/dL Calcium (8.4-10.2) mg/dL Magnesium (1.6-2.3) mg/dL Total Bilirubin (0.2-1.3) mg/dL AST (14-36) U/L ALT (0-35) U/L Alkaline Phosphatase (38-126) U/L Serum Total Protein (6.3-8.2) g/dL Albumin (3.5-5.0) g/dL Urine Color (Yellow) Urine Appearance (Clear) Urine pH (4.6-8.0) Ur Specific Grayson (1.005-1.030) Urine Protein (Negative) Urine Glucose (UA) (Negative) mg/dL Urine Ketones (Negative) Urine Blood (Negative) Urine Nitrite (Negative) Urine Bilirubin (Negative) Urine Urobilinogen (0.2) mg/dL Ur Leukocyte Esterase (Negative) U Hyaline Cast (Auto) (0-2) /LPF Urine Microscopic RBC (0-5) /HPF Urine Microscopic WBC (0-5) /HPF Ur Epithelial Cells (None Seen) /HPF Urine Bacteria (None Seen) /HPF Urine Culture Reflexed (NO) Stl Occult Blood (IFOB) (NEGATIVE) ABO Group Rh Factor Antibody Screen (NEGATIVE) Crossmatch COMPATIBLE (COMPATIBLE) 03/08/23 Range/Units Unknown WBC (4.0-10.5) x10^3/uL RBC (4.1-5.4) x10^6/uL Hgb (12.0-16.0) g/dL Hct (35-47) % MCV (78-100) fL MCH (26-32) pg MCHC (32-36) g/dL RDW (11.5-14.0) % Plt Count (150-450) x10^3/uL MPV (7.5-11.0) fL Gran % (36.0-66.0) % Immature Gran % (Auto) (0.00-0.4) % Nucleat RBC Rel Count (0.00-0.1) % Eos # (Auto) (0-0.5) x10^3/uL Immature Gran # (Auto) (0.00-0.03) x10^3u/L Absolute Lymphs (auto) (1.0-4.6) x10^3/uL Absolute Monos (auto) (0.0-1.3) x10^3/uL Absolute Nucleated RBC (0.00-0.01) x10^3u/L Lymphocytes % (24.0-44.0) % Monocytes % (0.0-12.0) % Eosinophils % (0.00-5.0) % Basophils % (0.0-0.4) % Absolute Granulocytes (1.4-6.9) x10^3/uL Basophils # (0-0.4) x10^3/uL PT (9.4-12.5) SECONDS INR (0.8-3.0) APTT (25.1-36.5) SECONDS Sodium (137-145) mmol/L Potassium (3.5-5.1) mmol/L Chloride (98-107) mmol/L Carbon Dioxide (22-30) mmol/L Anion Gap (5-15) MEQ/L BUN (7-17) mg/dL Creatinine (0.52-1.04) mg/dL Estimated GFR ML/MIN Glucose (74-106) mg/dL Calcium (8.4-10.2) mg/dL Magnesium (1.6-2.3) mg/dL Total Bilirubin (0.2-1.3) mg/dL AST (14-36) U/L ALT (0-35) U/L Alkaline Phosphatase (38-126) U/L Serum Total Protein (6.3-8.2) g/dL Albumin (3.5-5.0) g/dL Urine Color (Yellow) Urine Appearance (Clear) Urine pH (4.6-8.0) Ur Specific Grayson (1.005-1.030) Urine Protein (Negative) Urine Glucose (UA) (Negative) mg/dL Urine Ketones (Negative) Urine Blood (Negative) Urine Nitrite (Negative) Urine Bilirubin (Negative) Urine Urobilinogen (0.2) mg/dL Ur Leukocyte Esterase (Negative) U Hyaline Cast (Auto) (0-2) /LPF Urine Microscopic RBC (0-5) /HPF Urine Microscopic WBC (0-5) /HPF Ur Epithelial Cells (None Seen) /HPF Urine Bacteria (None Seen) /HPF Urine Culture Reflexed (NO) Stl Occult Blood (IFOB) (NEGATIVE) ABO Group Rh Factor Antibody Screen (NEGATIVE) Crossmatch COMPATIBLE (COMPATIBLE) Multi-Disciplinary Progress Notes: Multi-Disciplinary Progress Notes 03/08/23 12:29 Case Management Note by Cinthia Otero PATIENT HAS [facility]. THEY WERE NOTIFIED PATIENT HERE OBS. THEY WILL NEED NOTIFIED AT TIME OF DC AT [phone]. THEY WILL NEED FAXED THE DC INSTRUCTIONS, DC MED LIST AND DC SUMMARY ( IF AVAILABLE) TO [phone] Initialized on 03/08/23 12:29 - END OF NOTE Assessment/Plan (1) Rectal bleeding Current Visit: Yes Status: Acute Assessment & Plan: is a 77 year old female who presents to the hospital with a complaint of rectal bleeding. There was a documentation in the ED about vaginal bleeding, but this was denied by the patient. The patient has a history of intermittent rectal bleeding over the past year and had been referred for colonoscopy, but the patient refused; she follows with Dr. Stapleton for iron deficiency anemia and does get transfusions and takes oral iron. Patient noted with profuse rectal bleeding upon exam, plan is for colonoscopy 03/09/23 as well as 1 unit LPRBC 03/08/23. -Hgb this morning noted at 8.4, due to profuse rectal bleeding will give 1 unit lprbc -Continue to monitor and replace if < 7 -Plan for scopes 03/09/23, CLD for now, NPO after midnight, prep per surgeon protocol Code(s): K62.5 - HEMORRHAGE OF ANUS AND RECTUM (2) Anemia due to gastrointestinal blood loss Current Visit: Yes Status: Acute Assessment & Plan: See rectal bleed Code(s): D50.0 - IRON DEFICIENCY ANEMIA SECONDARY TO BLOOD LOSS (CHRONIC) (3) Hypomagnesemia Current Visit: Yes Status: Acute Assessment & Plan: -Labs reviewed with mag at 1.1, will replenish with mag sulfate 4g -Monitor renal/lytes daily, replace as appropriate Code(s): E83.42 - HYPOMAGNESEMIA (4) Hypokalemia Current Visit: No Status: Acute Assessment & Plan: -Labs reviewed with potassium noted at 3.0, will replenish Code(s): E87.6 - HYPOKALEMIA (5) UTI (urinary tract infection) Current Visit: No Status: Resolved Qualifiers: Assessment & Plan: -Urine culture with gram negative rods, will treat empiraclly with rocephin, follow culture Code(s): N39.0 - URINARY TRACT INFECTION, SITE NOT SPECIFIED (6) Acute on chronic systolic heart failure Current Visit: No Status: Acute Assessment & Plan: -Noted, does not appear to be in exacerbation, will continue home meds Code(s): I50.23 - ACUTE ON CHRONIC SYSTOLIC (CONGESTIVE) HEART FAILURE (7) Chronic obstruct airways disease Current Visit: Yes Status: Acute Assessment & Plan: -Noted, RT evaluation Telemedicine Encounter - Telemedicine Encounter Telemedicine Encounter: The entirety of this encounter was performed via Telemedicine"
[2023-03-08] MEDS ORDERED: xanAX 0.25 MG PO PRN (17:45)
[2023-03-08 17:46] LABS: Hematocrit 30.6 % (35-47); Hemoglobin 10.1 g/dL (12.0-16.0)
[2023-03-08] MEDS: PROTONIX 40 MG IV IV SCH (21:40)
[2023-03-08 21:53] LABS: Hemoglobin 9.6 g/dL (12.0-16.0)
[2023-03-09 04:58] LABS: Hematocrit 26.2 % (35-47); Hemoglobin 8.7 g/dL (12.0-16.0); Mean Cell Volume 89.7 fL (78-100); Mean Corpuscular Hemoglobin 29.8 pg (26-32); Mean Corpuscular Hgb Concent. 33.2 g/dL (32-36); Platelet Count 125 x10^3/uL (150-450); Red Blood Count 2.92 x10^6/uL (4.1-5.4); Red Cell Distribution Width 14.9 % (11.5-14.0); White Blood Count 6.8 x10^3/uL (4.0-10.5)
[2023-03-09] MEDS: Sodium Chloride 0.9% 1000 ML 1,000 ML IV SCH ×3 (05:00→21:58)
[2023-03-09 05:33] LABS: ANION GAP 12.3 MEQ/L (5-15); BLOOD UREA NITROGEN 8 mg/dL (7-17); CHLORIDE 108 mmol/L (98-107); Calcium 7.1 mg/dL (8.4-10.2); Carbon Dioxide 19 mmol/L (22-30); Creatinine 1 0.69 mg/dL (0.52-1.04); EST GLOMERULAR FILTRATION RATE > 60.0 ML/MIN; Glucose 100 mg/dL (74-106); MAGNESIUM 1.4 mg/dL (1.6-2.3); Potassium 3.4 mmol/L (3.5-5.1); SODIUM 136 mmol/L (137-145)
[2023-03-09] MEDS ORDERED: MAGNESIUM SULF 2 G/50 ML BAG 2 GM/50 ML PIGGYBACK IV ONE (06:16)
[2023-03-09] MEDS: Klor Con PO SCH ×4 (06:58→14:47)
[2023-03-09] MEDS: Advair Hfa 115/21 Common canister IH SCH ×2 (07:23→19:19)
[2023-03-09 08:57] LABS: Hematocrit 26.9 % (35-47); Hemoglobin 8.8 g/dL (12.0-16.0); Mean Cell Volume 92.1 fL (78-100); Mean Corpuscular Hemoglobin 30.1 pg (26-32); Mean Corpuscular Hgb Concent. 32.7 g/dL (32-36); Mean Platelet Volume 11.9 fL (7.5-11.0); Platelet Count 125 x10^3/uL (150-450); Red Blood Count 2.92 x10^6/uL (4.1-5.4); Red Cell Distribution Width 14.8 % (11.5-14.0); White Blood Count 6.7 x10^3/uL (4.0-10.5)
[2023-03-09] MEDS: Coreg PO SCH ×2 (09:15→17:41)
[2023-03-09] MEDS: Acidophilus TABLET PO SCH (09:16)
[2023-03-09] MEDS: Calcium 500MG W/Vit D Tablet PO SCH (09:16)
[2023-03-09] MEDS: ENTRESTO 49 MG-51 MG TABLET PO SCH ×2 (09:16→17:41)
[2023-03-09] MEDS: FISH OIL 1,000 MG CAPSULE PO SCH (09:17)
[2023-03-09] MEDS: ceLEXa 20 MG PO SCH (09:17)
[2023-03-09] MEDS: Lasix 40 MG PO SCH (09:17)
[2023-03-09] MEDS: Vitamin B-12 500 MCG PO SCH (09:18)
[2023-03-09] MEDS: ROCEPHIN 1 Gm-D5w 50 ml Bag** 1 G/50 ML IVPB IV SCH (09:19)
[2023-03-09] MEDS ORDERED: Klor Con PO SCH (10:00)
--- NOTE | 2023-03-09 10:12 | PCM.NOTE ---
Date and Time: 03/09/23 1007 Subjective Assessment: Patient examined bedside. Midline placed due to no IV access despite multiple attempts. Patient tolerated bowel prep well. Endorses dysuria as well as some bright red blood with bowel movement. Plan is for colonoscopy/EGD today, urine is growing ecoli, will continue the ceftriaxone for a total of three days. - Review of Systems Constitutional: No Symptoms Eyes: No Symptoms Ears, Nose, & Throat: No Symptoms Respiratory: Cough, Short Of Breath Cardiac: No Symptoms Abdominal/Gastrointestinal: Hematochezia Genitourinary Symptoms: Dysuria Musculoskeletal: No Symptoms Skin: No Symptoms Neurological: No Symptoms Psychological: No Symptoms Objective Exam General Appearance: mild distress Neurologic Exam: alert, oriented x 3, cooperative Skin Exam: normal color Eye Exam: PERRL Respiratory Exam: normal breath sounds, lungs clear Cardiovascular Exam: regular rate/rhythm Gastrointestinal/Abdomen Exam: soft, normal bowel sounds Extremity Exam: normal inspection Rectal Exam: blood, other (appears to have a rectal prolapse) OBJECTIVE DATA Vital Signs: Vital Signs - 24 hr Temp Pulse Resp BP Pulse Ox 03/09/23 07:25 47 L 14 99 03/09/23 07:16 97.6 F 62 16 132/69 99 03/09/23 03:51 98.6 F 52 L 18 113/59 98 03/08/23 23:53 98.3 F 65 19 116/61 99 03/08/23 20:00 98.6 F 59 L 19 113/61 96 03/08/23 18:38 62 18 99 03/08/23 16:00 97.7 F 59 L 16 152/59 97 03/08/23 11:45 97.1 F 51 L 136/60 100 Pain Assessment - Last Documented Pain Intensity 0 Intake and Output: Intake & Output 03/06/23 03/07/23 03/08/23 03/09/23 11:59 11:59 11:59 11:59 Intake Total 1190 2950 Output Total 1 Balance 1190 2949 Weight 56.7 kg 56.2 kg Lab Results: Lab Results-Last 24 Hours 03/08/23 03/08/23 03/08/23 Range/Units 09:20 10:23 10:26 WBC (4.0-10.5) x10^3/uL RBC (4.1-5.4) x10^6/uL Hgb 9.1 L (12.0-16.0) g/dL Hct 29.1 L (35-47) % MCV (78-100) fL MCH (26-32) pg MCHC (32-36) g/dL RDW (11.5-14.0) % Plt Count (150-450) x10^3/uL MPV (7.5-11.0) fL Sodium (137-145) mmol/L Potassium (3.5-5.1) mmol/L Chloride (98-107) mmol/L Carbon Dioxide (22-30) mmol/L Anion Gap (5-15) MEQ/L BUN (7-17) mg/dL Creatinine (0.52-1.04) mg/dL Estimated GFR ML/MIN Glucose (74-106) mg/dL Calcium (8.4-10.2) mg/dL Magnesium (1.6-2.3) mg/dL Crossmatch COMPATIBLE COMPATIBLE (COMPATIBLE) 03/08/23 03/08/23 03/08/23 Range/Units 13:20 13:50 17:40 WBC (4.0-10.5) x10^3/uL RBC (4.1-5.4) x10^6/uL Hgb 11.3 L D (12.0-16.0) g/dL Hct 35.5 (35-47) % MCV (78-100) fL MCH (26-32) pg MCHC (32-36) g/dL RDW (11.5-14.0) % Plt Count (150-450) x10^3/uL MPV (7.5-11.0) fL Sodium (137-145) mmol/L Potassium 3.7 D 3.5 (3.5-5.1) mmol/L Chloride (98-107) mmol/L Carbon Dioxide (22-30) mmol/L Anion Gap (5-15) MEQ/L BUN (7-17) mg/dL Creatinine (0.52-1.04) mg/dL Estimated GFR ML/MIN Glucose (74-106) mg/dL Calcium (8.4-10.2) mg/dL Magnesium (1.6-2.3) mg/dL Crossmatch (COMPATIBLE) 03/08/23 03/08/23 03/08/23 Range/Units 17:40 21:50 Unknown WBC (4.0-10.5) x10^3/uL RBC (4.1-5.4) x10^6/uL Hgb 10.1 L 9.6 L (12.0-16.0) g/dL Hct 30.6 L 29.0 L (35-47) % MCV (78-100) fL MCH (26-32) pg MCHC (32-36) g/dL RDW (11.5-14.0) % Plt Count (150-450) x10^3/uL MPV (7.5-11.0) fL Sodium (137-145) mmol/L Potassium (3.5-5.1) mmol/L Chloride (98-107) mmol/L Carbon Dioxide (22-30) mmol/L Anion Gap (5-15) MEQ/L BUN (7-17) mg/dL Creatinine (0.52-1.04) mg/dL Estimated GFR ML/MIN Glucose (74-106) mg/dL Calcium (8.4-10.2) mg/dL Magnesium (1.6-2.3) mg/dL Crossmatch COMPATIBLE (COMPATIBLE) 03/09/23 03/09/23 03/09/23 Range/Units 04:52 04:52 08:52 WBC 6.8 6.7 (4.0-10.5) x10^3/uL RBC 2.92 L 2.92 L (4.1-5.4) x10^6/uL Hgb 8.7 L 8.8 L (12.0-16.0) g/dL Hct 26.2 L 26.9 L (35-47) % MCV 89.7 92.1 (78-100) fL MCH 29.8 30.1 (26-32) pg MCHC 33.2 32.7 (32-36) g/dL RDW 14.9 H 14.8 H (11.5-14.0) % Plt Count 125 L 125 L (150-450) x10^3/uL MPV 12.0 H 11.9 H (7.5-11.0) fL Sodium 136 L (137-145) mmol/L Potassium 3.4 L (3.5-5.1) mmol/L Chloride 108 H (98-107) mmol/L Carbon Dioxide 19 L (22-30) mmol/L Anion Gap 12.3 (5-15) MEQ/L BUN 8 (7-17) mg/dL Creatinine 0.69 (0.52-1.04) mg/dL Estimated GFR > 60.0 ML/MIN Glucose 100 (74-106) mg/dL Calcium 7.1 L (8.4-10.2) mg/dL Magnesium 1.4 L (1.6-2.3) mg/dL Crossmatch (COMPATIBLE) Multi-Disciplinary Progress Notes: Multi-Disciplinary Progress Notes 03/08/23 12:29 Case Management Note by Cinthia Otero PATIENT HAS [facility]. THEY WERE NOTIFIED PATIENT HERE OBS. THEY WILL NEED NOTIFIED AT TIME OF DC AT [phone]. THEY WILL NEED FAXED THE DC INSTRUCTIONS, DC MED LIST AND DC SUMMARY ( IF AVAILABLE) TO [phone] Initialized on 03/08/23 12:29 - END OF NOTE Assessment/Plan (1) Rectal bleeding Current Visit: Yes Status: Acute Assessment & Plan: 77-year-old with a history of iron deficiency anemia and suspected bleeding, but has never had a colonoscopy. Admitted with hematochezia, with witnessed large BRBPR 03/08/23, upon inspection rectum appears to be prolapsed. However, her vitals remained stable, and repeat hemoglobin did not show a drop. She was given a unit of blood because of the ongoing bleeding with a hemoglobin of 8.4. Likely, this appears to have stabilized. Surgery has been consulted, and planning for colonoscopy 03/09/23. Of note, patient also U-cult positive for ecoli, will continue on ceftriaxone. -Plan for colonoscopy today -Continue to monitor H&H, hgb remains stable at 8.8, will replace if <7 Code(s): K62.5 - HEMORRHAGE OF ANUS AND RECTUM (2) Anemia due to gastrointestinal blood loss Current Visit: Yes Status: Acute Assessment & Plan: -secondary to rectal bleeding, will continue to monitor H&H, replace if hgb <7 Code(s): D50.0 - IRON DEFICIENCY ANEMIA SECONDARY TO BLOOD LOSS (CHRONIC) (3) Hypomagnesemia Current Visit: Yes Status: Acute Assessment & Plan: -Received 4grams of mag sulfate 03/08/23 but continues to be deficient, will replace with mag sulfate 2g Code(s): E83.42 - HYPOMAGNESEMIA (4) Hypokalemia Current Visit: No Status: Acute Assessment & Plan: -Continue potassium protocol, levels have improved today now at 3.4 Code(s): E87.6 - HYPOKALEMIA (5) UTI (urinary tract infection) Current Visit: No Status: Resolved Qualifiers: Assessment & Plan: -Urine cult positive to [facility], continue on ceftriaxone for one more day Code(s): N39.0 - URINARY TRACT INFECTION, SITE NOT SPECIFIED (6) Acute on chronic systolic heart failure Current Visit: No Status: Acute Assessment & Plan: _noted continue home meds Code(s): I50.23 - ACUTE ON CHRONIC SYSTOLIC (CONGESTIVE) HEART FAILURE (7) Chronic obstruct airways disease Current Visit: Yes Status: Acute Assessment & Plan: -Noted, does not appear to be in exacerbation, will continue to monitor Telemedicine Encounter - Telemedicine Encounter Telemedicine Encounter: The entirety of this encounter was performed via Telemedicine"
--- NOTE | 2023-03-09 11:18 | PCM.DS ---
Discharge Summary Date of Admission: 03/07/23 21:48 Date of Discharge: 03/09/2023 Admitting Physician: KENDAL BARBA MD Consults: Consults on Case 03/07/23 22:27 Consult Surgery ROUTINE Primary Care Provider: LESTER FRAUSTO Allergies Allergies clarithromycin [From Biaxin] Allergy (Verified 03/07/23 15:44) Hospital Summary - Hospital Course Hospital Course: 74-year-old female who presented 03/05/23 with sepsis, found to have Streptococcus sanguinous bacteremia. This is a Astor strep, most common source being oral. Pending final antibiotic sensitivity testing, but typically this is sensitive to penicillins and first-generation cephalosporins. Patient to discharge home on Vantin 200mg po BID for a total of 14 days. Will follow-up final results of sensitivity testing as well as echocardiogram to rule endocarditis, patient has no history of known valvular disease. Note, suspect patient has recurrence of her peptic ulcer disease, but will defer EGD to outpatient visit for evaluation because of patient's bacteremia. Since initiation of PPI patient reports she is no longer having the burning sensation in her abdomen. Will continue oral PPI 40mg bid for 4 weeks and set her up for EGD consult. - Vitals & Intake/Output Vital Signs: Vital Signs Temperature 97.6 F 03/09/23 07:16 Pulse Rate 47 L 03/09/23 07:25 Respiratory Rate 14 03/09/23 07:25 Blood Pressure 132/69 03/09/23 07:16 O2 Sat by Pulse Oximetry 99 03/09/23 07:25 Intake & Output: Intake & Output 03/06/23 03/07/23 03/08/23 03/09/23 11:59 11:59 11:59 11:59 Intake Total 1190 2950 Output Total 1 Balance 1190 2949 Weight 56.7 kg 56.2 kg - Lab Result Diagrams: 03/09/23 08:52 03/09/23 04:52 Lab Results-Last 24 Hrs: Lab Results-Last 24 Hours 03/08/23 03/08/23 03/08/23 Range/Units 13:20 13:50 17:40 WBC (4.0-10.5) x10^3/uL RBC (4.1-5.4) x10^6/uL Hgb 11.3 L D (12.0-16.0) g/dL Hct 35.5 (35-47) % MCV (78-100) fL MCH (26-32) pg MCHC (32-36) g/dL RDW (11.5-14.0) % Plt Count (150-450) x10^3/uL MPV (7.5-11.0) fL Sodium (137-145) mmol/L Potassium 3.7 D 3.5 (3.5-5.1) mmol/L Chloride (98-107) mmol/L Carbon Dioxide (22-30) mmol/L Anion Gap (5-15) MEQ/L BUN (7-17) mg/dL Creatinine (0.52-1.04) mg/dL Estimated GFR ML/MIN Glucose (74-106) mg/dL Calcium (8.4-10.2) mg/dL Magnesium (1.6-2.3) mg/dL 03/08/23 03/08/23 03/09/23 Range/Units 17:40 21:50 04:52 WBC (4.0-10.5) x10^3/uL RBC (4.1-5.4) x10^6/uL Hgb 10.1 L 9.6 L (12.0-16.0) g/dL Hct 30.6 L 29.0 L (35-47) % MCV (78-100) fL MCH (26-32) pg MCHC (32-36) g/dL RDW (11.5-14.0) % Plt Count (150-450) x10^3/uL MPV (7.5-11.0) fL Sodium 136 L (137-145) mmol/L Potassium 3.4 L (3.5-5.1) mmol/L Chloride 108 H (98-107) mmol/L Carbon Dioxide 19 L (22-30) mmol/L Anion Gap 12.3 (5-15) MEQ/L BUN 8 (7-17) mg/dL Creatinine 0.69 (0.52-1.04) mg/dL Estimated GFR > 60.0 ML/MIN Glucose 100 (74-106) mg/dL Calcium 7.1 L (8.4-10.2) mg/dL Magnesium 1.4 L (1.6-2.3) mg/dL 03/09/23 03/09/23 Range/Units 04:52 08:52 WBC 6.8 6.7 (4.0-10.5) x10^3/uL RBC 2.92 L 2.92 L (4.1-5.4) x10^6/uL Hgb 8.7 L 8.8 L (12.0-16.0) g/dL Hct 26.2 L 26.9 L (35-47) % MCV 89.7 92.1 (78-100) fL MCH 29.8 30.1 (26-32) pg MCHC 33.2 32.7 (32-36) g/dL RDW 14.9 H 14.8 H (11.5-14.0) % Plt Count 125 L 125 L (150-450) x10^3/uL MPV 12.0 H 11.9 H (7.5-11.0) fL Sodium (137-145) mmol/L Potassium (3.5-5.1) mmol/L Chloride (98-107) mmol/L Carbon Dioxide (22-30) mmol/L Anion Gap (5-15) MEQ/L BUN (7-17) mg/dL Creatinine (0.52-1.04) mg/dL Estimated GFR ML/MIN Glucose (74-106) mg/dL Calcium (8.4-10.2) mg/dL Magnesium (1.6-2.3) mg/dL Micro Results-Entire Visit: Microbiology 03/07/23 17:15 Urine Culture - Final Clean Catch Midstream Escherichia Coli - Procedures and Test Procedures and Tests throughout Hospitalization: Therapy Orders & Screens 03/07/23 22:41 RT Screen per Nursing Assess ONCE Comment: Protocol Order Physician Instructions: Greater than 3 points order RT Admission Screen Reason For Exam: Triggered on Admission Diagnosis: GI Bleed Diagnosis: GI Bleed Pneumonia: No Home O2: Yes Asthma: No CHF: Yes Home CPAP/BIPAP: No Home Nebs/MDI: Yes Total Points: 13 03/07/23 23:29 Oxygen Nasal Cannula 2 lpm Comment: Diagnosis: GI Bleed Respiratory Therapy Assessment DAILY Comment: Diagnosis: GI Bleed 03/07/23 23:30 Respiratory MDI BID Comment: Diagnosis: GI Bleed Final Diagnosis/Problem List - Final Discharge Diagnosis/Problem (1) Rectal bleeding Current Visit: Yes Status: Acute Code(s): K62.5 - HEMORRHAGE OF ANUS AND RECTUM (2) Anemia due to gastrointestinal blood loss Current Visit: Yes Status: Acute Code(s): D50.0 - IRON DEFICIENCY ANEMIA SECONDARY TO BLOOD LOSS (CHRONIC) (3) Hypomagnesemia Current Visit: Yes Status: Acute Code(s): E83.42 - HYPOMAGNESEMIA (4) Hypokalemia Current Visit: No Status: Acute Code(s): E87.6 - HYPOKALEMIA (5) UTI (urinary tract infection) Current Visit: No Status: Resolved Code(s): N39.0 - URINARY TRACT INFECTION, SITE NOT SPECIFIED (6) Acute on chronic systolic heart failure Current Visit: No Status: Acute Code(s): I50.23 - ACUTE ON CHRONIC SYSTOLIC (CONGESTIVE) HEART FAILURE (7) Chronic obstruct airways disease Current Visit: Yes Status: Acute Telemedicine Encounter - Telemedicine Encounter Telemedicine Encounter: The entirety of this encounter was performed via Telemedicine" - Discharge Disposition: Home, Self-Care Condition: Stable Prescriptions: No Action Carvedilol [Coreg ] 6.25 mg PO 0800,1800 Sacubitril/Valsartan [Entresto 49 mg-51 mg Tablet] 1 each PO 0800,1800 Cyanocobalamin (Vitamin B-12) [B-12] 1,000 mcg PO DAILY Martha-3/Dha/Epa/Fish Oil [Martha 3 500 Softgel] 520 mcg PO DAILY Esomeprazole Magnesium [Nexium] 40 mg PO DAILY Calcium Carb/Vitamin D 500 mg* [Calcium 500MG W/Vit D Tablet] 1 tab PO DAILY Albuterol Sulfate [Albuterol Sulfate Hfa] 2 puffs IH TID PRN PRN Reason: WHEEZES Escitalopram Oxalate [Lexapro] 20 mg PO DAILY Budesonide/Formoterol Fumarate [Budesonide-Formoterol 160-4.5] 1 puff IH DAILY Aspirin 81 gm Chew [Baby Aspirin 81 mg Chew] 81 mg PO DAILY Furosemide 40 mg [Lasix 40 MG] 40 mg PO DAILY #30 tablet Potassium Chloride 20 meq PO DAILY #30 tablet Follow up with: LESTER FRAUSTO MD [Primary Care Provider] -
[2023-03-09 13:10] LABS: Hematocrit 28.4 % (35-47); Hemoglobin 9.2 g/dL (12.0-16.0); Mean Cell Volume 93.4 fL (78-100); Mean Corpuscular Hemoglobin 30.3 pg (26-32); Mean Corpuscular Hgb Concent. 32.4 g/dL (32-36); Mean Platelet Volume 12.1 fL (7.5-11.0); Platelet Count 121 x10^3/uL (150-450); Red Blood Count 3.04 x10^6/uL (4.1-5.4); Red Cell Distribution Width 14.8 % (11.5-14.0); White Blood Count 6.9 x10^3/uL (4.0-10.5)
[2023-03-09] MEDS ORDERED: Xylocaine-Mpf 2% 5 Ml Vial ONE (14:52)
[2023-03-09] MEDS ORDERED: DIPRIVAN 200 MG/20 ML IV ONE (14:52)
[2023-03-09] MEDS ORDERED: Lactated Ringers 1,000 ML IV ONE (15:07)
[2023-03-09] MEDS: PROTONIX 40 MG IV IV SCH (21:33)
[2023-03-10] MEDS: Sodium Chloride 0.9% 1000 ML 1,000 ML IV SCH (05:14)
[2023-03-10] MEDS: Advair Hfa 115/21 Common canister IH SCH ×2 (07:21→19:22)
[2023-03-10 08:01] LABS: Hematocrit 24.7 % (35-47); Mean Cell Volume 94.3 fL (78-100); Mean Corpuscular Hemoglobin 30.5 pg (26-32); Mean Corpuscular Hgb Concent. 32.4 g/dL (32-36); Mean Platelet Volume 11.9 fL (7.5-11.0); Platelet Count 106 x10^3/uL (150-450); Red Blood Count 2.62 x10^6/uL (4.1-5.4); Red Cell Distribution Width 14.8 % (11.5-14.0); White Blood Count 8.6 x10^3/uL (4.0-10.5)
[2023-03-10 08:21] LABS: ANION GAP 10.3 MEQ/L (5-15); BLOOD UREA NITROGEN 7 mg/dL (7-17); CHLORIDE 108 mmol/L (98-107); Calcium 7.2 mg/dL (8.4-10.2); Carbon Dioxide 24 mmol/L (22-30); Creatinine 1 0.68 mg/dL (0.52-1.04); EST GLOMERULAR FILTRATION RATE > 60.0 ML/MIN; Glucose 101 mg/dL (74-106); MAGNESIUM 1.5 mg/dL (1.6-2.3); Potassium 3.9 mmol/L (3.5-5.1); SODIUM 139 mmol/L (137-145)
[2023-03-10] MEDS: ENTRESTO 49 MG-51 MG TABLET PO SCH ×2 (08:25→18:11)
[2023-03-10] MEDS: Coreg PO SCH ×2 (08:25→18:11)
[2023-03-10] MEDS: FISH OIL 1,000 MG CAPSULE PO SCH (10:13)
[2023-03-10] MEDS: Vitamin B-12 500 MCG PO SCH (10:14)
[2023-03-10] MEDS: Calcium 500MG W/Vit D Tablet PO SCH (10:14)
[2023-03-10] MEDS: Lasix 40 MG PO SCH (10:14)
[2023-03-10] MEDS: Acidophilus TABLET PO SCH (10:14)
[2023-03-10] MEDS: ceLEXa 20 MG PO SCH (10:14)
[2023-03-10] MEDS: ROCEPHIN 1 Gm-D5w 50 ml Bag** 1 G/50 ML IVPB IV SCH (10:14)
--- NOTE | 2023-03-10 12:14 | PCM.NOTE ---
Date and Time: 03/10/23 1209 Subjective Assessment: 7-year-old man, here with hematochezia, recurrent during hospitalizations, small amount noted today. She was transfused 03/08/23, but continues to slowly trend down, hgb at 8 this morning. Colonoscopy and EGD unremarkable with the exception of a large internal hemorrhoid. Also has E. coli acute cystitis, will finish last dose of rocephin today. Plan to continue to monitor her hgb overnight. Patient endorses continued hematochezia. She is on 2L oxygen which is her baseline. She denies cp, nausea, vomiting, diarrhea, or dysuria. - Review of Systems Constitutional: No Symptoms Eyes: No Symptoms Ears, Nose, & Throat: No Symptoms Respiratory: Cough (chronic), Short Of Breath (on 2L NC baseline) Cardiac: No Symptoms Abdominal/Gastrointestinal: Hematochezia Genitourinary Symptoms: No Symptoms Musculoskeletal: No Symptoms Skin: No Symptoms Objective Exam General Appearance: no apparent distress Neurologic Exam: alert, oriented x 3, cooperative, normal mood/affect Skin Exam: pale Eye Exam: PERRL Respiratory Exam: normal breath sounds, lungs clear Cardiovascular Exam: regular rate/rhythm, normal heart sounds Gastrointestinal/Abdomen Exam: soft, normal bowel sounds Extremity Exam: normal inspection Back Exam: normal inspection OBJECTIVE DATA Vital Signs: Vital Signs - 24 hr Temp Pulse Resp BP Pulse Ox 03/10/23 11:53 97.3 F 59 L 16 103/52 100 03/10/23 07:32 97.2 F 82 16 111/54 98 03/10/23 07:24 72 16 98 03/10/23 03:45 98.4 F 73 17 122/59 96 03/09/23 23:44 98.9 F 83 20 130/60 97 03/09/23 19:34 98.2 F 80 19 113/52 96 03/09/23 19:23 96 03/09/23 19:21 62 18 96 03/09/23 16:00 97.6 F 66 16 101/57 96 03/09/23 14:53 97.9 F 57 L 16 137/62 95 Pain Assessment - Last Documented Pain Intensity 0 Intake and Output: Intake & Output 03/08/23 03/09/23 03/10/23 03/11/23 11:59 11:59 11:59 11:59 Intake Total 1190 2950 2720 Output Total 1 400 Balance 1190 2420 2320 Weight 56.7 kg 56.2 kg 56.2 kg Lab Results: Lab Results-Last 24 Hours 03/09/23 03/10/23 03/10/23 Range/Units 13:05 08:04 08:04 WBC 6.9 8.6 (4.0-10.5) x10^3/uL RBC 3.04 L 2.62 L (4.1-5.4) x10^6/uL Hgb 9.2 L 8.0 L (12.0-16.0) g/dL Hct 28.4 L 24.7 L (35-47) % MCV 93.4 94.3 (78-100) fL MCH 30.3 30.5 (26-32) pg MCHC 32.4 32.4 (32-36) g/dL RDW 14.8 H 14.8 H (11.5-14.0) % Plt Count 121 L 106 L (150-450) x10^3/uL MPV 12.1 H 11.9 H (7.5-11.0) fL Sodium 139 (137-145) mmol/L Potassium 3.9 (3.5-5.1) mmol/L Chloride 108 H (98-107) mmol/L Carbon Dioxide 24 (22-30) mmol/L Anion Gap 10.3 (5-15) MEQ/L BUN 7 (7-17) mg/dL Creatinine 0.68 (0.52-1.04) mg/dL Estimated GFR > 60.0 ML/MIN Glucose 101 (74-106) mg/dL Calcium 7.2 L (8.4-10.2) mg/dL Magnesium 1.5 L (1.6-2.3) mg/dL Assessment/Plan (1) Rectal bleeding Current Visit: Yes Status: Acute Assessment & Plan: 77-year-old with a history of iron deficiency anemia and suspected bleeding, but has never had a colonoscopy. Admitted with hematochezia, with witnessed large BRBPR 03/08/23, upon inspection rectum appears to be prolapsed. However, her vitals remained stable, and repeat hemoglobin did not show a drop. She was given a unit of blood 03/08/23 because of the ongoing bleeding and now with a hemoglobin of 8.0 today. Colonoscopy noted large internal hemorrhoid, EGD unremarkable. -Continue to monitor H&H q8, hgb at 8.0, will replace if <7 Code(s): K62.5 - HEMORRHAGE OF ANUS AND RECTUM (2) Anemia due to gastrointestinal blood loss Current Visit: Yes Status: Acute Assessment & Plan: -secondary to rectal bleeding, will continue to monitor H&H, replace if hgb <7 Code(s): D50.0 - IRON DEFICIENCY ANEMIA SECONDARY TO BLOOD LOSS (CHRONIC) (3) Hypomagnesemia Current Visit: Yes Status: Acute Assessment & Plan: -improved at 1.5, will replenish today Code(s): E83.42 - HYPOMAGNESEMIA (4) Hypokalemia Current Visit: No Status: Acute Assessment & Plan: Continue potassium protocol, levels have improved today now at 3.9 Code(s): E87.6 - HYPOKALEMIA (5) UTI (urinary tract infection) Current Visit: No Status: Resolved Qualifiers: Assessment & Plan: -Urine cult positive to ECOLI, continue on ceftriaxone for today then d/c Code(s): N39.0 - URINARY TRACT INFECTION, SITE NOT SPECIFIED (6) Acute on chronic systolic heart failure Current Visit: No Status: Acute Assessment & Plan: noted continue home meds Code(s): I50.23 - ACUTE ON CHRONIC SYSTOLIC (CONGESTIVE) HEART FAILURE (7) Chronic obstruct airways disease Current Visit: Yes Status: Acute Assessment & Plan: -Noted, does not appear to be in exacerbation, will continue to monitor Telemedicine Encounter - Telemedicine Encounter Telemedicine Encounter: The entirety of this encounter was performed via Telemedicine"
[2023-03-10 14:36] LABS: Hematocrit 25.1 % (35-47); Hemoglobin 8.1 g/dL (12.0-16.0); Mean Cell Volume 94.4 fL (78-100); Mean Corpuscular Hemoglobin 30.5 pg (26-32); Mean Corpuscular Hgb Concent. 32.3 g/dL (32-36); Mean Platelet Volume 11.8 fL (7.5-11.0); Platelet Count 108 x10^3/uL (150-450); Red Blood Count 2.66 x10^6/uL (4.1-5.4); Red Cell Distribution Width 14.8 % (11.5-14.0); White Blood Count 6.7 x10^3/uL (4.0-10.5)
[2023-03-10 16:27] LABS: Slide Review YES
[2023-03-10] MEDS: PROTONIX 40 MG IV IV SCH (21:33)
[2023-03-10 22:19] LABS: Absolute Neutrophil Ct (ANC) 4.59 x10^3/uL (1.4-6.9); BASOPHIL % 0.5 % (0.0-0.4); Basophil (Absolute #) 0.03 x10^3/uL (0-0.4); Eosinophil % 3.2 % (0.00-5.0); Hematocrit 24.6 % (35-47); Hemoglobin 7.9 g/dL (12.0-16.0); IMMATURE GRAN # 0.01 x10^3u/L (0.00-0.03); IMMATURE GRAN % 0.2 % (0.00-0.4); Lymphocyte (Absolute #) 1.07 x10^3/uL (1.0-4.6); Mean Corpuscular Hemoglobin 30.5 pg (26-32); Mean Corpuscular Hgb Concent. 32.1 g/dL (32-36); Mean Platelet Volume 11.6 fL (7.5-11.0); Monocytes % 6.3 % (0.0-12.0); Neutrophil % 72.8 % (36.0-66.0); Platelet Count 102 x10^3/uL (150-450); Red Blood Count 2.59 x10^6/uL (4.1-5.4); Red Cell Distribution Width 14.7 % (11.5-14.0); White Blood Count 6.3 x10^3/uL (4.0-10.5)
[2023-03-11 05:58] LABS: Hematocrit 23.8 % (35-47); Hemoglobin 7.7 g/dL (12.0-16.0); Mean Cell Volume 94.1 fL (78-100); Mean Corpuscular Hemoglobin 30.4 pg (26-32); Mean Corpuscular Hgb Concent. 32.4 g/dL (32-36); Mean Platelet Volume 11.8 fL (7.5-11.0); Platelet Count 105 x10^3/uL (150-450); Red Blood Count 2.53 x10^6/uL (4.1-5.4); Red Cell Distribution Width 14.6 % (11.5-14.0); White Blood Count 5.2 x10^3/uL (4.0-10.5)
--- NOTE | 2023-03-11 07:12 | PCM.NOTE ---
Date and Time: 03/11/23707 Subjective Assessment: 77-year-old female, here with hematochezia, recurrent during hospitalizations. She was transfused 03/08/23,is stabilizing now at hgb at 7.7 this morning, will transfuse today. Colonoscopy and EGD unremarkable with the exception of a large internal hemorrhoid. Also has E. coli acute cystitis, will finish last dose of rocephin today 03/11/23. Labs significant for hypokalemia and hypomagnesemia and will be replished today. Endorses no further episodes of rectal bleeding in the last 24 hours. Possible discharge tomorrow. - Review of Systems Constitutional: Fatigue Eyes: No Symptoms Ears, Nose, & Throat: No Symptoms Respiratory: Cough, Short Of Breath Cardiac: No Symptoms Abdominal/Gastrointestinal: No Symptoms Genitourinary Symptoms: Vaginal Itching Musculoskeletal: No Symptoms Skin: No Symptoms Hematologic/Lymphatic: Anemia Objective Exam General Appearance: no apparent distress Neurologic Exam: alert, oriented x 3, cooperative Skin Exam: pale Eye Exam: PERRL Respiratory Exam: normal breath sounds, lungs clear (2L NC (baseline) spo2 @ 94%) Cardiovascular Exam: regular rate/rhythm, normal heart sounds Gastrointestinal/Abdomen Exam: soft, normal bowel sounds OBJECTIVE DATA Vital Signs: Vital Signs - 24 hr Temp Pulse Resp BP Pulse Ox 03/11/23 04:00 97.8 F 62 20 113/56 93 L 03/10/23 23:33 98.0 F 64 20 125/73 97 03/10/23 19:39 98.1 F 65 20 126/61 93 L 03/10/23 19:22 62 20 93 L 03/10/23 16:00 97.2 F 87 19 128/79 98 03/10/23 11:53 97.3 F 59 L 16 103/52 100 03/10/23 07:32 97.2 F 82 16 111/54 98 03/10/23 07:24 72 16 98 Pain Assessment - Last Documented Pain Intensity 0 Intake and Output: Intake & Output 03/08/23 03/09/23 03/10/23 03/11/23 11:59 11:59 11:59 11:59 Intake Total 1190 2950 2720 1260 Output Total 1 400 500 Balance 1190 2949 2320 760 Weight 56.7 kg 56.2 kg 56.2 kg Lab Results: Lab Results-Last 24 Hours 03/10/23 03/10/23 03/10/23 Range/Units 08:04 08:04 14:20 WBC 8.6 6.7 (4.0-10.5) x10^3/uL RBC 2.62 L 2.66 L (4.1-5.4) x10^6/uL Hgb 8.0 L 8.1 L (12.0-16.0) g/dL Hct 24.7 L 25.1 L (35-47) % MCV 94.3 94.4 (78-100) fL MCH 30.5 30.5 (26-32) pg MCHC 32.4 32.3 (32-36) g/dL RDW 14.8 H 14.8 H (11.5-14.0) % Plt Count 106 L 108 L (150-450) x10^3/uL MPV 11.9 H 11.8 H (7.5-11.0) fL Gran % (36.0-66.0) % Immature Gran % (Auto) (0.00-0.4) % Nucleat RBC Rel Count (0.00-0.1) % Eos # (Auto) (0-0.5) x10^3/uL Immature Gran # (Auto) (0.00-0.03) x10^3u/L Absolute Lymphs (auto) (1.0-4.6) x10^3/uL Absolute Monos (auto) (0.0-1.3) x10^3/uL Absolute Nucleated RBC (0.00-0.01) x10^3u/L Lymphocytes % (24.0-44.0) % Monocytes % (0.0-12.0) % Eosinophils % (0.00-5.0) % Basophils % (0.0-0.4) % Absolute Granulocytes (1.4-6.9) x10^3/uL Basophils # (0-0.4) x10^3/uL Sodium 139 (137-145) mmol/L Potassium 3.9 (3.5-5.1) mmol/L Chloride 108 H (98-107) mmol/L Carbon Dioxide 24 (22-30) mmol/L Anion Gap 10.3 (5-15) MEQ/L BUN 7 (7-17) mg/dL Creatinine 0.68 (0.52-1.04) mg/dL Estimated GFR > 60.0 ML/MIN Glucose 101 (74-106) mg/dL Calcium 7.2 L (8.4-10.2) mg/dL Magnesium 1.5 L (1.6-2.3) mg/dL Slides for Path Review YES 03/10/23 03/11/23 Range/Units 22:15 05:25 WBC 6.3 5.2 (4.0-10.5) x10^3/uL RBC 2.59 L 2.53 L (4.1-5.4) x10^6/uL Hgb 7.9 L 7.7 L (12.0-16.0) g/dL Hct 24.6 L 23.8 L (35-47) % MCV 95.0 94.1 (78-100) fL MCH 30.5 30.4 (26-32) pg MCHC 32.1 32.4 (32-36) g/dL RDW 14.7 H 14.6 H (11.5-14.0) % Plt Count 102 L 105 L (150-450) x10^3/uL MPV 11.6 H 11.8 H (7.5-11.0) fL Gran % 72.8 H (36.0-66.0) % Immature Gran % (Auto) 0.2 (0.00-0.4) % Nucleat RBC Rel Count 0.0 (0.00-0.1) % Eos # (Auto) 0.20 (0-0.5) x10^3/uL Immature Gran # (Auto) 0.01 (0.00-0.03) x10^3u/L Absolute Lymphs (auto) 1.07 (1.0-4.6) x10^3/uL Absolute Monos (auto) 0.40 (0.0-1.3) x10^3/uL Absolute Nucleated RBC 0.00 (0.00-0.01) x10^3u/L Lymphocytes % 17.0 L (24.0-44.0) % Monocytes % 6.3 (0.0-12.0) % Eosinophils % 3.2 (0.00-5.0) % Basophils % 0.5 (0.0-0.4) % Absolute Granulocytes 4.59 (1.4-6.9) x10^3/uL Basophils # 0.03 (0-0.4) x10^3/uL Sodium (137-145) mmol/L Potassium (3.5-5.1) mmol/L Chloride (98-107) mmol/L Carbon Dioxide (22-30) mmol/L Anion Gap (5-15) MEQ/L BUN (7-17) mg/dL Creatinine (0.52-1.04) mg/dL Estimated GFR ML/MIN Glucose (74-106) mg/dL Calcium (8.4-10.2) mg/dL Magnesium (1.6-2.3) mg/dL Slides for Path Review Assessment/Plan (1) Rectal bleeding Current Visit: Yes Status: Acute Assessment & Plan: 77-year-old with a history of iron deficiency anemia and suspected bleeding, but has never had a colonoscopy. Admitted with hematochezia, with witnessed large BRBPR 03/08/23. However, her vitals remained stable, H&H now at 7.7 today but stabilizing, no further episodes of hematochezia. She was given a unit of blood 03/08/23 because of the ongoing bleeding and now with a hemoglobin of 7.7 today she will receive another unit. Colonoscopy noted large internal hemorrhoid, EGD unremarkable. Will most likely discharge tomorrow. -Continue to monitor H&H q8 Code(s): K62.5 - HEMORRHAGE OF ANUS AND RECTUM (2) Anemia due to gastrointestinal blood loss Current Visit: Yes Status: Acute Assessment & Plan: -see rectal bleeding Code(s): D50.0 - IRON DEFICIENCY ANEMIA SECONDARY TO BLOOD LOSS (CHRONIC) (3) Hypomagnesemia Current Visit: Yes Status: Acute Assessment & Plan: -Mag level at 1.3, will replenish Code(s): E83.42 - HYPOMAGNESEMIA (4) Hypokalemia Current Visit: No Status: Acute Assessment & Plan: -Potassium level at 3.0, will replenish Code(s): E87.6 - HYPOKALEMIA (5) UTI (urinary tract infection) Current Visit: No Status: Resolved Qualifiers: Assessment & Plan: -Will complete antibiotic course with Rocephin today 03/11/23 Code(s): N39.0 - URINARY TRACT INFECTION, SITE NOT SPECIFIED (6) Chronic obstruct airways disease Current Visit: Yes Status: Acute Assessment & Plan: -On baseline oxygen 2L with spo2 @ 94%, does not appear to be in exacerbation (7) HFrEF (heart failure with reduced ejection fraction) Current Visit: Yes Status: Acute Assessment & Plan: Chronic systolic heart failure with EF around 30%. Does not appear to be in exacerbation, will continue home meds -Monitor renal/lytes with goal of K>4 and Mg >2 Code(s): I50.20 - UNSPECIFIED SYSTOLIC (CONGESTIVE) HEART FAILURE Telemedicine Encounter - Telemedicine Encounter Telemedicine Encounter: The entirety of this encounter was performed via Telemedicine"
[2023-03-11] MEDS: ENTRESTO 49 MG-51 MG TABLET PO SCH ×2 (07:41→17:53)
[2023-03-11] MEDS: Coreg PO SCH ×2 (07:41→17:53)
[2023-03-11 07:58] LABS: Slide Review YES
[2023-03-11] MEDS: Advair Hfa 115/21 Common canister IH SCH ×2 (08:00→19:29)
[2023-03-11 08:16] LABS: MAGNESIUM 1.3 mg/dL (1.6-2.3)
[2023-03-11] MEDS: Sodium Chloride 0.9% 1000 ML 1,000 ML IV SCH ×2 (08:33→16:31)
[2023-03-11] MEDS ORDERED: MAGNESIUM SULF 2 G/50 ML BAG 2 GM/50 ML PIGGYBACK IV ONE ×2 (08:49→14:00)
[2023-03-11] MEDS: ceLEXa 20 MG PO SCH (10:27)
[2023-03-11] MEDS: Vitamin B-12 500 MCG PO SCH (10:27)
[2023-03-11] MEDS: Lasix 40 MG PO SCH (10:27)
[2023-03-11] MEDS: Acidophilus TABLET PO SCH (10:27)
[2023-03-11] MEDS: Klor Con PO SCH ×4 (10:27→16:03)
[2023-03-11] MEDS: Calcium 500MG W/Vit D Tablet PO SCH (10:27)
[2023-03-11] MEDS ORDERED: DIFLUCAN PO ONE (12:30)
[2023-03-11 13:57] LABS: Hematocrit 29.1 % (35-47); Hemoglobin 9.6 g/dL (12.0-16.0); Mean Cell Volume 93.3 fL (78-100); Mean Corpuscular Hemoglobin 30.8 pg (26-32); Mean Platelet Volume 11.9 fL (7.5-11.0); Platelet Count 106 x10^3/uL (150-450); Red Blood Count 3.12 x10^6/uL (4.1-5.4); Red Cell Distribution Width 14.8 % (11.5-14.0); White Blood Count 7.4 x10^3/uL (4.0-10.5)
[2023-03-11] MEDS: ROCEPHIN 1 Gm-D5w 50 ml Bag** 1 G/50 ML IVPB IV SCH (14:30)
[2023-03-11 17:12] LABS: MAGNESIUM 1.6 mg/dL (1.6-2.3); Potassium 3.6 mmol/L (3.5-5.1)
[2023-03-11 20:05] LABS: Hematocrit 30.1 % (35-47); Hemoglobin 9.9 g/dL (12.0-16.0); Mean Cell Volume 92.9 fL (78-100); Mean Corpuscular Hemoglobin 30.6 pg (26-32); Mean Corpuscular Hgb Concent. 32.9 g/dL (32-36); Mean Platelet Volume 12.3 fL (7.5-11.0); Platelet Count 113 x10^3/uL (150-450); Red Blood Count 3.24 x10^6/uL (4.1-5.4); White Blood Count 8.1 x10^3/uL (4.0-10.5)
[2023-03-11] MEDS: PROTONIX 40 MG IV IV SCH (21:28)
[2023-03-12 05:14] LABS: Hematocrit 27.4 % (35-47); Mean Cell Volume 91.6 fL (78-100); Mean Corpuscular Hemoglobin 30.1 pg (26-32); Mean Corpuscular Hgb Concent. 32.8 g/dL (32-36); Mean Platelet Volume 12.7 fL (7.5-11.0); Platelet Count 106 x10^3/uL (150-450); Red Blood Count 2.99 x10^6/uL (4.1-5.4); Red Cell Distribution Width 15.2 % (11.5-14.0); White Blood Count 6.9 x10^3/uL (4.0-10.5)
[2023-03-12] MEDS ORDERED: BENADRYL 25 MG CAPSULE PO PRN (05:36)
[2023-03-12 06:09] LABS: ANION GAP 8.9 MEQ/L (5-15); BLOOD UREA NITROGEN 11 mg/dL (7-17); CHLORIDE 100 mmol/L (98-107); Calcium 7.7 mg/dL (8.4-10.2); Carbon Dioxide 32 mmol/L (22-30); Creatinine 1 0.68 mg/dL (0.52-1.04); EST GLOMERULAR FILTRATION RATE > 60.0 ML/MIN; Glucose 96 mg/dL (74-106); MAGNESIUM 1.3 mg/dL (1.6-2.3); Potassium 3.4 mmol/L (3.5-5.1); SODIUM 138 mmol/L (137-145)
[2023-03-12] MEDS: ENTRESTO 49 MG-51 MG TABLET PO SCH (07:42)
[2023-03-12] MEDS: Coreg PO SCH (07:42)
[2023-03-12] MEDS: Advair Hfa 115/21 Common canister IH SCH (08:05)
[2023-03-12] MEDS ORDERED: MAGNESIUM SULF 2 G/50 ML BAG 2 GM/50 ML PIGGYBACK IV ONE (08:09)
--- NOTE | 2023-03-12 08:24 | OP ---
SURGERY DATE/TIME: 03/09/2023 1515 PREOPERATIVE DIAGNOSIS: Anemia. POSTOPERATIVE DIAGNOSES: 1) Anemia. 2) EGD normal. 3) Colonoscopy negative to cecum and appendix. PROCEDURES: 1) EGD. 2) Colonoscopy. SURGEON: Wiliam Ojeda M.D. ANESTHESIA: MAC. COMPLICATIONS: None. CONDITION: Stable. INDICATION: Anemia. DESCRIPTION OF PROCEDURE: The patient is taken to endoscopy suite. Left lateral decubitus position. Scope introduced. Pharyngoesophageal junction normal. Esophagus normal. Gastroesophageal junction normal. Fundus, body and antrum normal. Pylorus normal. Keyhole view normal. Duodenal bulb normal. Second portion normal. Scope withdrawn and looped upon itself, normal. Scope withdrawn. Negative upper examination with absolutely no signs of pathology or bleeding. Anal digital examination there is a clear gibson yellow fluid. Scope introduced. Scope advanced through the sigmoid. Fairly tortuous and not extremely large. The colon had opened up and the colonoscope advanced past the splenic flexure across the transverse, hepatic, down the ascending and up to the valve and then behind valve. The appendiceal orifice was seen and was satisfactory. There was prep in the cecum that is suctioned dry. The base of the cecum was normal. The ileocecal valve normal. The appendiceal orifice normal. Ascending, hepatic, transverse, splenic, descending, sigmoid, rectum there were large internal hemorrhoids but they were not bleeding. There was no blood seen on today's examination. There was no diverticulosis. There was no angiodysplasia. There were no large polyps. The patient tolerated the procedure satisfactory. It was a negative lower colonoscopic examination for bleeding.
[2023-03-12] MEDS ORDERED: Sodium Chloride 0.9% 500 ML 500 ML IV SCH (08:45)
[2023-03-12] MEDS: Acidophilus TABLET PO SCH (09:27)
[2023-03-12] MEDS: Calcium 500MG W/Vit D Tablet PO SCH (09:27)
[2023-03-12] MEDS: Vitamin B-12 500 MCG PO SCH (09:27)
[2023-03-12] MEDS: ceLEXa 20 MG PO SCH (09:27)
[2023-03-12] MEDS: Lasix 40 MG PO SCH (09:28)
[2023-03-12] MEDS: POTASSIUM CHLORIDE 20 mEq IN WATER 100ML 20 MEQ/100 ML BAG IV SCH ×2 (09:33→12:16)
[2023-03-12] MEDS: ROCEPHIN 1 Gm-D5w 50 ml Bag** 1 G/50 ML IVPB IV SCH (10:15)
[2023-03-12 11:52] VITALS: RESP 17
--- NOTE | 2023-03-12 12:01 | PCM.DS ---
Discharge Summary Date of Admission: 03/07/23 21:48 Date of Discharge: 03/12/23 1155 Admitting Physician: KENDAL BARBA MD Consults: Consults on Case 03/07/23 22:27 Consult Surgery ROUTINE Primary Care Provider: LESTER FRAUSTO Allergies Allergies clarithromycin [From Biaxin] Allergy (Verified 03/07/23 15:44) Hospital Summary - Hospital Course Hospital Course: 77-year-old female admitted with recurrent hematochezia. She had multiple blood transfusions since admission and today HGB is 9. Colonoscopy and EGD unremarkable with the exception of a large internal hemorrhoid. Also had E. coli acute cystitis, completed Rocephin yesterday. Labs significant for hypokalemia and hypomagnesemia which appear to be chronic and will be replenished today. Endorses no further episodes of rectal bleeding in the last 48 hours. She will need to follow up OP with her PCP and have a repeat CBC as well as repeat electrolytes checked. - Vitals & Intake/Output Vital Signs: Vital Signs Temperature 98.2 F 03/12/23 11:50 Pulse Rate 66 03/12/23 11:50 Respiratory Rate 17 03/12/23 11:50 Blood Pressure 108/53 03/12/23 11:50 O2 Sat by Pulse Oximetry 95 03/12/23 11:50 Intake & Output: Intake & Output 03/09/23 03/10/23 03/11/23 03/12/23 11:59 11:59 11:59 11:59 Intake Total 2950 2720 1500 1780 Output Total 1 400 500 700 Balance 2949 2320 1000 1080 Weight 56.2 kg 56.2 kg 57.5 kg - Lab Result Diagrams: 03/12/23 04:37 03/12/23 08:24 Lab Results-Last 24 Hrs: Lab Results-Last 24 Hours 03/11/23 03/11/23 03/11/23 Range/Units 13:52 16:57 19:55 WBC 7.4 8.1 (4.0-10.5) x10^3/uL RBC 3.12 L 3.24 L (4.1-5.4) x10^6/uL Hgb 9.6 L D 9.9 L (12.0-16.0) g/dL Hct 29.1 L 30.1 L (35-47) % MCV 93.3 92.9 (78-100) fL MCH 30.8 30.6 (26-32) pg MCHC 33.0 32.9 (32-36) g/dL RDW 14.8 H 15.0 H (11.5-14.0) % Plt Count 106 L 113 L (150-450) x10^3/uL MPV 11.9 H 12.3 H (7.5-11.0) fL Sodium (137-145) mmol/L Potassium 3.6 (3.5-5.1) mmol/L Chloride (98-107) mmol/L Carbon Dioxide (22-30) mmol/L Anion Gap (5-15) MEQ/L BUN (7-17) mg/dL Creatinine (0.52-1.04) mg/dL Estimated GFR ML/MIN Glucose (74-106) mg/dL Calcium (8.4-10.2) mg/dL Magnesium 1.6 (1.6-2.3) mg/dL 03/12/23 03/12/23 03/12/23 Range/Units 04:37 04:37 08:24 WBC 6.9 (4.0-10.5) x10^3/uL RBC 2.99 L (4.1-5.4) x10^6/uL Hgb 9.0 L (12.0-16.0) g/dL Hct 27.4 L (35-47) % MCV 91.6 (78-100) fL MCH 30.1 (26-32) pg MCHC 32.8 (32-36) g/dL RDW 15.2 H (11.5-14.0) % Plt Count 106 L (150-450) x10^3/uL MPV 12.7 H (7.5-11.0) fL Sodium 138 (137-145) mmol/L Potassium 3.4 L 3.4 L (3.5-5.1) mmol/L Chloride 100 (98-107) mmol/L Carbon Dioxide 32 H (22-30) mmol/L Anion Gap 8.9 (5-15) MEQ/L BUN 11 (7-17) mg/dL Creatinine 0.68 (0.52-1.04) mg/dL Estimated GFR > 60.0 ML/MIN Glucose 96 (74-106) mg/dL Calcium 7.7 L (8.4-10.2) mg/dL Magnesium 1.3 L (1.6-2.3) mg/dL Micro Results-Entire Visit: Microbiology 03/07/23 17:15 Urine Culture - Final Clean Catch Midstream Escherichia Coli - Procedures and Test Procedures and Tests throughout Hospitalization: Therapy Orders & Screens 03/07/23 22:41 RT Screen per Nursing Assess ONCE Comment: Protocol Order Physician Instructions: Greater than 3 points order RT Admission Screen Reason For Exam: Triggered on Admission Diagnosis: GI Bleed Diagnosis: GI Bleed Pneumonia: No Home O2: Yes Asthma: No CHF: Yes Home CPAP/BIPAP: No Home Nebs/MDI: Yes Total Points: 13 03/07/23 23:29 Oxygen Nasal Cannula 2 lpm Comment: Diagnosis: GI Bleed Respiratory Therapy Assessment DAILY Comment: Diagnosis: GI Bleed 03/07/23 23:30 Respiratory MDI BID Comment: Diagnosis: GI Bleed Discharge Exam General Appearance: no apparent distress, alert Neurologic Exam: alert, oriented x 3, cooperative, normal mood/affect, nml cerebellar function, sensation nml, No motor deficits Eye Exam: PERRL, EOMI, eyes nml inspection Ears, Nose, Throat Exam: normal ENT inspection, pharynx normal, moist mucous membranes Neck Exam: normal inspection, non-tender, supple, full range of motion Respiratory Exam: normal breath sounds, lungs clear, No respiratory distress Cardiovascular Exam: regular rate/rhythm, normal heart sounds Gastrointestinal/Abdomen Exam: soft, No tenderness, No mass Pelvic Exam: deferred Rectal Exam: deferred Back Exam: normal inspection, normal range of motion, No CVA tenderness, No vertebral tenderness Extremity Exam: normal inspection, normal range of motion Skin Exam: normal color, warm, dry Final Diagnosis/Problem List - Final Discharge Diagnosis/Problem (1) Hypokalemia Current Visit: Yes Status: Chronic Code(s): E87.6 - HYPOKALEMIA (2) Anemia due to gastrointestinal blood loss Current Visit: Yes Status: Acute Code(s): D50.0 - IRON DEFICIENCY ANEMIA SECONDARY TO BLOOD LOSS (CHRONIC) (3) Chronic obstruct airways disease Current Visit: Yes Status: Chronic (4) GI bleed Current Visit: Yes Status: Acute Code(s): K92.2 - GASTROINTESTINAL HEMORRHAGE, UNSPECIFIED (5) HFrEF (heart failure with reduced ejection fraction) Current Visit: Yes Status: Chronic Code(s): I50.20 - UNSPECIFIED SYSTOLIC (CONGESTIVE) HEART FAILURE (6) Hypomagnesemia Current Visit: Yes Status: Acute Code(s): E83.42 - HYPOMAGNESEMIA (7) Rectal bleeding Current Visit: Yes Status: Acute Code(s): K62.5 - HEMORRHAGE OF ANUS AND RECTUM (8) Acute cystitis Current Visit: No Status: Acute Code(s): N30.00 - ACUTE CYSTITIS WITHOUT HEMATURIA - Discharge Discharge Date: 03/12/23 (with family) Disposition: Home, Self-Care Condition: Stable Prescriptions: Continue Carvedilol [Coreg ] 6.25 mg PO 0800,1800 Sacubitril/Valsartan [Entresto 49 mg-51 mg Tablet] 1 each PO 0800,1800 Cyanocobalamin (Vitamin B-12) [B-12] 1,000 mcg PO DAILY [place]-3/Dha/Epa/Fish Oil [[place] 3 500 Softgel] 520 mcg PO DAILY Esomeprazole Magnesium [Nexium] 40 mg PO DAILY Calcium Carb/Vitamin D 500 mg* [Calcium 500MG W/Vit D Tablet] 1 tab PO DAILY Albuterol Sulfate [Albuterol Sulfate Hfa] 2 puffs IH TID PRN PRN Reason: WHEEZES Escitalopram Oxalate [Lexapro] 20 mg PO DAILY Budesonide/Formoterol Fumarate [Budesonide-Formoterol 160-4.5] 1 puff IH DAILY Aspirin 81 gm Chew [Baby Aspirin 81 mg Chew] 81 mg PO DAILY Furosemide 40 mg [Lasix 40 MG] 40 mg PO DAILY #30 tablet Changed Potassium Chloride 20 meq PO BID 7 Days #14 tablet Instructions: Hemorrhoids, Gastrointestinal Bleeding Follow up with: LESTER FRAUSTO MD [Primary Care Provider] -
[2023-03-12 12:22] LABS: Hematocrit 28.4 % (35-47); Hemoglobin 9.4 g/dL (12.0-16.0); Mean Cell Volume 93.1 fL (78-100); Mean Corpuscular Hemoglobin 30.8 pg (26-32); Mean Corpuscular Hgb Concent. 33.1 g/dL (32-36); Mean Platelet Volume 12.3 fL (7.5-11.0); Platelet Count 107 x10^3/uL (150-450); Red Blood Count 3.05 x10^6/uL (4.1-5.4); Red Cell Distribution Width 14.9 % (11.5-14.0)
[2023-03-12 16:25] VITALS: BP 119/65; PULSE 72; TEMP 97.7; O2SAT 98
== END 2023-03-12 18:11 | disposition home or self-care (01) ==
LOC: ED 15:20 → MED SURG 21:48
PROVIDERS: ADMIT Internal Medicine; ATTEND Internal Medicine
DX: E87.6 Hypokalemia (principal); D50.0 Iron deficiency anemia secondary to blood loss (chronic); J44.9 Chronic obstructive pulmonary disease, unspecified; K92.2 Gastrointestinal hemorrhage, unspecified; I50.20 Unspecified systolic (congestive) heart failure; E83.42 Hypomagnesemia; N39.0 Urinary tract infection, site not specified; K64.8 Other hemorrhoids; Z79.899 Other long term (current) drug therapy; Z20.828 Contact with and (suspected) exposure to other viral communicable diseases
CPT/HCPCS: 36410; 36415; 36430; 43235; 45378; 80048; 80053; 81001; 83735; 84132; 85014; 85018; 85025; 85027; 85610; 85730; 86850; 86900; 86901; 86922; 87077; 87086; 87186; 94640; 94760; 96374; 99285; G0328; P9016; P9612; Q3014; 82274; 93268; J0696; J2405; J2704; J3480; A9270-GY; G0378; J3475

== ENCOUNTER 2023-05-03 13:28 | Emergency (ER) | payer MEDICARE ==
--- NOTE | 2023-05-03 13:33 | ERPHSYRPT ---
- History of Present Illness Time Seen by Provider: 05/03/23 13:33 Source: patient Exam Limitations: no limitations Physician History: This is a 77-year-old white female patient of primary care physician Dr. 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 Patient states she always has shortness of breath. She denies chest pain. 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 Patient denies cough. She has not had a fever. Patient's oxygen saturation on 2 L here in the emergency department is 97 to 99%. She has no abdominal pain. She has no nausea vomiting or diarrhea symptoms. Timing/Duration: today Activities at Onset: none Severity of Dyspnea-Max: mild Severity of Dyspnea-Current: none Possible Cause: frequent episodes (To moderate is typical for her) Modifying Factors: Improves With: deep breath (Feels as though she cannot take a deep breath) Associated Symptoms: No chest pain/discomfort Allergies/Adverse Reactions: clarithromycin [From Biaxin] Allergy (Verified 05/03/23 13:31) Home Medications: Carvedilol [Coreg ] 6.25 mg PO 0800,1800 07/21/14 [History] Sacubitril/Valsartan [Entresto 49 mg-51 mg Tablet] 1 each PO 0800,1800 01/10/19 [History] Cyanocobalamin (Vitamin B-12) [B-12] 1,000 mcg PO DAILY 01/21/19 [History] [place]-3/Dha/Epa/Fish Oil [[place] 3 500 Softgel] 520 mcg PO DAILY 01/21/19 [History] Esomeprazole Magnesium [Nexium] 40 mg PO DAILY 01/22/19 [History] Calcium Carb/Vitamin D 500 mg* [Calcium 500MG W/Vit D Tablet] 1 tab PO DAILY 08/13/22 [History] Albuterol Sulfate [Albuterol Sulfate Hfa] 2 puffs IH TID PRN 02/09/23 [History] Aspirin 81 gm Chew [Baby Aspirin 81 mg Chew] 81 mg PO DAILY 02/09/23 [History] Budesonide/Formoterol Fumarate [Budesonide-Formoterol 160-4.5] 1 puff IH DAILY 02/09/23 [History] Escitalopram Oxalate [Lexapro] 20 mg PO DAILY 02/09/23 [History] Hx Tetanus, Diphtheria Vaccination/Date Given: Yes Hx Influenza Vaccination/Date Given: No Hx Pneumococcal Vaccination/Date Given: No Travel Risk - International Travel Have you traveled outside of the country in past 3 weeks: No - Coronavirus Screening Are you exhibiting any of the following symptoms?: Yes Symptoms: Shortness of Breath Close contact with a COVID-19 positive Pt in past 14-21 Days: Yes - Vaccine Status Have you recieved a Covid-19 vaccination: Yes 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: [employer] - Vaccination Dates Date of 2cond Vaccination (if applicable): unknown Dates if Unknown: unknown - Review of Systems Constitutional: No Symptoms Eyes: No Symptoms Ears, Nose, & Throat: No Symptoms Respiratory: Other (Feels as though she cannot take a deep breath) Cardiac: No Symptoms Abdominal/Gastrointestinal: No Symptoms Genitourinary Symptoms: No Symptoms Musculoskeletal: No Symptoms Skin: No Symptoms Neurological: No Symptoms Psychological: No Symptoms Endocrine: No Symptoms Hematologic/Lymphatic: No Symptoms Immunological/Allergic: No Symptoms All Other Systems: Reviewed and Negative - Past Medical History Pertinent Past Medical History: Yes Neurological History: No Pertinent History ENT History: Cataracts Cardiac History: Arrhythmia, Congestive Heart Failure, Coronary Artery Disease Respiratory History: Bronchitis, CHF, COPD, Pneumonia Endocrine Medical History: Hypothyroidism Musculoskeletal History: Arthritis, Osteoarthritis GI Medical History: GERD Psycho-Social History: Anxiety Female Reproductive Disorders: No Pertinent History Other Medical History: Hard of hearing; left hearing aid at home - Past Surgical History Past Surgical History: Yes Neuro Surgical History: No Pertinent History Cardiac: No Pertinent History Respiratory: No Pertinent History Gastrointestinal: No Pertinent History Genitourinary: No Pertinent History Musculoskeletal: No Pertinent History Female Surgical History: Hysterectomy - Social History Smoking Status: Never smoker Exposure to second hand smoke: No Drug Use: none Patient Lives Alone: No (lives with daughter) Significant Family History: no pertinent family hx - Nursing Vital Signs Nursing Vital Signs: Initial Vital Signs Pulse Rate 87 05/03/23 13:24 Respiratory Rate 21 05/03/23 13:24 Blood Pressure 106/70 05/03/23 13:24 O2 Sat by Pulse Oximetry 97 05/03/23 13:24 Pain Scale Pain Intensity 0 - Physical Exam General Appearance: no apparent distress, alert, anxiety Eye Exam: PERRL/EOMI, eyes nml inspection Ears, Nose, Throat Exam: hearing grossly normal, normal ENT inspection, normal pharynx Neck Exam: normal inspection, non-tender, supple, full range of motion Respiratory Exam: normal breath sounds, lungs clear, airway intact, No chest tenderness, No respiratory distress Cardiovascular/Chest Exam: normal heart sounds, regular rate/rhythm Abdominal/Gastrointestinal Exam: soft, normal bowel sounds, No tenderness Rectal Exam: not done Extremity Exam: non-tender, normal range of motion, normal inspection, normal capillary refill, no calf tenderness, no pedal edema Neurologic Exam: alert, oriented x 3, cooperative, toys and games hand finisher II-XII nml as tested, normal mood/affect Skin Exam: normal color, warm, dry Lymphatic Exam: adenopathy SpO2 Interpretation: normal O2 Delivery: Nasal Cannula (2 L oxygen) - Course Nursing assessment & vital signs reviewed: Yes EKG Interpreted by Me: RATE (91), Other (Ventricular paced complexes sinus rhythm. No acute ischemic changes on today's twelve-lead EKG.) Ordered Tests: Active Orders 24 hr Category Date Time Status It Infrastructure Manager STAT Care 05/03/23 13:34 Active EKG-ER Only STAT Care 05/03/23 13:33 Active IV Insertion STAT Care 05/03/23 13:33 Active Pulse Oximetry (ED) STAT Care 05/03/23 13:33 Active CHEST 1 VIEW (PORTABLE) Stat Exams 05/03/23 13:34 Completed BLOOD CULTURE Stat Lab 05/03/23 14:00 Received CBC W DIFF Stat Lab 05/03/23 14:00 Completed CMP Stat Lab 05/03/23 14:00 Completed NT PRO BNPII Stat Lab 05/03/23 14:00 Completed TROPONIN Q4H Lab 05/03/23 13:57 Completed TROPONIN Q4H Lab 05/03/23 17:45 Ordered TROPONIN Q4H Lab 05/03/23 21:45 Ordered Medication Summary Discontinued Medications Generic Name Dose Route Start Last Admin Trade Name Freq PRN Reason Stop Dose Admin Hydrocodone Bitart/Acetaminophen 5 ml 05/03/23 14:58 05/03/23 15:43 Hydrocodone/Acetaminophen 5 Ml Udcup PO 05/03/23 14:59 5 ml STAT STA Administration Hydrocodone Bitart/Acetaminophen Confirm 05/03/23 15:12 Hydrocodone/Acetaminophen 5 Ml Udcup Administered 05/03/23 15:13 Dose 5 ml .ROUTE .STK-MED ONE Furosemide 40 mg 05/03/23 14:59 05/03/23 15:44 Furosemide 20 Mg Tablet PO 05/03/23 15:00 40 mg STAT ONE Administration Lab/Rad Data: Laboratory Result Diagrams 05/03/23 14:00 05/03/23 14:00 Laboratory Results 05/03/23 05/03/23 05/03/23 Range/Units 14:00 14:00 14:00 WBC 7.0 (4.0-10.5) x10^3/uL RBC 3.38 L (4.1-5.4) x10^6/uL Hgb 10.0 L (12.0-16.0) g/dL Hct 31.8 L (35-47) % MCV 94.1 (78-100) fL MCH 29.6 (26-32) pg MCHC 31.4 L (32-36) g/dL RDW 15.0 H (11.5-14.0) % Plt Count 177 (150-450) x10^3/uL MPV 12.8 H (7.5-11.0) fL Gran % 82.8 H (36.0-66.0) % Immature Gran % (Auto) 0.3 (0.00-0.4) % Nucleat RBC Rel Count 0.0 (0.00-0.1) % Eos # (Auto) 0.05 (0-0.5) x10^3/uL Immature Gran # (Auto) 0.02 (0.00-0.03) x10^3u/L Absolute Lymphs (auto) 0.71 L (1.0-4.6) x10^3/uL Absolute Monos (auto) 0.37 (0.0-1.3) x10^3/uL Absolute Nucleated RBC 0.00 (0.00-0.01) x10^3u/L Lymphocytes % 10.2 L (24.0-44.0) % Monocytes % 5.3 (0.0-12.0) % Eosinophils % 0.7 (0.00-5.0) % Basophils % 0.7 (0.0-0.4) % Absolute Granulocytes 5.75 (1.4-6.9) x10^3/uL Basophils # 0.05 (0-0.4) x10^3/uL Sodium 137 (137-145) mmol/L Potassium 3.9 (3.5-5.1) mmol/L Chloride 101 (98-107) mmol/L Carbon Dioxide 29 (22-30) mmol/L Anion Gap 11.9 (5-15) MEQ/L BUN 16 (7-17) mg/dL Creatinine 0.66 (0.52-1.04) mg/dL Estimated GFR > 60.0 ML/MIN Glucose 118 H (74-106) mg/dL Calcium 8.5 (8.4-10.2) mg/dL Total Bilirubin 0.70 (0.2-1.3) mg/dL AST 22 (14-36) U/L ALT 20 (0-35) U/L Alkaline Phosphatase 65 (38-126) U/L Troponin I (0.000-0.034) ng/mL NT-Pro-B Natriuret Pep 61908 (<300) pg/mL Serum Total Protein 6.4 (6.3-8.2) g/dL Albumin 3.5 (3.5-5.0) g/dL Influenza Type A Ag NEGATIVE (NEGATIVE) Influenza Type B Ag NEGATIVE (NEGATIVE) RSV (PCR) NEGATIVE (NEGATIVE) SARS-CoV-2 (PCR) NEGATIVE (NEGATIVE) 05/03/23 Range/Units 13:57 WBC (4.0-10.5) x10^3/uL RBC (4.1-5.4) x10^6/uL Hgb (12.0-16.0) g/dL Hct (35-47) % MCV (78-100) fL MCH (26-32) pg MCHC (32-36) g/dL RDW (11.5-14.0) % Plt Count (150-450) x10^3/uL MPV (7.5-11.0) fL Gran % (36.0-66.0) % Immature Gran % (Auto) (0.00-0.4) % Nucleat RBC Rel Count (0.00-0.1) % Eos # (Auto) (0-0.5) x10^3/uL Immature Gran # (Auto) (0.00-0.03) x10^3u/L Absolute Lymphs (auto) (1.0-4.6) x10^3/uL Absolute Monos (auto) (0.0-1.3) x10^3/uL Absolute Nucleated RBC (0.00-0.01) x10^3u/L Lymphocytes % (24.0-44.0) % Monocytes % (0.0-12.0) % Eosinophils % (0.00-5.0) % Basophils % (0.0-0.4) % Absolute Granulocytes (1.4-6.9) x10^3/uL Basophils # (0-0.4) x10^3/uL Sodium (137-145) mmol/L Potassium (3.5-5.1) mmol/L Chloride (98-107) mmol/L Carbon Dioxide (22-30) mmol/L Anion Gap (5-15) MEQ/L BUN (7-17) mg/dL Creatinine (0.52-1.04) mg/dL Estimated GFR ML/MIN Glucose (74-106) mg/dL Calcium (8.4-10.2) mg/dL Total Bilirubin (0.2-1.3) mg/dL AST (14-36) U/L ALT (0-35) U/L Alkaline Phosphatase (38-126) U/L Troponin I 0.057 H* (0.000-0.034) ng/mL NT-Pro-B Natriuret Pep (<300) pg/mL Serum Total Protein (6.3-8.2) g/dL Albumin (3.5-5.0) g/dL Influenza Type A Ag (NEGATIVE) Influenza Type B Ag (NEGATIVE) RSV (PCR) (NEGATIVE) SARS-CoV-2 (PCR) (NEGATIVE) - Progress Progress: re-examined, unchanged Air Movement: good Progress Note: 05/03/23 14:31 This patient's medical issue is 1 of moderate complexity. Level complexity in the work-up performed is based on review of the patient's past medical history, review of the patient's medication list, review the patient's drug allergy list, history of present illness and physical findings on examination. The work-up in this patient includes a chest x-ray, CBC, CMP, BNP, troponin level, and twelve-lead EKG. Chest x-ray was interpreted by the radiologist and I reviewed the impression. Patient has evidence of cardiomegaly. There is pulmonary edema present. Effusions are worse when compared to prior chest x-rays. She wills worsening bibasilar pleural effusions. Superimposed pneumonia not excluded. 05/03/23 14:59 Patient states that she is having a sore throat. We will give her low-dose hydrocodone for this sore throat pain. 05/03/23 15:40 All 3 of our emergency department nurses attempted peripheral IV line placement in this patient. They were unsuccessful. I have already spoken to her about placing a central line. She is debating at this time. 05/03/23 15:49 I had explained to this patient the process of central line placement prior to the last nurses attempting peripheral IV line placement. I then showed the patient the actual process in terms of positioning of the patient and the Tr endelenburg position she in the bed would be in to perform the procedure. The patient states there is no way she can tolerate that procedure. Patient desires to leave AGAINST MEDICAL ADVICE. I explained to her the importance of a full work-up and the need for venous line access. She understands that her shortness of breath can worsen and she may have a myocardial infarction in process/progress. Patient denies chest pain at this time. Patient voices an understanding of the risk to her if she leaves AGAINST MEDICAL ADVICE and the benefits of having the venous line access and in-hospital management. She does not want to be transferred to another facility. I spoke with patient's primary care physician, Dr. Frausto, and advised him of what the situation is. He will attempt to get her in to be seen at his office tomorrow, 05/04/2023. If not it will be as soon as possible. He is aware I am writing a prescription for Lasix. 05/03/23 15:59 Blood Culture(s) Obtained: Yes Counseled pt/family regarding: lab results, diagnosis, need for follow-up, rad results Medical Desision Making - Diagnostic Testing Diagnostic test were ordered, analyzed, and reviewed by me: Yes Radiological Interpretation: Reviewed by me, Teleradiologist Report - Risk of complications The pt has a mod risk of morbidity or mortality based on: Need for prescription drug management - Departure Departure Disposition: AMA Clinical Impression: Elevated troponin, CHF exacerbation Condition: Fair Critical Care Time: No Referrals: LESTER FRAUSTO MD [Primary Care Provider] - Follow up/PCP as directed Instructions: Heart Failure Additional Instructions: Call your primary care doctor's office today, 05/03/2023 to make arrangements for an appointment for tomorrow, 05/04/2023. Take your Lasix prescription as prescribed. Prescriptions: Furosemide 40 mg [Lasix 40 MG] 40 mg PO BID #8 tablet
[2023-05-03 13:47] VITALS: TEMP 98.8
--- NOTE | 2023-05-03 14:01 | XRAY ---
Indication: Short of breath. Comparison: February 09, 2023 Portable chest again demonstrates cardiomegaly, central vascular congestion, pulmonary edema, with worsening moderate bibasilar effusions/atelectasis again favoring cardiac decompensation/CHF. Superimposed pneumonia not completely excluded.
[2023-05-03 14:10] LABS: Absolute Neutrophil Ct (ANC) 5.75 x10^3/uL (1.4-6.9); BASOPHIL % 0.7 % (0.0-0.4); Basophil (Absolute #) 0.05 x10^3/uL (0-0.4); Eosinophil % 0.7 % (0.00-5.0); Eosinophil (Absolute #) 0.05 x10^3/uL (0-0.5); Hematocrit 31.8 % (35-47); IMMATURE GRAN # 0.02 x10^3u/L (0.00-0.03); IMMATURE GRAN % 0.3 % (0.00-0.4); Lymphocyte (Absolute #) 0.71 x10^3/uL (1.0-4.6); Lymphocytes % 10.2 % (24.0-44.0); Mean Cell Volume 94.1 fL (78-100); Mean Corpuscular Hemoglobin 29.6 pg (26-32); Mean Corpuscular Hgb Concent. 31.4 g/dL (32-36); Mean Platelet Volume 12.8 fL (7.5-11.0); Monocyte (Absolute #) 0.37 x10^3/uL (0.0-1.3); Monocytes % 5.3 % (0.0-12.0); Neutrophil % 82.8 % (36.0-66.0); Platelet Count 177 x10^3/uL (150-450); Red Blood Count 3.38 x10^6/uL (4.1-5.4)
[2023-05-03 14:33] VITALS: O2SAT 96
[2023-05-03 14:53] LABS: INFLUENZA A NEGATIVE (NEGATIVE); INFLUENZA B NEGATIVE (NEGATIVE); RESPIRATORY SYNCTIAL VIRUS NEGATIVE (NEGATIVE); SARS-CoV-2 Xpert Express NEGATIVE (NEGATIVE)
[2023-05-03 14:56] LABS: ALBUMIN 3.5 g/dL (3.5-5.0); ALKALINE PHOSPHATASE 65 U/L (38-126); ANION GAP 11.9 MEQ/L (5-15); BLOOD UREA NITROGEN 16 mg/dL (7-17); CHLORIDE 101 mmol/L (98-107); Calcium 8.5 mg/dL (8.4-10.2); Carbon Dioxide 29 mmol/L (22-30); Creatinine 1 0.66 mg/dL (0.52-1.04); EST GLOMERULAR FILTRATION RATE > 60.0 ML/MIN; Glucose 118 mg/dL (74-106); NT PRO BNPII 30200 pg/mL (<300); Potassium 3.9 mmol/L (3.5-5.1); SGOT/AST 22 U/L (14-36); SGPT/ALT 20 U/L (0-35); SODIUM 137 mmol/L (137-145); Total Protein 6.4 g/dL (6.3-8.2)
[2023-05-03] MEDS ORDERED: HYDROCODONE-ACETAMIN 2.5-108/5 ML SOLUTION PO STA (14:58)
[2023-05-03] MEDS ORDERED: LASIX 20 MG PO ONE (14:59)
[2023-05-03] MEDS ORDERED: HYDROCODONE-ACETAMIN 2.5-108/5 ML SOLUTION ONE (15:12)
[2023-05-03 15:54] VITALS: BP 144/86; PULSE 88; RESP 21
== END 2023-05-03 16:09 | disposition left against medical advice (07) ==
LOC: ED 13:28
DX: R79.89 Other specified abnormal findings of blood chemistry (principal); I11.0 Hypertensive heart disease with heart failure; I50.9 Heart failure, unspecified; R06.02 Shortness of breath; J02.9 Acute pharyngitis, unspecified; Z79.891 Long term (current) use of opiate analgesic; Z79.899 Other long term (current) drug therapy; Z99.81 Dependence on supplemental oxygen
CPT/HCPCS: 0241U; 36415; 71045; 80053; 83880; 84484; 85025; 87040; 93005; 93041; 94760; 99284; A9270-GY